=== PATIENT | female | born 1980 | race Caucasian/White ===

== ENCOUNTER 2022-06-21 16:31 | Outpatient (CLI) | payer BC, SELFPAY ==
[2022-06-21 17:43] LABS: Albumin* 4.2 g/dL (3.3-5.0); Chloride* 101 mmol/L (96-114); Sodium* 135 mmol/L (135-149)
[2022-06-21 17:44] LABS: Potassium* 4.3 mmol/L (3.6-5.1)
[2022-06-21 17:45] LABS: Cholesterol* 161 mg/dL (90-199)
[2022-06-21 17:46] LABS: Alanine Aminotransferase* 16 U/L (4-35); Alkaline Phosphatase* 60 U/L (40-150); Aspartate Amino Transferase* 20 U/L (12-35); Bilirubin Total* 0.3 mg/dL (0.1-1.5); Blood Urea Nitrogen* 11 mg/dL (5-24); Calcium* 9.1 mg/dL (8.4-10.6); Carbon Dioxide* 29 mmol/L (20-32); Creatinine* 0.6 mg/dL (0.5-1.5); Estimated Glomerular Filt Rate 116 ml/min; Glucose* 59 mg/dL (60-115); HDL Cholesterol* 70 mg/dL (>=50); LDL Cholesterol Calculated 86 mg/dL (<100); Triglycerides* 27 mg/dL (40-149)
[2022-06-22 12:17] LABS: Iron* 98 ug/dL (37-170)
[2022-06-22 12:26] LABS: Percent Iron Saturation 30 % (20-50); Total Iron Binding Capacity 332 ug/dL (265-497)
[2022-06-22 13:07] LABS: Vitamin B12* 494 pg/mL (243-894)
[2022-06-23 17:19] LABS: Ferritin* 17.2 ng/mL (6.24-137.0)
== END 2022-06-21 16:32 | disposition home or self-care (01) ==
PROVIDERS: PCP Family Medicine; Visit Provider Family Medicine
DX: Z01.419 Encounter for gynecological examination (general) (routine) without abnormal findings (principal); R53.83 Other fatigue; E10.9 Type 1 diabetes mellitus without complications; Z13.6 Encounter for screening for cardiovascular disorders
CPT/HCPCS: 80053; 80061; 82607; 82728; 83516; 83540; 83550

== ENCOUNTER 2022-06-21 17:46 | Outpatient (REF) | payer BC, SELFPAY ==
[2022-06-21 18:51] LABS: Creatinine Urine 23.3 mg/dL
[2022-06-21 18:56] LABS: Microalbumin Creatinine Ratio 40 mg/g (0-30); Microalbumin Urine < 1 mg/dL
== END 2022-06-21 17:47 | disposition home or self-care (01) ==
LOC: NPINS 17:46
PROVIDERS: PCP Family Medicine
DX: Z01.419 Encounter for gynecological examination (general) (routine) without abnormal findings (principal)
CPT/HCPCS: 82043; 82570; 84443

== ENCOUNTER 2022-09-23 07:42 | Outpatient (CLI) | payer BC, SELFPAY ==
--- OUTSIDE RECORDS SUMMARY | 2022-09-23 07:45 | XMS_ITS | Encounter Summary ---
:1980 Author Organization [place] Address [address] [place] [address] Care Team Providers Name Role Phone Mariela Salas LPN Primary Care Provider Unavailable Reason for Referral - Closed Specialty Diagnoses / Procedures Referred By Contact Refer red To Contact Cardiology Diagnoses related condition, antepartum Katy Peres MD [facility] Procedures Echo Complete-[facility] Cardiology [address] [phone] [address] [place] [address] Fax: Referral ID Status Reason Start Date Expiration Date Visits Requ ested Visits Authorized [id number] Closed 06/07/2018 06/07/2019 1 1 Reason for Visit - Closed Specialty Diagnoses / Procedures Referred By Contact Refer red To Contact Cardiology Diagnoses related condition, antepartum Katy Peres MD [facility] Procedures Echo Complete-[address] [id number] [address] [place] [address] Fax: Referral ID Status Reason Start Date Expiration Date Visits Requ ested Visits Authorized [id number] Closed 06/07/2018 06/07/2019 1 1 Encounter Details Date Type Department Care Team Description 07/25/2018 Hospital Encounter [facility] Echo/EKG Katy Peres MD [facility] [address] [place] [address] related [address] [facility] Urmfmusfet condition, [place] [address] antepart um Social History Tobacco Use Types Packs/Day Years Used Date Smoking Tobacco: Never Assessed Sex Assigned at Date Recorded Not on file documented as of this encounter Consult Notes Radha Johnson MD - 07/25/2018 10:43 AM CDT [facility] Consult Note Patient: Karin Montez Date of : 1980 Age: [age] year old Date of Visit: 07/25/2018 PCP: Mariela Salas LPN Dear Dr. Peres: I had the pleasure of seeing Karin Montez at the [facility] on 07/25/2018 in cardiology consultation today. She presented today accompanied by her mother. As you know, she is a38 year old at 20w6d who presented for echocardiogram today because of type 1 diabetes I performed and interpreted the echocardiogram today, which demonstrated normal cardiac anatomy, ventricular size and systolic function as well as normal heart rate and rhythm. I reviewed normal cardiac anatomy and hemodynamics with the family. The normal findings on today's exam were discussed. The routine limitations of echocardiography were also reviewed, namely the inability to rule out small defects of the atrial or ventricular septum, coarctation of the aorta, minor valve abnormalities, or partial anomalous pulmonary venous return. No additional echocardiograms required, unless new concerns arise. I appreciate the opportunity of participating in Karin Montez 's care. This visit was separate from the performance and interpretation of the ultrasound. The majority of the time (>50%) was spent in counseling and coordination of care. I spent approximately 20 minutes in gtqn-or-xnnk time reviewing the above considerations. Radha Sanchez MD [facility] Pediatric Cardiology [facility], 5th floor, [facility] [address] Pager # [phone] documented in this encounter Plan of Treatment Not on filedocumented as of this encounter Procedures Procedure Name Priority Date/Time Associated Diagnosis Comme nts ECHO Routine 07/25/2018 11:20 AM related Res ults for this COMPLETE* CDT condition, procedure are i n antepartum the results section. documented in this encounter Results Echo Complete-Peds Cardiology (07/25/2018 11:20 AM CDT) Anatomical Region Laterality Modality Ultrasound Specimen (Source) Anatomical Collection Method Collection Time Re ceived Time Location / / Volume Laterality 07/25/2018 10:56 AM CDT Narrative 07/25/2018 12:18 PM CDT [id number] ?Study ID: [id number] ?[facility] ?[facility] ?[address] ?[place] [address] ? Echocardiogram __ Name: KARIN MONTEZ Study Date: 07/25/2018 10:56 AM ? Patient Location: [facility] Gender: Female ?Patient Class: Outpatient : 1980 ? Age: 38 yrs Ordering Provider: KATY PERES Referring Provider: KATY PERES Performed By: Genny Ramon RDCS Reading Physician: Bebo Cuello Reason For Study: , related co ndition, antepartum Data: Number of fetuses: This is a iglesias gestation. Due date: 12/06/2018. Gestational age: 20w6d. Deli very at: [place]. Specific Indication: echocar diogram performed for maternal type 1 diabetes. Mother on insulin therapy. __ CONCLUSIONS Normal cardiac anatomy. Normal rig ht and left ventricular size and function. heart rate is regular at 143 bpm. No hydrops. The results of the echocardiogram were explained to the patient. She is aware that the study was within normal l imits with no major cardiac abnormalities. She is aware of the gener al limitations of echocardiography. __ Technical Information: The study quality is good. A complete tw o dimensional, spectral and color Doppler echocardiogram is performe d. position and segmental anatomy: The fetus in vertex position. The heart is in left chest. The cardiac apex points towards the left. There is normal atrial arrangement, with concordant atrioventricular and ventriculoarterial connections. The abdominal aorta is to the left of the spine. There is a left s ided stomach. CT ratio (circumference): 0.52. Cardiac axis: 35 degrees. Systemic and pulmonary veins: The systemic venous return is normal. At least one right and one left pulmonary veins are seen returning to th e left atrium. Atria and atrial septum: Normal right atrial size. The left atriu m is normal in size. The flap of the foramen ovale opens in to the left atriu m. There is laminar xecif-yp-ncdm shunting across the foramen ovale. Atrioventricular valves: The tricuspid valve is normal in appeara nce and motion. There is no tricuspid insufficiency. The mitral valve is danyelle l in appearance and motion. There is no mitral valve insufficiency. Ventricles and ventricular septum: Normal right ventricular size. Normal ri ght ventricular systolic function. Normal left ventricular size. Normal lef t ventricular systolic function. The end-diastolic ventricular septum thickne ss by MMODE is 2 mm. No obvious ventricular level shunting. Outflows tracts: Normal great artery relationship. The ri ght ventricular outflow tract is normal in caliber. The pulmonary valve h as normal appearance and motion. There is normal flow across the pulmonary valv e. There is unobstructed flow through the left ventricular outflow tract. The aortic valve has normal appearance and motion. There is normal flow across the aortic valve. Great arteries: The main pulmonary artery has normal adis earance. There is unobstructed flow in the main pulmonary artery. The pulmonary artery bifurcation is normal. There is unobstructed flow in both branch pulm onary arteries. The ductus arteriosus has normal appearance with normal antegr kavin flow. There is unobstructed antegrade flow in the ascending aorta. T he aortic arch appears normal. There is unobstructed antegrade flow in the ao rtic arch. Effusions and extracardiac findings: No pericardial effusion. No hydrops. cardiac rhythm: heart rate is regular at 143 bpm. Doppler: There is normal flow in the ductus venos us, umbilical artery and umbilical vein. biometry: Biparietal diameter: 4.87 cm. Head circumference: 18.36 cm. Abdominal circumference: 15.11 cm. Femur length: 3.18 cm. Estimated weight: 339 grams. echocardiography cannot rule out s mall atrial or ventricular septal defects, persistent ductus arteriosus, m ild coarctation of the aorta, partial anomalous pulmonary venous return, minor anatomic valve anomalies or coronary artery anomalies. Doppler Measurements & Calculations MV E max jayme: 32.1 cm/sec ? Ao V2 max: 52.9 cm/sec MV A max jayme: 47.9 cm/sec ? Ao max P.1 mmHg MV E/A: 0.67 PDA max sys jayme: 59.1 cm/sec __ Reading Physician: ?Radha Sanchez MD 07/25/2018 12:18 PM Procedure Note Radha Johnson MD - [id number] Study ID: [id number] [facility] [address] [address] Echocardiogram __ Name: KARIN MONTEZ Study Date: 07/25/2018 10:56 AM Patient Location: [facility] Gender: Female Patient Class: Outpatient : 1980 Age: 38 yrs Ordering Provider: KATY PERES Referring Provider: KATY PERES Performed By: Genny Ramon RDCS Reading Physician: Bebo Cuello Reason For Study: , related co ndition, antepartum Data: Number of fetuses: This is a iglesias gestation. Due date: 12/06/2018. Gestational age: 20w6d. Deli very at: [place]. Specific Indication: echocar diogram performed for maternal type 1 diabetes. Mother on insulin therapy. __ CONCLUSIONS Normal cardiac anatomy. Normal rig ht and left ventricular size and function. heart rate is regular at 143 bpm. No hydrops. The results of the echocardiogram were explained to the patient. She is aware that the study was within normal l imits with no major cardiac abnormalities. She is aware of the gener al limitations of echocardiography. __ Technical Information: The study quality is good. A complete tw o dimensional, spectral and color Doppler echocardiogram is performe d. position and segmental anatomy: The fetus in vertex position. The heart is in left chest. The cardiac apex points towards the left. There is normal atrial arrangement, with concordant atrioventricular and ventriculoarterial connections. The abdominal aorta is to the left of the spine. There is a left s ided stomach. CT ratio (circumference): 0.52. Cardiac axis: 35 degrees. Systemic and pulmonary veins: The systemic venous return is normal. At least one right and one left pulmonary veins are seen returning to th e left atrium. Atria and atrial septum: Normal right atrial size. The left atriu m is normal in size. The flap of the foramen ovale opens in to the left atriu m. There is laminar eqgej-ow-mwch shunting across the foramen ovale. Atrioventricular valves: The tricuspid valve is normal in appeara nce and motion. There is no tricuspid insufficiency. The mitral valve is danyelle l in appearance and motion. There is no mitral valve insufficiency. Ventricles and ventricular septum: Normal right ventricular size. Normal ri ght ventricular systolic function. Normal left ventricular size. Normal lef t ventricular systolic function. The end-diastolic ventricular septum thickne ss by MMODE is 2 mm. No obvious ventricular level shunting. Outflows tracts: Normal great artery relationship. The ri ght ventricular outflow tract is normal in caliber. The pulmonary valve h as normal appearance and motion. There is normal flow across the pulmonary valv e. There is unobstructed flow through the left ventricular outflow tract. The aortic valve has normal appearance and motion. There is normal flow across the aortic valve. Great arteries: The main pulmonary artery has normal adis earance. There is unobstructed flow in the main pulmonary artery. The pulmonary artery bifurcation is normal. There is unobstructed flow in both branch pulm onary arteries. The ductus arteriosus has normal appearance with normal antegr kavin flow. There is unobstructed antegrade flow in the ascending aorta. T he aortic arch appears normal. There is unobstructed antegrade flow in the ao rtic arch. Effusions and extracardiac findings: No pericardial effusion. No hydrops. cardiac rhythm: heart rate is regular at 143 bpm. Doppler: There is normal flow in the ductus venos us, umbilical artery and umbilical vein. biometry: Biparietal diameter: 4.87 cm. Head circumference: 18.36 cm. Abdominal circumference: 15.11 cm. Femur length: 3.18 cm. Estimated weight: 339 grams. echocardiography cannot rule out s mall atrial or ventricular septal defects, persistent ductus arteriosus, m ild coarctation of the aorta, partial anomalous pulmonary venous return, minor anatomic valve anomalies or coronary artery anomalies. Doppler Measurements & Calculations MV E max jayme: 32.1 cm/sec Ao V2 max: 52. 9 cm/sec MV A max jayme: 47.9 cm/sec Ao max P.1 mmHg MV E/A: 0.67 PDA max sys jayme: 59.1 cm/sec __ Reading Physician: Radha Cotton MD 07/25/2018 12:18 PM Katy Peres MD [facility] ECHO ORDERABLES documented in this encounter Visit Diagnoses Diagnosis related condition, antepartum documented in this encounter Care Teams Trade Show Coordinator Relationship Specialty Start Date End Date Mariela Salas LPN PCP - General 06/25/18 documented as of this encounter
--- OUTSIDE RECORDS SUMMARY | 2022-09-23 07:45 | XMS_ITS | Encounter Summary ---
:1980 Author Organization [place] Address [address] [facility] [address] Care Team Providers Name Role Phone Mariela Salas LPN Primary Care Provider Unavailable Reason for Visit Reason Comments Consult GC, Radiologic MFM- type 1 D M, positive AFP Ultrasound comp u/s- type 1 DM, positiv e AFP Encounter Details Date Type Department Care Team Description 07/06/2018 PRE VISIT [facility] Kennedi Nino, Cons ult (GC, Radiologic Maternal Medicine RN MFM- type 1 DM, [facility] positive AFP); [address] Ultrasound (comp u/s- [place], [place] [address] type 1 DM, positive [phone] AFP) Social History Tobacco Use Types Packs/Day Years Used Date Smoking Tobacco: Never Assessed Sex Assigned at Date Recorded Not on file documented as of this encounter Plan of Treatment Not on filedocumented as of this encounter Visit Diagnoses Not on filedocumented in this encounter Care Teams Seater Assembler Relationship Specialty Start Date End Date Mariela Salas LPN PCP - General 06/25/18 documented as of this encounter
--- OUTSIDE RECORDS SUMMARY | 2022-09-23 07:45 | XMS_ITS | Encounter Summary ---
:1980 Author Organization [place] Address [facility] [place] [address] Care Team Providers Name Role Phone Mariela Salas LPN Primary Care Provider Unavailable Justino Reilly MD Unavailable [phone] Encounter Details Date Type Department Care Team Description 05/31/2018 Orders Only [facility] Katy Mcqueen MD related Maternal FAMILY HEALTH condition, a epartum Medicine [facility] (Primary Dx) [place] [address] [facility] [address] [place], [place] [phone] Social History Tobacco Use Types Packs/Day Years Used Date Smoking Tobacco: Never Assessed Sex Assigned at Date Recorded Not on file documented as of this encounter Plan of Treatment Not on filedocumented as of this encounter Visit Diagnoses Diagnosis related condition, antepartum - Primary documented in this encounter Care Teams Box Liner Relationship Specialty Start Date End Date Mariela Salas LPN PCP - General 06/25/18 Justino Reilly MD Assigned Surgical Provider 09/11/20 2 [address] [place] [address] documented as of this encounter
--- OUTSIDE RECORDS SUMMARY | 2022-09-23 07:45 | XMS_ITS | Encounter Summary ---
:1980 Author Organization [place] Address [address] [place] [address] Care Team Providers Name Role Phone Mariela Salas LPN Primary Care Provider Unavailable Encounter Details Date Type Department Care Team Description 07/22/2020 Travel Social History Tobacco Use Types Packs/Day Years Used Date Smoking Tobacco: Never Assessed Sex Assigned at Date Recorded Not on file COVID-19 Exposure Response Date Recorded In the last month, have you been in contact with No / Unsure 07/22/2020 4:05 PM CDT someone who was confirmed or suspected to have Coronavirus / COVID-19? documented as of this encounter Plan of Treatment Not on filedocumented as of this encounter Visit Diagnoses Not on filedocumented in this encounter Care Teams Stem Sizer Relationship Specialty Start Date End Date Mariela Salas LPN PCP - General 06/25/18 documented as of this encounter
--- OUTSIDE RECORDS SUMMARY | 2022-09-23 07:45 | XMS_ITS | Encounter Summary ---
:1980 Author Organization [facility] Address [address] [place] [address] Care Team Providers Name Role Phone Mariela Salas LPN Primary Care Provider Unavailable Justino Reilly MD Unavailable [phone] Reason for Referral - Closed Specialty Diagnoses / Procedures Referred By Contact Refer red To Contact Diagnoses related condition, antepartum Katy Peres MD [facility] [address] [place] [address] Fax: Referral ID Status Reason Start Date Expiration Date Visits Requ ested Visits Authorized [id number] Closed 06/22/2018 06/22/2019 1 1 - Closed Specialty Diagnoses / Procedures Referred By Contact Refer red To Contact Cardiology Diagnoses related condition, antepartum Katy Peres MD [facility] Procedures Echo Complete-Peds Cardiology [address] [phone] [address] [place] [address] Fax: Referral ID Status Reason Start Date Expiration Date Visits Requ ested Visits Authorized [id number] Closed 06/07/2018 06/07/2019 1 1 iagnostic Imaging Ultrasound - Closed Specialty Diagnoses / Procedures Referred By Contact Refer red To Contact Diagnoses related condition, antepartum Katy Peres MD Procedures [facility] US [facility] [address] [place] [address] Fax: Referral ID Status Reason Start Date Expiration Date Visits Requ ested Visits Authorized [id number] Closed 05/31/2018 05/31/2019 1 1 - Closed Specialty Diagnoses / Procedures Referred By Contact Refer red To Contact Diagnoses related condition, antepartum Katy Peres MD [address] [address] Fax: Referral ID Status Reason Start Date Expiration Date Visits Requ ested Visits Authorized [id number] Closed 05/31/2018 05/31/2019 1 1 Encounter Details Date Type Department Care Team Description 05/31/2018 Orders Only [facility] Katy Peres MD related Maternal [facility] condition, a epartum Medicine [facility] (Primary Dx) [place] [address] [place], [place] [phone] Social History Tobacco Use Types Packs/Day Years Used Date Smoking Tobacco: Never Assessed Sex Assigned at Date Recorded Not on file documented as of this encounter Plan of Treatment Scheduled Referrals Name Type Priority Associated Diagnoses Order S chedule MFM Office Visit Referral Routine related 1 Occu rrences starting condition, antepartum 2017 until 05/31/2019 MF Genetic Counseling Referral Routine related 1 Occurrences starting condition, antepartum 2017 until 06/22/2019 documented as of this encounter Results Echo Complete-Peds Cardiology (07/25/2018 11:20 AM CDT) Anatomical Region Laterality Modality Ultrasound Specimen (Source) Anatomical Collection Method Collection Time Re ceived Time Location / / Volume Laterality 07/25/2018 10:56 AM CDT Narrative 07/25/2018 12:18 PM CDT [id number]^LARISA^KATY^Werner ?Study ID: [id number] ?[facility] ?[facility] ?[address] ?[place] [address] ? Echocardiogram __ Name: KARIN MONTEZ Study Date: 07/25/2018 10:56 AM ? Patient Location: [facility] Gender: Female ?Patient Class: Outpatient : 1980 ? Age: 38 yrs Ordering Provider: KATY PERES Referring Provider: KATY EPRES Performed By: Genny Ramon RDCS Reading Physician: Bebo Cuello Reason For Study: , related co ndition, antepartum Data: Number of fetuses: This is a iglesias gestation. Due date: 12/06/2018. Gestational age: 20w6d. Deli very at: [facility]. Specific Indication: echocar diogram performed for maternal [...] the left atriu m. There is laminar prwzo-sf-nmeg shunting across the foramen ovale. Atrioventricular valves: [...] Procedure Note Radha Johnson MD - [id number]^LARISA^KATY^T Study ID: [id number] [facility] [place] [address] Echocardiogram __ Name: KARIN MONTEZ Study Date: 07/25/2018 10:56 AM Patient Location: [facility] Gender: Female Patient Class: Outpatient : 1980 Age: 38 yrs Ordering Provider: KATY PERES Referring Provider: KATY PERES Performed By: Genny Ramon RDCS Reading Physician: Bebo Cuello Reason For Study: , related co ndition, antepartum Data: Number of fetuses: This is a iglesias gestation. Due date: 12/06/2018. Gestational age: 20w6d. Deli very at: [facility]. Specific Indication: echocar diogram performed for maternal [...] the left atriu m. There is laminar obxfa-ld-xdzx shunting across the foramen ovale. Atrioventricular valves: [...] Katy Peres MD [facility] PEDS ECHO ORDERABLES [facility] US Comprehensive Single (07/09/2018 9:58 AM CDT) Anatomical Region Laterality Modality Ultrasound Specimen (Source) Anatomical Collection Method Collection Time Re ceived Time Location / / Volume Laterality 07/09/2018 8:54 AM CDT Impressions 07/09/2018 10:11 AM CDT IMPRESSION Sonographic biometry agrees with gestati onal age predicted by LMP. The anatomy was adequately visualized and appeared normal. None of the anomalies commonly detected by ultrasound were evident. No markers for aneuploidy seen. Narrative 07/09/2018 10:11 AM CDT Comprehensive Pat. Name: GIAKARIN CHAN Study Idris e: 07/09/2018 8:54am Pat. NO: [id number] Referring ??: ABRIL PERES Site: [facility] Methods Engineer: Tammy Echavarria RDMS : 1980 Age: 38 INDICATION Pre-gestational Diabetes Type 1-insulin pump, Abnormal multiple marker: elevated MSAFP. METHOD Transabdominal ultrasound examination. Iglesias . Number of fetuses: 1. DATING ? Date ?Details ?Gest. age ?RIGO LMP ?03/01/2018 ?Cycle: regular cycle ?18 w + 4 d ? 12/06/2018 External assessment ?6/20/2 018 ?CRL, GA: 9 w + 2 d ? 18 w + 0 d ? 12/10/2018 U/S ? 07/09/2018 ? based upon AC, BPD, Femur, HC ? 18 w + 2 d ? 12/08/2018 Assigned dating ?Dating performed on 07/09/2018, based on the LMP ?18 w + 4 d ? 12/06/2018 GENERAL EVALUATION Cardiac activity: present. FHR 159 bpm. movements: visualized. Presentation: cephalic. Placenta: Placental site: posterior, no previa. Umbilical cord: 3 vessel cord. Amniotic fluid: Amount of AF: normal wendy unt. MVP 4.3 cm. DANIEL 12.4 cm. Q1 2.0 cm, Q2 4.3 cm, Q3 3.3 cm, Q4 2.8 cm. BIOMETRY Main Biometry: BPD ? 41.1 ?mm ? 18w 3d ? Hadlock OFD ? 53.4 ?mm ? 17w 6d ? Nicolaides HC ?151.7 ?mm ?18w 1d ? Hadlock AC ?131.1 ?mm ?18w 4d ? Hadlock Femur ? 25.6 ?mm ?17w 5d ? Hadlock Cerebellum tr ? 18.2 ?mm ?18w 1d ? Nicolaides CM ? 4.0 ?mm ? Nuchal fold ?3.38 ?mm ? Humerus ? 25.7 ?mm ? 18w 0d ?Lindsay Weight Calculation: EFW ? 230 ? g ? EFW (lb,oz) ? 0 lb 8 ?oz Calculated by ?Hadlock (GHJ-OC-BP-FL) Head / Face / Neck Biometry: Stock Broker ?5.5 ?mm ? Nasal bone ?5.7 ?mm ? Amniotic Fluid / FHR: AF MVP ?4.3 ? cm ? DANIEL ? 12.4 ?cm ? FHR ?159 ? bpm ? ANATOMY The following structures appear normal: Head / Neck ? Cranium. Head size. Head shape. Lateral ventricles. Choroid plexus. Midline falx. Cavum septi pellucidi. Cerebellum. Cisterna magna. ? Thalami. ? Neck. Nuchal fold. Face ? Lips. Profile. Nose. Orbits. Heart / Thorax ?4-chamber view. RVOT. LVOT. Aortic arch. Bicaval view. Ductal arch. 3-vessel view. 9-fuuvvv-qmvzexz view. Cardiac position. Cardiac size. ? Cardiac rhythm. ? Diaphragm. Abdomen ? Abdominal wall. Cord insertion. Stomach. Kidneys. Bladder. Liver. Bowel. Spine / Skelet. ? Cervical spine. Thoracic spine. Lumbar spine. Sacral spine. Extremities ?Arms. Legs. Gender: male. MATERNAL STRUCTURES Uterus ? Fibroid(s): anterior. Size 11.0 mm x 8.7 mm x 10.8 mm. Mean 10.2 mm. Vol 0.541 cm?. Cervix ?Visualized, Appears Closed. ? Approach - Transabdominal: Cervical length 45.0 mm. Right Ovary ?Not visualized. Left Ovary ?Visualized. RECOMMENDATION We discussed the findings on today's ult rasound with the patient. See consultation letter for further coun seling. Return to primary provider for continued care. Thank-you for the opportunity to partici argenis in the care of this patient. If you have questions regarding today's evaluation or if we can be of further service, please contact the [facility] Center. anomalies may be present but not detected. Procedure Note Toby Morgan MD - 09/19/2018Forma tting of this note might be different from the original. Comprehensive Pat. Name:Jo MONTEZ Date: 07/09/2018 8:54am Pat. NO: [id number] :KATY PERES [facility]RITA Del Castillo :1980Age:38 INDICATION Pre-gestational Diabetes Type 1-insulin pump, Abnormal multiple marker: elevated MSAFP. METHOD Transabdominal ultrasound examination. Iglesias . Number of fetuses: 1. DATING Date Details Gest. age RIGO LMP 03/01/2018 Cycle: regular cycle 18 w + 4 d 12/06/2018 External assessment 05/09/2018 CRL, GA: 9 w + 2 d 18 w + 0 d 12/10/2018 U/S 07/09/2018 based upon AC, BPD, Femur, HC 18 w + 2 d 12/08/2018 Assigned dating Dating performed on 06/21, based on the LMP 18 w + 4 d 12/06/2018 GENERAL EVALUATION Cardiac activity: present. FHR 159 bpm. movements: visualized. Presentation: cephalic. Placenta: Placental site: posterior, no previa. Umbilical cord: 3 vessel cord. Amniotic fluid: Amount of AF: normal wendy unt. MVP 4.3 cm. DANIEL 12.4 cm. Q1 2.0 cm, Q2 4.3 cm, Q3 3.3 cm, Q4 2.8 cm. BIOMETRY Main Biometry: BPD 41.1 mm 18w 3d Hadlock OFD 53.4 mm 17w 6d Nicolaides HC 151.7 mm 18w 1d Hadlock AC 131.1 mm 18w 4d Hadlock Femur 25.6 mm 17w 5d Hadlock Cerebellum tr 18.2 mm 18w 1d Nicolaides CM 4.0 mm Nuchal fold 3.38 mm Humerus 25.7 mm 18w 0d Lindsay Weight Calculation: EFW 230 g EFW (lb,oz) 0 lb 8 oz Calculated by Hadlock (SHI-JY-CO-FL) Head / Face / Neck Biometry: Stock Broker 5.5 mm Nasal bone 5.7 mm Amniotic Fluid / FHR: AF MVP 4.3 cm DANIEL 12.4 cm FHR 159 bpm ANATOMY The following structures appear normal: Head / Neck Cranium. Head size. Head sha pe. Lateral ventricles. Choroid plexus. Midline falx. Cavum septi pellucidi. Cerebellum. Cisterna magna. Thalami. Neck. Nuchal fold. Face Lips. Profile. Nose. Orbits. Heart / Thorax 4-chamber view. RVOT. LVO T. Aortic arch. Bicaval view. Ductal arch. 3-vessel view. 2-bsfofz-nnmoror view. Cardiac position. Cardiac size. Cardiac rhythm. Diaphragm. Abdomen Abdominal wall. Cord insertion. Stomach. Kidneys. Bladder. Liver. Bowel. Spine / Skelet. Cervical spine. Thoracic spine. Lumbar spine. Sacral spine. Extremities Arms. Legs. Gender: male. MATERNAL STRUCTURES Uterus Fibroid(s): anterior. Size 11.0 m m x 8.7 mm x 10.8 mm. Mean 10.2 mm. Vol 0.541 cm?. Cervix Visualized, Appears Closed. Approach - Transabdominal: Cervical claudy gth 45.0 mm. Right Ovary Not visualized. Left Ovary Visualized. RECOMMENDATION We discussed the findings on today's ult rasound with the patient. See consultation letter for further coun seling. Return to primary provider for continued care. Thank-you for the opportunity to partici argenis in the care of this patient. If you have questions regarding today's evaluation or if we can be of further service, please contact the [facility] Center. anomalies may be present but not detected. IMPRESSION Sonographic biometry agrees with gestati onal age predicted by LMP. The anatomy was adequately visualized and appeared normal. None of the anomalies commonly detected by ultrasound were evident. No markers for aneuploidy seen. Katy Peres MD [facility] US ORDERABLES documented in this encounter Visit Diagnoses Diagnosis related condition, antepartum - Primary related condition, antepartum related condition, antepartum documented in this encounter Care Teams Orthotic Aide Relationship Specialty Start Date End Date Mariela Salas LPN PCP - General 06/25/18 Justino Reilly MD Assigned Surgical Provider 09/11/20 [address] [place] [address] documented as of this encounter
--- OUTSIDE RECORDS SUMMARY | 2022-09-23 07:45 | XMS_ITS | Encounter Summary ---
:1980 Author Organization [facility] Address [address] [place] [address] Care Team Providers Name Role Phone Mariela Salas LPN Primary Care Provider Unavailable Justino Reilly MD Unavailable Reason for Referral - Closed Specialty Diagnoses / Procedures Referred By Contact Refer red To Contact Diagnoses related condition, antepartum Katy Mcqueen MD [facility] [address] [place] [address] Fax: Referral ID Status Reason Start Date Expiration Date Visits Requ ested Visits Authorized [id number] Closed 05/28/2018 05/28/2019 1 1 Encounter Details Date Type Department Care Team Description 05/28/2018 Orders Only [facility] Katy Mcqueen MD related Maternal [facility] (Primary Dx) [place] [address] [facility] [address] [place], [place] [address] [address] [place], [place] [phone] (Work) [phone] Social History Tobacco Use Types Packs/Day Years Used Date Smoking Tobacco: Never Assessed Sex Assigned at Date Recorded Not on file documented as of this encounter Plan of Treatment Scheduled Referrals Name Type Priority Associated Diagnoses Order S chedule [facility] Referral Routine related 1 Occ urrences starting REFERRAL- condition, antepartum 05/28/2018 until 11/24/2018 documented as of this encounter Visit Diagnoses Diagnosis related condition, antepartum - Primary documented in this encounter Care Teams Licensed Architect Relationship Specialty Start Date End Date Mariela Salas LPN PCP - General 06/25/18 Justino Reilly MD Assigned Surgical Provider 09/11/20 2 [address] [place] [address] documented as of this encounter
--- OUTSIDE RECORDS SUMMARY | 2022-09-23 07:45 | XMS_ITS | Encounter Summary ---
:1980 Author Organization [facility] Address [address] [place] [address] Care Team Providers Name Role Phone Mariela Salas LPN Primary Care Provider Unavailable Reason for Referral Diagnostic Imaging Ultrasound - Closed Specialty Diagnoses / Procedures Referred By Contact Refer red To Contact Diagnoses related condition, antepartum Katy Peres MD Procedures [facility] [address] [place] [address] Fax: Referral ID Status Reason Start Date Expiration Date Visits Requ ested Visits Authorized [id number] Closed 05/31/2018 05/31/2019 1 1 Reason for Visit Diagnostic Imaging Ultrasound - Closed Specialty Diagnoses / Procedures Referred By Contact Refer red To Contact Diagnoses related condition, antepartum Katy Peres MD Procedures [facility] [address] [place] [address] Fax: Referral ID Status Reason Start Date Expiration Date Visits Requ ested Visits Authorized [id number] Closed 05/31/2018 05/31/2019 1 1 Encounter Details Date Type Department Care Team Description 07/09/2018 Hospital Encounter [facility] Kimber Peres MD [facility] [address] [place] [address] related Maternal Toby Morgan MD [address] [id number] condition, Medicine Center antepartum Chloe [address] [place] [address] Social History Tobacco Use Types Packs/Day Years Used Date Smoking Tobacco: Never Assessed Sex Assigned at Date Recorded Not on file documented as of this encounter Plan of Treatment Not on filedocumented as of this encounter Procedures Procedure Name Priority Date/Time Associated Comments Diagnosis [facility] US COMPREHENSIVE Routine 07/09/2018 9:58 AM rela ginna Results for this SINGLE CDT condition, procedure are i n antepartum the results section. documented in this encounter Results [facility] US Comprehensive Single (07/09/2018 9:58 AM [...] 07/09/2018 10:11 AM CDT Comprehensive Pat. Name: KARIN MONTEZ Study Idris e: 07/09/2018 8:54am Pat. NO: [id number] Referring ??: ABRIL PERES Site: [facility] Neck Band Maker: Tammy Echavarria RDMS : 1980 Age: 38 INDICATION Pre-gestational Diabetes Type 1-insulin pump, Abnormal multiple marker: elevated MSAFP. METHOD Transabdominal ultrasound examination. Mayer . Number of fetuses: 1. DATING ? [...] 0 lb 8 ?oz Calculated by ?Hadlock (ITO-YJ-BA-FL) Head / Face / Neck Biometry: Freelance Art Director ?5.5 ?mm ? Nasal bone ?5.7 ?mm [...] arch. Bicaval view. Ductal arch. 3-vessel view. 8-rofbig-daklhnz view. Cardiac position. Cardiac size. ? Cardiac [...] be different from the original. Comprehensive Pat. Name:ISAIAS MONTEZShayy Date: 07/09/2018 8:54am Pat. NO: [id number] :KATY PERES [facility]her:RITA Del Castillo :1980Age:38 INDICATION Pre-gestational Diabetes Type 1-insulin pump, Abnormal multiple marker: elevated MSAFP. METHOD Transabdominal ultrasound examination. Mayer . Number of fetuses: 1. DATING Date [...] (lb,oz) 0 lb 8 oz Calculated by Mercedes (VZO-HH-MY-CT) Head / Face / Neck Biometry: Freelance Art Director 5.5 mm Nasal bone 5.7 mm Amniotic [...] arch. Bicaval view. Ductal arch. 3-vessel view. 5-itwfab-fvekmzl view. Cardiac position. Cardiac size. Cardiac rhythm. [...] care. Thank-you for the opportunity to partici more in the care of this patient. If [...] markers for aneuploidy seen. Katy Peres MD [facility] US ORDERABLES documented in this encounter Visit Diagnoses Diagnosis related condition, antepartum documented in this encounter Care Teams Gauge Maker Relationship Specialty Start Date End Date Mariela Salas LPN PCP - General 06/25/18 documented as of this encounter
--- OUTSIDE RECORDS SUMMARY | 2022-09-23 07:45 | XMS_ITS | Encounter Summary ---
:1980 Author Organization [facility] Address [address] [place] [address] Care Team Providers Name Role Phone Mariela Salas LPN Primary Care Provider Unavailable Encounter Details Date Type Department Care Team Description 07/23/2020 Travel Social History Tobacco Use Types Packs/Day Years Used Date Smoking Tobacco: Never Smokeless Tobacco: Never Sex Assigned at Date Recorded Not on file COVID-19 Exposure Response Date Recorded In the last month, have you been in contact with No / Unsure 07/23/2020 2:10 PM CDT someone who was confirmed or suspected to have Coronavirus / COVID-19? documented as of this encounter Plan of Treatment Not on filedocumented as of this encounter Visit Diagnoses Not on filedocumented in this encounter Care Teams Director Of Epidemiology Relationship Specialty Start Date End Date Mariela Salas LPN PCP - General 06/25/18 documented as of this encounter
--- OUTSIDE RECORDS SUMMARY | 2022-09-23 07:45 | XMS_ITS | Encounter Summary ---
:1980 Author Organization [facility] Address [address] [place] [address] Care Team Providers Name Role Phone Mariela Salas LPN Primary Care Provider Unavailable Reason for Visit Reason Comments Genetic Counseling Abnormal Maternal Serum AFP - Closed Specialty Diagnoses / Procedures Referred By Contact Refer red To Contact Diagnoses related condition, antepartum Katy cMqueen MD [facility] [address] [place] [address] Fax: Referral ID Status Reason Start Date Expiration Date Visits Requ ested Visits Authorized [id number] Closed 06/22/2018 06/22/2019 1 1 Encounter Details Date Type Department Care Team Description 07/09/2018 Office Visit [facility] Katy Mcqueen MD [facility] [address] [place] [address] Abnormal biochemical finding on antenata l screening of mother (Primary Dx); Maternal Toby Morgan MD [address] [id number] related condition, antepartum; Medicine Center Morales Noel [facility] [address] [address] Supervision of elderly multigravida in s econd trimester [place] [address] [place] [address] Social History Tobacco Use Types Packs/Day Years Used Date Smoking Tobacco: Never Assessed Sex Assigned at Date Recorded Not on file documented as of this encounter Progress Notes Morales Noel, GC - 07/09/2018 8:45 AM CDT [facility] [place] Genetic Counseling Consult Patient: Karin Mcmillan Date of : 1980 Date of Service: 07/09/18 Karin Mcmillan was seen at the [facility] [place] for genetic consultation as part of her appointment for comprehensive ultrasound. The indication for genetic counseling is abnormal maternal serum screen, increased risk for open neural tube defect. Impression/Plan: 1. Karin had a maternal serum AFP which was screen positive, increased risk for open neural tubedefects. Post test risk was 1/169. 2. Karin had a cell-free DNA test earlier in , which was normal. 3. Karin had a comprehensive (level II) ultrasound today the results of which were normal. Please see the ultrasound report for further details. 4. The patient declines genetic amniocentesis and additional maternal serum screening today. History: /Parity: Age at Delivery: 38 year old RIGO: 12/06/2018, by Last Menstrual Period Gestational Age: 18w4d ??? No significant complications or exposures were reported in the current . ??? Karin???s history is significant for 2 prior miscarriages with no known cause. Medical History: Karin???s reported medical history is not expected to impact management or risks to development. Discussion: The indication for Karin's appointment today was her positive maternal serum AFP, which increased the risks for her ongoing to be affected with an open neural tube defect to 1/169. Her pre test risk was 1/258. We discussed that the AFP test is designed to identify pregnancies that are athigher risk for being affected with these conditions, and that it not a definitive assessment. We discussed that the test works by assessing blood levels of a specific protein, AFP, which is being produced by the fetus and comparing that level to the expected average for that point during the . We discussed that some pregnancies have higher than average AFP and that may be normal for that spe cific , and not indicative of any specific concerns. Karin's partner had multiple questions regarding the types of open neural tube defects, the severity, and prognosis for these conditions. However, Karin requested that our conversation be kept as brief as possible so that her ultrasound could start as quickly as possible. Our conversation was halted to begin her exam with the plan of continuing our discussion as needed after her ultrasound. Today's ultrasound noted no concerning findings and Karin declined to meet with genetic counseling after her conversation with Dr. Morgan. Risk Assessment for Chromosome Conditions: We explained that the risk for chromosome abnormalities increases with maternal age. We discussed specific features of common chromosome abnormalities, including Down syndrome, trisomy 13, trisomy 18, and sex chromosome trisomies. ??? Karin had maternal serum screening earlier in . Non-invasive Testing (NIPT) ??? Maternal plasma cell-free DNA testing ??? Screens for trisomy 21, trisomy 13, trisomy 18, and sex chromosome aneuploidy ??? First trimester ultrasound with nuchal translucency and nasal bone assessment was not performed in this , to our knowledge. ??? Karin had a CtyeeklC28 test earlier in ; we reviewed the results today, which are normal for chromosome 13, chromosome 18 and chromosome 21 (no aneuploidy detected) ??? Given the accuracy of this test, these results greatly decrease the chance for certain chromosome abnormalities ??? We discussed the limitations of normal NIPT results It was a pleasure to be involved with Karin???s care. Jsrb-ph-efzo time of the meeting was 20 minutes. Morales Noel MS, [facility] Licensed Genetic Counselor Pager: [phone] documented in this encounter Plan of Treatment Not on filedocumented as of this encounter Visit Diagnoses Diagnosis Abnormal biochemical finding on antenata l screening of mother - Primary Abnormal findings on screening related condition, antepartum Supervision of elderly multigravida in s econd trimester Supervision of high-risk of jocelyn cuevaly multigravida documented in this encounter Care Teams Development Director Relationship Specialty Start Date End Date Mariela Salas LPN PCP - General 06/25/18 documented as of this encounter
--- OUTSIDE RECORDS SUMMARY | 2022-09-23 07:45 | XMS_ITS | Clinical Summary ---
:1980 Author Organization [facility] [place] [address] Care Team Providers Name Role Phone Clinic, No Pcp Or Primary Care Provider Unavailable Allergies No known active allergies Medications Medication Sig Dispensed Refills Start Date End Date Status insulin aspart Inject 28-42 Units 0 08/03/2017 Active (NOVOLOG) 100 unit/mL subcutaneous. injection Active Problems Not on file Social History Tobacco Use Types Packs/Day Years Used Date Never Assessed Sex Assigned at Date Recorded Not on file Last Filed Vital Signs Vital Sign Reading Time Taken Comments Blood Pressure 108/72 08/16/2017 3:51 PM CDT Pulse 70 08/16/2017 3:51 PM CDT Temperature - - Respiratory Rate - - Oxygen Saturation 98% 08/16/2017 3:51 PM CDT Inhaled Oxygen Concentration - - Weight - - Height - - Body Mass Index - - Plan of Treatment Health Maintenance Due Date Last Done Comments COVID-19 vaccine series (#1) 1982 Tdap 1993 Depression screening for age 12+ 1994 BMI (ht and wt on same day) for age 0301/27/2000 18+ Hepatitis C screening for age 18-79 01/27/2000 Tetanus booster 2002 Pap test for age 21-65 04/19/2021 04/19/2018, 04/19/2018, 04/25/2014 Influenza for age 9-49 07/21/2022 Results Not on filefrom Last 3 Months Insurance Payer Benefit Plan / Subscriber ID Effective Dates Phone Addre ss Type Group BLUE CROSS BLUE CROSS OF [id number] 2017-Present [address] [place] [address] Care Teams Stave Log Ripsaw Operator Relationship Specialty Start Date End Date Clinic, No Pcp Or PCP - General 08/14/17 .
--- OUTSIDE RECORDS SUMMARY | 2022-09-23 07:45 | XMS_ITS | Encounter Summary ---
:1980 Author Organization [place] Address [address] [place] [address] Care Team Providers Name Role Phone Mariela Salas LPN Primary Care Provider Unavailable Justino Reilly MD Unavailable [phone] Reason for Referral Diagnostic Imaging Ultrasound - Closed Specialty Diagnoses / Procedures Referred By Contact Refer red To Contact Diagnoses related condition, antepartum Luis Alfredo Kim Procedures [facility] F/U [facility] [address] [place] [address] Referral ID Status Reason Start Date Expiration Date Visits Requ ested Visits Authorized [id number] Closed 09/17/2018 09/17/2019 1 1 - Closed Specialty Diagnoses / Procedures Referred By Contact Refer red To Contact Diagnoses related condition, antepartum Luis Alfredo Kim [facility] [address] [place] [address] Referral ID Status Reason Start Date Expiration Date Visits Requ ested Visits Authorized [id number] Closed 09/17/2018 09/17/2019 1 1 Encounter Details Date Type Department Care Team Description 09/17/2018 Orders Only [facility] Lilia Davis, related Maternal Luis Alfredo Webb condition, antepartum Medicine Center [facility] (Primary Dx ) [facility] [address] [facility] [address] [place] [phone] Social History Tobacco Use Types Packs/Day Years Used Date Smoking Tobacco: Never Assessed Sex Assigned at Date Recorded Not on file documented as of this encounter Plan of Treatment Scheduled Referrals Name Type Priority Associated Diagnoses Order S [facility] Referral Routine related Order ed: 09/17/2018 REFERRAL- condition, antepartum documented as of this encounter Results [facility] US Comprehensive Single F/U (09/19/2018 3:45 PM CDT) Anatomical Region Laterality Modality Ultrasound Specimen (Source) Anatomical Collection Method Collection Time Re ceived Time Location / / Volume Laterality 09/19/2018 3:11 PM CDT Impressions 09/19/2018 3:52 PM CDT IMPRESSION 1) Intrauterine at 28+6 weeks gestational age. 2) None of the anomalies commonly detect ed by ultrasound were evident in the detailed anatomic survey described above. 3) Growth parameters and estimated weight were consistent with an appropriate for gestation age pattern of growth. 4) The amniotic fluid volume appeared no rmal. Narrative 09/19/2018 3:52 PM CDT Comp Follow Up Pat. Name: KARIN MCMILLAN Idris e: 09/19/2018 3:11pm Pat. NO: [id number] Referring ??MD: SRINATH VALENTE Site: [facility] Claims Assistant: Ana Paula Conte RD MS : 1980 Age: 38 INDICATION Pre-gestational Diabetes Type 1. SGA on outside US. METHOD Transabdominal ultrasound examination. V iew: Sufficient Mayer . Number of fetuses: 1 DATING ? Date ?Details ?Gest. age ?RIGO LMP ?03/01/2018 ?Cycle: regular cycle ?28 w + 6 d ? 12/06/2018 Prior assessment ? / ? CRL, GA: 9 w + 2 d ?28 w + 2 d ? 12/10/2018 U/S ? 09/19/2018 ? based upon AC, BPD, Femur, HC ?29 w + 1 d ? 12/04/2018 Assigned dating ?Dating performed on 07/09/2018, based on the LMP ?28 w + 6 d ? 12/06/2018 GENERAL EVALUATION Cardiac activity present. FHR 134 bpm. movements visualized, present. Presentation cephalic. Placenta posterior, no previa. Umbilical cord 3 vessel cord3 vessel cord Amniotic fluid Amount of AF: normal. MVP 5.5 cm. DANIEL 18.9 cm. Q1 5.3 cm, Q2 4.5 cm, Q3 3.6 cm, Q4 5.5 cm. BIOMETRY Main Biometry: BPD ?72.7 ?mm ? 29w 1d ?Hadlock OFD ?97.2 ?mm ? 28w 5d ?Nicolaides HC ?275.8 ?mm ?30w 1d ?Hadlock Cerebellum tr ?31.9 ? mm ?27w 6d ?Nicolaides AC ?250.6 ?mm ?29w 2d ?Hadlock Femur ?52.3 ? mm ?27w 6d ?Hadlock Humerus ?48.6 ?mm ? 28w 4d ?[place]say Weight Calculation: EFW ? 1,300 ?g ? 52% ? Ag EFW (lb,oz) ? 2 lb 14 ? oz EFW by ?[facility] ([id number]) Head / Face / Neck Biometry: Envelope Sealing Machine Operator ? 6.5 ? mm CM ?10.9 ? mm ANATOMY The following structures appear normal: Head / Neck ? Cranium. Head size. Head shape. Lateral ventricles. Midline falx. Cavum septi pellucidi. Cisterna magna. Thalami. Face ? Profile. Heart / Thorax ?4-chamber view. RVOT view. LVOT view. Aortic arch view. Ductal arch view. Abdomen ? Abdominal wall. Stomach: Stomach size and situs appear normal. Kidneys. Bladder: Bladder appears normal in size and shape. Genitals. Spine ?Cervical spine. Thoracic spine. Lumbar spine. Sacral spine. Gender: male. MATERNAL STRUCTURES Cervix ?Visualized ? Cervical length 50.9 mm Right Ovary ?Not examined Left Ovary ?Not examined RECOMMENDATION We discussed the findings on today's ult rasound with the patient. A repeat ultrasound has been scheduled i n 4 weeks to reevaluate growth with twice weekly BPPs starting at 32 weeks for Type I DM. We presume this will be done in your office. If you would prefer future ultrasounds be done in the Maternal- Medicine clinic, please let us know., Return to primary provider for continued care., Thank-you for the opportunity to partici argenis in the care of this patient. If you have questions regarding today's evaluation or if we can be of further service, please contact the Maternal- Medicine Center. anomalies may be present but not detected Procedure Note Francesca Atkins DO - 09/19/2018Format ting of this note might be different from the original. Comp Follow Up Pat. Name:AMY MCMILLANAStudluz Date: 09/19/2018 3:11pm Pat. NO: [id number] MD:LUIS ALFREDO MURCIA MONTICELLO [facility]Ana Paula Conte RDMS :1980Age:38 INDICATION Pre-gestational Diabetes Type 1. SGA on outside US. METHOD Transabdominal ultrasound examination. V iew: Sufficient Mayer . Number of fetuses: 1 DATING Date Details Gest. age RIGO LMP 03/01/2018 Cycle: regular cycle 28 w + 6 d 12/06/2018 Prior assessment 05/09/2018 CRL, GA: 9 w + 2 d 28 w + 2 d 12/10/2018 U/S 09/19/2018 based upon AC, BPD, Femur , HC 29 w + 1 d 12/04/2018 Assigned dating Dating performed on 06/21, based on the LMP 28 w + 6 d 12/06/2018 GENERAL EVALUATION Cardiac activity present. FHR 134 bpm. movements visualized, present. Presentation cephalic. Placenta posterior, no previa. Umbilical cord 3 vessel cord3 vessel cord Amniotic fluid Amount of AF: normal. MVP 5.5 cm. DANIEL 18.9 cm. Q1 5.3 cm, Q2 4.5 cm, Q3 3.6 cm, Q4 5.5 cm. BIOMETRY Main Biometry: BPD 72.7 mm 29w 1d Hadlock OFD 97.2 mm 28w 5d Nicolaides HC 275.8 mm 30w 1d Hadlock Cerebellum tr 31.9 mm 27w 6d Nicolaides AC 250.6 mm 29w 2d Hadlock Femur 52.3 mm 27w 6d Hadlock Humerus 48.6 mm 28w 4d Lindsay Weight Calculation: EFW 1,300 g 52% Ag EFW (lb,oz) 2 lb 14 oz EFW by [facility] ([id number]) Head / Face / Neck Biometry: Envelope Sealing Machine Operator 6.5 mm CM 10.9 mm ANATOMY The following structures appear normal: Head / Neck Cranium. Head size. Head sha pe. Lateral ventricles. Midline falx. Cavum septi pellucidi. Cisterna magna. Thalami. Face Profile. Heart / Thorax 4-chamber view. RVOT view . LVOT view. Aortic arch view. Ductal arch view. Abdomen Abdominal wall. Stomach: Stomach size and situs appear normal. Kidneys. Bladder: Bladder appears normal in size and shape. Genitals. Spine Cervical spine. Thoracic spine. Mimi mbar spine. Sacral spine. Gender: male. MATERNAL STRUCTURES Cervix Visualized Cervical length 50.9 mm Right Ovary Not examined Left Ovary Not examined RECOMMENDATION We discussed the findings on today's nelson crow with the patient. A repeat ultrasound has been scheduled i n 4 weeks to reevaluate growth with twice weekly BPPs starting at 32 weeks for Type I DM. We presume this will be done in your office. If you would prefer future ultrasounds be done in the Maternal- Medicine clinic, please let us know., Return to primary provider for continued care., Thank-you for the opportunity to partici more in the care of this patient. If you have questions regarding today's evaluation or if we can be of further service, please contact the Maternal- Medicine Center. anomalies may be present but not detected IMPRESSION 1) Intrauterine at 28+6 weeks gestational age. 2) None of the anomalies commonly detect ed by ultrasound were evident in the detailed anatomic survey described above. 3) Growth parameters and estimated weight were consistent with an appropriate for gestation age pattern of growth. 4) The amniotic fluid volume appeared no rmal. Luis Alfredo Davis [facility] US ORDERABLES documented in this encounter Visit Diagnoses Diagnosis related condition, antepartum - Primary related condition, antepartum documented in this encounter Care Teams Business Banking Sales Assistant Relationship Specialty Start Date End Date Mariela Salas LPN PCP - General 06/25/18 Justino Reilly MD Assigned Surgical Provider 09/11/20 2 [address] [place] [address] documented as of this encounter
--- OUTSIDE RECORDS SUMMARY | 2022-09-23 07:45 | XMS_ITS | Encounter Summary ---
:1980 Author Organization [place] Address [address] [facility] [place] [address] Care Team Providers Name Role Phone Mariela Salas LPN Primary Care Provider Unavailable Reason for Visit Reason Comments Ultrasound Type 1 DM, SGA based on outs dave scan Encounter Details Date Type Department Care Team Description 09/19/2018 Office Visit [facility] Noris Kim [facility] [address] [place] [address] Suspected problem with growth not found (Primary Dx); Maternal Francesca Atkins DO [address] [place], [place] [address] Type 1 diabetes mellitus in , t hird trimester Medicine Center [place] [address] [facility] [address] [place] [address] Social History Tobacco Use Types Packs/Day Years Used Date Smoking Tobacco: Never Assessed Sex Assigned at Date Recorded Not on file documented as of this encounter Progress Notes Francesca Atkins DO - 09/19/2018 3:30 PM CDT Please see Imaging tab under Chart Review for details of today's . Francesca Atkins DO Maternal- Medicine documented in this encounter Plan of Treatment Not on filedocumented as of this encounter Visit Diagnoses Diagnosis Suspected problem with growth not found - Primary Type 1 diabetes mellitus in , t hird trimester documented in this encounter Care Teams Insole Channeler Relationship Specialty Start Date End Date Mariela Salas LPN PCP - General 06/25/18 documented as of this encounter
--- OUTSIDE RECORDS SUMMARY | 2022-09-23 07:45 | XMS_ITS | Encounter Summary ---
:1980 Author Organization [place] Address [address] [place] [address] Care Team Providers Name Role Phone Mariela Salas LPN Primary Care Provider Unavailable Reason for Visit Reason Comments Genetic Counseling GC - screen positive for NTD , elevated AFP, type 1 DM Ultrasound L2- screen positive for NTD, elevated AFP, type 1 DM - Closed Specialty Diagnoses / Procedures Referred By Contact Refer red To Contact Diagnoses related condition, antepartum Katy Mcqueen MD [facility] [address] [place] [address] Fax: Referral ID Status Reason Start Date Expiration Date Visits Requ ested Visits Authorized [id number] Closed 05/31/2018 05/31/2019 1 1 Encounter Details Date Type Department Care Team Description 07/09/2018 Office Visit [facility] Katy Mcqueen MD [facility] [address] [place] [address] Type 1 diabetes Maternal Toby Morgan MD [address] [place] [address] mellitus affecting Medicine Center in second [facility] trimester, antepartum [address] [place], [place] [address] Social History Tobacco Use Types Packs/Day Years Used Date Smoking Tobacco: Never Assessed Sex Assigned at Date Recorded Not on file documented as of this encounter Progress Notes Toby Morgan MD - 07/09/2018 10:15 AM CDT Maternal Medicine Consultation Dear Dr. Mcqueen, Thank you for referring Karin Mcmillan for a consultation for Type 1 DM. Total time spent in counseling was 15 minutes (>50% for medical management discussion and plan of care). A copy of the consult was set to your office. The patient is a 38 yo at 18w4d with type 1 diabetes. She has had excellent control using an insulin pump. Her recent HgbA1c is 5.9. She does have baseline proteinuria of 350 mg. She has a normal creatinine, no hypertension, retinopathy, or neuropathy. She is followed by [facility] and is seen monthly. Her PMHx is otherwise remarkable for a broken arm as a child and a D&C. She has no thyroid dysfunction. She took ASA preconceptionally and is still taking ASA 81 mg daily. We reviewed that she has excellent diabetes control and that this could worsen due increasing insulin resistance. She has good follow-up with her hand ii tube bender to make timely adjustments in her insulin dosing. She is aware of the goals for control of FBS < 95 and 1 hour PP < 140. She does havean increased risk for hypertensive disorders of and we would recommend that she continue her ASA. We also discussed the followin) echo at 20 - 22 weeks. 2) growth assessment every 4 weeks 3) testing 2 x weekly to begin at 32 weeks. 4) Delivery at 39 weeks or earlier if poor control or other co-morbidity. Please see Imaging tab under Chart Review for details of today's US at the [facility]. Toby Morgan MD Maternal- Medicine documented in this encounter Plan of Treatment Not on filedocumented as of this encounter Visit Diagnoses Diagnosis Type 1 diabetes mellitus affecting pregn shashank in second trimester, antepartum documented in this encounter Care Teams Drama Teacher Relationship Specialty Start Date End Date Mariela Salas LPN PCP - General 06/25/18 documented as of this encounter
--- OUTSIDE RECORDS SUMMARY | 2022-09-23 07:45 | XMS_ITS | Encounter Summary ---
:1980 Author Organization [place] Address [address] [place] [address] Care Team Providers Name Role Phone Mariela Salas LPN Primary Care Provider Unavailable Reason for Referral Diagnostic Imaging Ultrasound - Closed Specialty Diagnoses / Procedures Referred By Contact Refer red To Contact Diagnoses related condition, antepartum Luis Alfredo Kim Procedures [facility] [address] [place] [address] Referral ID Status Reason Start Date Expiration Date Visits Requ ested Visits Authorized [id number] Closed 09/17/2018 09/17/2019 1 1 Reason for Visit Diagnostic Imaging Ultrasound - Closed Specialty Diagnoses / Procedures Referred By Contact Refer red To Contact Diagnoses related condition, antepartum Luis Alfredo Kim Procedures [facility] [address] [place] [address] Referral ID Status Reason Start Date Expiration Date Visits Requ ested Visits Authorized [id number] Closed 09/17/2018 09/17/2019 1 1 Encounter Details Date Type Department Care Team Description 09/19/[address] [facility] Luis Alfredo Kim [facility] [address] [place] [address] related Maternal Francesca Atkins DO [address] [place], [place] [address] condition, Medicine Center antepartum [place] [address] [facility] [address] [place] [address] Social History Tobacco Use Types Packs/Day Years Used Date Smoking Tobacco: Never Assessed Sex Assigned at Date Recorded Not on file documented as of this encounter Plan of Treatment Not on filedocumented as of this encounter Procedures Procedure Name Priority Date/Time Associated Comments Diagnosis [facility] US COMPREHENSIVE Routine 09/19/2018 3:45 PM rela ginna Results for this SINGLE F/U CDT condition, procedure are i n antepartum the results section. documented in this encounter Results [facility] US Comprehensive Single F/U (09/19/2018 3:45 [...] PM CDT Comp Follow Up Pat. Name: ANDEREGG, KARIN Study Idris e: 09/19/2018 3:11pm Pat. NO: [id number] Referring ??: SRINATH VALENTE Site: [facility] General Assembler: Ana Paula Conte RD MS : 1980 Age: 38 INDICATION Pre-gestational Diabetes Type 1. SGA on outside US. METHOD Transabdominal ultrasound examination. V iew: Sufficient Mayer . Number of fetuses: 1 DATING ? Date ?Details ?Gest. age ?RIGO LMP ?03/01/2018 ?Cycle: regular cycle ?28 w + 6 d ? 12/06/2018 Prior assessment ? CRL, GA: 9 w + 2 [...] 2 lb 14 ? oz EFW by ?[facility] ([id number]) Head / Face / Neck Biometry: Screen Tacker ? 6.5 ? mm CM ?10.9 ? [...] present but not detected Procedure Note Francesca Atkins, - 09/19/2018Format ting of this note might be different from the original. Comp Follow Up Pat. Name:ISAIAS MCMILLANShayy Date: 09/19/2018 3:11pm Pat. NO: [id number] MD:LUIS ALFREDO Leiva [facility] Site:Linagrapher:Ana Paula Conte RDMS :1980Age:38 INDICATION Pre-gestational Diabetes [...] 2 lb 14 oz EFW by Hadlock ([id number]) Head / Face / Neck Biometry: Screen Tacker 6.5 mm CM 10.9 mm ANATOMY The [...] volume appeared no rmal. Luis Alfredo Davis [facility] US ORDERABLES documented in this encounter Visit Diagnoses Diagnosis related condition, antepartum documented in this encounter Care Teams Landscape Architect And Planner Relationship Specialty Start Date End Date Mariela Salas LPN PCP - General 06/25/18 documented as of this encounter
--- OUTSIDE RECORDS SUMMARY | 2022-09-23 07:45 | XMS_ITS | Encounter Summary ---
:1980 Author Organization [place] Address [address] [place] [address]. [place] [address] Care Team Providers Name Role Phone Mariela Salas LPN Primary Care Provider Unavailable Encounter Details Date Type Department Care Team Description 09/17/2018 [facility] AUTO TRAVEL COUNSELOR SERVICE Health Info Mgmt Non-Provider REQUEST Bebo [facility] [address] [place] [address] Social History Tobacco Use Types Packs/Day Years Used Date Smoking Tobacco: Never Assessed Sex Assigned at Date Recorded Not on file documented as of this encounter Plan of Treatment Not on filedocumented as of this encounter Visit Diagnoses Not on filedocumented in this encounter Care Teams Foamite Mixer Relationship Specialty Start Date End Date Mariela Salas LPN PCP - General 06/25/18 documented as of this encounter
--- OUTSIDE RECORDS SUMMARY | 2022-09-23 07:45 | XMS_ITS | Encounter Summary ---
:1980 Author Organization [place] Address [address] [place] [address] Care Team Providers Name Role Phone Mariela Salas LPN Primary Care Provider Unavailable Reason for Visit Reason Comments Consult GC/ MFM - Type 1 DM, positiv e AFP Ultrasound Comp - Type 1 DM, positive A FP Encounter Details Date Type Department Care Team Description 07/05/2018 PRE VISIT [facility] Genna Callahan, Da t (GC/ MFM - Type Maternal Medicine RN 1 DM , positive AFP); [facility] Ultrasound (Comp - Type [address] 1 DM, positive AFP) [place], [place] [address] Social History Tobacco Use Types Packs/Day Years Used Date Smoking Tobacco: Never Assessed Sex Assigned at Date Recorded Not on file documented as of this encounter Plan of Treatment Not on filedocumented as of this encounter Visit Diagnoses Not on filedocumented in this encounter Care Teams Natural Remedy Consultant Relationship Specialty Start Date End Date Mariela Salas LPN PCP - General 06/25/18 documented as of this encounter
--- OUTSIDE RECORDS SUMMARY | 2022-09-23 07:46 | XMS_ITS | Encounter Summary ---
:1980 Author Organization [facility] Address [address] [place] [address] Care Team Providers Name Role Phone Non Pn, Clinician Primary Care Provider Unavailable Encounter Details Date Type Department Care Team Description 08/23/2022 Orders Only HIM DEPARTMENT Provider, Maribell ev[place] [address] Social History Tobacco Use Types Packs/Day Years Used Date Smoking Tobacco: Never Smokeless Tobacco: Never Alcohol Use Standard Drinks/Week Comments No 0 (1 standard drink = 0.6 oz pure alcoho l) Sex Assigned at Date Recorded Not on file documented as of this encounter Plan of Treatment Upcoming Encounters Date Type Specialty Care Team Description 11/01/2022 Appointment Endocrinology Althea Kelley, SURGICAL SPECIALIST, CONSTRUCTION TRADES CONTRACTOR [address] [facility] N [address] (Wo rk) 12/27/2022 Appointment Endocrinology Ayde Warren MBBS [address] [place] [facility] [address] [address] documented as of this encounter Procedures Procedure Name Priority Date/Time Associated Diagnosis Comme nts LABORATORY REPORT 08/23/2022 Results fo r this procedure are in the resu lts section. documented in this encounter Results LABORATORY REPORT (08/23/2022) Narrative This result has an attachment that is no t available. Interface Provider DUMMY/OTHER/AR documented in this encounter Visit Diagnoses Not on filedocumented in this encounter Care Teams Machine Set Up Technician Relationship Specialty Start Date End Date Non Pn, ClinicianMD PCP - General 06/27/16 [place] [address] documented as of this encounter
--- OUTSIDE RECORDS SUMMARY | 2022-09-23 07:46 | XMS_ITS | Encounter Summary ---
:1980 Author Organization [facility] Address [address] [place] [address] Care Team Providers Name Role Phone Unavailable Primary Care Provider Unavailable Encounter Details Date Type Department Care Team Description 03/08/2018 Abstract DATA ABSTRACTION Provider, Historical Social History Tobacco Use Types Packs/Day Years Used Date Smoking Tobacco: Never Assessed Sex Assigned at Date Recorded Not on file documented as of this encounter Plan of Treatment Not on filedocumented as of this encounter Visit Diagnoses Not on filedocumented in this encounter
--- OUTSIDE RECORDS SUMMARY | 2022-09-23 07:46 | XMS_ITS | Encounter Summary ---
:1980 Author Organization [facility] Address [address] [place] [address] Care Team Providers Name Role Phone Non Pn, Clinician MD Primary Care Provider Unavailable Reason for Visit Reason Comments ERRONEOUS ENTRY Encounter Details Date Type Department Care Team Description 01/21/2020 Telephone [facility] [address] Althea Kelley APRN, ERRONEOUS ENTRY Endocrinology BIOTECHNOLOGIST [address] [place] [address] [id number] [phone] Social History Tobacco Use Types Packs/Day Years Used Date Smoking Tobacco: Never Smokeless Tobacco: Never Alcohol Use Standard Drinks/Week Comments No 0 (1 standard drink = 0.6 oz pure alcoho l) Sex Assigned at Date Recorded Not on file documented as of this encounter Nursing Notes Althea Kelley APRN, CNP - 01/21/2020 4:50 PM CST Error MENTAL STONEMASON documented in this encounter Plan of Treatment Upcoming Encounters Date Type Specialty Care Team Description 11/01/2022 Appointment Endocrinology Althea Kelley APRN, CNP [address] aleja [facility] N [id number] (Wo rk) 12/27/2022 Appointment Endocrinology Ayde Warren MBBS [address] ET [facility] N [id number] documented as of this encounter Visit Diagnoses Not on filedocumented in this encounter Care Teams Flat Screen Worker Relationship Specialty Start Date End Date Non Pn, Clinician, PCP - General 06/27/16 [place] [address] documented as of this encounter
--- OUTSIDE RECORDS SUMMARY | 2022-09-23 07:46 | XMS_ITS | Encounter Summary ---
:1980 Author Organization [employer] Address [address] [place] [address] Care Team Providers Name Role Phone Non Pn, Clinician MD Primary Care Provider Unavailable Reason for Visit Reason Comments Diabetes Encounter Details Date Type Department Care Team Description 04/14/2020 Telemedicine [place] Althea Kelley, Type 1 diabe isaac mellitus without complication (HRC) (Primary Dx); Endocrinology DIVER HELPER, PIERCER OPERATOR Pre-existing diabetes mellitus during pr egnancy, antepartum; [address] [place] [address] [facility] [phone] [place], [place] [address] Social History Tobacco Use Types Packs/Day Years Used Date Smoking Tobacco: Never Smokeless Tobacco: Never Alcohol Use Standard Drinks/Week Comments No 0 (1 standard drink = 0.6 oz pure alcoho l) Sex Assigned at Date Recorded Not on file documented as of this encounter Progress Notes Rodolfo Richards LPN - 04/14/2020 1:00 PM CDT Patient will call back clinic for prep. Emeka Szymanski - 04/14/2020 1:00 PM CDT Images from the original note were not included. Called patient for prep. No answer. Left VM to call back. Pt uploaded pump to Tandem yesterday. Virginia Porras RN - 04/14/2020 1:00 PM CDT Pre-Visit Planning for Phone/Video Visit: Diabetes Pre-visit planning completed. Reviewed the following: - Medications (pended refills)-Done - Pharmacy-Done - Allergies-Done - Last foot & eye exam-Done - Tobacco/alcohol use-Done Current Diabetes Medications Novolog in pump 55-80 units daily Patient Concerns: None Althea Kelley, DIVER HELPER, PIERCER OPERATOR - 04/14/2020 1:00 PM CDT April 14, 2020 Chief Complaint: Karin Mcmillan a 40 y.o. female is contacted for follow up of Type 1 diabetes. Today's office visit has been converted into a video visit due to COVID-19 social isolation precautions. History of Present Illness: Subjective: Type 1 DM dx age 22 now in . 27 w gestation. Follows with OB team at [facility]. Plans to deliver there. Currently placental previa. Will continue to monitor and schedule at 36 weeks if needed. No known chronic microvascular complications of diabetes. Current Diabetes Treatment Regimen: Tandem Tslim with Dexcom. Total daily dose 53.1 units a day. 38% of this is her basal rate. Settings uploaded into the encounter. Full med list reviewed in [facility] [employer] [facility]. Objective: Pleasant woman. Appears very comfortable on her video chat. Smiling. Alert and oriented. Engaged inreviewing the data. Glucose Monitoring: Home glucose monitoring: Using CGMS daily See data. Average blood sugar 117. Range 40-264. 68% of her time is between 80 and 140. 10% of her time is less than 80. Therefore 78% of her time is completely in target. She has had no severe hypoglycemia. Does seem to be trending a bit high after dinner at times and then gives X extra corrections on top of her bolus wizard for dinner and sometimes lunch. Low blood glucose levels occasionally occur between about 1 and 2 am.. The basal shut off leads to a slightly elevated fasting level at times.. . Last A1c: Lab Results Component Value Date EXT RSLT - A1C 8.0 03/24/2012 Hemoglobin A1C, POCT 5.8 (A) 01/21/2020 Last LDL: Lab Results Component Value Date Cholesterol 140 07/02/2013 Cholesterol/HDL Ratio Screen 2.1 07/02/2013 HDL Cholesterol 66 07/02/2013 Triglycerides 48 07/02/2013 LDL, Direct 78 04/16/2019 Microalbumin: Lab Results Component Value Date Microalbumin, Urine, Random 0.8 12/17/2019 Assessment: Karin is a 40 y.o. female who was contacted today for Type 1 diabetes in mellitus withfollowing diagnoses: Diagnoses and Orders Placed: 1. Type 1 diabetes mellitus without complication (HRC) 2. Pre-existing diabetes mellitus during , antepartum 3. Insulin pump status (HRC) Plan: 1. Bolus ratios at dinner and mid afternoon snack will be increased. New bolus ratios: Midnight 1 unit for 15 g. 2:00 a.m. 1 unit for 11 g. 7:00 a.m. 1 unit for 6 g. 11:30 a.m. 1 unit for 5 g. 2:30 p.m. 1 unit for 5 g. 6:30 p.m. 1 unit for 4 g. 10:00 p.m. 1 unit for 5 g 2. Adjust basal rate from 10:00 p.m. to midnight from 1.0 down to 0.8 units an hour 3. Follow-up in 3-4 weeks. Upload data in 1-2 weeks if she would like. 4. Hemoglobin A1c at her OBGYN appointment next week 5. Patient requests letter indicating that she should be allowed to utilize her insulin pump when she is hospitalized for any reason as well as when she is hospitalized for her delivery. 6. Upload data in 2 weeks, follow-up in approximately 4 weeks. documented in this encounter Plan of Treatment Upcoming Encounters Date Type Specialty Care Team Description 11/01/2022 Appointment Endocrinology Althea Kelley APRN, PIERCER OPERATOR [address] [id number] (Wo rk) 12/27/2022 Appointment Endocrinology Ayde Warren MBBS [address] [place] N [address] documented as of this encounter Visit Diagnoses Diagnosis Type 1 diabetes mellitus without complic ation (HRC) - Primary Type I (juvenile type) diabetes mellitus without mention of complication, not stated as uncontrolled Pre-existing diabetes mellitus during pr egnancy, antepartum Insulin pump status (HRC) Insulin pump status documented in this encounter Care Teams Key Account Manager Relationship Specialty Start Date End Date Non Pn, Clinician, PCP - General 06/27/16 [place] [address] documented as of this encounter
--- OUTSIDE RECORDS SUMMARY | 2022-09-23 07:46 | XMS_ITS | Encounter Summary ---
:1980 Author [facility] Address [address] [place] [address] Care Team Providers Name Role Phone Non Pn, Clinician Primary Care Provider Unavailable Encounter Details Date Type Department Care Team Description 03/09/2020 Orders Only Initial Department Provider, Daphne, [address] MD [place], [place] [address] Interface provider [phone] [place] [address] Social History Tobacco Use Types Packs/Day Years Used Date Smoking Tobacco: Never Smokeless Tobacco: Never Alcohol Use Standard Drinks/Week Comments No 0 (1 standard drink = 0.6 oz pure alcoho l) Sex Assigned at Date Recorded Not on file documented as of this encounter Plan of Treatment Upcoming Encounters Date Type Specialty Care Team Description 11/01/2022 Appointment Endocrinology Althea Kelley, SIGN POSTER, SUPERVISOR PIPELINE MAINTENANCE [address] [facility] N [address] (Wo rk) 12/27/2022 Appointment Endocrinology Ayde Warren MBBS [address] [facility] N [address] documented as of this encounter Procedures Procedure Name Priority Date/Time Associated Diagnosis Comme nts GENETIC TESTING 03/09/2020 Results for this (SCANNED) procedure are i n the results section . documented in this encounter Results GENETIC TESTING (SCANNED) (03/09/2020) Narrative This result has an attachment that is no t available. Interface Provider DUMMY/OTHER/AR documented in this encounter Visit Diagnoses Not on filedocumented in this encounter Care Teams Warehouse Material Handler Relationship Specialty Start Date End Date Non Pn, Clinician, PCP - General 06/27/16 [facility] [address] documented as of this encounter
--- OUTSIDE RECORDS SUMMARY | 2022-09-23 07:46 | XMS_ITS | Encounter Summary ---
:1980 Author Organization [facility] Address [address] [place] [address] Care Team Providers Name Role Phone Unavailable Primary Care Provider Unavailable Encounter Details Date Type Department Care Team Description 08/08/2017 Telemedicine Department of Obstetrics and Gynecology Social History Tobacco Use Types Packs/Day Years Used Date Smoking Tobacco: Never Assessed Sex Assigned at Date Recorded Not on file documented as of this encounter Plan of Treatment Not on filedocumented as of this encounter Procedures Procedure Name Priority Date/Time Associated Comments Diagnosis OBSTETRICS AND Routine 08/08/2017 11:25 AM Result s for this GYNECOLOGY IMAGE CDT procedure a re in EXAM the results section. documented in this encounter Results OBSTETRICS AND GYNECOLOGY IMAGE EXAM (08/08/2017 11:25 AM CDT) Specimen (Source) Anatomical Location Collection Method / Collectio n Time Received Time / Laterality Volume Narrative IIMS - 08/09/2017 6:29 AM CDT This order has been created and auto-finalized to support the import of images acquired without order. The clini romulo documentation to support these images can be found on the encounter domi t produced images. Provider Not In System IMG NON RAD IMAGING PROCEDUR ES Performing Organization Address City/State/ZIP Code Phon e Number IIMS IIMS NA documented in this encounter Visit Diagnoses Not on filedocumented in this encounter
--- OUTSIDE RECORDS SUMMARY | 2022-09-23 07:46 | XMS_ITS | Encounter Summary ---
:1980 Author Organization [facility] Address [address] [place] [address] Care Team Providers Name Role Phone Unavailable Primary Care Provider Unavailable Reason for Referral Outpatient (Routine) - Closed Specialty Diagnoses / Procedures Referred By Contact Refer red To Contact Obstetrics and Jono Anderson [facility] Estephanie Mckinney [address] [place] [phone] Referral ID Status Reason Start Date Expiration Date Visits Requ ested Visits Authorized [id number] Closed 03/08/2018 09/04/2018 1 1 Encounter Details Date Type Department Care Team Description 03/08/2018 Orders Only Department of Obstetrics Jono Anderson M.D. and Gynecology in [address] [place] [address] [place] [phone] [place] [address] [phone] Social History Tobacco Use Types Packs/Day Years Used Date Smoking Tobacco: Never Assessed Sex Assigned at Date Recorded Not on file documented as of this encounter Plan of Treatment Scheduled Referrals Name Type Priority Associated Order Schedule Diagnoses Obstetrics and Outpatient Referral Routine Expect ed: Gynecology office 03/30/2018 visit (clinic) (Approximate) , Expires: 03/08/2021 documented as of this encounter Visit Diagnoses Not on filedocumented in this encounter
--- OUTSIDE RECORDS SUMMARY | 2022-09-23 07:46 | XMS_ITS | Encounter Summary ---
:1980 Author Organization [employer] Address [address] [place] [address] Care Team Providers Name Role Phone Non Pn, Clinician MD Primary Care Provider Unavailable Reason for Visit Reason Comments Follow-up Encounter Details Date Type Department Care Team Description 06/09/2020 Telemedicine [place] Ayde Warren, Pre-exis cady type 1 [place] [address] [place] [address] BLVD trimester (Primary [phone] [place], [place] Dx) [address] Social History Tobacco Use Types Packs/Day Years Used Date Smoking Tobacco: Never Smokeless Tobacco: Never Alcohol Use Standard Drinks/Week Comments No 0 (1 standard drink = 0.6 oz pure alcoho l) Sex Assigned at Date Recorded Not on file documented as of this encounter Patient Instructions Patient InstructionsAlAyde ivory MBBS - 06/09/2020 1:00 PM CDT Current rates: Using tandem T slim X2 with control IQ pump with a Dexcom sensor. Current rates are: Basal: midnight 0.8, 2AM 1.7, 7 AM 1.8, 11:30 AM 2.2, 5:30 PM 2.4, 10 PM 1.6. Bolus midnight 1 per 8, 7 AM 1 per 2, 11:30AM 1 per 3, 2:30 PM 1 per 5, 5:30 PM 1 per 1.8 and 10 PM 1 per 5. SF midnight 20, 7 AM 8, 2:30 PM 14, 5 PM 4 and 10 PM 10. Insulin time 5 hrs. documented in this encounter Progress Notes Leonila Romo RN - 06/09/2020 1:00 PM CDT Message left for chart prep. Ayde Warren MBBS - 06/09/2020 1:00 PM CDT Images from the original note were not included. Dear Dr. Landeros and staff, I'm writing to provide information about my weight, bp and medications for my upcoming video visit. My weight is 172.4 pounds, my blood pressure (measured last week) was 110/66. I just uploaded my Tandem pump data, so that should be visible. My medications are: Ferrous Sulfate 325 mg 2x/day, Aspirin 81 mg/day, vitamin, magnesium supplement 250 mg/day, lansoprazole 2x/day. Novolog in pump 70-120 units daily. Ayde Warren MBBS - 06/09/2020 1:00 PM CDT [facility] Department of Endocrinology, Diabetes and Metabolism Clinic Note Name: Karin Mcmillan Cc: Follow up for T1DM in . She was home and I was in my home office. HPI: Karin Mcmillan is a 40 y.o. female #1 T1DM: Diagnosed at age 22, no known microvascular complications. She is , 35 weeks gestation, this is her 4th , she had 2 miscarriages before and 1 child at home who is 1. She is currently using tandem T slim X2 with control IQ pump with a Dexcom sensor. Current rates are: Basal: midnight 0.8, 2AM 1.7, 7 AM 1.8, 11:30 AM 2.2, 5:30 PM 2.4, 10 PM 1.6. Bolus midnight 1 per 8, 7 AM 1 per 2, 11:30AM 1 per 2, 2:30 PM 1 per 5, 5:30 PM 1 per 1.8 and 10 PM 1 per 5. SF midnight 20, 7 AM 8, 2:30 PM 14, 5 PM 4 and 10 PM 10. Insulin time 5 hrs. She is using CGM, tracing showing within target glucose levels, post lunch hypoglycemia. She is running in target range >95% of the time. Eye exam from 2019 was reported with no DM changes. Labs from 11/2019 showed normal TSH, urine microalbumin and creatinine. is progressing well so far. ROS: A 3 point ROS was done, and is negative unless specified otherwise in the HPI. Medications: medication list was reviewed and updated on the EMR. PMHx: Past Medical History: Diagnosis Date ??? Diabetes mellitus (HRC) age 22 DM1 FHx: No family history on file. SHx: Social History Tobacco Use ??? Smoking status: Never Smoker ??? Smokeless tobacco: Never Used Substance Use Topics ??? Alcohol use: No ??? Drug use: Not on file Physical Examination: NA Labs: Reviewed and summarized in the HPI. Assessment and Plan: Karin Mcmillan is a 40 y.o. female: #1 T1DM: Controlled, complicating . Reviewed with her the glycemic targets in . Continue current rates the same. Change bolus for lunch to 1 per3. Bolus 15 min before eating. Continue using CGM. She will let me know if steroids are used to use NPH. Run pre rates when called to the OR for Csection. Run temp basal 80% for the first day post . RTC in 4 weeks post delivery. I have spent 15 minutes with the patient, >50% was spent on counseling. KERWIN Banda Courtesy Van Driver documented in this encounter Plan of Treatment Upcoming Encounters Date Type Specialty Care Team Description 11/01/2022 Appointment Endocrinology Althea Kelley, OPTICS ENGINEER, REACTOR FUELING SUPERVISOR [address] [place] [address] (Wo rk) 12/27/2022 Appointment Endocrinology Ayde Warren MBBS [address] [place] N [address] documented as of this encounter Visit Diagnoses Diagnosis Pre-existing type 1 diabetes mellitus in in third trimester - Primary Diabetes mellitus, antepartum documented in this encounter Care Teams Tank Truck Engine Mechanic Relationship Specialty Start Date End Date Non Pn, Clinician, PCP - General 06/27/16 [place] [address] documented as of this encounter
--- OUTSIDE RECORDS SUMMARY | 2022-09-23 07:46 | XMS_ITS | Clinical Summary ---
:1980 Author Organization [facility] Address [address] [place] [address] Care Team Providers Name Role Phone Unavailable Primary Care Provider Unavailable Source Comments Patient records contain information from all sites at [facility]. For routine questions regarding patient records, call [phone] during business hours, M-F 8:00 AM - 5:00 PM Central Time. Record requests for emergency care only can be directed to [phone] at any time.[facility] Allergies Active Allergy Reactions Severity Noted Date Comments Diazepam Other (see comments) 07/23/2020 Ketorolac Other (see comments) 07/23/2020 Medications Medication Sig Dispensed Refills Start Date End Date Status progesterone (FIRST Insert 1 0 08/08/2017 Active PROGESTERONE) 50 mg suppository into suppository vaginal the vagina 2 (two) suppository times a day. 1 twice daily insulin aspart 1 Device by implant 0 07/21/2017 Active (NovoLOG) 100 UNIT/ML route daily. patient supplied pump progesterone Insert 1 capsule 0 11/03/2017 Active (PROMETRIUM) 100 mg into the vagina as capsule directed. Take 100 mg twice daily as directed by provider clomiPHENE (CLOMID) Take 1 tablet (50 10 tablet 2 03/30/2018 Active 50 mg tablet mg total) by mouth daily. 1 tabs orally days 3-7 of cycle. insulin glargine Inject 20 Units 0 10/15/2019 Active (LANTUS) 100 unit/mL under the skin. injection glucagon 3 3 mg. 0 10/15/2019 Active mg/actuation spray,non-aerosol ferrous gluconate Take 324 mg by 0 Active (FERGON) 324 mg (38 mouth. mg iron) tablet vit Take 1 tablet by 0 Active calc,iron,folic mouth. ( VITAMIN ORAL) Active Problems Problem Noted Date Recurrent Loss Not Currently 2017 Counseling Preconception 07/21/2017 Insulin Pump Status 09/24/2012 Diabetes Mellitus Type 1 Without Complication 09/24/20 12 Overview: Overview: Type I (juvenile type) diabetes mellitus without mention of complication, not stated as uncontrolled (HRC) Social History Tobacco Use Types Packs/Day Years Used Date Smoking Tobacco: Never Assessed Sex Assigned at Date Recorded Not on file Last Filed Vital Signs Vital Sign Reading Time Taken Comments Blood Pressure 116/62 07/21/2017 2:22 PM Vital sign result CDT from [facility] No isaac. Pulse - - Temperature - - Respiratory Rate - - Oxygen Saturation - - Inhaled Oxygen - - Concentration Weight 66.6 kg (146 lb 13.2 07/21/2017 2:22 PM Vital sign result oz) CDT from [facility] No isaac. Height 163.5 cm (5' 4.37) 07/21/2017 2:22 PM Vital sign result CDT from [facility] No isaac. Body Mass Index 24.91 07/21/2017 2:22 PM CDT Plan of Treatment Health Maintenance Due Date Last Done Comments Cervical Cancer Screening 1982 Creatinine Level 1982 Diabetic Office Visit with Foot 1982 Exam Dilated Eye Exam 1982 HIV Screening 1982 Hemoglobin A1C 1982 Hepatitis C Screening 1982 Lipid (Cholesterol) Screening 1982 Mammogram 1982 Office Visit for Blood Pressure 1982 Check / Re-check Urine Albumin 1982 Hepatitis B Vaccines (2 of 3 - 19+ 02/17/2015 01/20/2015 3-dose series) Pneumococcal vaccine (0-64 years) 01/21/2016 01/20/2015 (2 - PCV) Depression Screening (Annual 11/20/2021 PHQ-2) DTaP,Tdap,and Td Vaccines (5 - Td 05/08/2030 05/08/2020, , or Tdap) 09/12/2014, Additional history exists COVID-19 Vaccine Completed 08/30/2022, 10/09/2021, 02/18/2021, Additional history exists Influenza Vaccine Completed 08/30/2022, 09/21/2021, 08/07/2020, Additional history exists Insurance Payer Benefit Plan Subscriber ID Effective Dates Phone Address Type / Group [employer] [facility] [id number]-Rachel [phone] [address] [address] [facility] [address] [place] [address]
--- OUTSIDE RECORDS SUMMARY | 2022-09-23 07:46 | XMS_ITS | Encounter Summary ---
:1982 Author Organization [facility] Address [address] [place] [address] Care Team Providers Name Role Phone Non Pn, Clinician MD Primary Care Provider Unavailable Encounter Details Date Type Department Care Team Description 05/25/2021 Notes/Orders [facility] [address] Azael Case, Type 1 diabetes Endocrinology RN mellitus without [address] W[address] [facility]) [place] [address] Social History Tobacco Use Types Packs/Day Years Used Date Smoking Tobacco: Never Smokeless Tobacco: Never Alcohol Use Standard Drinks/Week Comments No 0 (1 standard drink = 0.6 oz pure alcoho l) Sex Assigned at Date Recorded Not on file documented as of this encounter Progress Notes Azael Case RN - 05/25/2021 3:31 PM CDT Renewed medication per medication refill protocol. Requested Prescriptions Signed Prescriptions Disp Refills ??? insulin aspart (NOVOLOG) 100 UNIT/ML injection (vial) 40 mL 0 Sig: Infuse via insulin pump. Average daily dose rising with . 45 Units/day. documented in this encounter Plan of Treatment Upcoming Encounters Date Type Specialty Care Team Description 11/01/2022 Appointment Endocrinology Althea Kelley, RESEARCH CENTER PARTNER, COIL WINDING MACHINES SET UP MECHANIC [address] [place] N [address] (Wo rk) 12/27/2022 Appointment Endocrinology Ayde Warren MBBS [address] [place] [address] documented as of this encounter Visit Diagnoses Diagnosis Type 1 diabetes mellitus without complic ation (HRC) Type I (juvenile type) diabetes mellitus without mention of complication, not stated as uncontrolled documented in this encounter Care Teams Bobbin Fixer Relationship Specialty Start Date End Date Non Pn, Clinician, PCP - General 06/27/16 [place] [address] documented as of this encounter
--- OUTSIDE RECORDS SUMMARY | 2022-09-23 07:46 | XMS_ITS | Encounter Summary ---
:1980 Author Organization [email or web address] Address [address] [place] [address] Care Team Providers Name Role Phone Non Pn, Clinician MD Primary Care Provider Unavailable Encounter Details Date Type Department Care Team Description 06/08/2021 Lab Visit Sen Laborator y Type 1 diabetes mellitus [id number] [facility] without complication (HRC) [place] [address] Social History Tobacco Use Types Packs/Day Years Used Date Smoking Tobacco: Never Smokeless Tobacco: Never Alcohol Use Standard Drinks/Week Comments No 0 (1 standard drink = 0.6 oz pure alcoho l) Sex Assigned at Date Recorded Not on file documented as of this encounter Plan of Treatment Upcoming Encounters Date Type Specialty Care Team Description 11/01/2022 Appointment Endocrinology Althea Kelley, CREDIT CARD CONTROL CLERK, ENGINEERING INSTRUCTOR [address] [id number] (Wo rk) 12/27/2022 Appointment Endocrinology Ayde Warren MBBS [address] [facility] [address] N [id number] documented as of this encounter Procedures Procedure Name Priority Date/Time Associated Diagnosis Comme nts ALBUMIN/CREAT RATIO Routine 06/08/2021 3:33 PM Type 1 diabetes Results for this CDT mellitus without procedure a re in complication (HRC) the [facility] ts section. LDL CHOLESTEROL, Routine 06/08/2021 3:29 PM Type 1 diabetes Re sults for this DIRECT MEASURED CDT mellitus without procedur e are in complication (HRC) the [facility] ts section. CREATININE / GFR Routine 06/08/2021 3:29 PM Type 1 diabetes Re sults for this CDT mellitus without procedure a re in complication (HRC) the [facility] ts section. TSH, SENSITIVE Routine 06/08/2021 3:29 PM Type 1 diabetes Resu lts for this CDT mellitus without procedure a re in complication (HRC) the [facility] ts section. documented in this encounter Results Microalbumin Urine Random (06/08/2021 3:33 PM CDT) athologist Signature Albumin, 0.4 mg/L 06/08/2021 [facility] Urine, Random 4:35 PM CDT LABORATORY Creatinine, 29 >20 mg/dL 06/08/2021 [facility] Urine, Random 4:35 PM CDT LABORATORY Albumin/Creati 1 <30 mg/g 06/08/2021 [facility] nine Ratio, 4:35 PM CDT LABORATORY Urine, Random Specimen Anatomical Collection Method Collection Time Receive d Time (Source) Location / / Volume Laterality Urine Non-blood 06/08/2021 3:33 PM 3:33 Collection / CDT PM CDT Unknown Althea Kelley APRN, CNP LAB_1 Performing Organization Address City/State/ZIP Code Phon e Number [facility] [address] [place] [address] TSH (06/08/2021 3:29 PM CDT) athologist Signature TSH, Sensitive 1.29 0.30 - 06/08/2021 [facility] 4.50 7:26 PM CDT LABORATORY uIU/mL Specimen Anatomical Collection Method / Collection Time Recei gabi Time (Source) Location / Volume Laterality Blood Venipuncture / 06/08/2021 3:29 06/08/2021 3:29 Unknown PM CDT PM CDT Althea Kelley APRN, CNP LAB_1 Performing Organization Address City/State/ZIP Code Phon e Number [facility] [address] [place] [address] Direct LDL (06/08/2021 3:29 PM CDT) athologist Signature LDL, Direct 105 <=130 mg/dL 06/08/2021 [facility] 4:26 PM CDT LABORATORY Specimen Anatomical Collection Method / Collection Time Recei gabi Time (Source) Location / Volume Laterality Blood Venipuncture / 06/08/2021 3:29 06/08/2021 3:29 Unknown PM CDT PM CDT Althea Kelley APRN, ENGINEERING INSTRUCTOR LAB_1 Performing Organization Address [facility]/ZIP Code Phon e Number [facility] [address] [place] [address] Creatinine (06/08/2021 3:29 PM CDT) P athologist Signature Creatinine 0.60 0.55 - 06/08/2021 [facility] 1.02 mg/dL 4:26 PM CDT LABORATORY GFR, Estimated >60 >60 06/08/2021 [facility] mL/min/1.7 4:26 PM CDT LABORATORY 3m2 Specimen Anatomical Collection Method / Collection Time Recei gabi Time (Source) Location / Volume Laterality Blood Venipuncture / 06/08/2021 3:29 06/08/2021 3:29 Unknown PM CDT PM CDT Althea eKlley APRN, PHANI LAB_1 Performing Organization Address [facility] Phon e Number [facility] [address] [place] [address] documented in this encounter Visit Diagnoses Diagnosis Type 1 diabetes mellitus without complic ation (HRC) Type I (juvenile type) diabetes mellitus without mention of complication, not stated as uncontrolled documented in this encounter Care Teams Liner Machine Operator Relationship Specialty Start Date End Date Non Pn, Clinician, PCP - General 06/27/16 [place] [address] documented as of this encounter
--- OUTSIDE RECORDS SUMMARY | 2022-09-23 07:46 | XMS_ITS | Encounter Summary ---
:1980 Author Organization [facility] Address [address] [place] [address] Care Team Providers Name Role Phone Non Pn, Clinician MD Primary Care Provider Unavailable Reason for Visit Reason Onset Date Comments Refill 11/18/2020 insulin aspart (JAY LOG) 100 UNIT/ML injection (vial) Encounter Details Date Type Department Care Team Description 11/18/2020 Refill [facility] [address] Maxim Kelley APRN, Refill (insulin aspart Endocrinology EAR SPECIALIST (NOVOLOG) 100 UNIT/ML [address] [place] [address] [place] inj [address]ction ([place] [address] [phone] (Wo rk) Social History Tobacco Use Types Packs/Day Years Used Date Smoking Tobacco: Never Smokeless Tobacco: Never Alcohol Use Standard Drinks/Week Comments No 0 (1 standard drink = 0.6 oz pure alcoho l) Sex Assigned at Date Recorded Not on file documented as of this encounter Nursing Notes Hiwot Ontiveros, RN - 11/18/2020 1:29 PM CST Renewed medication per medication refill protocol. Requested Prescriptions Refused Prescriptions Disp Refills ??? insulin aspart (NOVOLOG) 100 UNIT/ML injection (vial) 40 mL Sig: Infuse via insulin pump. Average daily dose rising with . 40 Units/day. Refused By: HIWOT ONTIVEROS Reason for Refusal: Request Already Responded To By Other Means OPERATOR Interface, Out Surescripts Prov Query - 11/18/2020 11:59 AM CST insulin aspart (NOVOLOG) 100 UNIT/ML injection (vial) Endocrinology: Diabetes - Insulins -> The request contains a note from the pharmacy. -> Unable to determine if patient is due for a renewal, please review. -> Rapid A1C is overdue (performed over 10 months ago, required every 6 months) Last qualifying visit: 07/28/2020 (in [facility]) Next scheduled visit: None Last ordered by MAXIM KELLEY: 07/28/2020 (113 days ago) QTY: 40, Refills: 3, Sig: infuse via insulin pump. average daily dose rising with . 40 units/day. (unchanged) Rapid A1C : 5.8 % on 01/21/2020 Powered by [employer], Reference: [id number], 11/18/2020 11:59:29 AM CASE OPERATOR, Pool: ENDO PN NURSING TEAM 3 ([id number]) OPERATOR documented in this encounter Plan of Treatment Upcoming Encounters Date Type Specialty Care Team Description 11/01/2022 Appointment Endocrinology Maxim Kelley, PARTNER MANAGEMENT CONSULTANT, EAR SPECIALIST [address] [facility] B[address] JARA N [phone] (Wo rk) 12/27/2022 Appointment Endocrinology Ayde Warren, MBBS [address] [facility] [address] [address] [id number] documented as of this encounter Visit Diagnoses Diagnosis Type 1 diabetes mellitus without complic ation (HRC) Type I (juvenile type) diabetes mellitus without mention of complication, not stated as uncontrolled documented in this encounter Care Teams Comparator Operator Relationship Specialty Start Date End Date Non Pn, Clinician, PCP - General 06/27/16 [place] [address] documented as of this encounter
--- OUTSIDE RECORDS SUMMARY | 2022-09-23 07:46 | XMS_ITS | Encounter Summary ---
:1980 Author Organization [facility] Address [address] [place] [address] Care Team Providers Name Role Phone Unavailable Primary Care Provider Unavailable Reason for Visit Appointment Request (Routine) - Closed Specialty Diagnoses / Procedures Referred By Contact Refer red To Contact Otorhinolaryngology Diagnoses Loss Hearing Bilateral Referral ID Status Reason Start Date Expiration Date Visits Requ ested Visits Authorized [id number] Closed 11/19/2020 11/19/2021 2 1 Encounter Details Date Type Department Care Team Description 01/19/2021 Diagnostic Department of Ana Paula Boyle Au.D. [address] [place] [phone] Loss Hearing Otorhinolaryngology in Patricia Cordon Au.D., M.A. [address] [place] [phone] Sensorineural High [place], [place] Frequency (Primary [address] [facility] Dx) [place] [address] Social History Tobacco Use Types Packs/Day Years Used Date Smoking Tobacco: Never Assessed Sex Assigned at Date Recorded Not on file documented as of this encounter Procedure Notes Patricia Cordon Au.D., M.A. - 01/19/2021 8:59 AM CST SUBJECTIVE CHIEF COMPLAINT / REASON FOR VISIT Audiological evaluation prior to consultation with ENT HISTORY OF PRESENT COMPLAINT Mrs. Karin Mcmillan is a delightful 40 year old being seen for an audiological evaluation prior to a visit with ENT. 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 Today, she reports increased sound sensitivity for the past 6 years providing examples of c linking of dishes and the baby crying. She notices some hearing difficulties particular in the presence of background noise. Further, she noticed changes in how the note sounds while tuning her violin.Mrs. Mcmillan is a great advocate for hearing protection and puts a great deal of focus on protecting the hearing that she has. She met OS and created a sound level map of her office where she teaches, noting a range of 84-90 dB SPL. She uses an array of different ear plugs that include standard foam insert plugs and high-fidelity non-custom plugs. She also mentions the use of a metal mute that sheprefers to use while she is practicing on her own that attenuates the sound of her violin. She wears ear plugs in her working environment and around loud sounds particularly noting when her baby is crying, but denies constant use of ear plugs in other every day environments. Her goal today is to not only to get a baseline hearing evaluation, but also receive more information regarding all the things she should try to protect her hearing. Familial hearing loss includes her father. She denies tinnitus, otalgia, aural fullness, otorrhea, prior ear surgeries, significant noise exposure, and vertigo. OBJECTIVE See Audiological Evaluation Form ASSESSMENT/PLAN ?? Bilateral: Normal hearing sensitivity 250-8000 Hz. ?? QuickSin score of 0.5 dB SNR loss indicating normal listening in noise. Extended high frequency thresholds: 10 kHz 14 kHz 16 kHz RIGHT EAR (dB HL): 10 0 35 LEFT EAR (dB HL): 10 5 35 CARE PLAN 1. Continue to appointment with ENT. 2. Recheck in 3 years, sooner if concerns arise. 3. Mrs. Mcmillan was counseled regarding the degree and configuration of her hearing. We discussed the use of hearing protection while at work while also providing her ears a 'break' when she is not working/practicing. We discussed how a break would include limited loud noise exposure through other avenues (i.e., personal listening devices, listening to music loudly in the car, power tools, lawn mowers, etc.) 4. We further discussed the use of hearing protection and how she may consider custom musicians ear plugs with different filters. When working with her students throughout the day she could use a filter with more attenuation (25 dB attenuation) and when practicing on her own, she could consider a filter with less attenuation (15 dB). We further discussed proper insertion techniques of foam ear plugs to ensure the best fit and sound quality. Mrs. Mcmillan verbalized understanding and was interested in custom musicians plugs and will schedule an appointment with the [facility] Program topursue musicians plugs. We discussed the importance of wearing the plugs only in the presence of loud environments and to return if sound sensitivity worsens to a point of wanting to wear ear plugs in all environments. 5. We discussed the difference between OSHA and NIOSH criteria and how NIOSH criteria may be a more conservative standard to personally utilize as a goal of hearing protection. NIOSH rule of thumb would be a daily dose of noise at 85 dB SPL for 8 hours and cutting the hours in half for every 3 dB increase. Whereas OSHA recommendations would be 90 dB SPL for 8 hours and cutting the hours in half every5 dB increase. BILITATION LIAISON documented in this encounter Plan of Treatment Not on filedocumented as of this encounter Procedures Procedure Name Priority Date/Time Associated Diagnosis Comme nts AUDIOLOGY EVALUATION 01/19/2021 12:00 AM REHABILITATION LIAISON documented in this encounter Results AUDIOLOGY EVALUATION (01/19/2021 12:00 AM REHABILITATION LIAISON) Specimen (Source) Anatomical Location Collection Method / Collectio n Time Received Time / Laterality Volume 01/19/2021 Narrative This result has an attachment that is no t available. Patricia Chase, M.A. AUDIOLOGY SERVICES ORDERA BLES documented in this encounter Visit Diagnoses Diagnosis Loss Hearing Sensorineural High Frequenc y - Primary documented in this encounter
--- OUTSIDE RECORDS SUMMARY | 2022-09-23 07:46 | XMS_ITS | Encounter Summary ---
:1980 Author Organization [facility] Address [address] [place] [address] Care Team Providers Name Role Phone Non Pn, Clinician MD Primary Care Provider Unavailable Reason for Visit Reason Comments Diabetes Encounter Details Date Type Department Care Team Description 06/08/2021 Office Visit Sen Althea Kelley, Type 1 diabe isaac mellitus without complication (HRC) (Primary Dx); Endocrinology DOWEL STICKER OPERATOR, AQUARIUM SPECIALIST Insulin pump status [id number] [email or web address] [address] [place] [address] [facility] [phone] [place], [place] [address] Social History Tobacco Use Types Packs/Day Years Used Date Smoking Tobacco: Never Smokeless Tobacco: Never Alcohol Use Standard Drinks/Week Comments No 0 (1 standard drink = 0.6 oz pure alcoho l) Sex Assigned at Date Recorded Not on file documented as of this encounter Last Filed Vital Signs Vital Sign Reading Time Taken Comments Blood Pressure 110/87 06/08/2021 2:40 PM CDT Pulse 92 06/08/2021 2:40 PM CDT Temperature - - Respiratory Rate - - Oxygen Saturation - - Inhaled Oxygen Concentration - - Weight 69.4 kg (152 lb 14.4 oz) 06/08/2021 2:40 PM CDT Height - - Body Mass Index 26.25 01/21/2020 9:44 AM IMPROVEMENT LEAD documented in this encounter Progress Notes Annabel Cancino LPN - 06/08/2021 2:30 PM CDT Images from the original note were not included. Althea Kelley, DOWEL STICKER OPERATOR, AQUARIUM SPECIALIST - 06/08/2021 2:30 PM CDT June 08, 2021 Chief Complaint: Karin Mcmillan a 41 y.o. female is seen for follow up of Type 1 diabetes. History of Present Illness: Subjective: Type 1 DM dx age 22 No known chronic microvascular complications of diabetes. Using tandem pump in control IQ mode. Uses sleep mode quite a bit as well. Feels things are going well. 2 young kids healthy and happy. All done breast feeding. Eye exam on . Foot exam today. Current Diabetes Treatment Regimen: Tandem Tslim with Dexcom. Total daily dose 36.2 units. 53% as basal. Basals: Midnight 0.6 6:00 a.m. 0.8 Noon 0.85 5 pm 0.9 Total basal 18.949 Correction factor [place] 55. 230 am 40, 230 pm 50, 5pm 25 Carb ratio midnight 9 g,230 am 14g, noon 13 g, 2:30 p.m. 16 g, 6:00 p.m. 10 g Target 100 Full med list reviewed in [employer]. Objective: Pleasant woman. Alert and oriented. Engaged in reviewing the data. Foot exam reveals normal pedal and post tibial pulses, protective sensation, and vibratory sensationbilaterally. Skin and nails healthy and in good repair. Glucose Monitoring: Home glucose monitoring: Using CGMS daily See data in encounter.. 2 weeks of data reviewed and discussed. Average blood sugar 150. 75% of hertime between 70 and 180. 1% of her timeunder 70. No lows under 54. Occasional spikes after meals. Some higher blood glucose levels in the middle of the night. This may be because of snacks without coverage because of fear of hypoglycemia if she covers bedtime snacks. No severe hypoglycemia. Last A1c: Lab Results Component Value Date EXT RSLT - A1C 8.0 03/24/2012 Hemoglobin A1C 6.6 (A) 06/08/2021 Last LDL: Lab Results Component Value Date Cholesterol 140 07/02/2013 Cholesterol/HDL Ratio Screen 2.1 07/02/2013 HDL Cholesterol 66 07/02/2013 Triglycerides 48 07/02/2013 LDL, Direct 105 06/08/2021 Microalbumin: Lab Results Component Value Date Microalbumin, Urine, Random 0.4 06/08/2021 Assessment: Karin is a 41 y.o. female who was contacted today for Type 1 diabetes , now : Diagnoses and Orders Placed: 1. Type 1 diabetes mellitus without complication (HRC) 2. Insulin pump status (HRC) Plan: 1. Set final time bracket of 9:00 p.m. to midnight with basal rate of 0.9, carb ratio 15 g correction factor of 50 to allow for coverage for bedtime snack without hypo or hyperglycemia as often. 2. Prescriptions updated 3. Update annual labs. 4. Follow up in 6 mo. Sooner PRN. documented in this encounter Plan of Treatment Upcoming Encounters Date Type Specialty Care Team Description 11/01/2022 Appointment Endocrinology Althea Kelley APRN, AQUARIUM SPECIALIST [address] [id number] (Wo rk) 12/27/2022 Appointment Endocrinology Ayde Warren MBBS [address] [place] [address] [id number] documented as of this encounter Procedures Procedure Name Priority Date/Time Associated Diagnosis Comme nts POCT GLYCOSYLATED Routine 06/08/2021 2:39 PM Type 1 diabetes R esults for this HEMOGLOBIN (HGB A1C) CDT mellitus without pro cedure are in complication (HRC) the resul ts section. documented in this encounter Results Microalbumin Urine Random (06/08/2021 3:33 PM CDT) P athologist Signature Albumin, 0.4 mg/L 06/08/2021 [facility] Urine, Random 4:35 PM CDT LABORATORY Creatinine, 29 >20 mg/dL 06/08/2021 [facility] Urine, Random 4:35 PM CDT LABORATORY Albumin/Creati 1 <30 mg/g 06/08/2021 [facility] nine Ratio, 4:35 PM CDT LABORATORY Urine, Random Specimen Anatomical Collection Method Collection Time Receive d Time (Source) Location / / Volume Laterality Urine Non-blood 06/08/2021 3:33 PM 3:33 Collection / CDT PM CDT Unknown Althea Kelley APRN, CNP LAB_1 Performing Organization Address [facility]/ZIP Code [facility] e Number [facility] [address] [place] [address] TSH (06/08/2021 3:29 PM CDT) athologist Signature TSH, Sensitive 1.29 0.30 - 06/08/2021 [facility] 4.50 7:26 PM CDT LABORATORY uIU/mL Specimen Anatomical Collection Method / Collection Time Recei gabi Time (Source) Location / Volume Laterality Blood Venipuncture / 06/08/2021 3:29 06/08/2021 3:29 Unknown PM CDT PM CDT Althea Kelley APRN, CNP LAB_1 Performing Organization Address [facility]/ZIP Code [facility] e Number [facility] [address] [place] [address] Direct LDL (06/08/2021 3:29 PM CDT) athologist Signature LDL, Direct 105 <=130 mg/dL 06/08/2021 [facility] 4:26 PM CDT LABORATORY Specimen Anatomical Collection Method / Collection Time Recei gabi Time (Source) Location / Volume Laterality Blood Venipuncture / 06/08/2021 3:29 06/08/2021 3:29 Unknown PM CDT PM CDT Althea Kelley APRN, CNP LAB_1 Performing Organization Address [facility]/ZIP Code Phon e Number [facility] [address] [place], [place] [phone] Creatinine (06/08/2021 3:29 PM CDT) athologist Signature Creatinine 0.60 0.55 - 06/08/2021 [facility] 1.02 mg/dL 4:26 PM CDT LABORATORY GFR, Estimated >60 >60 06/08/2021 [facility] [place] mL/min/1.7 4:26 PM CDT LABORATORY 3m2 Specimen Anatomical Collection Method / Collection Time Recei gabi Time (Source) Location / Volume Laterality Blood Venipuncture / 06/08/2021 3:29 06/08/2021 3:29 Unknown PM CDT PM CDT Althea Kelley APRN, CNP LAB_1 Performing Organization Address City/State/ZIP Code Phon e Number [facility] [address] [place], [place] [phone] (ABNORMAL) POCT glycosylated hemoglobin (Hb A1C) (06/08/2021 2:39 PM CDT) athologist Signature Hemoglobin A1C 6.6 (A) 5.6 % POCT (Rapid) Cartridge Lot# 800 POCT Specimen (Source) Anatomical Collection Method Collection Time Re ceived Time Location / / Volume Laterality Blood 06/08/2021 2:39 PM CDT Althea Kelley APRN, CNP ET POINT OF CARE TEST ENTER/ EDIT ORDERABLES Performing Organization Address City/State/ZIP Code Phon e Number POCT documented in this encounter Visit Diagnoses Diagnosis Type 1 diabetes mellitus without complic ation (HRC) - Primary Type I (juvenile type) diabetes mellitus without mention of complication, not stated as uncontrolled Insulin pump status (HRC) Insulin pump status documented in this encounter Care Teams Ditch Repairer Relationship Specialty Start Date End Date Non Pn, Clinician, PCP - General 06/27/16 [place] [address] documented as of this encounter
--- OUTSIDE RECORDS SUMMARY | 2022-09-23 07:46 | XMS_ITS | Encounter Summary ---
:1980 Author Organization [facility] Address [address] [place] [address] Care Team Providers Name Role Phone Non Pn, Clinician MD Primary Care Provider Unavailable Reason for Referral Consult/Transfer Care (Routine) - Incomplete Specialty Diagnoses / Procedures Referred By Contact Refer red To Contact Diagnoses Type 1 diabetes mellitus without complication (HRC) Maxim Kelley APRN, CNP [address] [place], [place] [address] Referral ID Status Reason Start Date Expiration Date Visits V isits Requested Authorized [id number] Incomplete 12/21/2021 03/22/2023 1 1 Scheduling Instructions Your provider has recommended an appoint ment with [facility]. You may call [phone] to schedule your appointmen t. This recommended service/s may not be covered by your health plan (health insu rahul). To find out your specific benefit coverage, please call the number on your insurance card.?? Please note that in order to maintain access for all patients, [facility] does have a late cancellation policy. In order to avoid being restrict ed from scheduling future appointments in Behavioral Health you will need to cance l at least 24 hours in advance. We request you that you arrive 30 minutes before yo ur first appointment to complete paperwork. [employer] Reason for Visit Reason Comments Diabetes Encounter Details Date Type Department Care Team Description 12/21/2021 Office Visit Maxim Rosenthal, Type 1 diabe isaac mellitus without complication (HRC) (Primary Dx); Endocrinology PHANI MINOR Insulin pump status [id number] [address] [facility] [phone] [place] [address] Social History Tobacco Use Types Packs/Day Years Used Date Smoking Tobacco: Never Smokeless Tobacco: Never Alcohol Use Standard Drinks/Week Comments No 0 (1 standard drink = 0.6 oz pure alcoho l) Sex Assigned at Date Recorded Not on file documented as of this encounter Last Filed Vital Signs Vital Sign Reading Time Taken Comments Blood Pressure 116/77 12/21/2021 10:06 AM DIRECT[employer]UCATIONAL [employer]IO Pulse 80 12/21/2021 10:06 AM DIRECTOR [employer]UCATIONAL RADIO Temperature - - Respiratory Rate - - Oxygen Saturation - - Inhaled Oxygen Concentration - - Weight 66.2 kg (146 lb) 12/21/2021 10:06 AM DIRECTOR EDUCATIONAL RADIO Height - - Body Mass Index 25.06 01/21/2020 9:44 AM DIRECTOR EDUCATIONAL RADIO documented in this encounter Patient Instructions Patient InstructionsLaMaxim latham APRN, CNP - 12/21/2021 10:00 AM DIRECTOR EDUCATIONAL RADIO Give your PREmeal insulin 10-15 min before eating when you can. This can help your post meal spikes. Reset your targets to 80-180. Be careful to avoid stacking. I will send you a name for specialist with training in DM distress care. If you need to schedule or have questions about your appointment, call [phone]. If you have medical questions or concerns, please contact your doctor's triage nurse at [phone]. [employer] documented in this encounter Progress Notes Maxim Kelley APRN, CNP - 12/21/2021 10:00 AM DIRECTOR EDUCATIONAL RADIO Addended by: MAXIM KELLEY on: 12/21/2021 03:40 PM Modules accepted: Orders [employer] Maxim Kelley APRN, CNP - 12/21/2021 10:00 AM CST December 21, 2021 Chief Complaint: Karin Anderegg a 41 y.o. female is seen for follow up of Type 1 diabetes. History of Present Illness: Subjective: Type 1 DM dx age 22 No known chronic microvascular complications of diabetes. Using tandem pump in control IQ mode 98% of the time. Uses sleep mode 9 hours a day.. Feels things are going well. 2 young kids healthy and happy. Eye exam 05/2021. Foot exam 05/2021 Patient states today she is quite frustrated with the cost of her supplies. She also expresses some frustrations around type 1 diabetes and its management. Costs, the work involved. Dependence on the supplies. She asks about islet cell transplantation. She feels that she is sometimes having too many lows, but then notes that she really struggles with elevated blood glucose levels in increased insulin resistance in the few days prior to her period. . Current Diabetes Treatment Regimen: Tandem Tslim with Dexcom. Total daily dose 36.8 units. 57% as basal. She states she typically gives her insulin as she is starting to eat. Basals: Midnight 0.6 6:00 a.m. 0.9 12:00 p.m. 0.85 2:30 p.m. 0.8 5:00 p.m. 0.9 Total basal 19.9 Correction factors midnight 55 2:30 a.m. 50 6:00 a.m. 60 Noon 50 2:30 p.m. 60 5:00 p.m. 50 Carb ratios Midnight 9 g 2:30 a.m. 13 g 6:00 a.m. 14 g Noon 13 g 5:00 p.m. 11 g 9:00 p.m. 13 g Full med list reviewed in [employer]. Objective: Pleasant woman. Alert and oriented. Become somewhat tearful when talking about her diabetes and some distress related to chronic disease/Management. Glucose Monitoring: Home glucose monitoring: Using CGMS daily See data in encounter.. 2 weeks of data reviewed and discussed. Average blood sugar 158. Range 51-392. 2% of her time is under 80. 43% of her time is between 80 and 140. In looking for any patterns, some of her post meals are excellent, some are bit high and some are a bit low. Sometimes she over corrects/double boluses. Sometimes she forgets to bolus until after she has started eating. No severe hypoglycemia. Last A1c: Lab Results Component Value Date EXT RSLT - A1C 8.0 03/24/2012 Hemoglobin A1C 6.4 (A) 12/21/2021 Last LDL: Lab Results Component Value Date Cholesterol 140 07/02/2013 Cholesterol/HDL Ratio Screen 2.1 07/02/2013 HDL Cholesterol 66 07/02/2013 Triglycerides 48 07/02/2013 LDL, Direct 105 06/08/2021 Microalbumin: Lab Results Component Value Date Albumin, Urine, Random 0.4 06/08/2021 Assessment: Karin is a 41 y.o. female who was contacted today for Type 1 diabetes , now : Diagnoses and Orders Placed: 1. Type 1 diabetes mellitus without complication (HRC) 2. Insulin pump status (HRC) Plan: 1. No change in pump settings other than to reset target range 80-180 rather than 140. 2. Try to give insulin a little more head start for boluses. 3. Avoid stacking insulin 4. Offered Behavioral health consult. Pt is interested if clinician has special interest/training inDM. 5. Follow up in 6 mo. Sooner PRN. [employer] Patricia Hernández RN - 12/21/2021 10:00 AM CST Images from the original note were not included. [employer] documented in this encounter Plan of Treatment Upcoming Encounters Date Type Specialty Care Team Description 11/01/2022 Appointment Endocrinology Maxim Kelley APRN, IMAGER [address] [address] (Wo rk) 12/27/2022 Appointment Endocrinology Ayde [place] MBBS [address] [address] Scheduled Referrals Name Type Priority Associated Diagnoses Order S chedule Behavioral Health Referral Routine Type 1 diabetes mellitu s Ordered: 12/21/2021 Adult/Peds without complication (HRC) documented as of this encounter Procedures Procedure Name Priority Date/Time Associated Diagnosis Comme nts POCT GLYCOSYLATED Routine 12/21/2021 10:15 Type 1 diabetes Res ults for this HEMOGLOBIN (HGB A1C) AM DIRECTOR [employer]UCATIONAL [employer]IO mellitus without pro cedure are in complication (HRC) the resul ts section. documented in this encounter Results (ABNORMAL) POCT glycosylated hemoglobin (Hb A1C) (12/21/2021 10:15 AM DIRECTOR EDUCATIONAL RADIO) P athologist Signature Hemoglobin A1C 6.4 (A) 5.6 % POCT (Rapid) Cartridge Lot# [id number] POCT Specimen (Source) Anatomical Collection Method Collection Time Re ceived Time Location / / Volume Laterality Blood 12/21/2021 10:15 AM DIRECTOR EDUCATIONAL RADIO Maxim Kelley STILL PUMP OPERATOR, IMAGER ET POINT OF CARE TEST ENTER/ EDIT ORDERABLES Performing Organization Address City/State/ZIP Code Phon e Number POCT documented in this encounter Visit Diagnoses Diagnosis Type 1 diabetes mellitus without complic ation (HRC) - Primary Type I (juvenile type) diabetes mellitus without mention of complication, not stated as uncontrolled Insulin pump status (HRC) Insulin pump status documented in this encounter Care Teams Paving Inspector Relationship Specialty Start Date End Date Non Pn, Clinician, PCP - General 06/27/16 [place] [address] documented as of this encounter
--- OUTSIDE RECORDS SUMMARY | 2022-09-23 07:46 | XMS_ITS | Encounter Summary ---
:1980 Author Organization [facility] Address [address] [place] [address] Care Team Providers Name Role Phone Unavailable Primary Care Provider Unavailable Encounter Details Date Type Department Care Team Description 04/02/2018 Orders Only Department of Obstetrics Elly Abreu, and Gynecology in [place], [place] [address] [facility] [place] [address] [place] [id number] [phone] (Wo rk) Social History Tobacco Use Types Packs/Day Years Used Date Smoking Tobacco: Never Assessed Sex Assigned at Date Recorded Not on file documented as of this encounter Plan of Treatment Not on filedocumented as of this encounter Visit Diagnoses Not on filedocumented in this encounter
--- OUTSIDE RECORDS SUMMARY | 2022-09-23 07:46 | XMS_ITS | Encounter Summary ---
:1980 Author Organization [facility] Address [address] [place] [address] Care Team Providers Name Role Phone Unavailable Primary Care Provider Unavailable Reason for Visit Reason Onset Date Comments Communication 04/05/2018 Encounter Details Date Type Department Care Team Description 04/05/2018 Clinical Communication Department of Augustine Kenney Obstetrics and Ubaldo Arguelles III, Gynecology in [place], [place] [address] [facility] [address] [place] [id number] Social History Tobacco Use Types Packs/Day Years Used Date Smoking Tobacco: Never Assessed Sex Assigned at Date Recorded Not on file documented as of this encounter Miscellaneous Notes Telephone Encounter - Trupti Livingston - 04/05/2018 4:[address] Kenney. This patient called to update us and also ask for your advice. 1) Patient did report that she is at this time. 2) Her is scheduled for a sperm collection in April. She is wondering if she would be able tokeep this appointment due to the reoccurring miscarriages. She is wanting this to still be done justincase she does experience another loss. She is asking if you think this is appropriate or not. documented in this encounter Plan of Treatment Not on filedocumented as of this encounter Visit Diagnoses Not on filedocumented in this encounter
--- OUTSIDE RECORDS SUMMARY | 2022-09-23 07:46 | XMS_ITS | Encounter Summary ---
:1980 Author Organization [facility] Address [address] [place] [address] Care Team Providers Name Role Phone Non Pn, Clinician MD Primary Care Provider Unavailable Reason for Visit Reason Comments Diabetes Follow-up Encounter Details Date Type Department Care Team Description 07/28/2020 Telemedicine Althea Rosenthal, Type 1 diabe isaac mellitus without complication (HRC) (Primary Dx); Endocrinology CHIEF CLINICAL DIETITIAN, FNP Insulin pump status [id number] [address] [facility] [phone] [place], [place] [id number] Social History Tobacco Use Types Packs/Day Years Used Date Smoking Tobacco: Never Smokeless Tobacco: Never Alcohol Use Standard Drinks/Week Comments No 0 (1 standard drink = 0.6 oz pure alcoho l) Sex Assigned at Date Recorded Not on file documented as of this encounter Progress Notes Jocelyn Leslie LPN - 07/28/2020 9:00 AM CDT Called [facility] re:chart prep. 07/24 at 9:38am. Azael Case RN - 07/28/2020 9:00 AM CDT Pre-Visit Planning for Phone/Video Visit: Diabetes Pre-visit planning completed. Reviewed the following: - Medications (pended refills) - Pharmacy - Allergies - Last foot & eye exam - Tobacco/alcohol use Current Diabetes Medications Insulin: Aspart (Novolog) 55-80 units via pump Patient Concerns: None Reported Glucose Results: PT WILL UPLOAD TO T:[facility] MORNING OF 07/24, ACCOUNT LINKED. Emeka Szymanski - 07/28/2020 9:00 AM CDT Images from the original note were not included. Althea Kelley APRN, FNP - 07/28/2020 9:00 AM CDT July 28, 2020 Chief Complaint: Karin Mcmillan a 40 y.o. female is contacted for follow up of Type 1 diabetes. Today's office visit has been converted into a video visit. Clinician location: Clinic. Patient location: Home. Total time of visit: 20 minutes.. History of Present Illness: Subjective: Type 1 DM dx age 22 now 6 weeks . Follows with OB team at [facility]. . Pt had placental previa. Patient was diagnosed with a suspected abruption. Was delivered by 35 weeks 4 days gestation on 06/15/2020. Patient states her baby CN devante was in the NICU for about 12 days. Five days of thatshe was on breathing support. Not doing very well.. No betamethazone injection prior to delivery. Baby is currently breast-feeding. No known chronic microvascular complications of diabetes[facility] Current Diabetes Treatment Regimen: Tandem Tslim with Dexcom. Total daily dose 30.74 units. 50% as basal. Basals: Midnight 0.6 6:00 a.m. 0.95 Noon 0.8 Total basal 18.9 Correction factor 40 Carb ratio midnight 9 g, noon 12 g, 2:30 p.m. 15 g, 6:00 p.m. 11 g Target 100 Full med list reviewed in Epic. Objective: Pleasant woman. Appears very comfortable on her video chat. Smiling. Alert and oriented. Engaged inreviewing the data. Feeding her daughter. Her toddler son is in an out of the screen. Glucose Monitoring: Home glucose monitoring: Using CGMS daily See data. Average blood sugar 129. Range 48-337. There do seem to be pattern of low blood glucose levels before lunch and dinner on occasion. No severe hypoglycemia. 64% of her time in her range of 80-140. 4% of her time less than 80. There are some spikes in her blood sugar, but the patient admits this is sometimes when she is for gotten to bolus prior to the meal. . Last A1c: Lab Results Component Value [...] 2. Insulin pump status (HRC) Plan: 1. Adjust basal rates to reduce pre lunch and dinner hypoglycemia. New rates: Midnight 0.6 6:00 a.m. decreased to 0.9 Noon decreased to 0.75 6:00 p.m. 0.8 2. Discussed setting her target in her tandem to 80-180. Patient agrees this might be reasonable. 3. Discussed the importance of pre meal insulin timing. 4. Follow-up in 3-4 months for recheck. Patient will be due for her annual labs in November 2020. documented in this encounter Plan of Treatment Upcoming Encounters Date Type Specialty Care Team Description 11/01/2022 Appointment Endocrinology Althea Kelley APRN, FNP [address] [address] (Wo rk) 12/27/2022 Appointment Endocrinology Ayde [place] MBBS [address] [address] documented as of this encounter Visit Diagnoses Diagnosis Type 1 diabetes mellitus without complic ation (HRC) - Primary Type I (juvenile type) diabetes mellitus without mention of complication, not stated as uncontrolled Insulin pump status (HRC) Insulin pump status documented in this encounter Care Teams Television Engineer Relationship Specialty Start Date End Date Non Pn, Clinician, PCP - General 06/27/16 [place] [address] documented as of this encounter
--- OUTSIDE RECORDS SUMMARY | 2022-09-23 07:46 | XMS_ITS | Encounter Summary ---
:1980 Author Organization [facility] Address [address] [place] [address] Care Team Providers Name Role Phone Non Pn, Clinician MD Primary Care Provider Unavailable Reason for Visit Reason Comments Diabetes Encounter Details Date Type Department Care Team Description 06/21/2022 Office Visit Ayde Brown Type 1 diab etes mellitus without complication (HRC) (Primary Dx); Endocrinology KERWIN Lagunas Insulin pump status [address] [place] [address] [facility] [phone] [place] [address] Social History Tobacco Use Types Packs/Day Years Used Date Smoking Tobacco: Never Smokeless Tobacco: Never Alcohol Use Standard Drinks/Week Comments No 0 (1 standard drink = 0.6 oz pure alcoho l) Sex Assigned at Date Recorded Not on file documented as of this encounter Last Filed Vital Signs Vital Sign Reading Time Taken Comments Blood Pressure 121/74 06/21/2022 9:52 AM CDT Pulse 82 06/21/2022 9:52 AM CDT Temperature - - Respiratory Rate - - Oxygen Saturation - - Inhaled Oxygen Concentration - - Weight 65.3 kg (144 lb) 06/21/2022 9:52 AM CDT Height 162.6 cm (5' 4) 06/21/2022 9:52 AM CDT Body Mass Index 24.72 06/21/2022 9:52 AM CDT documented in this encounter Progress Notes Ayde [place] MBBS - 06/21/2022 9:45 AM CDT [facility] Department of Endocrinology, Diabetes and Metabolism Clinic Note Name: Karin Mcmillan Cc: Follow up for T1DM in . HPI: Karin Mcmillan is a 42 y.o. female #1 T1DM: Diagnosed at age 22, no known microvascular complications. She is currently using tandem T slim X2 with control IQ pump with a Dexcom sensor. Current rates are: Basal: midnight 0.55, 6AM 1, 9 PM 0.85. Bolus midnight 1 per 14, 2:30 AM 1 per 13, 12 PM 1 per 12, 9 PM 1 per 13. SF midnight 60,Target 100. Insulin time 5 hrs. She is using Dexcom, glucose levels shows post meal hyperglycemia due to under bolusing. A1C today was 6.8. Eye exam from 07/2021 was reported with no DM changes. Labs from 05/2021 showed normal TSH, urine microalbumin and creatinine. is progressing well so far. Physical Examination: Blood pressure 121/74, pulse 82, height 5' 4 (1.626 m), weight 144 lb (65.3 kg), unknown if currently . Labs: Reviewed and summarized in the HPI. Assessment and Plan: Karin Mcmillan is a 42 y.o. female: #1 T1DM: Controlled, no triopathy, A1C 6.8%. Continue current rates. Bolus before eating. Update labs. She is scheduled for an eye exam in 07/29/2022. RTC in 3-4 months with Althea. I have spent 30 minutes with the patient, >50% was spent on counseling. KERWIN Banda Industrial Security Analyst Emeka Szymanski - 06/21/2022 9:45 AM CDT Images from the original note were not included. documented in this encounter Plan of Treatment Upcoming Encounters Date Type Specialty Care Team Description 11/01/2022 Appointment Endocrinology Althea Kelley, MOUNTER SOUSAPHONES, SIDE SEAM MACHINE OPERATOR [address] [address] (Wo rk) 12/27/2022 Appointment Endocrinology Ayde [place] MBBS [address] [address] documented as of this encounter Procedures Procedure Name Priority Date/Time Associated Diagnosis Comme nts HGB A1C Routine 06/21/2022 9:45 AM Type 1 diabetes Result s for this CDT mellitus without procedure a re in complication (HRC) the resul ts section. documented in this encounter Results (ABNORMAL) Hgb A1C (06/21/2022 9:45 AM CDT) [facility] gist Method Time Signature Hemoglobin A1C 6.8 (H) <=5.6 % 06/21/2022 [place] (Rapid) 9:56 AM CDT LABORATORY Performing Endo A BU 06/21/2022 [place] Location 9:56 AM CDT LABORATORY Specimen Anatomical Collection Method / Collection Time Recei gabi Time (Source) Location / Volume Laterality Blood Venipuncture / 06/21/2022 9:45 06/21/2022 9:46 Unknown AM CDT AM CDT Narrative [facility] - 06/21/2022 9:56 AM CDT For patients not previously diagnosed with diabetes: 5.7-6.4%: Increased risk for diabetes 6.5% and greater: Diagnostic for diabete s For patients diagnosed with diabetes: <8.0%: Goal of therapy for ages 18-75 Clinicians may recommend a higher or low er goal for specific individuals. Ayde SURESH LAB_1 Performing Organization Address City/State/ZIP Code Phon e Number [facility] [address] [place] [address] documented in this encounter Visit Diagnoses Diagnosis Type 1 diabetes mellitus without complic ation (HRC) - Primary Type I (juvenile type) diabetes mellitus without mention of complication, not stated as uncontrolled Insulin pump status (HRC) Insulin pump status documented in this encounter Care Teams Chefs Relationship Specialty Start Date End Date Non Pn, Clinician, PCP - General 06/27/16 [place] [address] documented as of this encounter
--- OUTSIDE RECORDS SUMMARY | 2022-09-23 07:46 | XMS_ITS | Clinical Summary ---
:1980 Author Organization [facility] Address [address], [place] [address] Care Team Providers Name Role Phone Non Pn, Clinician MD Primary Care Provider Unavailable Source Comments You are receiving this document as you are listed as the primary care provider,follow-up provider, or the patient has been referred to you for consultation.This is in compliance with the Medicare and Medicaid EHR Incentive Program,which states Providers who transition their patient to another setting of careor provider of care or refers their patient to another provider of care shouldprovide summarycare record for each transition of care or referral. [place] Allergies Active Allergy Reactions Severity Noted Date Comments Morphine Itching 06/08/2021 Ketorolac Tromethamine Hives High 06/08/2021 Tramadol Other, see comments 06/08/2021 Vomiting Diazepam Dizziness 06/08/2021 Medications Medication Sig Dispensed Refills Start Date End Date Status Generic [place]ication [place] [facility] [place]; 0 01/05/2015 Active (DIABETIC SUPPLIES) Combo Route) route. Service Route form for pump and testing supplies faxed to [phone] acetone urine Use to test daily. 100 Each 3 10/30/2017 Active (KETOSTIX) test strip lancets (MILTON Use 1 to test 8-10 300 Each 11 10/23/2018 Active MICROLET)Indication times daily. Use as s: Pre-existing directed. Pharmacy type 1 diabetes dispense brand based mellitus in on insurance. in third trimester insulin Inject 1 Each 100 Each 07/16/2019 Activ e syringe-needle subcutaneously as U-100 0.5ml 31g x needed. 15/64 blood glucose Use 8-10 times daily 750 Strip 3 10/15/2019 Active (MILTON CONTOUR NEXT) test stripIndications: Type 1 diabetes mellitus without complication (HRC) insulin glargine Inject 20 Units 10 mL 3 10/15/2019 Active (LANTUS) 100 subcutaneously daily. UNIT/ML injection HOLD FOR PT CALL Blood Glucose Use 1 Device to test 1 Kit 0 07/24/2020 Active Monitoring Suppl as needed. Use as (CONTOUR MONITOR) directed. Pharmacy w/Device dispense brand based KITIndications: on insurance. Type 1 diabetes mellitus without complication (HRC) glucagon (BAQSIMI Place 1 Dose (3 mg) 1 Each 12/21/2021 Active ONE PACK) 3 MG/DOSE into one nostril as nasal powder needed for Hypoglycemia. May repeat in 15 minutes prn. Do not open tube until ready to use. insulin aspart INFUSE 45 UNITS PER 40 mL 1 06/02/2022 Active (NOVOLOG) 100 DAY VIA INSULIN PUMP. UNIT/ML injection AVERAGE DAILY DOSE (vial)Indications: RISING WITH Type 1 diabetes mellitus without complication (HRC) omeprazole Take 20 mg by mouth 0 Active (PRILOSEC) 20 MG daily. Take 1 hour capsule before a meal. Active Problems Problem Noted Date Placenta previa without hemorrhage in second trimester 02/28/2020 Type 1 diabetes mellitus 09/24/2012 Overview: Type I (juvenile type) diabetes mellitus without mention of complication, not stated as uncontrolled (HRC) Insulin pump status 09/24/2012 Encounters Date Type Specialty Care Team Description 08/23/2022 Orders Only Provider, MD Daphne 08/03/2022 Telephone Endocrinology Ayde Warren, Forms ( Chart notes US Med) MBBS from Last 3 Months Immunizations Name Administration Dates Next Due HepA Adult (19+ yrs) 01/20/2015 HepB Adult (Engerix-B, 20+ yrs, 3 dose series) 01/20/2015 Influenza IIV4 (Quadrivalent) 0.5mL (70163) 09/12/2017, 07/2014 PPSV23 (Pneumovax) 01/20/2015 TDAP (ADACEL) 05/01/2014 TDAP (BOOSTRIX) 09/12/2014 YF (Yellow Fever) 01/20/2015 Social History Tobacco Use Types Packs/Day Years [...] Mass Index 24.72 06/21/2022 9:52 AM CDT Plan of Treatment Upcoming Encounters Date Type Specialty Care Team Description 11/01/2022 Appointment Endocrinology Althea Kelley, CLIENT EXECUTIVE, CUSTOMER SALES ADVISOR [address] [phone] (Wo rk) 12/27/2022 Appointment Endocrinology Ayde Warren MBBS [address] [phone] Health Maintenance Due Date Last Done Comments Cervical Cancer Screening 1980 Due Diabetes: Foot Exam 1980 Hep C Screening (Preventive 1980 Services) COVID-19 Vaccine (#1) 1980 HIV Screening (Preventive 1998 Services) Adult Preventive Visit 01/27/2000 Diabetes: Eye Exam 08/06/2014 08/06/2013 HepB (2) 02/17/2015 01/20/2015 HepA (2 of 2 - Risk 2-dose 07/23/2015 01/20/2015 series) Pneumococcal (2 - PCV) 01/21/2016 01/20/2015 Diabetes: Creatinine 06/08/2022 06/08/2021, 12/17/2019, 04/16/2019, Additional history exists Diabetes: Urine 06/08/2022 06/08/2021, 12/17/2019, Microalbumin 04/16/2019, Additional history exists Influenza (#1) 2022 09/21/2021, 08/07/2020, 08/29/2019, Additional history exists Diabetes: HGBA1C 09/21/2022 06/21/2022, 12/21/2021, 06/08/2021, Additional history exists Diabetes: Lipid Panel 06/08/2026 06/08/2021, 04/16/2019, 11/21/2017, Additional history exists DTaP/Tdap/Td (5 - Tdap) 05/08/2030 05/08/2020, 10/01/2018, 09/12/2014, Additional history exists Zoster/Shingles (1 of 2) 01/27/2032 HPV Vaccine Aged Out No longer eligib le based on patient 's age to complete this topic Hib Aged Out No longer eligib le based on patient 's age to complete this topic IPV (Polio) Aged Out No longer eligib le based on patient 's age to complete this topic MCV4 Aged Out No longer eligib le based on patient 's age to complete this topic Procedures Procedure Name Priority Date/Time Associated Diagnosis Comme nts LABORATORY REPORT 08/23/2022 Results fo r this procedure are in the resu lts section. from Last 3 Months Results LABORATORY REPORT (08/23/2022) Narrative This result has an attachment that is no t available. Interface Provider MD DUMMY/OTHER/AR from Last 3 Months Insurance Payer Benefit Plan / Subscriber ID Effective Dates Phone Addre ss Type Group BCBS [place] [id number] 2015-Present [address] [address] [place] [address] Care Teams Pug Mill Operator Helper Relationship Specialty Start Date End Date Non Pn, Clinician, PCP - General 06/27/16 [place] [address]
--- OUTSIDE RECORDS SUMMARY | 2022-09-23 07:46 | XMS_ITS | Encounter Summary ---
:1980 Author Organization [facility] Address [address] [place] [address] Care Team Providers Name Role Phone Non Pn, Clinician MD Primary Care Provider Unavailable Reason for Visit Reason Comments Forms Chart notes Encounter Details Date Type Department Care Team Description 03/14/2022 Telephone [facility] [address] Althea Kelley, Forms (Chart notes/) Endocrinology MILY, HORSE DOCTOR [address] [place] [address] (Wo rk) Social History Tobacco Use Types Packs/Day Years Used Date Smoking Tobacco: Never Smokeless Tobacco: Never Alcohol Use Standard Drinks/Week Comments No 0 (1 standard drink = 0.6 oz pure alcoho l) Sex Assigned at Date Recorded Not on file documented as of this encounter Nursing Notes Ana Kennedy - 03/14/2022 1:49 PM CDT Faxed chart notes to [facility] [phone] documented in this encounter Plan of Treatment Upcoming Encounters Date Type Specialty Care Team Description 11/01/2022 Appointment Endocrinology Althea Kelley, LONGWALL SHEARER OPERATOR, HORSE DOCTOR [address] [facility] N [phone] (Wo rk) 12/27/2022 Appointment Endocrinology Ayde Warren MBBS [address] [phone] documented as of this encounter Visit Diagnoses Not on filedocumented in this encounter Care Teams Size Marker Relationship Specialty Start Date End Date Non Pn, Clinician, PCP - General 06/27/16 [place] [address] documented as of this encounter
--- OUTSIDE RECORDS SUMMARY | 2022-09-23 07:46 | XMS_ITS | Encounter Summary ---
:1980 Author Organization [facility] Address [address] [place] [address] Care Team Providers Name Role Phone Unavailable Primary Care Provider Unavailable Encounter Details Date Type Department Care Team Description 03/13/2018 Ancillary Procedure Department of Obstetrics and Gynecology Social History Tobacco Use Types Packs/Day Years Used Date Smoking Tobacco: Never Assessed Sex Assigned at Date Recorded Not on file documented as of this encounter Plan of Treatment Not on filedocumented as of this encounter Procedures Procedure Name Priority Date/Time Associated Comments Diagnosis OBSTETRICS AND Routine 03/13/2018 2:38 PM Results for this GYNECOLOGY IMAGE CDT procedure a re in EXAM the results section. documented in this encounter Results OBSTETRICS AND GYNECOLOGY IMAGE EXAM (03/13/2018 2:38 PM CDT) Specimen (Source) Anatomical Collection Method Collection Time Re ceived Time Location / / Volume Laterality 03/13/2018 3:17 PM CDT Narrative [facility] - 03/13/2018 2:38 PM CDT This order has been created and [...]
--- OUTSIDE RECORDS SUMMARY | 2022-09-23 07:46 | XMS_ITS | Encounter Summary ---
:1980 Author Organization [employer] Address [address] [place] [address] Care Team Providers Name Role Phone Non Pn, Clinician MD Primary Care Provider Unavailable Reason for Visit Reason Comments Type 1 Diabetes Controlled Encounter Details Date Type Department Care Team Description 02/26/2020 Phone Visit Althea Rosenthal, Type 1 diabe isaac mellitus without complication (HRC) (Primary Dx); Endocrinology PHANI MINOR Insulin pump status; [id number] [address] Pre-existing diabetes [facility] during , [place] [address] [address] [phone] [place] [address] (Wo rk) Social History Tobacco Use Types Packs/Day Years Used Date Smoking Tobacco: Never Smokeless Tobacco: Never Alcohol Use Standard Drinks/Week Comments No 0 (1 standard drink = 0.6 oz pure alcoho l) Sex Assigned at Date Recorded Not on file documented as of this encounter Progress Notes Althea Kelley, MILY, PHANI - 02/26/2020 3:00 PM CDT February 26, 2020 Chief Complaint: Karin Mcmillan a 40 y.o. female is contacted for follow up of Type 1 diabetes. Missed appt by accident yesterday, so talked today to review email that was sent in [email or web address]. Today's office visit has been converted into a phone visit due to COVID-19 social isolation precautions. History of Present Illness: Subjective: Type 1 DM dx age 22 now in . 20.5 weeks gestation. No known chronic microvascular complications of diabetes. Sees Dr. Katy Mcqueen and her partners in [place] for OB. Dr. Warern suggested meeting with perinatologist. She is scheduled to meet with Them 02/27/2020. She is anxious to ask them about Csectionnecessity/risk etc. Current Diabetes Treatment Regimen: Tandem Tslim with Dexcom. Full med list reviewed in Epic. Objective: Pleasant woman. Sounds comfortable on phone call. Glucose Monitoring: Home glucose monitoring: Using CGMS daily See data from [employer] yesterday. . Last A1c: Lab Results Component Value [...] complication (HRC) 2. Insulin pump status (HRC) 3. Pre-existing diabetes mellitus during , antepartum Plan: 1. Pt increased bolus ratio for dinner to 1/6grams 2. Continues track blood glucose levels carefully with the Dexcom and adjust insulins accordingly. We discussed this at length. Emotional support provided. 3. Follow-up in 3-4 weeks. Upload data in 1-2 weeks if she would like. Total time of call: 15 min documented in this encounter Plan of Treatment Upcoming Encounters Date Type Specialty Care Team Description 11/01/2022 Appointment Endocrinology Althea Kelley APRN, DEAF INTERPRETER [address] [phone] (Wo rk) 12/27/2022 Appointment Endocrinology Ayde Warren MBBS [address] [phone] documented as of this encounter Visit Diagnoses Diagnosis Type 1 diabetes mellitus without complic ation (HRC) - Primary Type I (juvenile type) diabetes mellitus without mention of complication, not stated as uncontrolled Insulin pump status (HRC) Insulin pump status Pre-existing diabetes mellitus during pr egnancy, antepartum documented in this encounter Care Teams Building Manager Relationship Specialty Start Date End Date Non Pn, Clinician, PCP - General 06/27/16 [place] [address] documented as of this encounter
--- OUTSIDE RECORDS SUMMARY | 2022-09-23 07:46 | XMS_ITS | Encounter Summary ---
:1980 Author Organization [facility] Address [address] [place] [address] Care Team Providers Name Role Phone Unavailable Primary Care Provider Unavailable Reason for Visit Outpatient (Routine) - Closed Specialty Diagnoses / Procedures Referred By Contact Refer red To Contact Obstetrics and Jono Anderson [facility] Gynecology Hank [address] [place] [address] Referral ID Status Reason Start Date Expiration Date Visits Requ ested Visits Authorized [id number] Closed 03/08/2018 09/04/2018 1 1 Encounter Details Date Type Department Care Team Description 03/30/2018 Comprehensive Visit Department of Rosa Kenney Obstetrics and Ubaldo Arguelles III, Loss Not Cu rrently Gynecology in M.D. ([place], [place] Dx) [place] [address] [address] [place] [address] Social History Tobacco Use Types Packs/Day Years Used Date Smoking Tobacco: Never Assessed Sex Assigned at Date Recorded Not on file documented as of this encounter Progress Notes Ubaldo Kenney III, M.D. - 03/30/2018 10:30 AM CDT The patient is a 38-year-old 2 para 0020 who is seen today for recurrent loss and loss counseling. The patient continues to be under excellent control with her diabetes and her insulin pump and appears to be doing well. We discussed the aspects of the patient sonohysterogram with Dr. Alston in which the lining was noted to be thin. I explained to her that the end of being 03/02/2018 with a beta HCG was negative and the sonohysterogram was done on and was not long enough to allow the ovarian response to get a thickened lining. It is my impression that once she start cycling again she will have a thicker lining. We also reviewed laboratories and the laboratories that were done in regards to recurrent loss shows that there is no lupus anticoagulant the coagulation workup was negative and her antiphospholipid IgG was 12.5 which is very minimally elevated. The TSH was 1.5 with negative TPO antibodies the karyotype was normal for herself and her . The antral follicle count in the past has been 19 and thus is felt she is a good prognosis patient we also talked about her starting on a baby aspirin orally daily for her recurrent loss. She also noted that with her last by she utilized Clomid 50 mg daily days 3 through 7 to stimulate ovulation and progesterone suppositories to support the after ovulation. By ultrasound the made it to 6 weeks and 3 days gestational age per the crown-rump length. We then talked about counseling in regards to the proceeding with ovulation induction versus proceeding with IVF. The process of IVF was exposed was explained in detail to them and their questions wereanswered. We also talked about doing preimplantation genetic screening. It was decided that since they would be going to [facility] for a week of teaching that we would have her provide a semenanalysis and cryopreserved at. He will also get Infectious diseases as well. Thus, if they decided to proceed with IVF after that visit [facility], they could then utilize frozen sperm and they would not be obligated to wait for 6 months because of the cecum virus exposure. The orders were placed for that today. After these discussions, they decided they would like to try clomiphene for a month or so and the Clomid prescription was renewed. They will proceed with attempting with ovulation induction and progesterone support through their visit [facility]. During the 2 months they will need to wait because of the patient's exposure potentially disease, they will then proceed with the the IVF workup. Impression and diagnosis: 1. Recurrent loss 2. Pre conceptual counseling Plan: 1. Start baby aspirin orally daily 2. Clomiphene 50 mg days 3 through 7 of the cycle and progesterone 3 times daily after ovulation. 3. Semen analysis with strict morphology and cryo preservation today infectious disease on partner today. 4. Return to clinic in approximately 2 months after return from trip to [facility]. Counseling on 0 5 hr exposure both in and with fertility therapy. documented in this encounter Plan of Treatment Not on filedocumented as of this encounter Visit Diagnoses Diagnosis Recurrent Loss Not Currently P regnant - Primary documented in this encounter
--- OUTSIDE RECORDS SUMMARY | 2022-09-23 07:46 | XMS_ITS | Encounter Summary ---
:1980 Author Organization [facility] Address [address] [place] [address] Care Team Providers Name Role Phone Unavailable Primary Care Provider Unavailable Encounter Details Date Type Department Care Team Description 11/24/2017 Telemedicine Department of Obstetrics and Gynecology Social History Tobacco Use Types Packs/Day Years Used Date Smoking Tobacco: Never Assessed Sex Assigned at Date Recorded Not on file documented as of this encounter Plan of Treatment Not on filedocumented as of this encounter Procedures Procedure Name Priority Date/Time Associated Comments Diagnosis OBSTETRICS AND Routine 11/24/2017 12:55 PM Result s for this GYNECOLOGY IMAGE THUMB SEWER procedure a re in EXAM the results section. documented in this encounter Results OBSTETRICS AND GYNECOLOGY IMAGE EXAM (11/24/2017 12:55 PM THUMB SEWER) Specimen (Source) Anatomical Location Collection Method / Collectio n Time Received Time / Laterality Volume Narrative [facility] - 11/24/2017 7:17 PM THUMB SEWER This order has been created and auto-finalized [...]
--- OUTSIDE RECORDS SUMMARY | 2022-09-23 07:46 | XMS_ITS | Encounter Summary ---
:1980 Author Organization [employer] Address [address] [place] [address] Care Team Providers Name Role Phone Non Pn, Clinician MD Primary Care Provider Unavailable Reason for Visit Reason Comments CONSULT Encounter Details Date Type Department Care Team Description 02/27/2020 Phone Visit Specialty Center [facility] Venkatesh Camarena, Type 1 diabetes mellitus without complication (HRC) (Primary Dx); Maternal MD Placenta previa without hemorrhage in se cond trimester Medicine [address] [facility] [address] [address] [place] [address] [id number] [phone] Social History Tobacco Use Types Packs/Day Years Used Date Smoking Tobacco: Never Smokeless Tobacco: Never Alcohol Use Standard Drinks/Week Comments No 0 (1 standard drink = 0.6 oz pure alcoho l) Sex Assigned at Date Recorded Not on file documented as of this encounter Last Filed Vital Signs Vital Sign Reading Time Taken Comments Blood Pressure 120/69 02/27/2020 11:59 AM CDT Pulse 79 02/27/2020 11:59 AM CDT Temperature - - Respiratory Rate - - Oxygen Saturation - - Inhaled Oxygen Concentration - - Weight - - Height - - Body Mass Index - - documented in this encounter Progress Notes Venkatesh Camarena MD - 02/27/2020 11:15 AM CDT MATERNAL MEDICINE () CONSULTATION HPI Karin Mcmillan is a 40 y.o. year old at 20 weeks seen for consultation at the request ofDr. Rose Marie Crocker in [place], [place] because of her medical history and potential implications in . In review, Karin was diagnosed with Type 1 DM at the age of 22. She does follow with our Endocrinology team. She uses a tandem T slim X2 with basal IQ pump with a Dexcom sensor. She is well versed on diabetic care and insulin use. She has well controlled values, and no evidence of end organ disease. Her last eye exam was in June 2019. She has no exercise intolerance, no chest pain, and no shortness pf breath. This is her 4th , with 2 early loses, and a term delivery. With that , she was induced at 39 weeks because of the diabetes. Induction was stopped after oxytocin and AROM did not lead to cervical change. Her son Ten is doing well. Today, she has no complaints. OB HISTORY: OB History Para Term AB Living 4 1 1 0 2 1 SAB TAB Ectopic Multiple Live Births 2 0 0 0 1 # Outcome Date GA Lbr Abdoul/2nd Weight Sex Delivery Anes PTL Lv 4 Current 3 Term 11/30/18 39w0d 6 lb 14 oz (3.118 kg) M CS-LTranv N GINA Name: Ten 2 SAB 11/2017 1 2016 PAST MEDICAL HISTORY: Past Medical History: Diagnosis Date ??? Diabetes mellitus (HRC) age 22 DM1 Medications: Outpatient Medications Prior to Visit Medication Sig Note Dispense Refill ??? acetone urine (KETOSTIX) test strip Use to test daily. 100 Each 3 ??? aspirin 81 MG tablet Take 81 mg by mouth daily. 02/27/2020: On since being ??? blood glucose (MILTON CONTOUR NEXT) test strip Use 8-10 times daily 750 Strip 3 ??? CONTOUR NEXT EZ MONITOR Use as directed. Pharmacy dispense brand based on insurance. 1 Each 0 ??? ferrous gluconate (FERGON) 324 (38 Fe) MG tablet Take 324 mg by mouth daily with breakfast. ??? Generic Medication (DIABETIC SUPPLIES) by [facility].(Non-Drug; Combo Route) route. PacerPro form forpump and testing supplies faxed to [phone] ??? glucagon (BAQSIMI ONE PACK) 3 MG/DOSE nasal powder Place 1 Dose into one nostril as needed for Hypoglycemia. May repeat in 15 minutes prn. Do not open tube until ready to use. 1 Each PRN ??? insulin aspart (NOVOLOG) 100 UNIT/ML injection (vial) Infuse via insulin pump. Average daily dose rising with . 55-80 Units/day. 60 mL 3 ??? insulin glargine (LANTUS) 100 UNIT/ML injection Inject 20 Units subcutaneously daily. HOLD FOR PT CALL 10 mL 3 ??? insulin syringe-needle U-100 0.5ml 31g x 15/64 Inject 1 Each subcutaneously as needed. 100 Eachprn ??? lancets (Kalyan JewellersET) Use 1 to test 8-10 times daily. Use as directed. Pharmacy dispense brand based on insurance. 300 Each 11 ??? Magnesium Hydroxide (MAGNESIA OR) Pt takes 350 mg daily ??? vitamin-ferrous fumarate-folic acid (PRENATALPLUS) 27-1 MG tablet Take 1 Tablet by mouth daily. ??? raNITIdine (ZANTAC) 75 MG tablet Take 75 mg by mouth two times a day. No facility-administered medications prior to visit. Adverse Drug Reactions: No Known Allergies Surgeries: Past Surgical History: Procedure Laterality Date ??? SECTION 11/30/2018 REVIEW OF SYSTEMS: Negative FAMILY HISTORY: family history is not on file. OBJECTIVE: BP 120/69 (BP Location: Left Arm, BP Cuff Size: Regular) Pulse 79 LMP 10/10/2019 (Exact Date) GEN: NAD CV Regular pulse Lungs Regular respirations Limited exam per RN, as most of time spent in face to face consultation Visit was performed through telemedicine. Patient was informed and consented to the process. ULTRASOUND: Report sent under separate cover. No anatomic defects detected Normal echocardiogram Posterior placenta previa ASSESSMENT: 20 weeks Type 1 Diabetes: We discussed management of diabetes in and potential risks from preconception to the period. Good glycemic control before conception and continuing this throughout has been shown to reduce the risk of miscarriage, congenital malformation, stillbirth and . Diabetes is more than abnormal glucose levels, and even with optimal control, risks can be reduced but not eliminated. Blood sugar is influenced by diet, body weight and exercise, and a multipronged approach is best. Periconception blood sugar has the greatest impact on the risk of anomalies. Since open neuraltube defects are one of the more common problems, women with diabetes may benefit from taking higherlevels of folic acid during the preconception period (5 mg/day). The HgA1C at the time of conception, or the earliest in , is the best predictor of anomaly risk. Based on the HgA1C of 5.7, she is at minimal increase risk. The detailed anatomic scan and echocardiogram are reassuring today. After the 1st trimester, the fasting and postprandials are the best predictors of outcome. Fasting naturally decrease in and postprandials increase, so the target ranges are 60 to 95 mg/dl fasting, and below 130 mg/dl 1 hour postprandial blood glucose . Even with optimal glucose control, there is an increase risk for placental dysfunction, distress, and stillbirth. Most adverse outcomes occur in the setting of IUGR, which usually occurs in the setting of underlying vascular disease or pre eclampsia. In the setting of normal growth, surveillance has poor sensitivity. Large for gestational age occurs more often with suboptimal glucose control. The later is associatedwith an increase risk of trauma (including shoulder dystocia and erbs palsy), induction of labor and section. Later in life, macrosomia has been associated with increased risk of obesity and Type 2 diabetes. Based on these factors, we recommend ultrasound monitoring of growth and amniotic fluid volumeevery 4 weeks from 28 to 36 weeks. testing can be individualized, but typically occurs by 36 weeks in the normally grown fetus. Maternal Risks: The risk of hypoglycemia is higher in the 1st trimester. About a 1/3 of women have decreasing insulin requirements in the 3rd trimester. Likewise, DKA can occur, and at anytime she feels ill, this is aconsideration. Blood glucose levels are a poor predictor for DKA, as the fetus and placenta can normalize this. Serum ketones or pH are the best test if this is a concern. There is an increase risk of retinopathy in , especially when there is initially poor control. Assessment of diabetic retinopathy is recommended in each trimester. Timing and mode of There is no consensus for the optimal timing of delivery. Factors in the decision include estimated size, glucose control, and risks of prematurity versus risk of demise. Most fetuses benefit from delivery after 39 weeks, even in the setting of macrosomia. women with diabetes who have an ultrasound-diagnosed macrosomic fetus should be informed ofthe risks and benefits of vaginal , induction of labor and caesarean section. During labor and , capillary blood glucose should be monitored closely and blood sugar maintained between 70 and 110 mg/dl. Newborns are at risk for polycythemia, hyperbilirubinanemia, hypocalcaemia and hypomagnesaemia. Previa: The placenta is posterior with the inferior margin over the cervix (complete previa). This does not extend onto the anterior surface. Resolution usually occurs with advancing gestational age. This is asmall possibility that as this resolves, vessels are still present over the cervix (vasa previa). So at the time of the growth US, the placenta and possible vasa previa should be reassessed. Placental migration is also associated with episodes of vaginal bleeding. These are unpredictable, and not amenable to risk reduction. Bleeding is usually minimal, and can be assessed per OB teams guidelines. PLAN: Continue low dose ASA Appointment Care for women with diabetes during 28 weeks Ultrasound for growth and amniotic fluid volume. Placenta location and evaluate for vasa previa Retinal assessment if not already done 32 weeks Ultrasound for growth and amniotic fluid volume. 36 weeks Ultrasound for growth and amniotic fluid volume. surveillance if not already started. Above can be done at the location of the primary OB's preference. Feel free to call with any questions or concerns The total time of the visit was 40 minutes, with more than half spent in face to face counseling about the above topics. Visit was performed through telemedicine. Patient was informed and consented to the process. Venkatesh Camarena MD 3:24 PM documented in this encounter Plan of Treatment Upcoming Encounters Date Type Specialty Care Team Description 11/01/2022 Appointment Endocrinology Althea Kelley, BEAN SNIPPER, DIRECTOR OF STRATEGIC INITIATIVES [address] [phone] (Wo rk) 12/27/2022 Appointment Endocrinology Ayde Warren MBBS [address] [phone] documented as of this encounter Visit Diagnoses Diagnosis Type 1 diabetes mellitus without complic ation (HRC) - Primary Type I (juvenile type) diabetes mellitus without mention of complication, not stated as uncontrolled Placenta previa without hemorrhage in se cond trimester documented in this encounter Care Teams Steam Pipe Fitter Relationship Specialty Start Date End Date Non Pn, Clinician, MD PCP - General 06/27/16 [place] [address] documented as of this encounter
--- OUTSIDE RECORDS SUMMARY | 2022-09-23 07:46 | XMS_ITS | Encounter Summary ---
:1980 Author Organization [facility] Address [address] [place] [address] Care Team Providers Name Role Phone Non Pn, Clinician MD Primary Care Provider Unavailable Reason for Visit Reason Comments Appt. Needed Chg to VV Encounter Details Date Type Department Care Team Description 02/17/2020 Telephone [facility] [address] Althea Kelley, Appt. Needed (Chg to Endocrinology MEDICAL UNDERWRITER, PHANI VV) [address] [facility] [place] [address] [phone] (Wo rk) Social History Tobacco Use Types Packs/Day Years Used Date Smoking Tobacco: Never Smokeless Tobacco: Never Alcohol Use Standard Drinks/Week Comments No 0 (1 standard drink = 0.6 oz pure alcoho l) Sex Assigned at Date Recorded Not on file documented as of this encounter Nursing Notes Erika Haque - 02/17/2020 11:03 AM CDT Chg to VV documented in this encounter Plan of Treatment Upcoming Encounters Date Type Specialty Care Team Description 11/01/2022 Appointment Endocrinology Althea Kelley, MEDICAL UNDERWRITER, DRAIN CLEANER PLUMBER [address] [facility] N [phone] (Wo rk) 12/27/2022 Appointment Endocrinology Ayde Warren MBBS [address] [id number] documented as of this encounter Visit Diagnoses Not on filedocumented in this encounter Care Teams Job Printer Apprentice Relationship Specialty Start Date End Date Non Pn, Clinician, PCP - General 06/27/16 [place] [address] documented as of this encounter
--- OUTSIDE RECORDS SUMMARY | 2022-09-23 07:46 | XMS_ITS | Encounter Summary ---
:1980 Author Organization [facility] Address [address] [place] [address] Care Team Providers Name Role Phone Non Pn, Clinician MD Primary Care Provider Unavailable Reason for Visit Reason Comments Forms Chart notes US Med Encounter Details Date Type Department Care Team Description 08/03/2022 Telephone [facility] [address] Ayde Warren Fo rms (Chart notes Endocrinology [facility] Med) [address] [facility] [place] [address] [phone] Social History Tobacco Use Types Packs/Day Years Used Date Smoking Tobacco: Never Smokeless Tobacco: Never Alcohol Use Standard Drinks/Week Comments No 0 (1 standard drink = 0.6 oz pure alcoho l) Sex Assigned at Date Recorded Not on file documented as of this encounter Nursing Notes Ana Kennedy - 08/03/2022 11:57 AM CDT Faxed chart notes to [facility] [phone] documented in this encounter Plan of Treatment Upcoming Encounters Date Type Specialty Care Team Description 11/01/2022 Appointment Endocrinology Althea Kelley, COOK HOUSE SUPERVISOR, BOARDER HAND [address] [facility] N [phone] (Wo rk) 12/27/2022 Appointment Endocrinology Ayde Warren, MBBS [address] [place] N [id number] documented as of this encounter Visit Diagnoses Not on filedocumented in this encounter Care Teams Blind Hanger Relationship Specialty Start Date End Date Non Pn, Clinician, PCP - General 06/27/16 [place] [address] documented as of this encounter
--- OUTSIDE RECORDS SUMMARY | 2022-09-23 07:47 | XMS_ITS | Encounter Summary ---
:1980 Author Organization [facility] Address [address] [place] [address] Care Team Providers Name Role Phone Non Pn, Clinician MD Primary Care Provider Unavailable Reason for Visit Reason Comments Diabetes Encounter Details Date Type Department Care Team Description 12/17/2019 Office Visit [place] Althea Kelley, TUBE MILL OPERATOR, PROCESS CONTROL OPERATOR 38[address] [place] [address] Pre-existing type 1 Endocrinology Ayde Warren, MBBS [address] [place], [place] [phone] [place] [address] [facility] [place] [address] trimester (Primary [phone] Dx) Social History Tobacco Use Types Packs/Day Years Used Date Smoking Tobacco: Never Smokeless Tobacco: Never Alcohol Use Standard Drinks/Week Comments No 0 (1 standard drink = 0.6 oz pure alcoho l) Sex Assigned at Date Recorded Not on file documented as of this encounter Last Filed Vital Signs Vital Sign Reading Time Taken Comments Blood Pressure 100/66 12/17/2019 2:35 PM TARP REPAIRER Pulse 68 12/17/2019 2:35 PM TARP REPAIRER Temperature - - Respiratory Rate - - Oxygen Saturation - - Inhaled Oxygen Concentration - - Weight 67.7 kg (149 lb 3.2 oz) 12/17/2019 2:35 PM TARP REPAIRER Height 157.5 cm (5' 2) 12/17/2019 2:35 PM TARP REPAIRER Body Mass Index 27.29 12/17/2019 2:35 PM TARP REPAIRER documented in this encounter Progress Notes Annabel Cancino LPN - 12/17/2019 2:30 PM CST Images from the original note were not included. REPAIRER Ayde Warren MBBS - 12/17/2019 2:30 PM CST [facility] Department of Endocrinology, Diabetes and Metabolism Clinic Note Name: Karin Mcmillan Cc: Follow up for T1DM in . She used to see Dr Palmer and Dr Carter before. HPI: Karni Mcmillan is a 39 y.o. female #1 T1DM: Diagnosed at age 22, no known microvascular complications. She is , 10 weeks gestation, this is her 4th , she had 2 miscarriages before and 1 child at home who is 1. She is currently using tandem T slim X2 with basal IQ pump with a Dexcom sensor. Current rates are: Basal: midnight 0.85, 7 AM 0.95, 11:30 AM 0.9. Bolus midnight 1 per 15, 7 AM 1 per 9, 11:30AM 1 per 11, 2:30 PM 1 per 14, 6:30 PM 1per 15. SF midnight 1 per 50, 7 AM 1 per 40, 2:30 1 per 50. Insulin time 2 hrs. She is using 32units daily, 50% basal. She is using CGM, average glucose 125, SD 43, A1C today was 5.9%. Time in range 54%, hypoglycemic 14%, most of that overnight. Eye exam from 2019 was reported with no DM changes. Labs from 11/2017 showed normal TSH, urine microalbumin and creatinine, BP today was 100/66. is progressing well so far. ROS: A [...] Drug use: Not on file Physical Examination: Vitals: BP 100/66 (BP Location: Left Arm, BP Cuff Size: Regular) Pulse 68 Ht 5' 2 (1.575 m) Wt 149 lb 3.2 oz (67.7 kg) BMI 27.29 kg/m?? General: The patient is alert and oriented, no acute distress. Labs: Reviewed and summarized in the HPI. Assessment and Plan: Karin Mcmillan is a 39 y.o. female: #1 T1DM: Controlled, complicating , A1C 5.9%. Reviewed with her the glycemic targets in . Change basal overnight to 0.75 because of the frequent hypoglycemia. Change bolus for dinner to 1 per 12. Continue other rates the same. Continue using CGM. RTC in 3 weeks with Althea. Start ASA 81 mg daily at week 14. Update labs today. She will establish with Maternal medicine. I have spent 25 minutes with the patient, >50% was spent on counseling. KERWIN Banda Chief Controller Station REPAIRER documented in this encounter Plan of Treatment Upcoming Encounters Date Type Specialty Care Team Description 11/01/2022 Appointment Endocrinology Althea Kelley, TUBE MILL OPERATOR, PROCESS CONTROL OPERATOR [address] [id number] (Wo rk) 12/27/2022 Appointment Endocrinology Ayde Warren MBBS [address] N [phone] documented as of this encounter Procedures Procedure Name Priority Date/Time Associated Comments Diagnosis POCT GLYCOSYLATED Routine 12/17/2019 3:12 PM Pre-existing type 1 Results for this HEMOGLOBIN (HGB A1C) TARP REPAIRER diabetes mellitus pr ocedure are in in in the results third trimester section. documented in this encounter Results Microalbumin Urine Random (12/17/2019 3:26 PM TARP REPAIRER) P athologist Signature Albumin, 0.8 mg/L 12/17/2019 [facility] Urine, Random 5:44 PM [facility] Creatinine, 29 >20 mg/dL 12/17/2019 [facility] Urine, Random 5:44 PM [facility] Albumin/Creati 3 <30 mg/g 12/17/2019 [facility] nine Ratio, 5:44 PM [facility] REPA[facility] Urine, Random Specimen Anatomical Collection Method Collection Time Receive d Time (Source) Location / / Volume Laterality Urine,random 12/17/2019 3:26 PM 0 3:26 TARP REPAIRER PM TARP REPAIRER Ayde Warren [facility] Performing Organization Address [facility]/ZIP [facility] Phon e Number [facility] [address] [place] [address] Creatinine (12/17/2019 3:12 PM TARP REPAIRER) athologist Signature Creatinine 0.60 0.55 - 12/17/2019 [facility] 1.02 mg/dL 5:20 PM [facility] GFR, Estimated >60 >60 12/17/2019 [facility] mL/min/1.7 5:20 PM [facility] 3m2 GFR, Est If >60 >60 12/17/2019 [facility] mL/min/1.7 5:20 PM [facility] RE[facility] [place] 3m2 Specimen Anatomical Collection Method / Collection Time Recei gabi Time (Source) Location / Volume Laterality Blood Venipuncture / 12/17/2019 3:12 12/17/2019 3:12 Unknown PM TARP REPAIRER PM TARP REPAIRER Ayde Warren [facility] Performing Organization Address City/[facility]/ZIP Code Phon e Number [facility] [address] [place] [phone] TSH (12/17/2019 3:12 PM TARP REPAIRER) athologist Signature TSH, Sensitive 1.19 0.30 - 12/17/2019 [facility] 4.50 6:56 PM [facility] uIU/mL Specimen Anatomical Collection Method / Collection Time Recei gabi Time (Source) Location / Volume Laterality Blood Venipuncture / 12/17/2019 3:12 12/17/2019 3:12 Unknown PM TARP REPAIRER PM TARP REPAIRER Ayde [facility]_1 Performing Organization Address City/State/ZIP Code Phon e Number [facility] [address] [place] [address] (ABNORMAL) POCT glycosylated hemoglobin (Hb A1C) (12/17/2019 3:12 PM TARP REPAIRER) P athologist Signature Hemoglobin A1C 5.9 (A) 5.6 % POCT (Rapid) Cartridge Lot# [id number] POCT Specimen (Source) Anatomical Collection Method Collection Time Re ceived Time Location / / Volume Laterality Blood 12/17/2019 3:12 PM TARP REPAIRER Ayde [facility] ET POINT OF CARE TEST ENTER/ EDIT ORDERABLES Performing Organization Address City/State/ZIP Code Phon e Number POCT documented in this encounter Visit Diagnoses Diagnosis Pre-existing type 1 diabetes mellitus in in third trimester - Primary Diabetes mellitus, antepartum documented in this encounter Care Teams Environmental Economist Relationship Specialty Start Date End Date Non Pn, Clinician, PCP - General 06/27/16 [place] [address] documented as of this encounter
--- OUTSIDE RECORDS SUMMARY | 2022-09-23 07:47 | XMS_ITS | Encounter Summary ---
:1980 Author Organization [employer] Address [address] [place] [address] Care Team Providers Name Role Phone Non Pn, Clinician MD Primary Care Provider Unavailable Reason for Visit Reason Comments Forms Encounter Details Date Type Department Care Team Description 05/29/2019 Telephone [facility] [address] Althea Kelley APRN, INSTRUMENT REPAIRER Forms Endocrinology [address] [place] [address] [place], [place] [id number] [phone] Social History Tobacco Use Types Packs/Day Years Used Date Smoking Tobacco: Never Smokeless Tobacco: Never Alcohol Use Standard Drinks/Week Comments No 0 (1 standard drink = 0.6 oz pure alcoho l) Sex Assigned at Date Recorded Not on file documented as of this encounter Nursing Notes Chayo Rae - 05/30/2019 8:35 AM CDT [employer] CMN completed and faxed to [phone]. Chayo Rae - 05/29/2019 11:52 AM CDT Received [employer] CMN for pump supplies. Placed in Althea Kelley's mailbox for completion. documented in this encounter Plan of Treatment Upcoming Encounters Date Type Specialty Care Team Description 11/01/2022 Appointment Endocrinology Althea Kelley APRN, INSTRUMENT REPAIRER [address] [phone] (Wo rk) 12/27/2022 Appointment Endocrinology Ayde Warren MBBS [address] [phone] documented as of this encounter Visit Diagnoses Not on filedocumented in this encounter Care Teams Inhalation Therapist Relationship Specialty Start Date End Date Non Pn, Clinician, PCP - General 06/27/16 [place] [address] documented as of this encounter
--- OUTSIDE RECORDS SUMMARY | 2022-09-23 07:47 | XMS_ITS | Encounter Summary ---
:1980 Author Organization [facility] Address [address] [place] [address] Care Team Providers Name Role Phone Non Pn, Clinician MD Primary Care Provider Unavailable Encounter Details Date Type Department Care Team Description 12/17/2019 Lab Visit [facility] Pre-existing type 1 [address] [facility] [place] [address] in third [phone] trimester Social History Tobacco Use Types Packs/Day Years Used Date Smoking Tobacco: Never Smokeless Tobacco: Never Alcohol Use Standard Drinks/Week Comments No 0 (1 standard drink = 0.6 oz pure alcoho l) Sex Assigned at Date Recorded Not on file documented as of this encounter Plan of Treatment Upcoming Encounters Date Type Specialty Care Team Description 11/01/2022 Appointment Endocrinology Althea Kelley, TECHNICAL DOCUMENTATION SPECIALIST, TOBACCO PACKER [address] [id number] (Wo rk) 12/27/2022 Appointment Endocrinology Ayde [place] MBBS [address] [facility] MAREK N [id number] documented as of this encounter Procedures Procedure Name Priority Date/Time Associated Comments Diagnosis ALBUMIN/CREAT RATIO Routine 12/17/2019 3:26 PM Pre-existing ty pe 1 Results for this MANAGER BALANCE diabetes mellitus procedure are in in in the results third trimester section. CREATININE / GFR Routine 12/17/2019 3:12 PM Pre-existing type 1 Results for this MANAGER BALANCE diabetes mellitus procedure are in in in the results third trimester section. TSH, SENSITIVE Routine 12/17/2019 3:12 PM Pre-existing type 1 Results for this MANAGER BALANCE diabetes mellitus procedure are in in in the results third trimester section. documented in this encounter Results Microalbumin Urine Random (12/17/2019 3:26 PM MANAGER BALANCE) athologist Signature Albumin, 0.8 mg/L 12/17/2019 [place] Urine, Random 5:44 PM [facility] Creatinine, 29 >20 mg/dL 12/17/2019 [place] Urine, Random 5:44 PM [facility] Albumin/Creati 3 <30 mg/g 12/17/2019 [place] nine Ratio, 5:44 PM [facility] Urine, Random Specimen Anatomical Collection Method Collection Time Receive d Time (Source) Location / / Volume Laterality Urine,random 12/17/2019 3:26 PM 0 3:26 MANAGER BALANCE PM MANAGER BALANCE Tomernate Bebo Kelvin [facility] LAB_1 Performing Organization Address [facility]/ZIP Code Phon e Number [facility] [address] [place], [place] [phone] Creatinine (12/17/2019 3:12 PM MANAGER BALANCE) athologist Signature Creatinine 0.60 0.55 - 12/17/2019 [place] 1.02 mg/dL 5:20 PM [facility] GFR, Estimated >60 >60 12/17/2019 [place] mL/min/1.7 5:20 PM [facility] 3m2 GFR, Est If >60 >60 12/17/2019 [place] mL/min/1.7 5:20 PM [facility] Tajik 3m2 Specimen Anatomical Collection Method / Collection Time Recei gabi Time (Source) Location / Volume Laterality Blood Venipuncture / 12/17/2019 3:12 12/17/2019 3:12 Unknown PM MANAGER BALANCE PM MANAGER BALANCE Tomernate Bebo Kelvin MBBS LAB_1 Performing Organization Address City/[facility]/ZIP [facility] Phon e Number [facility] [address] [place] [address] TSH (12/17/2019 3:12 PM MANAGER BALANCE) athologist Signature TSH, Sensitive 1.19 0.30 - 12/17/2019 [place] 4.50 6:56 PM [facility] uIU/mL Specimen Anatomical Collection Method / Collection Time Recei gabi Time (Source) Location / Volume Laterality Blood Venipuncture / 12/17/2019 3:12 12/17/2019 3:12 Unknown PM MANAGER BALANCE PM MANAGER BALANCE Ayde SURESH LAB_1 Performing Organization Address City/State/ZIP Code Phon e Number [facility] [address] [place] [address] documented in this encounter Visit Diagnoses Diagnosis Pre-existing type 1 diabetes mellitus in in third trimester Diabetes mellitus, antepartum documented in this encounter Care Teams Paper Carrier Relationship Specialty Start Date End Date Non Pn, Clinician, PCP - General 06/27/16 [place] [address] documented as of this encounter
--- OUTSIDE RECORDS SUMMARY | 2022-09-23 07:47 | XMS_ITS | Encounter Summary ---
:1980 Author Organization [employer] Address [address] [place] [address] Care Team Providers Name Role Phone Non Pn, Clinician MD Primary Care Provider Unavailable Reason for Visit Reason Comments Forms Encounter Details Date Type Department Care Team Description 11/01/2019 Telephone [facility] [address] Althea Kelley, MILY, RESIDENT PROGRAMS ASSISTANT Forms Endocrinology [address] [place] [address] [place], [place] [id number] [phone] Social History Tobacco Use Types Packs/Day Years Used Date Smoking Tobacco: Never Smokeless Tobacco: Never Alcohol Use Standard Drinks/Week Comments No 0 (1 standard drink = 0.6 oz pure alcoho l) Sex Assigned at Date Recorded Not on file documented as of this encounter Nursing Notes Emeka Szymanski - 11/05/2019 10:23 AM CST Faxed form, chart notes, and a1c result to [employer] @ [phone]. THCARE CONSULTANT Emeka Szymanski - 11/05/2019 9:03 AM CST Previous forms have been for [employer]. Will have DA fax [employer] forms to the [place] location today. LeftVM for patient informing her that the [employer] forms are still pending. THCARE CONSULTANT Althea Kelley APRN, RESIDENT PROGRAMS ASSISTANT - 11/05/2019 7:56 AM CST I know I signed forms and returned to nursing staff, can we verify that the forms plus notes were indeed faxed? Thanks. THCARE CONSULTANT Jocelyn Leslie LPN - 11/01/2019 2:38 PM CST Pt calling check on forms status says we need to send back forms plus 2-3 chart notes to [facility]. To fax [phone] THCARE CONSULTANT Chayo Rae - 11/01/2019 12:12 PM CST Received Statement of Medical Necessity and Prescription Order from [facility] Diabetes [facility]. Placed in Althea Kelley's mailbox for review/completion. THCARE CONSULTANT documented in this encounter Plan of Treatment Upcoming Encounters Date Type Specialty Care Team Description 11/01/2022 Appointment Endocrinology Althea [place], MILY, RESIDENT PROGRAMS ASSISTANT [address] [facility], [place] [address] (Wo rk) 12/27/2022 Appointment Endocrinology Ayde [place] MBBS [address] [facility], N [address] documented as of this encounter Visit Diagnoses Not on filedocumented in this encounter Care Teams Domestic Violence Counselor Relationship Specialty Start Date End Date Non Pn, Clinician, MD PCP - General 06/27/16 [place] [address] documented as of this encounter
--- OUTSIDE RECORDS SUMMARY | 2022-09-23 07:47 | XMS_ITS | Encounter Summary ---
:1980 Author Organization [employer] Address [address] [place] [address] Care Team Providers Name Role Phone Non Pn, Clinician MD Primary Care Provider Unavailable Reason for Visit Reason Comments Diabetes Encounter Details Date Type Department Care Team Description 01/21/2020 Office Visit Althea Rosenthal, Type 1 diabe isaac mellitus without complication (HRC) (Primary Dx); Endocrinology PHANI MINOR Insulin pump status; [address] [employer] [address] [place] [address] Pre-existing type 1 diabetes mellitus during [place] [address] [facility] [phone] [place], [place] [address] Social History Tobacco Use Types Packs/Day Years Used Date Smoking Tobacco: Never Smokeless Tobacco: Never Alcohol Use Standard Drinks/Week Comments No 0 (1 standard drink = 0.6 oz pure alcoho l) Sex Assigned at Date Recorded Not on file documented as of this encounter Last Filed Vital Signs Vital Sign Reading Time Taken Comments Blood Pressure 100/60 01/21/2020 9:44 AM GENETICS PHYSICIAN Pulse 80 01/21/2020 9:44 AM GENETICS PHYSICIAN Temperature - - Respiratory Rate - - Oxygen Saturation - - Inhaled Oxygen Concentration - - Weight 68.1 kg (150 lb 1.6 oz) 01/21/2020 9:44 AM GENETICS PHYSICIAN Height 162.6 cm (5' 4) 01/21/2020 9:44 AM GENETICS PHYSICIAN Body Mass Index 25.76 01/21/2020 9:44 AM GENETICS PHYSICIAN documented in this encounter Progress Notes Althea Kelley, PHANI MINOR - 01/21/2020 9:30 AM CST January 21, 2020 Chief Complaint: Karin Mcmillan a 39 y.o. female is here for follow up of Type 1 diabetes in . Last saw Dr. Webb 12/17/2019 History of Present Illness: Subjective: Diagnosed with diabetes: age 22 15 weeks gestation. G4. 2 miscarriages. One young son at home. Complications:No known chronic microvascular complications of diabetes. Using [employer] Tslim with Dexcom. Sees Dr. Katy Mcqueen and her partners in [place] for OB. Dr. [place] suggested meeting with perinatologist. She is scheduled to meet with Them 02/27/2020. She is anxious to ask them about Csectionnecessity/risk etc. Having a lot of leg cramps lately. Trying magnesium. Very tired. Otherwise ok. Last eye exam: Fall 2018 Foot exam: 07/16/2019 Social history: Tobacco: reports that she has never smoked. She has never used smokeless tobacco. 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 . Busy schedule. Current Diabetes Treatment Regimen: NL in [employer] pump. Settings uploaded into encounter. Other medications of note: PNV. Lantus in case of pump fail.Zantac, ASA 81 mg, magnesium 350 mg daily for leg cramps. Full med list reviewed in Epic. Objective: Very pleasant woman, no apparent distress. Glucose Monitoring: Home glucose monitoring: Using CGMS daily BG data uploaded into encounter. Average BG 120 +_42. Sometimes corrections at bedtime do not work well. Over night sometimes her basal stops at times- other nights it does not, so I do not see enough of a pattern to adjust basal right now. 86% of her TIR. 5% low. 1 % very low. No severe lows. Vitals: There were no vitals taken for this visit. Estimated body mass index is 27.29 kg/m?? as calculated from the following: Height as of 12/17/19: 5' 2 (1.575 m). Weight as of 12/17/19: 149 lb 3.2 oz (67.7 kg). . Last A1c: Lab Results Component Value Date EXT RSLT - A1C 8.0 03/24/2012 Hemoglobin A1C, POCT 5.9 (A) 12/17/2019 Last LDL: Lab Results Component Value Date Cholesterol 140 07/02/2013 Cholesterol/HDL Ratio Screen 2.1 07/02/2013 HDL Cholesterol 66 07/02/2013 Triglycerides 48 07/02/2013 LDL, Direct 78 04/16/2019 Microalbumin: Lab Results Component Value Date Microalbumin, Urine, Random 0.8 12/17/2019 Assessment: Karin is a 39 y.o. female who was seen today for Type 1 diabetes mellitus in with following diagnoses: Diagnoses and Orders Placed: 1. Type 1 diabetes mellitus without complication (HRC) 2. Insulin pump status (HRC) 3. Pre-existing type 1 diabetes mellitus during in first trimester Plan: 1. Adjust target from 10:00 p.m. to midnight to 90 rather than 120 2. Continue with other settings as is as her blood glucose levels have stabilized a bit. She continues to struggle with occasionally not counting carbs accurately before a meal or snack having an elevation. She is encouraged to be very diligent in covering food very carefully. 3. Continue careful treatment for hypoglycemia as well. Maximum 15 g of possible. 4. Return to clinic monthly for next 3-4 mo. Call as needed in between. Other Previous Labs: Lab Results Component Value Date Alanine Aminotransferase 16 10/13/2015 No results found for: AST Lab Results Component Value Date Creatinine 0.60 12/17/2019 Lab Results Component Value Date TSH, Sensitive 1.19 12/17/2019 TICS PHYSICIAN Annabel Cancino LPN - 01/21/2020 9:30 AM CST Images from the original note were not included. TICS PHYSICIAN documented in this encounter Plan of Treatment Upcoming Encounters Date Type Specialty Care Team Description 11/01/2022 Appointment Endocrinology Althea [place], MILY, CARE PARTNER [address] N [id number] (Wo rk) 12/27/2022 Appointment Endocrinology Ayde [place] MBBS [address] [place] [address] [id number] documented as of this encounter Procedures Procedure Name Priority Date/Time Associated Diagnosis Comme nts POCT GLYCOSYLATED Routine 01/21/2020 9:49 AM Type 1 diabetes R esults for this HEMOGLOBIN (HGB A1C) GENETICS PHYSICIAN mellitus without pro cedure are in complication (HRC) the resul ts section. documented in this encounter Results (ABNORMAL) POCT glycosylated hemoglobin (Hb A1C) (01/21/2020 9:49 AM GENETICS PHYSICIAN) P athologist Signature Hemoglobin A1C 5.8 (A) 5.6 % POCT (Rapid) Cartridge Lot# 625 POCT Specimen (Source) Anatomical Collection Method Collection Time Re ceived Time Location / / Volume Laterality Blood 01/21/2020 9:49 AM GENETICS PHYSICIAN Althea Kelley SCRAP HOIST OPERATOR, CARE PARTNER ET POINT OF CARE TEST ENTER/ EDIT ORDERABLES Performing Organization Address City/State/ZIP Code Phon e Number POCT documented in this encounter Visit Diagnoses Diagnosis Type 1 diabetes mellitus without complic ation (HRC) - Primary Type I (juvenile type) diabetes mellitus without mention of complication, not stated as uncontrolled Insulin pump status (HRC) Insulin pump status Pre-existing type 1 diabetes mellitus du ring in first trimester documented in this encounter Care Teams Ict Sales Representative Relationship Specialty Start Date End Date Non Pn, Clinician, PCP - General 06/27/16 [place] [address] documented as of this encounter
--- OUTSIDE RECORDS SUMMARY | 2022-09-23 07:47 | XMS_ITS | Encounter Summary ---
:1980 Author Organization [employer] Address [address] [place] [address] Care Team Providers Name Role Phone Non Pn, Clinician MD Primary Care Provider Unavailable Reason for Visit Reason Onset Date Comments Refill 11/08/2019 insulin aspart (JAY LOG) 100 UNIT/ML injection (vial) Encounter Details Date Type Department Care Team Description 11/08/2019 Refill [facility] 3800 Ayde [place], Re fill (insulin aspart Endocrinology MBBS (NOVOLOG) 100 UNIT/ML [address] [place] [address] [facility] inj ection (vial[place] [address] [phone] Social History Tobacco Use Types Packs/Day Years Used Date Smoking Tobacco: Never Smokeless Tobacco: Never Alcohol Use Standard Drinks/Week Comments No 0 (1 standard drink = 0.6 oz pure alcoho l) Sex Assigned at Date Recorded Not on file documented as of this encounter Nursing Notes Interface, Out Surescripts Prov Query - 11/08/2019 10:21 AM CST insulin aspart (NOVOLOG) 100 UNIT/ML injection (vial) Endocrinology: Diabetes - Insulins -> The request contains a note from the pharmacy. -> Due to an unreadable sig, manually ensure the patient is due for a renewal. -> Refill x 6 months (until due for a(n) Rapid A1C check) -> Calculate quantity and refills manually. They could not be estimated due to missing or unreadable information. Last qualifying visit: 10/15/2019 (in [facility]) Next scheduled visit: 01/21/2020 (in [facility]) Last ordered by MAXIM KELLEY: 10/15/2019 (24 days ago) QTY: 60, Refills: 3, Sig: infuse via insulin pump. average daily dose rising with . 55-80 units/day. (unchanged) Rapid A1C : 6.5 % on 10/15/[address] [employer], Reference: [id number], 11/08/2019 10:21:23 AM WING MAILER MACHINE OPERATOR, Pool: ENDO PN NURSING TEAM 1 ([id number]) MAILER MACHINE OPERATOR documented in this encounter Plan of Treatment Upcoming Encounters Date Type Specialty Care Team Description 11/01/2022 Appointment Endocrinology Maxim [place], PROCESS IMPROVEMENT ENGINEER, NUT FORMER [address] [facility] N [id number] (Wo rk) 12/27/2022 Appointment Endocrinology Ayde [place] MBBS [address] [facility] N [phone] documented as of this encounter Visit Diagnoses Not on filedocumented in this encounter Care Teams Boston Cutter Relationship Specialty Start Date End Date Non Pn, Clinician, MD PCP - General 06/27/16 [place] [address] documented as of this encounter
--- OUTSIDE RECORDS SUMMARY | 2022-09-23 07:47 | XMS_ITS | Encounter Summary ---
:1980 Author Organization [facility] Address [address] [place] [address] Care Team Providers Name Role Phone Non Pn, Clinician MD Primary Care Provider Unavailable Reason for Visit Reason Comments Forms DMV Encounter Details Date Type Department Care Team Description 09/10/2019 Telephone [facility] Althea [place], HEAD MECHANIC, IMAGING TECH Forms (DMV) [address] [place] [address] [place] [address] [phone] (Wo rk) Social History Tobacco Use Types Packs/Day Years Used Date Smoking Tobacco: Never Smokeless Tobacco: Never Alcohol Use Standard Drinks/Week Comments No 0 (1 standard drink = 0.6 oz pure alcoho l) Sex Assigned at Date Recorded Not on file documented as of this encounter Nursing Notes Annabel Cancino LPN - 09/10/2019 8:28 AM CDT DMV form fax[facility] to [facility] [phone]. Copy sent to patient chart, and mailed to home address. documented in this encounter Plan of Treatment Upcoming Encounters Date Type Specialty Care Team Description 11/01/2022 Appointment Endocrinology Althea [place], HEAD MECHANIC, IMAGING TECH [address] [facility] [phone] (Wo rk) 12/27/2022 Appointment Endocrinology Ayde [place], KERWIN [address] [place] [address] [address] documented as of this encounter Visit Diagnoses Not on filedocumented in this encounter Care Teams Manager Java Relationship Specialty Start Date End Date Non Pn, Clinician, PCP - General 06/27/16 [place] [address] documented as of this encounter
--- OUTSIDE RECORDS SUMMARY | 2022-09-23 07:47 | XMS_ITS | Encounter Summary ---
:1980 Author Organization [employer] Address [address] [place] [address] Care Team Providers Name Role Phone Non Pn, Clinician MD Primary Care Provider Unavailable Reason for Visit Reason Comments Forms Encounter Details Date Type Department Care Team Description 10/23/2019 Telephone [facility] 38[address] Althea Kelley APRN, INGOT CAR OPERATOR Forms Endocrinology [address] [place] [address] [place], [place] [id number] [phone] Social History Tobacco Use Types Packs/Day Years Used Date Smoking Tobacco: Never Smokeless Tobacco: Never Alcohol Use Standard Drinks/Week Comments No 0 (1 standard drink = 0.6 oz pure alcoho l) Sex Assigned at Date Recorded Not on file documented as of this encounter Nursing Notes Leonila Romo RN - 10/23/2019 12:59 PM CST Faxed chart notes to Med: [phone] P TECHNICIAN Althea [place] APRN, INGOT CAR OPERATOR - 10/23/2019 12:39 PM CST Done. Thanks. P TECHNICIAN Leonila Romo RN - 10/23/2019 8:56 AM CST Pt calling to request chart notes need to be faxed to med. [phone] Can you adjust the 10/15 chart notes to include the following: pt is doing at least 3 injections daily, testing her blood sugar 4 times per day, and making frequent insulin adjustments. Once chart notes are updated, they can be faxed to med. P TECHNICIAN documented in this encounter Plan of Treatment Upcoming Encounters Date Type Specialty Care Team Description 11/01/2022 Appointment Endocrinology Althea [place], FURNACE CHARGING MACHINE OPERATOR, INGOT CAR OPERATOR [address] [id number] (Wo rk) 12/27/2022 Appointment Endocrinology Ayde [place], MBBS [address] [phone] documented as of this encounter Visit Diagnoses Not on filedocumented in this encounter Care Teams Print Color Matcher Relationship Specialty Start Date End Date Non Pn, Clinician, PCP - General 06/27/16 [place] [address] documented as of this encounter
--- OUTSIDE RECORDS SUMMARY | 2022-09-23 07:47 | XMS_ITS | Encounter Summary ---
:1982 Author Organization [facility] [facility] Address [address] [place] [address] Care Team Providers Name Role Phone Non Pn, Clinician MD Primary Care Provider Unavailable Reason for Visit Reason Comments Forms Encounter Details Date Type Department Care Team Description 10/24/2019 Telephone [facility] [address] Althea Kelley, BARISTA, LUMBER CUTTER Forms Endocrinology [address] [place] [address] [place], [place] [id number] [phone] Social History Tobacco Use Types Packs/Day Years Used Date Smoking Tobacco: Never Smokeless Tobacco: Never Alcohol Use Standard Drinks/Week Comments No 0 (1 standard drink = 0.6 oz pure alcoho l) Sex Assigned at Date Recorded Not on file documented as of this encounter Nursing Notes Emeka Szymanski - 10/25/2019 3:26 PM CST Faxed form to [employer]. Sent to scan doc. ET RESEARCH ANALYST Chayo Rae - 10/24/2019 10:11 AM CST [facility]. Placed in Althea Kelley's mailbox for completion. ET RESEARCH ANALYST documented in this encounter Plan of Treatment Upcoming Encounters Date Type Specialty Care Team Description 11/01/2022 Appointment Endocrinology Althea [place], BARISTA, LUMBER CUTTER [address] [facility] N [phone] (Wo rk) 12/27/2022 Appointment Endocrinology Ayde [place], KERWIN [address] [place] [address] [phone] documented as of this encounter Visit Diagnoses Not on filedocumented in this encounter Care Teams Manager Surgical Relationship Specialty Start Date End Date Non Pn, Clinician, PCP - General 06/27/16 [place] [address] documented as of this encounter
--- OUTSIDE RECORDS SUMMARY | 2022-09-23 07:47 | XMS_ITS | Encounter Summary ---
:1980 Author Organization [employer] Address [address] [place] [address] Care Team Providers Name Role Phone Non Pn, Clinician MD Primary Care Provider Unavailable Reason for Visit Reason Comments DIABETES, MELLITUS Encounter Details Date Type Department Care Team Description 11/27/[address] [facility] [address] Althea Kelley APRN, DIABETES, MELLITUS Endocrinology CRISIS CLINICIAN [address] [place] [place] [address] [address] [place], [place] [phone] (Wo rk) Social History Tobacco Use Types Packs/Day Years Used Date Smoking Tobacco: Never Smokeless Tobacco: Never Alcohol Use Standard Drinks/Week Comments No 0 (1 standard drink = 0.6 oz pure alcoho l) Sex Assigned at Date Recorded Not on file documented as of this encounter Nursing Notes Prashanth Neil RN - 11/28/2019 1:38 PM CST Pt calling back gave part of message below, then she had to hang up and she will callback FARM HELPER Althea Kelley APRN, CRISIS CLINICIAN - 11/28/2019 7:08 AM CST Please give her my congratulations and thank her for uploading and calling. It looks as if she is a little too low overnight and into morning hours as well as the lows after meals that she mentioned. I would recommend that she decrease her basal a little bit. Please have her decrease the midnight to7am basal rate from 0.825 to 0.775. In terms of the meal time doses. I would recommend decreasing bkfst ratio from 1/14 to 1/12 grams. I did not see as many lows after lunch and dinner, but if she is having them there as well, I would recommend 1130 am from 1/11 g to 1/10 g. 6pm from 1/10 g to 1/9 grams. I see a possible tendency toward the correction dropping the blood sugar a bit too far. Not a strongpattern, but not a lot of data. If she feels that the correction is dropping her too far, I would also recommend changing the sensitivity to 40 for now. Being that she is in the early time where the insulin needs may be a bit lower, she should be sure that she has a glucagon or Baqsimi kit at her home and that her partner knows how to use it. Could you help her make an appt soon in [place] as well--or transfer her to tax investigator. I have appts as soon as next Monday.. FARM HELPER Reante Goldsmith RN - 11/27/2019 3:55 PM CST Images from the original note were not included. Per [employer] message: Gigi Oh, I am writing to get help with blood sugars. You can view them via the [employer]arity adis (Icalled and shared the code). My pump settings are : Midnight, 0.825, 7 AM, 1.0, 12 noon, 1.0, 2:30 ??PM, 0.975, 9:30 PM, 0.95. I am and I am doing a good job of keeping my sugars very low, butI'm having a low after almost every meal. I just had an episode where, after having a low, I didn't really bounce back, and had a scary cognitive episode. Question: If your doctor would like to prescribe a medication for you, please provide the name and the location or address of the pharmacy where you would like to sweet pickle maker your medication. Answer: ?? My bolus wizard settings; Carb ratios: midnight- 14 g, 11:30 AM - 11 g, 6 PM - 10 g. Sensitivity 35 points = 1 unit (all the time). ? Thanks, ? Karin FARM HELPER Virginia Porras, RN - 11/27/2019 3:50 PM CST Pt called worried about low blood sugars. She will be sending a [employer] Chart message regarding her insulin pump settings dues to low BGs. FARM HELPER documented in this encounter Plan of Treatment Upcoming Encounters Date Type Specialty Care Team Description 11/01/2022 Appointment Endocrinology Althea Kelley, TINSMITH HELPER, CRISIS CLINICIAN [address] [address] (Wo rk) 12/27/2022 Appointment Endocrinology Ayde Warren MBBS [address] [address] documented as of this encounter Visit Diagnoses Not on filedocumented in this encounter Care Teams Materials And Processes Manager Relationship Specialty Start Date End Date Non Pn, Clinician, PCP - General 06/27/16 [place] [address] documented as of this encounter
--- OUTSIDE RECORDS SUMMARY | 2022-09-23 07:47 | XMS_ITS | Encounter Summary ---
:1980 Author Organization [facility] Address [address] [place] [address] Care Team Providers Name Role Phone Non Pn, Clinician MD Primary Care Provider Unavailable Reason for Visit Reason Comments Forms Encounter Details Date Type Department Care Team Description 09/16/2019 Telephone [facility] [address] Althea Kelley STRAIGHTENING MACHINE OPERATOR, DIGITAL CIRCUIT DESIGNER Forms Endocrinology [address] [place] [address] [place], [place] [id number] [phone] Social History Tobacco Use Types Packs/Day Years Used Date Smoking Tobacco: Never Smokeless Tobacco: Never Alcohol Use Standard Drinks/Week Comments No 0 (1 standard drink = 0.6 oz pure alcoho l) Sex Assigned at Date Recorded Not on file documented as of this encounter Nursing Notes Annabel Cancino LPN - 09/17/2019 4:33 PM CDT Form signed and faxed to [employer] [facility] [phone]. Copy sent to chart. Chayo Rae - 09/16/2019 11:36 AM CDT Received [employer] Physician Written Order- Medicare Pump Supplies. Placed in Althea Kelley's mailbox for completion. documented in this encounter Plan of Treatment Upcoming Encounters Date Type Specialty Care Team Description 11/01/2022 Appointment Endocrinology Althea Kelley, STRAIGHTENING MACHINE OPERATOR, DIGITAL CIRCUIT DESIGNER [address] [address] (Wo rk) 12/27/2022 Appointment Endocrinology Ayde Warren MBBS [address] [address] documented as of this encounter Visit Diagnoses Not on filedocumented in this encounter Care Teams Practice Clinician Relationship Specialty Start Date End Date Non Pn, Clinician, PCP - General 06/27/16 [place] [address] documented as of this encounter
--- OUTSIDE RECORDS SUMMARY | 2022-09-23 07:47 | XMS_ITS | Encounter Summary ---
:1980 Author Organization [employer] Address [address] [place] [address] Care Team Providers Name Role Phone Non Pn, Clinician MD Primary Care Provider Unavailable Reason for Referral Procedure/Equipment (Routine) - Incomplete Specialty Diagnoses / Procedures Referred By Contact Refer red To Contact Diagnoses Type 1 diabetes mellitus without complication (HRC) Venkatesh Camarena MD Procedures MFM US Level 2, Echo [address] [place], [place] [address] Referral ID Status Reason Start Date Expiration Date Visits V isits Requested Authorized [id number] Incomplete 01/07/2020 04/07/2021 10 10 THCARE MANAGER Encounter Details Date Type Department Care Team Description 01/07/2020 Notes/Orders [facility] [address] Venkatesh Camarena Ty pe 1 diabetes Maternal MD Rony mellitus without Medicine [address] complication (HRC) [address] [address] (Primary Dx) [place] [address] [phone] Social History Tobacco Use Types Packs/Day Years Used Date Smoking Tobacco: Never Smokeless Tobacco: Never Alcohol Use Standard Drinks/Week Comments No 0 (1 standard drink = 0.6 oz pure alcoho l) Sex Assigned at Date Recorded Not on file documented as of this encounter Plan of Treatment Upcoming Encounters Date Type Specialty Care Team Description 11/01/2022 Appointment Endocrinology Althea Kelley, HYDRATE THICKENER OPERATOR, LEVEL VIAL INSPECTOR [address] [address] (Wo rk) 12/27/2022 Appointment Endocrinology Ayde Warren MBBS [address] [address] documented as of this encounter Results MFM US Level 2, Echo (02/27/2020 11:35 AM CDT) athologist Signature Cervical Length 3.98 cm EXTERNAL RESULTS Anatomical Region Laterality Modality Pelvis Ultrasound Study GA Study Date Study RIGO Working RIGO (Source) W eight (Method) 20w0d 02/27/2020 07/16/2020 07/16/2020 (Last Menstrual 3 54 g (Hadlock 1984 (BPD, Period) HC, AC, FL) )36 1 g (Hadlock 1984 ( AC, FL) )356 g (Hadlock 1984 (BPD, AC, FL) )353 g (Hadlock 1984 (HC, AC, F L) )414 g (Hadlock 1983 ( AC) )367 g (Hadlock 1983 ( HC, AC) )359 g (Francisco 1981 (BPD, AC) ) Result Name Value Comments GA by US Calc 140 days 140 BPD 4.62 cm 140 HC 17.56 cm 141 AC 15.92 cm 147 FL 3.17 cm 139 HL 3.09 cm FL/BPD 68.61 % FL/AC 19.91 % HC/AC 1.1 CI 72.3 % DANIEL Q1 DANIEL Q2 DANIEL Q3 DANIEL Q4 DANIEL Lateral Ventricle CER 2.01 cm Foot 3.11 cm 136 Max Vertical Pocket FHR 158 bpm UAR - PSV UAR - S/D Ratio UAR - RI UAR - PI MCA - PSV MCA - S/D Ratio MCA - PI Cisterna Magna 0.75 cm NF 0.44 cm Specimen (Source) Anatomical Location Collection Method / Collectio n Time Received Time / Laterality Volume Narrative 02/27/2020 2:02 PM CDT Patient Name: Karin Mcmillan ??Direct Selling Counselor: Bev Devi MS Patient ??GA Prior to Exam : 20w0d , Age: 3 1980, 40 y.o. ??GA by Kris escboar's US: 20w0d LMP: No LMP recorded. Patient is pregnan t. ??GA RIGO: 20w0d by LMP Pregnancies: ??RIGO: 07/16/2020 Hx/Indications: AMA Negative NIPT Type 1 IDDM- well controlled on pump Hgb A1C 5.6 (12/05/19) Hx of C/S Hx of lymphedema in ? Evaluation Gestation Type Mayer Cardiac Activity Present Motion Normal Presentation Breech Amniotic Fluid Normal Placenta Location Posterior, Complete Pl acenta Previa Placenta Appearance Normal Placenta Cord Insertion Normal ? Measurement Value Rank GA BPD 4.62 cm 48% 20w0d HC 17.56 cm 45% 20w1d AC 15.92 cm 77% 21w0d FL 3.17 cm 37% 19w6d HL 3.09 cm 50 - 95% ?? FL/BPD 68.61 % ?? FL/AC 19.91 % < 20% ?? HC/AC 1.1 5 - 50% ?? CI 72.3 % 70 - 86% ?? CER 2.01 cm 50 - 90% ?? Foot 3.11 cm ??19w3d FHR 158 bpm ?? Cisterna Magna 0.75 cm ?? NF 0.44 cm ?? Weight: 354 g (12.5 oz), 70% Measurements (Mother) ?? Name Value Comments ? Cervical Length 3.98 cm ? Head ??Abdomen Cranium Normal ??Diaphragm Normal Midline Falx Normal ??Stomach Normal Cerebellum Normal ??Liver Normal Vermis Normal ??Bowel Normal Cisterna Magna Normal ??Ascites Absent Lateral Ventricle Normal ??Umbilical Cor d Insertion Normal Choroid Plexus Normal ??Cord Vessels Thr ee Cavum Septi Pellucidi Normal ??Heart Corpus Callosum Normal ??Heart Rhythm R egular Nuchal Fold Normal ?? Situs Normal Face ??4 Chamber View Normal Orbits Normal ??Cardiac Ortley Normal Lenses Normal ??Cardiac Position Normal Lips/Nose Normal ??Visceral/Abdominal Si tus Normal Profile Normal ??AV Valves Normal Nasal Bone Normal ??Valve Motion Normal Maxilla Normal ??LVOT/AO Normal Mandible Normal ??RVOT/PA Normal Neck Normal ??Aortic Arch Normal Spine ?? Ductal Arch Normal Spine Normal ??IVC/SVC Normal Chest ??3 Vessel View Normal Thorax Normal ?? 3 Vessel Trachea View N ormal Lungs Normal ??Foramen Ovale Normal Pleural Effusion Absent ??Pulmonary Vein s Normal Extremities ??Short Ortley of Ventricles N ormal Right Upper Extremity Normal ??Short Ax is of Great Vessels Normal Right Hand Normal ??Pericardial Effusion Absent Left Upper Extremity Normal ??Interventr icular Septum Normal Left Hand Normal ??Atrial Septum Normal Right Lower Extremity Normal ??Ductus Ve nosus Normal Right Foot Normal ??Urinary Tract Left Lower Extremity Normal ??Right Kidn ey Normal Left Foot Normal ??Left Kidney Normal ?? Bladder Normal ?? Genitalia ?? Genitalia Normal ?? Sex Female ?? Skin ?Edema Absent ? Maternal Evaluation Cervix Normal Uterus Normal Cervical Length 3.98 cm ?? Approach Transabdominal Right Ovary Norm al With Fundal Pressure (cm) N/A ?? Left Ov sera Inadequately Visualized Funneling Absent Right Adnexa Normal Cul-de-sac No fluid seen Left Adnexa Nor mal Impression 1) Intrauterine at 20 ??weeks gestational age 2) None of the anomalies commonly detect ed by ultrasound were evident in the detailed anatomic survey descr ibed above. 3) biometry is consistent with ges tation age. ?? 4) The amniotic fluid volume appeared no rmal. 5) Normal echocardiogram 6) Normal cervical length 7) No markers for aneuploidy seen The placenta is posterior, with the infe rior portion over the cervical os (complete previa). ??This does not exten d onto the anterior wall, and there is no sonogrpahic evidece of accreta Patient also seen in consultation, note in Epic. ??Follow-up at 28 to 30 weeks, with site based on primary OB. ?? Venkatesh OLIVER US documented in this encounter Visit Diagnoses Diagnosis Type 1 diabetes mellitus without complic ation (HRC) - Primary Type I (juvenile type) diabetes mellitus without mention of complication, not stated as uncontrolled Type 1 diabetes mellitus without complic ation (HRC) Type I (juvenile type) diabetes mellitus without mention of complication, not stated as uncontrolled documented in this encounter Care Teams Health Record Technician Relationship Specialty Start Date End Date Non Pn, Clinician, PCP - General 06/27/16 [place] [address] documented as of this encounter
--- OUTSIDE RECORDS SUMMARY | 2022-09-23 07:47 | XMS_ITS | Encounter Summary ---
:1980 Author Organization [facility] Address [address] [place] [address] Care Team Providers Name Role Phone Non Pn, Clinician MD Primary Care Provider Unavailable Reason for Visit Reason Comments Diabetes Encounter Details Date Type Department Care Team Description 07/16/2019 Office Visit Althea Rosenthal, Type 1 diabe isaac mellitus without complication (HRC) (Primary Dx); Endocrinology PHANI MINOR Insulin pump status [id number] [employer] [address] [place] [address] [facility] [phone] [place], [place] [id number] Social History Tobacco Use Types Packs/Day Years Used Date Smoking Tobacco: Never Smokeless Tobacco: Never Alcohol Use Standard Drinks/Week Comments No 0 (1 standard drink = 0.6 oz pure alcoho l) Sex Assigned at Date Recorded Not on file documented as of this encounter Last Filed Vital Signs Vital Sign Reading Time Taken Comments Blood Pressure 100/60 07/16/2019 8:20 AM CDT Pulse 76 07/16/2019 8:20 AM CDT Temperature - - Respiratory Rate - - Oxygen Saturation - - Inhaled Oxygen Concentration - - Weight 65.1 kg (143 lb 9.6 oz) 07/16/2019 8:20 AM CDT Height 162.6 cm (5' 4) 07/16/2019 8:20 AM CDT Body Mass Index 24.65 07/16/2019 8:20 AM CDT documented in this encounter Patient Instructions Patient InstructionsAlthea Kelley, PHANI MINOR - 07/16/2019 8:00 AM CDT Please update your eye exam. You can call [phone] to schedule. We adjusted bolus at bkt and we increased basal just a bit to help fasting levels. If you need to schedule or have questions about your appointment, call [phone]. If you have medical questions or concerns, please contact your doctor's triage nurse at [phone]. documented in this encounter Progress Notes Althea Kelley APRN, CNP - 07/16/2019 8:00 AM CDT [facility] Adult Endocrinology [facility], [address] [address], Ph.[phone] July 16, 2019 Chief Complaint: Karin Mcmillan a 39 y.o. female is here for:follow up evaluation and management of Type 1 diabetes mellitus History of Present Illness: Subjective: Diagnosed with diabetes: age 22 No known chronic microvascular complications of diabetes. Using a 530 G pump with sensor at this time, has started utilizing the guardian, so unfortunately it does not connect her pump. Overall feels things are going pretty well. Would like to switch to the Dexcom sensor when her current system is out of warranty. Notes that she is having fewer hypoglycemic episodes lately, no severe hypoglycemia, but does have a more dramatic low about once a month. Shestates this is when the blood glucose level drops without a logical reason or drops a little more quickly. Most of the time her blood glucose levels are under good control. She is a little frustrated with her fasting levels lately. Less nursing during the night lately. HPI and ROS: At her last visit, she had been feeling very overwhelmed. She is now back at work and enjoying her life very much. Excited to show me pictures of Ten. Had a great summer P Other health issues: anxiety Last eye exam: 06-22-18 Foot exam: Today Social history: Tobacco: reports that she has never smoked. She has never used smokeless tobacco. . 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 Very unusual schedule. Ten is her son. Nurse's a little bit at this time. Current Diabetes Treatment Regimen: Insulin in her pump with settings as follows: Midnight 0.7 2:30 a.m. 0.6 7:00 a.m. 0.825 11:30 a.m. 0.85 2:00 p.m. 0.825 6:30 p.m. 0.775 9:30 p.m. 0.8 Total basal 18.35 Bolus settings: Midnight 10 g 6:00 p.m. 9 g Sensitivity Midnight 50 6:00 p.m. 40 Targets Midnight 70-100 6:00 a.m. 75-100 9:00 p.m. 100-120 2 hour insulin action time Average daily insulin 31.775 units 56% as basal Other medications of note: vitamin. Iron. Full med list reviewed in Epic. Objective: Female pt. Appears very relaxed and happy today. Laughing, smiling to the visit. Showing the pictures of Ten. Glucose Monitoring: Home glucose monitoring: Using CGMS daily, Testing BG 4 times daily and using the guardian sensor. Range BG: Were we were unable to upload data from her system today. We reviewed the last 24 hours off her guardian. Reports having low blood glucose levels about once a week. No severe hypoglycemia. Fasting levels slightly elevated in the 140 range. Post breakfast seems to spike a bit. Not as dramatic if she pre boluses 15-20 minutes prior to eating. Vitals: BP 100/60 (BP Location: Right Arm, BP Cuff Size: Regular) Pulse 76 Ht 5' 4 (1.626 m) Wt 143 lb 9.6 oz (65.1 kg) BMI 24.65 kg/m?? Estimated body mass index is 24.65 kg/m?? as calculated from the following: Height as of this encounter: 5' 4 (1.626 m). Weight as of this encounter: 143 lb 9.6 oz (65.1 kg). Foot exam reveals normal pedal and post tibial pulses, protective sensation, and vibratory sensationbilaterally. Skin and nails healthy and in good repair. Assessment: Karin is a 39 y.o. female who was seen today for Type 1 diabetes mellitus with Good control Last A1c: Lab Results Component Value Date EXT RSLT - A1C 8.0 03/24/2012 Hemoglobin A1C, POC 6.2 (A) 04/16/2019 Last LDL: Lab Results Component Value Date Cholesterol 140 07/02/2013 Cholesterol/HDL Ratio Screen 2.1 07/02/2013 HDL Cholesterol 66 07/02/2013 Triglycerides 48 07/02/2013 LDL, Direct 78 04/16/2019 Microalbumin: Lab Results Component Value Date Microalbumin, Urine, Random 2.9 04/16/2019 Diagnoses and Orders Placed: 1. Type 1 diabetes mellitus without complication (HRC) 2. Insulin pump status (HRC) Plan: 1. Adjust basal rate from 2:30 a.m.-7:00 a.m. from 0.6 to 0.65. Goal fasting levels 70-130 most often. 2. Adjust insulin to carb ratio at breakfast from 1 unit for every 10 g of carb to 1 unit for every 9 g of carb. 3. Adjust dinner time frame from 5:30 p.m. to midnight rather than 6:00 p.m. to midnight. 4. Return to the clinic in 3-4 months for follow-up. We did review plans for future in thenext 1-2 years. Patient will contact us when she is thinking about trying to conceive. She understands blood glucose and A1c goals and need for regular follow-up. Spent 30 min with the patient in review of the treatment plan, DDX, potential outcomes and side effects of medications indicated. Answered questions in detail. Greater than 50% of time was spent counseling the patient. Other Previous Labs: Lab Results Component Value Date Alanine Aminotransferase 16 10/13/2015 No results found for: AST Lab Results Component Value Date Creatinine 0.70 04/16/2019 Lab Results Component Value Date TSH, Reflex 0.85 04/16/2019 Medical History: No Known Allergies Past Medical History: Diagnosis Date ??? Diabetes mellitus (HRC) age 22 DM1 Social History Tobacco Use ??? Smoking status: Never Smoker ??? Smokeless tobacco: Never Used Substance Use Topics ??? Alcohol use: No Past Surgical History: Procedure Laterality Date ??? SECTION 11/30/2018 No family history on file. Current Outpatient Medications Medication Sig Dispense Refill ??? acetone urine (KETOSTIX) test strip Use to test daily. 100 Each 3 ??? blood glucose (MILTON CONTOUR NEXT) test strip Use 8-10 times daily 750 Strip 3 ??? clomiPRAMINE (ANAFRANIL) 50 MG capsule Take 50 mg by mouth every evening. ??? CONTOUR NEXT EZ MONITOR Use as directed. Pharmacy dispense brand based on insurance. 1 Each 0 ??? ferrous gluconate (FERGON) 324 (38 Fe) MG tablet Take 324 mg by mouth daily with breakfast. ??? Generic Medication (DIABETIC SUPPLIES) by [facility].(Non-Drug; Combo Route) route. Class[employer] form forpump and testing supplies faxed to [phone] ??? glucagon, human recombinant, (GLUCAGON,HUMAN RECOMBINANT) 1 MG injection Inject 1 mg subcutaneously as needed for Hypoglycemia. 1 Kit 0 ??? insulin aspart (NOVOLOG) 100 UNIT/ML injection (vial) Infuse via insulin pump. Average daily dose rising with . 55-80 Units/day. 60 mL 3 ??? insulin glargine (LANTUS) 100 UNIT/ML injection Inject 20 Units subcutaneously daily. HOLD FOR PT CALL 10 mL 3 ??? insulin syringe-needle U-100 0.5ml 31g x 15/64 Inject 1 Each subcutaneously as needed. 100 Eachprn ??? lancets (MILTON MICROLET) Use 1 to test 8-10 times daily. Use as directed. Pharmacy dispense brand based on insurance. 300 Each 11 ??? vitamin-ferrous fumarate-folic acid (PRENATALPLUS) 27-1 MG tablet Take 1 Tablet by mouth daily. No current facility-administered medications for this visit. documented in this encounter Plan of Treatment Upcoming Encounters Date Type Specialty Care Team Description 11/01/2022 Appointment Endocrinology Althea Kellye, MILY, PRESSING DEPARTMENT SUPERVISOR [address] [address] (Wo rk) 12/27/2022 Appointment Endocrinology Ayde Warren, KERWIN [address] [facility] [address] [address] documented as of this encounter Procedures Procedure Name Priority Date/Time Associated Diagnosis Comme nts POCT GLYCOSYLATED Routine 07/16/2019 8:42 AM Type 1 diabetes R esults for this HEMOGLOBIN (HGB A1C) CDT mellitus without pro cedure are in complication (HRC) the resul ts section. documented in this encounter Results (ABNORMAL) POCT glycosylated hemoglobin (Hb A1C) (07/16/2019 8:42 AM CDT) P athologist Signature Hemoglobin A1C, 6.4 (A) 4 - 5.6 % POCT POC Cartridge Lot# [id number] POCT Specimen (Source) Anatomical Collection Method Collection Time Re ceived Time Location / / Volume Laterality Blood 07/16/2019 8:42 AM CDT Althea Kelley UPHOLSTERY PARTS SORTER, PRESSING DEPARTMENT SUPERVISOR PN POINT OF CARE TESTS Performing Organization Address City/State/ZIP Code Phon e Number POCT documented in this encounter Visit Diagnoses Diagnosis Type 1 diabetes mellitus without complic ation (HRC) - Primary Type I (juvenile type) diabetes mellitus without mention of complication, not stated as uncontrolled Insulin pump status (HRC) Insulin pump status documented in this encounter Care Teams Ceiling Cleaner Relationship Specialty Start Date End Date Non Pn, Clinician, PCP - General 06/27/16 [place] [address] documented as of this encounter
--- OUTSIDE RECORDS SUMMARY | 2022-09-23 07:47 | XMS_ITS | Encounter Summary ---
:1980 Author Organization [employer] Address [address] [place] [address] Care Team Providers Name Role Phone Non Pn, Clinician MD Primary Care Provider Unavailable Reason for Visit Reason Comments Forms Encounter Details Date Type Department Care Team Description 10/11/2019 Telephone [facility] [address] Althea Kelley, RUNSTITCHING MACHINE OPERATOR, HAND LACER Forms Endocrinology [address] [place] [address] [place], [place] [id number] [phone] Social History Tobacco Use Types Packs/Day Years Used Date Smoking Tobacco: Never Smokeless Tobacco: Never Alcohol Use Standard Drinks/Week Comments No 0 (1 standard drink = 0.6 oz pure alcoho l) Sex Assigned at Date Recorded Not on file documented as of this encounter Nursing Notes Jocelyn Leslie LPN - 10/23/2019 8:44 AM CST Pt calling to check on status of forms, informed her forms were fax back on 10/16/2019. Y EQUIPMENT SALES MANAGER Emeka Szymanski - 10/16/2019 10:54 AM CST Faxed form to Med. Sent to [employer]. Chayo Vazquez - 10/11/2019 1:54 PM CST Received CGM & Supplies Order Form. Placed in Althea Kelley's mailbox for completion. Y EQUIPMENT SALES MANAGER documented in this encounter Plan of Treatment Upcoming Encounters Date Type Specialty Care Team Description 11/01/2022 Appointment Endocrinology Althea Kelley, RUNSTITCHING MACHINE OPERATOR, HAND LACER [address] [facility] [place] [id number] (Wo rk) 12/27/2022 Appointment Endocrinology Ayde Warren, MBBS [address] [facility] [place] N [id number] documented as of this encounter Visit Diagnoses Not on filedocumented in this encounter Care Teams Corrections Nurse Relationship Specialty Start Date End Date Non Pn, Clinician, PCP - General 06/27/16 [place] [address] documented as of this encounter
--- OUTSIDE RECORDS SUMMARY | 2022-09-23 07:47 | XMS_ITS | Encounter Summary ---
:1980 Author Organization [employer] Address [address] [place] [address] Care Team Providers Name Role Phone Non Pn, Clinician MD Primary Care Provider Unavailable Reason for Visit Reason Comments Diabetes Encounter Details Date Type Department Care Team Description 10/15/2019 Office Visit Althea Rosenthal, Type 1 diabe isaac mellitus without complication (HRC) (Primary Dx); Endocrinology LEATHER SPRAYER, SENIOR HR BUSINESS PARTNER Insulin pump status; [address] [employer] [address] [place] [address] Desire for ; [place] [address] Blvd Pre-conception counseling [phone] [place] [address] Social History Tobacco Use Types Packs/Day Years Used Date Smoking Tobacco: Never Smokeless Tobacco: Never Alcohol Use Standard Drinks/Week Comments No 0 (1 standard drink = 0.6 oz pure alcoho l) Sex Assigned at Date Recorded Not on file documented as of this encounter Last Filed Vital Signs Vital Sign Reading Time Taken Comments Blood Pressure 114/69 10/15/2019 8:41 AM TANKER TRUCK DRIVER Pulse 92 10/15/2019 8:41 AM TANKER TRUCK DRIVER Temperature - - Respiratory Rate - - Oxygen Saturation - - Inhaled Oxygen Concentration - - Weight 66.8 kg (147 lb 3.2 oz) 10/15/2019 8:41 AM TANKER TRUCK DRIVER Height 162.6 cm (5' 4) 10/15/2019 8:41 AM TANKER TRUCK DRIVER Body Mass Index 25.27 10/15/2019 8:41 AM TANKER TRUCK DRIVER documented in this encounter Progress Notes Emeka Szymanski - 10/15/2019 8:30 AM CST Images from the original note were not included. ER TRUCK DRIVER Althea Kelley, LEATHER SPRAYER, SENIOR HR BUSINESS PARTNER - 10/15/2019 8:30 AM CST October 15, 2019 Chief Complaint: Karin Mcmillan a 39 y.o. female is here for follow up of Type 1 diabetes. Last saw me in 06/2019. History of Present Illness: Subjective: Diagnosed with diabetes: age 22 Complications:No known chronic microvascular complications of diabetes. Using 530 G that will soon be OOW. Has Guardian sensor, but unable to upload it to [employer], so unable to see more than 24 h data at once. Calibrates her sensor twice daily at minimum. Enters blood glucose levels and or pump if she needs a correction. Because of this, the blood glucose levels in her pump data are often elevated. Awaiting a Dexcom G6 sensor. His thinking about switching to the tandem products after she gets the Dexcom. Very bad flu a week ago. Blood glucose levels were extremely high. She increased her basals and bolus settings a bit during that time. Has not yet reduced them back to baseline. Starting to feel betternow. Other health issues: History of infertility. Planning for another as soon as possible. Last eye exam: Fall 2018. Outside [facility]. No retinopathy or macular edema. Foot exam: 07/16/2019 Social history: Tobacco: reports that she has never smoked. She has never used smokeless tobacco. . Will be on sabbatical for the next year. Planning quite a bit of travel. 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 Current Diabetes Treatment Regimen: Insulin in her 530 G pump with settings as uploaded into the encounter. Average daily insulin 36.5+/-6 units a day. 56% of this is basal. She is bolusing for food and correction at least 4 times/day. She is adjusting her insulin based on her BGs and her food. Full med list reviewed in [employer]. Objective: Very pleasant female. Relaxed today. No apparent distress. Glucose Monitoring: Home glucose monitoring: Using CGMS daily, Testing BG 4 times daily. Making frequent adjustments based on BGs. BG data uploaded into encounter. Unable to upload her sensor data. Blood glucose levels entered into the pump are uploaded with an average of 219+/-47. 78% of her time above range, again this is not including most of her normal bloodglucose level times. No severe hypoglycemia whatsoever. Patient states she has not had any recent nocturnal hypoglycemia. Occasional readings during the daytime get slightly low, sensor has been very helpful. Vitals: BP 114/69 (BP Location: Left Arm, BP Cuff Size: Regular) Pulse 92 Ht 5' 4 (1.626 m) Wt 147 lb 3.2 oz (66.8 kg) BMI 25.27 kg/m?? Estimated body mass index is 25.27 kg/m?? as calculated from the following: Height as of this encounter: 5' 4 (1.626 m). Weight as of this encounter: 147 lb 3.2 oz (66.8 kg). . Last A1c: Lab Results Component Value Date EXT RSLT - A1C 8.0 03/24/2012 Hemoglobin A1C, POC 6.5 (A) 10/15/2019 Last LDL: Lab Results Component Value Date Cholesterol 140 07/02/2013 Cholesterol/HDL Ratio Screen 2.1 07/02/2013 HDL Cholesterol 66 07/02/2013 Triglycerides 48 07/02/2013 LDL, Direct 78 04/16/2019 Microalbumin: Lab Results Component Value Date Microalbumin, Urine, Random 2.9 04/16/2019 Assessment: Karin is a 39 y.o. female who was seen today for Type 1 diabetes mellitus with following diagnoses: Diagnoses and Orders Placed: 1. Type 1 diabetes mellitus without complication (HRC) 2. Insulin pump status (HRC) 3. Desire for 4. Pre-conception counseling Plan: 1. Adjust bolus at 5:30 p.m. to 1 unit for 8 g rather than 8.5 g. 2. Adjust sensitivity to be 40 at night, 35 during the day. This will be midnight 40, 6:00 a.m. 34, 9:00 p.m. 40 3. Adjust target from midnight to 6:00 a.m. to 70-120 rather than 70-100 4. Prescriptions updated. Did discuss the use of baqsimi verses glucagon injectable kit. Patient advised to carry the baqsimi with her on her travels. 5. Reviewed protocol for pump failure. Patient has long-acting insulin prescription. 6. Reviewed pre blood glucose and it is an A1c targets. Patient is to call if she becomes before her next appointment in 3 months. Other Previous Labs: Lab Results Component Value Date Alanine Aminotransferase 16 10/13/2015 No results found for: AST Lab Results Component Value Date Creatinine 0.70 04/16/2019 Lab Results Component Value Date TSH, Reflex 0.85 04/16/2019 ER TRUCK DRIVER documented in this encounter Plan of Treatment Upcoming Encounters Date Type Specialty Care Team Description 11/01/2022 Appointment Endocrinology Althea Kelley APRN, SENIOR HR BUSINESS PARTNER [address] [place] [address] [id number] (Wo rk) 12/27/2022 Appointment Endocrinology Ayde Warren MBBS [address] [place] [id number] documented as of this encounter Procedures Procedure Name Priority Date/Time Associated Diagnosis Comme nts POCT GLYCOSYLATED Routine 10/15/2019 9:20 AM Type 1 diabetes R esults for this HEMOGLOBIN (HGB A1C) TANKER TRUCK DRIVER mellitus without pro cedure are in complication (HRC) the resul ts section. documented in this encounter Results (ABNORMAL) POCT glycosylated hemoglobin (Hb A1C) (10/15/2019 9:20 AM TANKER TRUCK DRIVER) P athologist Signature Hemoglobin A1C, 6.5 (A) 4 - 5.6 % POCT POC Cartridge Lot# [id number] POCT Specimen (Source) Anatomical Collection Method Collection Time Re ceived Time Location / / Volume Laterality Blood 10/15/2019 9:20 AM TANKER TRUCK DRIVER Althea Kelley APRN, SENIOR HR BUSINESS PARTNER PN POINT OF CARE TESTS Performing Organization Address City/State/ZIP Code Phon e Number POCT documented in this encounter Visit Diagnoses Diagnosis Type 1 diabetes mellitus without complic ation (HRC) - Primary Type I (juvenile type) diabetes mellitus without mention of complication, not stated as uncontrolled Insulin pump status (HRC) Insulin pump status Desire for Unspecified procreative management Pre-conception counseling Other procreative management counseling and advice documented in this encounter Care Teams Legal Advisor Relationship Specialty Start Date End Date Non Pn, Clinician, PCP - General 06/27/16 [place] [address] documented as of this encounter
--- OUTSIDE RECORDS SUMMARY | 2022-09-23 07:47 | XMS_ITS | Encounter Summary ---
:1980 Author Organization [facility] Address [address] [place] [address] Care Team Providers Name Role Phone Non Pn, Clinician MD Primary Care Provider Unavailable Encounter Details Date Type Department Care Team Description 04/16/2019 Lab Visit Sen escobar Type 1 diabetes mellitus [address] [facility] without complication (HRC) [place] [address] Social History Tobacco Use Types Packs/Day Years Used Date Smoking Tobacco: Never Smokeless Tobacco: Never Alcohol Use Standard Drinks/Week Comments No 0 (1 standard drink = 0.6 oz pure alcoho l) Sex Assigned at Date Recorded Not on file documented as of this encounter Plan of Treatment Upcoming Encounters Date Type Specialty Care Team Description 11/01/2022 Appointment Endocrinology Althea Kelley, DIGITAL MARKETING ASSISTANT, YARN SKEINS EXAMINER [address] [place] [address] [id number] (Wo rk) 12/27/2022 Appointment Endocrinology Ayde Warren, MBBS [address] [facility] [place] N [id number] documented as of this encounter Procedures Procedure Name Priority Date/Time Associated Diagnosis Comme nts ALBUMIN/CREAT RATIO Routine 04/16/2019 10:45 Type 1 diabetes R esults for this AM CDT mellitus without procedure a re in complication (HRC) the resul ts section. LDL CHOLESTEROL, Routine 04/16/2019 10:35 Type 1 diabetes Resu lts for this DIRECT MEASURED AM CDT mellitus without procedur e are in complication (HRC) the resul ts section. CREATININE / GFR Routine 04/16/2019 10:35 Type 1 diabetes Resu lts for this AM CDT mellitus without procedure a re in complication (HRC) the [facility] ts section. TSH, SENSITIVE Routine 04/16/2019 10:35 Type 1 diabetes Result s for this (WITH REFLEX) AM CDT mellitus without procedure are in complication (HRC) the [facility] ts section. documented in this encounter Results Microalbumin Urine Random (04/16/2019 10:45 AM CDT) athologist Signature Albumin, 2.9 mg/L 04/16/2019 [facility] Urine, Random 1:12 PM CDT LABORATORY Creatinine, 42 >20 mg/dL 04/16/2019 [facility] Urine, Random 1:12 PM CDT LABORATORY Albumin/Creati 7 <30 mg/g 04/16/2019 [facility] nine Ratio, 1:12 PM CDT LABORATORY Urine, Random Specimen Anatomical Collection Method Collection Time Receive d Time (Source) Location / / Volume Laterality Urine,random 04/16/2019 10:45 04/16/2019 AM CDT 10:45 AM CDT Althea Kelley APRN, CNP LAB_1 Performing Organization Address City/State/ZIP Code Phon e Number [facility] [address] [place] [address] TSH with Free T4 (if TSH Abnormal) (04/16/2019 10:35 AM CDT) athologist Signature TSH, Reflex 0.85 0.30 - 4.50 04/16/2019 SCIENTOLOGIST uIU/mL 2:34 PM CDT LABORATORY Specimen Anatomical Collection Method / Collection Time Recei gabi Time (Source) Location / Volume Laterality Blood Venipuncture / 04/16/2019 10:35 9 Unknown AM CDT 10:39 AM CDT Narrative [facility] - 04/16/2019 2:34 P M CDT Lab will automatically reflex to Free T4 when TSH results are <0.30 uIU/mL or >4.50 mIU/mL. Althea Kelley APRN, PHANI LAB_1 Performing Organization Address City/[facility]/ZIP Code Phon e Number [facility] [address] [place] [address] Direct LDL (04/16/2019 10:35 AM CDT) athologist Signature LDL, Direct 78 <=130 mg/dL 04/16/2019 [facility] 11:18 AM CDT LABORATORY Specimen Anatomical Collection Method / Collection Time Recei gabi Time (Source) Location / Volume Laterality Blood Venipuncture / 04/16/2019 10:35 9 Unknown AM CDT 10:39 AM CDT Althea Kelley APRN, PHANI LAB_1 Performing Organization Address [facility] e Number [facility] [address] [place], [place] [phone] Creatinine (04/16/2019 10:35 AM CDT) athologist Signature Creatinine 0.70 0.55 - 04/16/2019 [facility] 1.02 mg/dL 11:18 AM CDT LABORATORY GFR, Estimated >60 >60 04/16/2019 [facility] mL/min/1.7 11:18 AM CDT LABORATORY 3m2 GFR, Est If >60 >60 04/16/2019 [facility] mL/min/1.7 11:18 AM CDT LABORATORY Monegasque 3m2 Specimen Anatomical Collection Method / Collection Time Recei gabi Time (Source) Location / Volume Laterality Blood Venipuncture / 04/16/2019 10:35 9 Unknown AM CDT 10:39 AM CDT Althea Kelley APRN, PHANI LAB_1 Performing Organization Address [facility] e Number [facility] [address] [place], [place] [phone] documented in this encounter Visit Diagnoses Diagnosis Type 1 diabetes mellitus without complic ation (HRC) Type I (juvenile type) diabetes mellitus without mention of complication, not stated as uncontrolled documented in this encounter Care Teams Trimmer And Reinforcer Relationship Specialty Start Date End Date Non Pn, Clinician, PCP - General 06/27/16 [place] [address] documented as of this encounter
--- OUTSIDE RECORDS SUMMARY | 2022-09-23 07:47 | XMS_ITS | Encounter Summary ---
:1980 Author Organization [email or web address] Address [address] [place] [address] Care Team Providers Name Role Phone Non Pn, Clinician MD Primary Care Provider Unavailable Reason for Visit Reason Comments Forms Encounter Details Date Type Department Care Team Description 12/17/2019 Telephone [facility] [address] Althea Kelley, MILY, PROFESSOR OF ECONOMICS Forms Endocrinology [address] [place] [address] [place], [place] [id number] [phone] Social History Tobacco Use Types Packs/Day Years Used Date Smoking Tobacco: Never Smokeless Tobacco: Never Alcohol Use Standard Drinks/Week Comments No 0 (1 standard drink = 0.6 oz pure alcoho l) Sex Assigned at Date Recorded Not on file documented as of this encounter Nursing Notes Chayo Rae - 12/20/2019 1:11 PM CST Form from [facility] completed. Faxed to [phone]. ING WHEEL OPERATOR Chayo Rae - 12/17/2019 10:33 AM CST Received Pump Software Update Prescription Orders from [facility]. Placed in Althea Kelley'smailbox for review/completion. ING WHEEL OPERATOR documented in this encounter Plan of Treatment Upcoming Encounters Date Type Specialty Care Team Description 11/01/2022 Appointment Endocrinology Althea Kelley, COAL MINER, PROFESSOR OF ECONOMICS [address] [place] [address] [address] (Wo rk) 12/27/2022 Appointment Endocrinology Ayde Warren MBBS [address] [phone] documented as of this encounter Visit Diagnoses Not on filedocumented in this encounter Care Teams Finisher Screwdown Relationship Specialty Start Date End Date Non Pn, Clinician, PCP - General 06/27/16 [place] [address] documented as of this encounter
--- OUTSIDE RECORDS SUMMARY | 2022-09-23 07:48 | XMS_ITS | Encounter Summary ---
:1982 Author Organization [facility] Address [address] [place] [address] Care Team Providers Name Role Phone Non Pn, Clinician MD Primary Care Provider Unavailable Reason for Visit Reason Comments Forms Encounter Details Date Type Department Care Team Description 03/13/2018 Telephone [facility] [address] Coleen Carter MD Forms Endocrinology [address] [place] [address] [place], [place] [id number] [phone] Social History Tobacco Use Types Packs/Day Years Used Date Smoking Tobacco: Never Smokeless Tobacco: Never Alcohol Use Standard Drinks/Week Comments No 0 (1 standard drink = 0.6 oz pure alcoho l) Sex Assigned at Date Recorded Not on file documented as of this encounter Nursing Notes Chayo Rae - 03/14/2018 8:19 AM CDT [employer] Prescription form for Pump Supplies, Diabetic Supplies, and CGM faxed to [phone]. Chayo Rae - 03/13/2018 1:36 PM CDT [employer] Prescription form for Pump Supplies, Diabetic Supplies, and CGM received. Placed in Dr. Carter's mailbox for completion. documented in this encounter Plan of Treatment Upcoming Encounters Date Type Specialty Care Team Description 11/01/2022 Appointment Endocrinology Althea Kelley, SHEARING MACHINE TENDER, SOCIAL SERVICE DIRECTOR [address] [place] [address] [address] (Wo rk) 12/27/2022 Appointment Endocrinology Ayde Warren, MBBS [address] [place] [address] [address] documented as of this encounter Visit Diagnoses Not on filedocumented in this encounter Care Teams Occupational Health And Safety Adviser Relationship Specialty Start Date End Date Non Pn, Clinician, MD PCP - General 06/27/16 [place] [address] documented as of this encounter
--- OUTSIDE RECORDS SUMMARY | 2022-09-23 07:48 | XMS_ITS | Encounter Summary ---
:1980 Author Organization [facility] Address [address] [place] [address] Care Team Providers Name Role Phone Non Pn, Clinician MD Primary Care Provider Unavailable Reason for Visit Reason Comments Diabetes Encounter Details Date Type Department Care Team Description 05/08/2018 Office Visit Althea Rosenthal, Type 1 diabe isaac mellitus without complication (HRC) (Primary Dx); Endocrinology PHANI MINOR Pre-existing type 1 diabetes mellitus du ring in first trimester; [address] [place] [address] [facility] [phone] [place], [place] [id number] Social History Tobacco Use Types Packs/Day Years Used Date Smoking Tobacco: Never Smokeless Tobacco: Never Alcohol Use Standard Drinks/Week Comments No 0 (1 standard drink = 0.6 oz pure alcoho l) Sex Assigned at Date Recorded Not on file documented as of this encounter Last Filed Vital Signs Vital Sign Reading Time Taken Comments Blood Pressure 122/84 05/08/2018 11:03 AM CDT Pulse 92 05/08/2018 11:03 AM CDT Temperature - - Respiratory Rate - - Oxygen Saturation - - Inhaled Oxygen Concentration - - Weight 67.6 kg (149 lb) 05/08/2018 11:03 AM CDT Height 162.6 cm (5' 4) 05/08/2018 11:03 AM CDT Body Mass Index 25.58 05/08/2018 11:03 AM CDT documented in this encounter Progress Notes Althea Kelley, PHANI MINOR - 05/08/2018 12:00 PM CDT NAME: KARIN MCMILLAN MR#: [id number] CSN: [id number] AUTHENTICATING CLINICIAN: Althea Kelley APRN, VETERINARY RADIOLOGIST CONFIRM #: [id number] LOC: 532 CLINIC PROGRESS NOTE DATE OF VISIT: 05/08/2018 : 1980 SUBJECTIVE: Karin Mcmillan is a 38-year-old woman with type 1 diabetes diagnosed at age 22. She has no knownmicrovascular complications and utilizes a 530 G pump. She is newly . LMP 03/02/2018. Date by ultrasound 9 weeks 2 days gestation with an EDC of approximately 12/06/2018. She has experienced miscarriage so she admits that she is trying to prevent getting her hopes up andis quite anxious about the viability of this . She has another ultrasound tomorrow which she admits is making her extremely anxious. REVIEW OF SYSTEMS: Occasional nausea, especially in the last week. About every 2 hours or so she gets nauseous. No emesis. She is quite anxious as noted above. SOCIAL HISTORY: She is . 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 Ash no children yet. No tobacco. No alcohol. Eye exam 06/2017. Foot exam about a year ago. MEDICATIONS: NovoLog in her pump with the settings uploaded into the Epic encounter. She also has Lantus for backup in case of pump failure. She is taking a vitamin and a baby aspirin a day. OBJECTIVE: GENERAL: Very pleasant female in no apparent distress. VITAL SIGNS: Weight 149, blood pressure 122/84 left arm standard cuff, pulse 92 and regular. LABS: A1c today 5.9%, which is stable. 11/2017: Creatinine 0.5, albumin/creatinine ratio less than 10, TSH 0.6, direct LDL 71. Blood glucose data is reviewed carefully. Her sensor is tending to read low, especially at night, sothe appearance of dramatic hypoglycemia nocturnally is somewhat false. She is very pleased with her control overall. Not using her bolus wizard very consistently. She seems to give her insulin more expe rientially. No severe hypoglycemia. ASSESSMENT: 1.Type 1 diabetes. 2.Intrauterine 9 weeks 2 days gestation. Last menstrual period 03/02/2018. 3.History of obsessive-compulsive disorder. PLAN: 1.I encouraged the patient to utilize the bolus wizard as much as possible so that as the progresses, she will be able to adjust things appropriately. 2.I did explain to the patient that Dr. Carter will be leaving our clinic at the end of July. I explained the other physicians that are available here in [place] and answered her questions about that. 3.I have encouraged her to update her eye exam. 4.We did do a brief foot exam which revealed positive pedal pulses, protective and vibratory sensation bilaterally. 5.At her next appointment, we can also recheck TSH. 6.We reviewed pattern-based insulin adjustment information and appropriate blood glucose targets preand post meals for . Patient states understanding. SJL:MEDQ C: CONFIRM #: [id number] Leonila Romo RN - 05/08/2018 11:00 AM CDT Images from the original note were not included. documented in this encounter Plan of Treatment Upcoming Encounters Date Type Specialty Care Team Description 11/01/2022 Appointment Endocrinology Althea Kelley APRN, VETERINARY RADIOLOGIST [address] [facility] N [id number] (Wo rk) 12/27/2022 Appointment Endocrinology Ayde Warren MBBS [address] [facility] N [id number] documented as of this encounter Procedures Procedure Name Priority Date/Time Associated Diagnosis Comme nts POCT GLYCOSYLATED Routine 05/08/2018 11:18 Type 1 diabetes Res ults for this HEMOGLOBIN (HGB A1C) AM CDT mellitus without pro cedure are in complication (HR C) the results Pre-existing type 1 section. diabetes mellitus during in first trimester Insulin pump status documented in this encounter Results (ABNORMAL) POCT glycosylated hemoglobin (Hb A1C) (05/08/2018 11:18 AM CDT) P athologist Signature Hemoglobin A1C, 5.9 (A) 4 - 5.6 % PN POCT POC Cartridge Lot# [id number] PN POCT Specimen (Source) Anatomical Collection Method Collection Time Re ceived Time Location / / Volume Laterality Blood specimen 05/08/2018 11:18 (specimen) AM CDT Althea Kelley FIELD TECH, VETERINARY RADIOLOGIST PN POINT OF CARE TESTS Performing Organization Address City/State/ZIP Code Phon e Number POCT PN POCT documented in this encounter Visit Diagnoses Diagnosis Type 1 diabetes mellitus without complic ation (HRC) - Primary Type I (juvenile type) diabetes mellitus without mention of complication, not stated as uncontrolled Pre-existing type 1 diabetes mellitus du ring in first trimester Insulin pump status (HRC) Insulin pump status documented in this encounter Care Teams Traffic Sign Erection Supervisor Relationship Specialty Start Date End Date Non Pn, Clinician, PCP - General 06/27/16 [place] [address] documented as of this encounter
--- OUTSIDE RECORDS SUMMARY | 2022-09-23 07:48 | XMS_ITS | Encounter Summary ---
:1980 Author Organization [employer] Address [address] [place] [address] Care Team Providers Name Role Phone Non Pn, Clinician MD Primary Care Provider Unavailable Reason for Visit Reason Comments Follow-up Diabetes Encounter Details Date Type Department Care Team Description 04/16/2019 Office Visit Althea Rosenthal, Type 1 diabe isaac mellitus without complication (HRC) (Primary Dx); Endocrinology PHANI MINOR Insulin pump status [address] [place] [address] [address] [facility] [phone] [place], [place] [id number] Social History Tobacco Use Types Packs/Day Years Used Date Smoking Tobacco: Never Smokeless Tobacco: Never Alcohol Use Standard Drinks/Week Comments No 0 (1 standard drink = 0.6 oz pure alcoho l) Sex Assigned at Date Recorded Not on file documented as of this encounter Last Filed Vital Signs Vital Sign Reading Time Taken Comments Blood Pressure 119/80 04/16/2019 9:44 AM CDT Pulse 107 04/16/2019 9:44 AM CDT Temperature - - Respiratory Rate - - Oxygen Saturation - - Inhaled Oxygen Concentration - - Weight 65.5 kg (144 lb 6.4 oz) 04/16/2019 9:44 AM CDT Height 162.6 cm (5' 4) 04/16/2019 9:44 AM CDT Body Mass Index 24.79 04/16/2019 9:44 AM CDT documented in this encounter Patient Instructions Patient InstructionsAlthea Kelley, MILY, PHANI - 04/16/2019 9:30 AM CDT Labs today. Medtronic 670G---Manual mode. TSLIM pump with Dexcom Sensor G6. If you need to schedule or have questions about your appointment, call [phone]. If you have medical questions or concerns, please contact your doctor's triage nurse at [phone]. documented in this encounter Progress Notes Magdalena Tafoya LPN - 04/16/2019 9:30 AM CDT Images from the original note were not included. Althea Kelley APRN, PHANI - 04/16/2019 9:30 AM CDT [facility] Adult Endocrinology [facility], [facility] [address] [address], Ph.[phone] April 16, 2019 Chief Complaint: Karin Mcmillan a 39 y.o. female is here for:follow up evaluation and management of Type 1 diabetes mellitus History of Present Illness: Subjective: Diagnosed with diabetes: age 22 No known chronic microvascular complications of diabetes. Using a 530 G pump with sensor at this time. Gave to Ten last year. HPI and ROS: States she is very overwhelmed. Trying to figure out how to work and be a mom with hervery complicated schedule with her career. States she loves her son very much but does not find caring for him very fulfilling. Other health issues: anxiety Last eye exam: 06-22-18 Foot exam: 04/2018 Social history: Tobacco: reports that she has never smoked. She has never used smokeless tobacco. . 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 Very unusual schedule. Trying to figure out how to balance home/work etc. Current Diabetes Treatment Regimen: insulin in pump. Settings as uploaded into encounter. Novolog Other medications of note: None Full med list reviewed in Epic. Objective: Female pt. Here with son Ten. She is tearful, expressing herself clearly. Expresses feelings of being overwhelmed and trying to figure out what to do. Denies thoughts of self harm or thoughts of harm to her son. Glucose Monitoring: Home glucose monitoring: Using CGMS daily, Testing BG 4 times daily Range BG: Bgs data uploaded into encounter. Pt has had no severe lows. Some tendency to over correct for highs. Some elevations after lunch. Reviewed 2 weeks of data and discussed. Vitals: BP 119/80 (BP Location: Left Arm, BP Cuff Size: Adult Regular) Pulse (!) 107 Ht 5' 4 (1.626 m) Wt 144 lb 6.4 oz (65.5 kg) BMI 24.79 kg/m?? Estimated body mass index is 24.79 kg/m?? as calculated from the following: Height as of this encounter: 5' 4 (1.626 m). Weight as of this encounter: 144 lb 6.4 oz (65.5 kg). Assessment: Karin is a 39 y.o. female who was seen today for Type 1 diabetes mellitus with Good control and feelings of being overwhelmed by changes since of son. Last A1c: Lab Results Component Value Date EXT RSLT - A1C 8.0 03/24/2012 Hemoglobin A1C, POC 6.2 (A) 04/16/2019 Last LDL: Lab Results Component Value Date Cholesterol 140 07/02/2013 Cholesterol/HDL Ratio Screen 2.1 07/02/2013 HDL Cholesterol 66 07/02/2013 Triglycerides 48 07/02/2013 LDL, Direct 78 04/16/2019 Microalbumin: Lab Results Component Value Date Microalbumin Urine <10.0 11/21/2017 Diagnoses and Orders Placed: 1. Type 1 diabetes mellitus without complication (HRC) 2. Insulin pump status (HRC) Plan: 1. Advised pt to talk with OB team about post depression/baby blues. 2. Advised pt to consider counseling to discuss career /home life balance. Assured pt that it is difficult bret for such an accomplished woman. 3. Follow up in 3 months. 4. Adjust correction factor to 50 from 36-45 thru the day 5. Adjust lunch bolus from noon to 6pm to 10 rather than 12 6. Emotional support provided today 7. Update annual diabetes labs today Spent 30 min with the patient in [...] 0.70 04/16/2019 Lab Results Component Value Date Thyroid Stimulating Hormone 0.60 11/21/2017 Medical History: No Known Allergies Past Medical [...] breakfast. ??? Generic Medication (DIABETIC SUPPLIES) by Misc.(Non-Drug; Combo Route) route. 9DIAMOND form forpump and testing supplies faxed to [phone] ??? glucagon, human recombinant, (GLUCAGON,HUMAN RECOMBINANT) [...] Description 11/01/2022 Appointment Endocrinology Althea Kelley APRN, EXPERIMENTAL WELDER [address] [place] [address] [address] (Wo rk) 12/27/2022 Appointment Endocrinology Ayde Warren, KERWIN [address] [address] [address] documented as of this encounter Procedures Procedure Name Priority Date/Time Associated Diagnosis Comme nts POCT GLYCOSYLATED Routine 04/16/2019 9:39 AM Type 1 diabetes R esults for this HEMOGLOBIN (HGB A1C) CDT mellitus without pro cedure are in complication (HRC) the resul ts section. documented in this encounter Results Microalbumin Urine Random (04/16/2019 10:45 AM CDT) P athologist Signature Albumin, 2.9 mg/L 04/16/2019 [facility] Urine, Random 1:12 PM CDT LABORATORY Creatinine, 42 >20 mg/dL 04/16/2019 [facility] Urine, Random 1:12 PM CDT LABORATORY Albumin/Creati 7 <30 mg/g 04/16/2019 [facility] nine Ratio, 1:12 PM CDT LABORATORY Urine, Random Specimen Anatomical Collection Method Collection Time Receive d Time (Source) Location / / Volume Laterality Urine,random 04/16/2019 10:45 04/16/2019 AM CDT 10:45 AM CDT Althea Kelley APRN, CNP LAB_1 Performing Organization Address City/State/ZIP Code Phon e Number [facility] [address] [place] [address] TSH with Free T4 (if TSH Abnormal) (04/16/2019 10:35 AM CDT) athologist Signature TSH, Reflex 0.85 0.30 - 4.50 04/16/2019 [facility] uIU/mL 2:34 PM CDT LABORATORY Specimen Anatomical Collection Method / Collection Time Recei gabi Time (Source) Location / Volume Laterality Blood Venipuncture / 04/16/2019 10:35 9 Unknown AM CDT 10:39 AM CDT Narrative [facility] - 04/16/2019 2:34 P M CDT Lab will automatically reflex to Free T4 when TSH results are <0.30 uIU/mL or >4.50 mIU/mL. Althea Kelley APRN, CNP LAB_1 Performing Organization Address City/State/ZIP Code Phon e Number [facility] [address] [place] [address] Direct LDL (04/16/2019 10:35 AM CDT) athologist Signature LDL, Direct 78 <=130 mg/dL 04/16/2019 [facility] 11:18 AM CDT LABORATORY Specimen Anatomical Collection Method / Collection Time Recei gabi Time (Source) Location / Volume Laterality Blood Venipuncture / 04/16/2019 10:35 9 Unknown AM CDT 10:39 AM CDT Althea Kelley APRN, CNP LAB_1 Performing Organization Address City/State/ZIP Code Phon e Number [facility] [address] [place] [address] Creatinine (04/16/2019 10:35 AM CDT) athologist Signature Creatinine 0.70 0.55 - 04/16/2019 [facility] 1.02 mg/dL 11:18 AM CDT LABORATORY GFR, Estimated >60 >60 04/16/2019 [facility] mL/min/1.7 11:18 AM CDT LABORATORY 3m2 GFR, Est If >60 >60 04/16/2019 [facility] mL/min/1.7 11:18 AM CDT LABORATORY [place] 3m2 Specimen Anatomical Collection Method / Collection Time Recei gabi Time (Source) Location / Volume Laterality Blood Venipuncture / 04/16/2019 10:35 9 Unknown AM CDT 10:39 AM CDT Althea Kelley APRN, CNP LAB_1 Performing Organization Address City/State/ZIP Code Phon e Number [facility] [address] [place], [place] [phone] (ABNORMAL) POCT glycosylated hemoglobin (Hb A1C) (04/16/2019 9:39 AM CDT) athologist Signature Hemoglobin A1C, 6.2 (A) 4 - 5.6 % POCT POC Cartridge Lot# [id number] POCT Specimen (Source) Anatomical Collection Method Collection Time Re ceived Time Location / / Volume Laterality Blood 04/16/2019 9:39 AM CDT Althea Kelley APRN, CNP PN POINT OF CARE TESTS Performing Organization Address City/[facility]/ZIP Code Phon e Number POCT documented in this encounter Visit Diagnoses Diagnosis Type 1 diabetes mellitus without complic ation (HRC) - Primary Type I (juvenile type) diabetes mellitus without mention of complication, not stated as uncontrolled Insulin pump status (HRC) Insulin pump status documented in this encounter Care Teams Campaign Director Relationship Specialty Start Date End Date Non Pn, Clinician, PCP - General 06/27/16 [place] [address] documented as of this encounter
--- OUTSIDE RECORDS SUMMARY | 2022-09-23 07:48 | XMS_ITS | Encounter Summary ---
:1980 Author Organization [employer] Address [address], [place] [address] Care Team Providers Name Role Phone Pcp, Pt Declines Primary Care Provider Reason for Visit Reason Comments Forms Encounter Details Date Type Department Care Team Description 01/27/2016 Notes/Orders [facility] 3800 Radha Jarrell MD Endocrinology [address] [facility] [address] [place], [place] [address] [place] [address] [phone] Social History Tobacco Use Types Packs/Day Years Used Date Smoking Tobacco: Never Assessed Sex Assigned at Date Recorded Not on file documented as of this encounter Progress Notes Meagan Field RN - 01/27/2016 11:19 AM CST RX for pump and testing supplies faxed to [employer]. ACE ROASTER documented in this encounter Plan of Treatment Upcoming Encounters Date Type Specialty Care Team Description 11/01/2022 Appointment Endocrinology Althea Kelley, BRASS BOBBIN WINDER, YARD GOODS SALESPERSON [address] [facility] N [address] (Wo rk) 12/27/2022 Appointment Endocrinology Ayde Warren, MBBS [address] [facility] N [address] documented as of this encounter Visit Diagnoses Not on filedocumented in this encounter Care Teams Photo Tech Relationship Specialty Start Date End Date PcpMiguel MD PCP - General 11/06/13 06/26/16 [place] [address] documented as of this encounter
--- OUTSIDE RECORDS SUMMARY | 2022-09-23 07:48 | XMS_ITS | Encounter Summary ---
:1980 Author Organization [employer] Address [address] [place] [address] Care Team Providers Name Role Phone Non Pn, Clinician MD Primary Care Provider Unavailable Reason for Visit Reason Comments FOLLOW-UP,DIABETES Encounter Details Date Type Department Care Team Description 08/21/2018 Office Visit Althea Rosenthal, Type 1 diabe isaac Endocrinology EMERGENCY DEPARTMENT DIRECTOR, PHANI mellitus without [id number] [employer] [address] [facility] complication (HRC) [place] [address] Blvd (Primary Dx) [phone] [place], [place] [address] Social History Tobacco Use Types Packs/Day Years Used Date Smoking Tobacco: Never Smokeless Tobacco: Never Alcohol Use Standard Drinks/Week Comments No 0 (1 standard drink = 0.6 oz pure alcoho l) Sex Assigned at Date Recorded Not on file documented as of this encounter Last Filed Vital Signs Vital Sign Reading Time Taken Comments Blood Pressure 100/64 08/21/2018 9:12 AM CDT Pulse 64 08/21/2018 9:12 AM CDT Temperature - - Respiratory Rate - - Oxygen Saturation - - Inhaled Oxygen Concentration - - Weight - - Height - - Body Mass Index - - documented in this encounter Progress Notes Althea Kelley, MILY, PHANI - 08/21/2018 12:00 PM CDT NAME: KARIN MCMILLAN MR#: [id number] CSN: [id number] AUTHENTICATING CLINICIAN: Althea Kelley APRN, CNP CONFIRM #: [id number] LOC: 532 CLINIC PROGRESS NOTE DATE OF VISIT: 08/21/2018 : 1980 SUBJECTIVE: Karin, a 38-year-old woman, type 1 diabetes diagnosed at age 22, currently . LMP 03/02/2018. EDC 12/06/2018. She utilizes a 530G Medtronic pump and a sensor and comes for regular followup, having last seen me in late June 2018. Since her visit, she did have an eye exam with Dr. Fernandez at [facility]. She was foundto have no retinopathy per the provider's report. REVIEW OF SYSTEMS: The patient expresses great frustration with the . She indicates that I have no normal life. She feels as if I am being punished for having diabetes. She is frustrated with significant edema in her lower extremities. She has been meeting with Occupational Therapy and has those wrapped with compression stockings, which is helpful but she is quite afraid that she might have long-lasting edema. She also notes that everybody seems to think that I am going to have complications. CURRENT MEDICATIONS: Insulin settings as noted in the uploaded encounter. Her total daily insulin currently is 49.1 +/- 9units a day, 50% basal, 50% bolus. She has noticed a significant increase in her insulin resistance and this has been quite emotional and frustrating for her. She feels I can't eat anything. List of medications was reviewed in Epic. OBJECTIVE: GENERAL: Female patient, quite tearful throughout our visit, but expressing herself appropriately and by the end of our visit, she seemed to be calm and appreciative of the information provided. [id number] which is up 6 pounds since late June. LABS: Hemoglobin A1c today 5.8% which is similar at 5.7%. She had her TSH drawn by her provider per her report. November 2017, had albumin to creatinine ratio less than 10, creatinine 0.5. TSH 0.6. Blood glucose data is reviewed very carefully. She just adjusted her basal rates especially in the player piano technician and mid-morning hours in the last 2 days. She is trying to entering in all her grams of carbohydrates carefully, but is quite frustrated and discouraged about the insulin ratios that seem to be required. Her blood glucoses, however, have been beautifully stable. Her sensor read is a bit low during the night. Fingersticks reveal occasional fastings last week in the 60s to 70s, but now in the last 3-4 days, her fastings have been in the 130 range rising a bit, which we would expect. Average blood sugar by sensor 119 +/- 45. By her fingersticks 153 +/- 59, but she tends to do the fingersticks when she needs to give corrections. No severe hypoglycemia. ASSESSMENT: 1.Type 1 diabetes. 2.Insulin pump and sensor use. 3.Intrauterine , EDC 12/06/2018. 4.The patient is quite emotional and frustrated with dealing with diabetes in . PLAN: 1.Emotional support is provided. We discussed the fact that she is giving herself the insulin that is required and that her own pancreas would give if it could. I encouraged the patient to continue to be cautious about her intake, but not to feel guilty about the amount of insulin that it takes to keep her blood glucose levels in target. 2.She is commended on keeping her blood glucose levels in a beautiful range. 3.She is to return to the clinic in 2-3 weeks as planned. She also has an appointment scheduled withDr. Warren in early October. CC: ADÁN PERES MD [address] [place] [address] CHIRAGL:LICHA C: CONFIRM #: [id number] documented in this encounter Plan of Treatment Upcoming Encounters Date Type Specialty Care Team Description 11/01/2022 Appointment Endocrinology Althea Kelley APRN, MAJOR LEAGUE BASEBALL PLAYER [address] [address] (Wo rk) 12/27/2022 Appointment Endocrinology Ayde Warren MBBS [address] [address] documented as of this encounter Procedures Procedure Name Priority Date/Time Associated Diagnosis Comme nts POCT GLYCOSYLATED Routine 08/21/2018 9:21 AM Type 1 diabetes R esults for this HEMOGLOBIN (HGB A1C) CDT mellitus without pro cedure are in complication (HRC) the resul ts section. documented in this encounter Results (ABNORMAL) POCT glycosylated hemoglobin (Hb A1C) (08/21/2018 9:21 AM CDT) P athologist Signature Hemoglobin A1C, 5.8 (A) 4 - 5.6 % PN POCT POC Cartridge Lot# [id number] PN POCT Specimen (Source) Anatomical Collection Method Collection Time Re ceived Time Location / / Volume Laterality Blood specimen 08/21/2018 9:21 AM (specimen) CDT Althea Kelley EMERGENCY DEPARTMENT DIRECTOR, MAJOR LEAGUE BASEBALL PLAYER PN POINT OF CARE TESTS Performing Organization Address City/State/ZIP Code Phon e Number POCT PN POCT documented in this encounter Visit Diagnoses Diagnosis Type 1 diabetes mellitus without complic ation (HRC) - Primary Type I (juvenile type) diabetes mellitus without mention of complication, not stated as uncontrolled documented in this encounter Care Teams Golf Caddy Relationship Specialty Start Date End Date Non Pn, Clinician, PCP - General 06/27/16 [place] [address] documented as of this encounter
--- OUTSIDE RECORDS SUMMARY | 2022-09-23 07:48 | XMS_ITS | Encounter Summary ---
:1980 Author Organization [employer] [facility] Address [address] [place] [address] Care Team Providers Name Role Phone Non Pn, Clinician MD Primary Care Provider Unavailable Reason for Visit Reason Comments Diabetes Encounter Details Date Type Department Care Team Description 09/12/2017 Office Visit [place] Radha Jarrell, Type 1 diab etes mellitus without complication (HRC) (Primary Dx); Endocrinology MD Need for prophylactic vaccination and in oculation against influenza; [address] Insulin pump [place], [place] [address] [place] [address] [address] [place] [address] Social History Tobacco Use Types Packs/Day Years Used Date Smoking Tobacco: Never Smokeless Tobacco: Never Alcohol Use Standard Drinks/Week Comments Yes 0 (1 standard drink = 0.6 oz pure alcoho l) Sex Assigned at Date Recorded Not on file documented as of this encounter Last Filed Vital Signs Vital Sign Reading Time Taken Comments Blood Pressure 104/70 09/12/2017 11:11 AM CDT Pulse 80 09/12/2017 11:11 AM CDT Temperature - - Respiratory Rate - - Oxygen Saturation - - Inhaled Oxygen Concentration - - Weight 68.4 kg (150 lb 12.8 oz) 09/12/2017 11:11 AM CDT Height 162.6 cm (5' 4) 09/12/2017 11:11 AM CDT Body Mass Index 25.88 09/12/2017 11:11 AM CDT documented in this encounter Progress Notes Radha Jarrell - 09/12/2017 12:00 PM CDT NAME: KARIN MCMILLAN MR#: [id number] CSN: [id number] AUTHENTICATING CLINICIAN: Radha Jarrell MD CONFIRM #: [id number] LOC: 306 CLINIC PROGRESS NOTE DATE OF VISIT: 09/12/2017 : 1980 SUBJECTIVE: Karin is a 37-year-old woman here for followup of type 1 diabetes diagnosed at age 22. No chronic complications. She has infertility and is working with data management. She is now taking Clomid and progesterone, has not yet become . She is going to be adjusting her progesterone and taking it earlier close to ovulation. She is on a 530G insulin pump using NovoLog, has an Enlite Continuous Glucose Sensor, which she uses at all times. Her A1c is excellent at 5.9%. She has noticed the Clomid and progesterone both seem to raise and lower her blood sugar. She had many questions and thoughts about the effects of different hormones on her blood sugars. Her current insulin use is 2 9.8 units daily, 61% basal, 39% bolus. Her sensor average is 134. Her average daily carbs are 48 g. She tests 4.5 times per day in addition to wearing her sensor. Her basal rate total daily is 18.188, midnight 0.775, 2:30 0.5, 7 a.m. 0.875, 11:30 0.825, 2:30 0.775 and 9 p.m. 0.85. Carb ratio is midnight 1/9, 12 p.m. 1/10. Sensitivity 1/40. Target 6 a.m. 80-100, 9 p.m. 100-120. Active insulin time is 3 hours. Karin had a lot of questions about hormone effects on fertility and says it has been frustratingto not feel like her infertility care has been particularly individualized. She has not had an HSG. She does have a history of miscarriage requiring a D and C, so probably an HSG should also be done torule out Asherman's syndrome. PAST MEDICAL HISTORY: Type 1 diabetes, history of miscarriage, infertility. CURRENT MEDICATIONS: NovoLog in her pump, vitamin. ALLERGIES: None known. 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 She is a nonsmoker. . PHYSICAL EXAM: VITAL SIGNS: Blood pressure is 104/70. Pulse is 80. Weight is 150 pounds. Height was 5 feet 4 inches. BMI 25.88 kg/m2. GENERAL: A very pleasant woman, tearful. LABS: A1c is 5.9%. ASSESSMENT: 1. Type 1 diabetes, controlled. No chronic complications. 2. Insulin pump with continuous glucose sensor. 3. Infertility. Now on Clomid and progesterone. PLAN: 1. Did not change anything in her pump settings today. A long discussion about effects of hormones on fertility in . She is going to check with her fertility data management to see if she needs an HSG. 2. Encouraged her not to focus so strongly on the effects or possible effects of , hormonesand blood sugars and just treat them as they are and she agrees to that and she understands that rationale as well. We will follow up in 3-4 months with the nurse practitioner in [place]. Sixty minutes with the patient, more than half in counseling. LTL:MEDQ C: CONFIRM #: [id number] documented in this encounter Plan of Treatment Upcoming Encounters Date Type Specialty Care Team Description 11/01/2022 Appointment Endocrinology Althea Kelley, FISHING GEAR MECHANIC, APPLICATION DEVELOPMENT CONSULTANT [address] [id number] (Wo rk) 12/27/2022 Appointment Endocrinology Ayde Warren MBBS [address] [id number] documented as of this encounter Procedures Procedure Name Priority Date/Time Associated Diagnosis Comme nts POCT GLYCOSYLATED Routine 09/12/2017 11:25 Type 1 diabetes Res ults for this HEMOGLOBIN (HGB A1C) AM CDT mellitus without pro cedure are in complication (HRC) the resul ts section. documented in this encounter Results (ABNORMAL) POCT glycosylated hemoglobin (Hb A1C) (09/12/2017 11:25 AM CDT) P athologist Signature Hemoglobin A1C, 5.9 (A) 4 - 5.6 % PN POCT POC Cartridge Lot# [id number] PN POCT Specimen (Source) Anatomical Collection Method Collection Time Re ceived Time Location / / Volume Laterality Blood specimen 09/12/2017 11:25 (specimen) AM CDT Radha Jarrell MD PN POINT OF CARE TESTS Performing Organization Address City/State/ZIP Code Phon e Number POCT PN POCT documented in this encounter Visit Diagnoses Diagnosis Type 1 diabetes mellitus without complic ation (HRC) - Primary Type I (juvenile type) diabetes mellitus without mention of complication, not stated as uncontrolled Need for prophylactic vaccination and in oculation against influenza Insulin pump status (HRC) Insulin pump status documented in this encounter Care Teams Inpatient Coder Relationship Specialty Start Date End Date Non Pn, Clinician, PCP - General 06/27/16 [place] [address] documented as of this encounter
--- OUTSIDE RECORDS SUMMARY | 2022-09-23 07:48 | XMS_ITS | Encounter Summary ---
:1980 Author Organization [employer] Address [address] [place] [address] Care Team Providers Name Role Phone Non Pn, Clinician MD Primary Care Provider Unavailable Reason for Visit Reason Comments Diabetes dm 1 Follow-up Encounter Details Date Type Department Care Team Description 06/13/2017 Office Visit Althea Rosenthal, Type 1 diabe isaac mellitus without complication (HRC) (Primary Dx); Endocrinology PHANI MINOR Insulin pump status; [address] [place] [facility] Pre-[place] [address] [facility] [phone] [place], [place] [id number] Social History Tobacco Use Types Packs/Day Years Used Date Smoking Tobacco: Never Alcohol Use Standard Drinks/Week Comments Yes 0 (1 standard drink = 0.6 oz pure alcoho l) Sex Assigned at Date Recorded Not on file documented as of this encounter Last Filed Vital Signs Vital Sign Reading Time Taken Comments Blood Pressure 116/70 06/13/2017 8:19 AM CDT Pulse 78 06/13/2017 8:19 AM CDT Temperature - - Respiratory Rate - - Oxygen Saturation - - Inhaled Oxygen Concentration - - Weight 68.4 kg (150 lb 12.8 oz) 06/13/2017 8:19 AM CDT Height 165.1 cm (5' 5) 06/13/2017 8:19 AM CDT Body Mass Index 25.09 06/13/2017 8:19 AM CDT documented in this encounter Patient Instructions Patient InstructionsAlthea Kelley, MILY, PHANI - 06/13/2017 8:00 AM CDT Call OB for plan Use 1/12 grams --- 10-15 min before eating if possible. Viv breakfast. Return in 3 mo Radha Palmer. --- Call if/when you are . If you need to schedule or have questions about your appointment, call [phone]. If you have medical questions or concerns, please contact your doctor's triage nurse at [phone]. documented in this encounter Progress Notes Althea Kelley APRN, CNP - 06/13/2017 12:00 PM CDT NAME: KARIN MCMILLAN MR#: [id number] CSN: [id number] AUTHENTICATING CLINICIAN: HILLARY Hughes CONFIRM #: [id number] LOC: 532 CLINIC PROGRESS NOTE DATE OF VISIT: 06/13/2017 : 1980 SUBJECTIVE: Karin is a 37-year-old woman with type 1 diabetes, diagnosed at age 22. No known microvascular complications of diabetes, working toward a . She utilizes a 530 G insulin pump with sensor and comes for followup, having last seen Dr. Palmer 02/2017. The patient had a miscarriage in September 2016, and notes that she and her have been trying to get since January. She is very sad and discouraged that they had not yet conceived, and sheis wondering about infertility treatments. She does have a very regular period, and had no trouble getting the first time, but she is quite anxious in particular in light of her age. 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 She is with no children. Nonsmoker. Eye exam every June. She is scheduled again for this coming June. Foot exam: 05/2016. Not done today in lieu of counseling time. MEDICATIONS: NovoLog in her 530 G pump as follows: Basal rates: Midnight 0.675, 2:30 a.m. 0.575, 7 a.m. 0.85, 2:30 p.m. 0.875, 6:30 p.m. 0.85, 9 p.m. 0.925. This is 19.05 basal. Bolus is 1 unit for every 10 g of carb. Sensitivity is 40. Target is 80-100 during the day and 100-120 from 9 p.m. to 6 a.m., with a 4-hour insulin action time. Average daily insulin is 30.6 +/- 2 units a day, 60% is basal, 40% is bolus. It is noted that she very rarely takesa full 1 unit for every 10 g. She sometimes enters less carbs than she is actually eating or will correct with a bolus to be a little bit less than what the wizard suggests. It is noted that the patient states she is also utilizing some Premarin cream [id number] that she is hopeful will help her with her fertility. OBJECTIVE: GENERAL: Female patient, becomes quite tearful when talking about the potential and her desire to become quickly. VITAL SIGNS: Weight 150.8, which is up 2.5 pounds since February. Blood pressure 116/70, right arm, standard cuff. Pulse 78 and regular. LABS: A1c today 6.2%, compared to 5.9% in November. November 2016, albumin creatinine ratio less than 10, creatinine 0.6. In May 2016, TSH was 1.76. Blood glucose values are reviewed carefully off [employer]. She wore the sensor for the entire 2 weeks of data that we reviewed, and tested her blood glucose levels 4.3 times a day. Her average bloodsugar by fingerstick is 192+/- 86. Her average blood sugar by sensor is 146 +/- 55. She generally tests when she is on the high side to utilize the bolus wizard. I do see a bit of a spike after breakfast and she states that she generally takes her mealtime boluswith breakfast rather than prior to. There is a dip down in the blood sugar average is pre-lunch time, and then a rise from 1 p.m. to 2 p.m. More variable blood sugars and an average of about 150 between 2 p.m. and midnight. Quite stable during the night most of the time. ASSESSMENT: 1.Type 1 diabetes. 2.Patient is planning for a as soon as possible. 3.Insulin pump therapy. 4.Patient has a lot of questions about TB vaccination. Treatment as a cure for type 1 diabetes. PLAN: 1.Will adjust the bolus ratio to 1 unit per 12 g on her pump so that she can use the bolus wizard more consistently. She is urged to do so. 2.I have encouraged her to take her bolus prior to breakfast, at least 10-15 minutes before eating, in order to prevent the jump immediately after eating and the drop before lunch a bit. 3.Long discussion about the research that she has read about TB vaccination. She would like to go ahead and have TB vaccination, and I explained to her that would certainly not be advisable as she is working for stable control prior and during early part of . 4.I have also encouraged her to talk with her FITTER HELPER about her concerns about infertility as she is only been attempting to conceive for 3 months since her miscarriage. She does have ovulation kits andis planning to use those, which I believe is a good idea. 5.Emotional support is provided. 6.She will return to see Dr. Palmer or myself in approximately 3 months. She will call sooner if sheconceives for an appointment right away. Patient agrees with this plan. 7. Total time: 35 minutes. Time in counseling 25 minutes. YEN:LICHA C: CONFIRM #: [id number] documented in this encounter Plan of Treatment Upcoming Encounters Date Type Specialty Care Team Description 11/01/2022 Appointment Endocrinology Althea Kelley APRN, EMERGENCY MANAGEMENT CONSULTANT [address] [id number] (Wo rk) 12/27/2022 Appointment Endocrinology Ayde Warren MBBS [address] [address] documented as of this encounter Procedures Procedure Name Priority Date/Time Associated Diagnosis Comme nts POCT GLYCOSYLATED Routine 06/13/2017 8:34 AM Type 1 diabetes R esults for this HEMOGLOBIN (HGB A1C) CDT mellitus without pro cedure are in complication (HRC) the resul ts section. documented in this encounter Results (ABNORMAL) POCT glycosylated hemoglobin (Hb A1C) (06/13/2017 8:34 AM CDT) P athologist Signature Hemoglobin A1C, 6.2 (A) 4 - 5.6 % PN POCT POC Cartridge Lot# [id number] PN POCT Specimen (Source) Anatomical Collection Method Collection Time Re ceived Time Location / / Volume Laterality Blood specimen 06/13/2017 8:34 AM (specimen) CDT Althea Kelley PARENT AIDE, EMERGENCY MANAGEMENT CONSULTANT PN POINT OF CARE TESTS Performing Organization Address City/State/ZIP Code Phon e Number POCT PN POCT documented in this encounter Visit Diagnoses Diagnosis Type 1 diabetes mellitus without complic ation (HRC) - Primary Type I (juvenile type) diabetes mellitus without mention of complication, not stated as uncontrolled Insulin pump status (HRC) Insulin pump status Pre-conception counseling Other procreative management counseling and advice documented in this encounter Care Teams Chair Post Machine Operator Relationship Specialty Start Date End Date Non Pn, Clinician, PCP - General 06/27/16 [place] [address] documented as of this encounter
--- OUTSIDE RECORDS SUMMARY | 2022-09-23 07:48 | XMS_ITS | Encounter Summary ---
:1980 Author Organization [employer] Address [address], [place] [address] Care Team Providers Name Role Phone Non Pn, Clinician MD Primary Care Provider Unavailable Encounter Details Date Type Department Care Team Description 10/30/2017 Notes/Orders [facility] [address] Radha Jarrell MD Endocrinology [address] [place] [address] [place] [address] [phone] Social History Tobacco Use Types Packs/Day Years Used Date Smoking Tobacco: Never Smokeless Tobacco: Never Alcohol Use Standard Drinks/Week Comments Yes 0 (1 standard drink = 0.6 oz pure alcoho l) Sex Assigned at Date Recorded Not on file documented as of this encounter Plan of Treatment Upcoming Encounters Date Type Specialty Care Team Description 11/01/2022 Appointment Endocrinology Althea Kelley, JUNIOR NET DEVELOPER, ALUMINUM HYDROXIDE PROCESS OPERATOR [address] [facility] N [address] (Wo rk) 12/27/2022 Appointment Endocrinology Ayde Warren, MBBS [address] [facility] [address] [address] documented as of this encounter Visit Diagnoses Not on filedocumented in this encounter Care Teams Tier In Relationship Specialty Start Date End Date Non Pn, Clinician, PCP - General 06/27/16 [place] [address] documented as of this encounter
--- OUTSIDE RECORDS SUMMARY | 2022-09-23 07:48 | XMS_ITS | Encounter Summary ---
:1980 Author Organization [employer] Address [address] [place] [address] Care Team Providers Name Role Phone Non Pn, Clinician MD Primary Care Provider Unavailable Reason for Visit Reason Comments Diabetes Encounter Details Date Type Department Care Team Description 10/23/2018 Office Visit Ayde Brown, Pre-exis cady type 1 Endocrinology [facility] [place] [address] [facility] [address] [facility] [place] [address] [address] trimester (Primary [phone] [place], [place] Dx) [address] Social History Tobacco Use Types Packs/Day Years Used Date Smoking Tobacco: Never Smokeless Tobacco: Never Alcohol Use Standard Drinks/Week Comments No 0 (1 standard drink = 0.6 oz pure alcoho l) Sex Assigned at Date Recorded Not on file documented as of this encounter Last Filed Vital Signs Vital Sign Reading Time Taken Comments Blood Pressure 110/66 10/23/2018 1:08 PM ELECTRICIAN MAINTENANCE Pulse 104 10/23/2018 1:08 PM ELECTRICIAN MAINTENANCE Temperature - - Respiratory Rate - - Oxygen Saturation - - Inhaled Oxygen Concentration - - Weight 78.7 kg (173 lb 8 oz) 10/23/2018 1:08 PM ELECTRICIAN MAINTENANCE Height 162.6 cm (5' 4) 10/23/2018 1:08 PM ELECTRICIAN MAINTENANCE Body Mass Index 29.78 10/23/2018 1:08 PM ELECTRICIAN MAINTENANCE documented in this encounter Progress Notes Ayde Warren MBBS - 10/23/2018 1:00 PM CST [facility] Department of Endocrinology, Diabetes and Metabolism Clinic Note Name: Karin Mcmillan Cc: Follow up for T1DM in . She used to see Dr Palmer and Dr Carter before. HPI: Karin Mcmillan is a 38 y.o. female #1 T1DM: Diagnosed at age 22, no known microvascular complications. She is , 34 weeks gestation, this is her 3rd , she had 2 miscarriages before that. She is currently using Medtronic G530 pump with a sensor. Current rates are: Basal: midnight 1.15, 3:30 AM 1.4, 5:30 AM 1.35, 11:30 AM 1.1, 2:30 P 1.2, 6:30 PM 1.35 and 9 PM 1.35. Bolus midnight 1 per 3.8, noon one per 5.3 and 6 PM 1 per 2.6. SF midnight 1 per 20, 6 AM 1 per 6, 11:30 PM 1 per 17 and 7 pm 1 per 10. Insulin time 2 hrs. She is using 65 units daily, 46% basal. She is using CGM, average glucose 129, SD 37, A1C today was 5.5%. Her fasting and post meals are within target except for dinner, she states that she is under estimating the carbs for dinner time. Eye exam from 07/2018 was reported with no DM changes. She is having carpal tunnel syndrome symptoms on both hands. Labs from 11/2017 showed normal TSH, urine microalbumin and creatinine, BP today was 110/66. is progressing well, the baby is measuring at 50% for weight, she is taking ASA. ROS: A 3 point ROS was done, and is negative unless specified otherwise in the HPI. Medications: medication list was reviewed and updated on the EMR. PMHx: Past Medical History: Diagnosis Date ??? Diabetes mellitus (HRC) DM1 FHx: No family history on file. SHx: Social History Tobacco Use ??? Smoking status: Never Smoker ??? Smokeless tobacco: Never Used Substance Use Topics ??? Alcohol use: No ??? Drug use: Not on file Physical Examination: Vitals: BP 110/66 (BP Location: Left Arm, BP Cuff Size: Adult Large) Pulse (!) 104 Ht 5' 4 (1.626 m) Wt 173 lb 8 oz (78.7 kg) BMI 29.78 kg/m?? General: The patient is alert and oriented, no acute distress. Labs: Reviewed and summarized in the HPI. Assessment and Plan: Karin Mcmillan is a 38 y.o. female: #1 T1DM: Controlled, complicating , A1C 5.5%. Reviewed with her the glycemic targets in . Continue current rates. Continue using CGM. She will focus on carb counting correctly. RTC in 3 weeks with Althea. During labor she can use her pump and sensor, prepregnancy rates were placed as pattern A. She will use 80% temp basal during active labor, using correction every 2 hrs with the pump to keep her BG close to 100, and to change the basal rates to prepregnancy rates post delivery, using 80% temp basal for 1-2 days post delivery. I have spent 25 minutes with the patient, >50% was spent on counseling. KERWIN Banda Washhouse Worker TRICIAN MAINTENANCE Annabel Cancino LPN - 10/23/2018 1:00 PM CST Images from the original note were not included. TRICIAN MAINTENANCE documented in this encounter Plan of Treatment Upcoming Encounters Date Type Specialty Care Team Description 11/01/2022 Appointment Endocrinology Althea Kelley, SCOURING TRAIN OPERATOR CHIEF, HR REPRESENTATIVE [address] [phone] (Wo rk) 12/27/2022 Appointment Endocrinology Ayde Warren MBBS [address] [phone] documented as of this encounter Procedures Procedure Name Priority Date/Time Associated Comments Diagnosis POCT GLYCOSYLATED Routine 10/23/2018 4:08 PM Pre-existing type 1 Results for this HEMOGLOBIN (HGB A1C) ELECTRICIAN MAINTENANCE diabetes mellitus pr ocedure are in in in the results third trimester section. documented in this encounter Results POCT glycosylated hemoglobin (Hb A1C) (10/23/2018 4:08 PM ELECTRICIAN MAINTENANCE) P athologist Signature Hemoglobin A1C, 5.5 4 - 5.6 % EXTERNAL POC RESULTS Cartridge Lot# [id number] EXTERNAL RESULTS Specimen (Source) Anatomical Collection Method Collection Time Re ceived Time Location / / Volume Laterality Blood specimen 10/23/2018 4:08 PM (specimen) ELECTRICIAN MAINTENANCE Ayde SURESH PN POINT OF CARE TESTS Performing Organization Address City/State/ZIP Code Phon e Number EXTERNAL RESULTS documented in this encounter Visit Diagnoses Diagnosis Pre-existing type 1 diabetes mellitus in in third trimester - Primary Diabetes mellitus, antepartum documented in this encounter Care Teams Greenhouse Transplanter Relationship Specialty Start Date End Date Non Pn, Clinician, PCP - General 06/27/16 [place] [address] documented as of this encounter
--- OUTSIDE RECORDS SUMMARY | 2022-09-23 07:48 | XMS_ITS | Encounter Summary ---
:1980 Author Organization [facility] Address [address] [place] [address] Care Team Providers Name Role Phone Non Pn, Clinician MD Primary Care Provider Unavailable Reason for Visit Reason Comments Forms Encounter Details Date Type Department Care Team Description 08/28/2018 Telephone [facility] [address] Althea Kelley APRN, EXHAUST TENDER Forms Endocrinology [address] [place] [address] [place], [place] [id number] [phone] Social History Tobacco Use Types Packs/Day Years Used Date Smoking Tobacco: Never Smokeless Tobacco: Never Alcohol Use Standard Drinks/Week Comments No 0 (1 standard drink = 0.6 oz pure alcoho l) Sex Assigned at Date Recorded Not on file documented as of this encounter Nursing Notes Tessa Gtz - 08/28/2018 10:04 AM CDT Eye exam completed on 07/20/2018 at [facility]. No diabetic retinopathy. Resultssent to scan doc. documented in this encounter Plan of Treatment Upcoming Encounters Date Type Specialty Care Team Description 11/01/2022 Appointment Endocrinology Althea Kelley APRN, EXHAUST TENDER [address] [facility] N [phone] (Wo rk) 12/27/2022 Appointment Endocrinology Ayde Warren MBBS [address] [id number] documented as of this encounter Visit Diagnoses Not on filedocumented in this encounter Care Teams Inspector Sheet Metal Parts Relationship Specialty Start Date End Date Non Pn, Clinician, PCP - General 06/27/16 [place] [address] documented as of this encounter
--- OUTSIDE RECORDS SUMMARY | 2022-09-23 07:48 | XMS_ITS | Encounter Summary ---
:1980 Author Organization [facility] Address [address] [place] [address] Care Team Providers Name Role Phone Pcp, Pt Declines MD Primary Care Provider Encounter Details Date Type Department Care Team Description 06/07/2016 Lab Visit [facility] Type 1 diabetes mellitus [address] without complication (HRC) [place], [place] [address] Social History Tobacco Use Types Packs/Day Years Used Date Smoking Tobacco: Never Assessed Sex Assigned at Date Recorded Not on file documented as of this encounter Plan of Treatment Upcoming Encounters Date Type Specialty Care Team Description 11/01/2022 Appointment Endocrinology Althea Kelley, BUSINESS OFFICE COORDINATOR, CLUB ATTENDANT [address] [id number] (Wo rk) 12/27/2022 Appointment Endocrinology Ayde Warren MBBS [address] [facility] [address] [phone] documented as of this encounter Procedures Procedure Name Priority Date/Time Associated Diagnosis Comme nts TSH AND FREE T4 Routine 06/07/2016 3:57 PM Type 1 diabetes Res ults for this (FRT4 IF TSH ABNORM) CDT mellitus without pro cedure are in complication (HRC) the resul ts section. CELIAC DUAL ANTIGEN Routine 06/07/2016 3:57 PM Re sults for this SCREEN WITH REFLEX CDT procedure are in the results section. CELIAC DISEASE Routine 06/07/2016 3:57 PM Type 1 diabetes Resu lts for this REFLEX WITH IGA CDT mellitus without procedur e are in complication (HRC) the resul ts section. ANTITHYROID Routine 06/07/2016 3:57 PM Type 1 diabetes Result s for this PEROXIDASE CDT mellitus without procedure a re in complication (HRC) the resul ts section. documented in this encounter Results CELIAC DUAL ANTIGEN SCREEN WITH REFLEX (06/07/2016 3:57 PM CDT) athologist Signature Celiac Dual 12 0 - 19 HP CONVERSION Antigen Screen Units Comment: No further celiac testing to be performe d. INTERPRETIVE INFORMATION: Celiac Disease Dual Antigen Screen 19 Units or less......Negative - No sign ificant level of ?detecta ble IgA or IgG antibodies ?against human tissue transglutaminase ?or glia din peptide. 20 Units or greater...Positive - Presenc e of IgA and/or ?IgG ant ibodies against human tissue ?transgl utaminase and/or gliadin ?peptide ; suggests possibility of ?certain gluten sensitive enteropathies ?such as celiac disease and dermatitis ?hertreti formis. Specimen Anatomical Collection Method Collection Time Receive d Time (Source) Location / / Volume Laterality 06/07/2016 3:57 PM 6 6:41 CDT PM CDT Narrative HP CONVERSION - 06/10/2016 9:39 PM CDT Performed at [facility] [address] [place] [address] [facility] [id number] Radha Jarrell MD LAB_1 Performing Organization Address City/[facility]/ZIP Code Phon e Number HP CONVERSION (ABNORMAL) Celiac Disease Panel and IgA (if needed) (06/07/2016 3:57 PM CDT) athologist Signature IGA <5 (L) 70 - 400 HP CONVERSION mg/dL Specimen Anatomical Collection Method Collection Time Receive d Time (Source) Location / / Volume Laterality 06/07/2016 3:57 PM 6 6:44 CDT PM CDT Narrative HP CONVERSION - 06/07/2016 7:43 PM CDT Performed at [address] [address] CLIA number [id number] Radha Jarrell MD LAB_1 Performing Organization Address [facility] Phon e Number HP CONVERSION Antithyroid Peroxidase (06/07/2016 3:57 PM CDT) athologist Signature Thyroid 0.9 0.0 - 9.0 HP CONVERSION Peroxidase IU/mL (TPO) Antibodies Specimen Anatomical Collection Method Collection Time Receive d Time (Source) Location / / Volume Laterality 06/07/2016 3:57 PM 6 6:41 CDT PM CDT Narrative HP CONVERSION - 06/09/2016 12:26 PM CDT Performed at [facility] [address] [place] [address] CLIA nuer [id number] Radha Jarrell MD LAB_1 Performing Organization Address City/[facility] Phon e Number HP CONVERSION TSH AND FREE T4 (FRT4 IF TSH ABNORM) (06/07/2016 3:57 PM CDT) athologist Signature Thyroid 1.76 0.20 - HP CONVERSION Stimulating 4.50 Hormone uIU/mL Specimen Anatomical Collection Method Collection Time Receive d Time (Source) Location / / Volume Laterality 06/07/2016 3:57 PM 6 6:44 CDT PM CDT Narrative HP CONVERSION - 06/07/2016 7:33 PM CDT Performed at [address] [address] CLIA number [id number] Radha Jarrell MD LAB_1 Performing Organization Address City/State/ZIP Code Phon e Number HP CONVERSION documented in this encounter Visit Diagnoses Diagnosis Type 1 diabetes mellitus without complic ation (HRC) Type I (juvenile type) diabetes mellitus without mention of complication, not stated as uncontrolled documented in this encounter Care Teams Certified Medicine Aide Relationship Specialty Start Date End Date PcpMiguel MD PCP - General 11/06/13 06/26/16 [place] [address] documented as of this encounter
--- OUTSIDE RECORDS SUMMARY | 2022-09-23 07:48 | XMS_ITS | Encounter Summary ---
:1980 Author Organization [employer] Address [address] [place] [address] Care Team Providers Name Role Phone Non Pn, Clinician MD Primary Care Provider Unavailable Reason for Visit Reason Comments Diabetes Follow-up Encounter Details Date Type Department Care Team Description 11/09/2018 Office Visit Althea Rosenthal, Type 1 diabe isaac mellitus without complication (HRC) (Primary Dx); Endocrinology PHANI MINOR Pre-existing type 1 diabetes mellitus in in third trimester; [address] Ins[place] [address] [facility] [phone] [place], [place] [address] Social History Tobacco Use Types Packs/Day Years Used Date Smoking Tobacco: Never Smokeless Tobacco: Never Alcohol Use Standard Drinks/Week Comments No 0 (1 standard drink = 0.6 oz pure alcoho l) Sex Assigned at Date Recorded Not on file documented as of this encounter Last Filed Vital Signs Vital Sign Reading Time Taken Comments Blood Pressure 112/68 11/09/2018 9:05 AM BRUSHER AND SHEARER Pulse 86 11/09/2018 9:05 AM BRUSHER AND SHEARER Temperature - - Respiratory Rate - - Oxygen Saturation - - Inhaled Oxygen Concentration - - Weight 77.1 kg (169 lb 14.4 oz) 11/09/2018 9:05 AM BRUSHER AND SHEARER Height 162.6 cm (5' 4) 11/09/2018 9:05 AM BRUSHER AND SHEARER Body Mass Index 29.16 11/09/2018 9:05 AM BRUSHER AND SHEARER documented in this encounter Progress Notes Althea Kelley, PHANI MINOR - 11/09/2018 12:00 PM CST NAME: KARIN MCMILLAN MR#: [id number] CSN: [id number] AUTHENTICATING CLINICIAN: Althea Kelley APRN, TRAVEL CONSULTANT CONFIRM #: [id number] LOC: 532 CLINIC PROGRESS NOTE DATE OF VISIT: 11/09/2018 : 1980 SUBJECTIVE: Karin, 38-year-old woman, type 1 diabetes, currently 38 weeks gestation. They are planning induction between 39 and 40 weeks' gestation. She utilizes a 530G pump with a sensor and comes today for followup having last seen Dr. Warren on October 23. Other health issues include carpal tunnel syndrome and some anxiety. She states in general things are going well. Her insulin requirements have dropped, but she continues with twice weekly biophysical profiles and nonstress tests, and they have all been normal. Good kick counts. Good movement. Eye exam 06/2018. Foot exam 04/2018. MEDICATIONS: vitamin, baby aspirin, and insulin in her pump with settings currently as indicated in the uploaded data to the encounter. Her total basal currently is 27.425, and her bolus ratio is 1 unit for 4.6 g at breakfast, 1 unit for 5.3 g at lunch and 1 unit for 3.6 g at dinner. Sensitivity is between 10 and 20 throughout the day, and target is 75 to 100 during the day, 100 to 120 at night. OBJECTIVE: GENERAL: Very pleasant female here today with her , Wei, who I am meeting for the first time. VITAL SIGNS: Weight 169.9, which is down 3 pounds since October 23. Blood pressure 112/68, right arm, standard cuff. Pulse 86 and regular. LABS: A1c today on October 21 was 5.5%. Blood glucose data is reviewed very carefully off her sensor. She is doing fingersticks about 6 times a day and wearing the sensor almost 100% of the time. Average blood sugar on the sensor is 103 +/- 28, by fingerstick 118 +/- 34, very nice control. She is a bit concerned that she adjusted her bolus ratios a bit too much and some of her post meals are running in the 140s and 150s at 1 hour. Thankfully, no severe hypoglycemia. ASSESSMENT: 1.Type 1 diabetes. 2.Insulin pump therapy. 3.Intrauterine , nearing completion. PLAN: 1.Adjust bolus ratios at lunch and dinner just slightly. Lunch 1 unit for 5.2 g, dinner 1 unit for 3.5 g. 2.Discussed labor and delivery instructions very carefully. A letter has been dictated and is given to the patient. I addended and added a bit more information at the bottom of the letter after the typing to indicate that the patient is going to get 1 unit for every 10 to 15 points over target throughout labor and delivery and that if her blood glucose level is low she will consume 5 to 15 g of carbohydrate and adjust her temp basal rate. Otherwise, instructions are as indicated in the letter in themedia tab. The patient and her state understanding. Her is aware of how to program temp basal rates in the pump and how to program bolus corrections in the pump in case the patient would like his assistance. 3.Her prepregnancy basal rates have been programmed in as profile A and she is given instructions asto how to adjust her bolus ratios to 1 unit for 10 g plus a sensitivity of 40 and a target of 90 to 120 . 4.Return to the clinic 6 weeks and call with any questions or concerns. CC: TRINITY G[facility]ONS [address] [place] [address] [address]. ADÁN PERES [address] [place], [place] SJL:LICHA C: CONFIRM #: [id number] HER AND SHEARER Leonila Romo RN - 11/09/2018 9:00 AM CST Images from the original note were not included. HER AND SHEARER documented in this encounter Plan of Treatment Upcoming Encounters Date Type Specialty Care Team Description 11/01/2022 Appointment Endocrinology Althea Kelley APRN, PHANI [address] [facility] [place] [id number] (Wo rk) 12/27/2022 Appointment Endocrinology Ayde Warren MBBS [address] [address] documented as of this encounter Visit Diagnoses Diagnosis Type 1 diabetes mellitus without complic ation (HRC) - Primary Type I (juvenile type) diabetes mellitus without mention of complication, not stated as uncontrolled Pre-existing type 1 diabetes mellitus in in third trimester Diabetes mellitus, antepartum Insulin pump status (HRC) Insulin pump status documented in this encounter Care Teams Set Making Machine Operator Relationship Specialty Start Date End Date Non Pn, Clinician, PCP - General 06/27/16 [place] [address] documented as of this encounter
--- OUTSIDE RECORDS SUMMARY | 2022-09-23 07:48 | XMS_ITS | Encounter Summary ---
:1980 Author [facility] Address [address] [place] [address] Care Team Providers Name Role Phone Non Pn, Clinician MD Primary Care Provider Unavailable Reason for Visit Reason Comments Forms [employer] Diabetes Encounter Details Date Type Department Care Team Description 12/05/2016 Notes/Orders [place] [address] Radha Jarrell MD Endocrinology [address] [facility] [address] [place] [address] [place] [address] [phone] Social History Tobacco Use Types Packs/Day Years Used Date Smoking Tobacco: Never Alcohol Use Standard Drinks/Week Comments Yes 0 (1 standard drink = 0.6 oz pure alcoho l) Sex Assigned at Date Recorded Not on file documented as of this encounter Progress Notes Chayo Rae - 12/07/2016 11:41 AM CST [employer] Prescription form for Pump Supplies, Diabetic Supplies, and CGM faxed to [phone]. ARC WELDER Chayo Rae - 12/05/2016 12:07 PM CST [employer] Prescription form for Pump Supplies, Diabetic Supplies, and CGM received. Placed in Dr. Jarrell's mailbox for completion. ARC WELDER documented in this encounter Plan of Treatment Upcoming Encounters Date Type Specialty Care Team Description 11/01/2022 Appointment Endocrinology Althea Kelley, DIRECTOR OF TEENAGE ACTIVITIES, BOX TOE STITCHER [address] [phone] (Wo rk) 12/27/2022 Appointment Endocrinology Ayde Warren, KERWIN [address] [phone] documented as of this encounter Visit Diagnoses Not on filedocumented in this encounter Care Teams Nutrition Internship Relationship Specialty Start Date End Date Non Pn, Clinician, PCP - General 06/27/16 [place] [address] documented as of this encounter
--- OUTSIDE RECORDS SUMMARY | 2022-09-23 07:48 | XMS_ITS | Encounter Summary ---
:1980 Author Organization [employer] Address [address] [place] [address] Care Team Providers Name Role Phone Non Pn, Clinician MD Primary Care Provider Unavailable Encounter Details Date Type Department Care Team Description 11/21/2017 Lab Visit Sen Laborator luz Type 1 diabetes mellitus [address] [facility] without complication (HRC) [place] [address] Social History Tobacco Use Types Packs/Day Years Used Date Smoking Tobacco: Never Smokeless Tobacco: Never Alcohol Use Standard Drinks/Week Comments No 0 (1 standard drink = 0.6 oz pure alcoho l) Sex Assigned at Date Recorded Not on file documented as of this encounter Plan of Treatment Upcoming Encounters Date Type Specialty Care Team Description 11/01/2022 Appointment Endocrinology Althea Kelley, PATIENT SAFETY ATTENDANT, SPORTS ANNOUNCER [address] [phone] (Wo rk) 12/27/2022 Appointment Endocrinology Ayde Warren, MBBS [address] [facility] [address] [phone] documented as of this encounter Procedures Procedure Name Priority Date/Time Associated Diagnosis Comme nts LDL CHOLESTEROL, Routine 11/21/2017 10:04 Type 1 diabetes Resu lts for this DIRECT MEASURED AM TRAILER TANK TRUCK DRIVER mellitus without procedur e are in complication (HRC) the resul ts section. CREATININE / GFR Routine 11/21/2017 10:04 Type 1 diabetes Resu lts for this AM TRAILER TANK TRUCK DRIVER mellitus without procedure a re in complication (HRC) the resul ts section. TSH, SENSITIVE Routine 11/21/2017 10:04 Type 1 diabetes Result s for this AM TRAILER TANK TRUCK DRIVER mellitus without procedure a re in complication (HRC) the [facility] ts section. ALBUMIN/CREAT RATIO Routine 11/21/2017 10:04 Type 1 diabetes R esults for this AM TRAILER TANK TRUCK DRIVER mellitus without procedure a re in complication (HRC) the [facility] ts section. documented in this encounter Results Direct LDL (11/21/2017 10:04 AM TRAILER TANK TRUCK DRIVER) athologist Signature LDL Direct 71 0 - 130 PN SOFT mg/dL Specimen Anatomical Collection Method Collection Time Receive d Time (Source) Location / / Volume Laterality 11/21/2017 10:04 11/21/2017 AM TRAILER TANK TRUCK DRIVER 10:04 AM TRAILER TANK TRUCK DRIVER Narrative PN SOFT - 11/21/2017 10:40 AM TRAILER TANK TRUCK DRIVER Performed at [facility] [address] [place] [address] CLIA number [id number] Althea Kelley APRN, SPORTS ANNOUNCER LAB_1 Performing Organization Address [facility] Phon e Number PN SOFT [address] [place] [address] TSH (11/21/2017 10:04 AM TRAILER TANK TRUCK DRIVER) athologist Signature Thyroid 0.60 0.30 - PN SOFT Stimulating 4.50 Hormone uIU/mL Specimen Anatomical Collection Method Collection Time Receive d Time (Source) Location / / Volume Laterality 11/21/2017 10:04 11/21/2017 3:53 AM TRAILER TANK TRUCK DRIVER PM TRAILER TANK TRUCK DRIVER Narrative PN SOFT - 11/21/2017 5:21 PM TRAILER TANK TRUCK DRIVER Performed at [facility], [address] [place] [address] CLIA number [id number] Althea Kelley APRN, SPORTS ANNOUNCER LAB_1 Performing Organization Address [facility] Phon e Number PN SOFT [address] [place] [address] Microalbumin Urine Random (11/21/2017 10:04 AM TRAILER TANK TRUCK DRIVER) athologist Signature Microalbumin <10.0 mg/L PN SOFT Urine U Creat Random 54 mg/dL PN SOFT Microalbumin/Crea <10.0 0.0 - 30.0 PN SOFT tinine Ratio Specimen Anatomical Collection Method Collection Time Receive d Time (Source) Location / / Volume Laterality Urine specimen 11/21/2017 10:04 8 4:15 (specimen) AM TRAILER TANK TRUCK DRIVER PM TRAILER TANK TRUCK DRIVER Narrative PN SOFT - 11/21/2017 4:16 PM TRAILER TANK TRUCK DRIVER Performed at [facility] [address] [place] [address] CLIA number [id number] Althea Kelley APRN, CNP LAB_1 Performing Organization Address [facility] Phon e Number PN SOFT [address] [place] [address] (ABNORMAL) Creatinine (11/21/2017 10:04 AM TRAILER TANK TRUCK DRIVER) Analysis Performed At Patho logist Time Signature Creatinine 0.50 (L) 0.55 - PN SOFT Serum 1.02 mg/dL Est GFR >60 >60 PN SOFT Am mL/min/1.7 3m2 Est GFR Non-Afr >60 >60 PN SOFT Am mL/min/1.7 3m2 Comment: Normal>60, moderate decrease 30 - 59, se ángela decrease 15 - 29, renal failure <15 mL/min/1.73 m2 NOTE: ??Choose the eGFR result above adis ropriate for the race of the patient. Specimen Anatomical Collection Method Collection Time Receive d Time (Source) Location / / Volume Laterality 11/21/2017 10:04 11/21/2017 AM TRAILER TANK TRUCK DRIVER 10:04 AM TRAILER TANK TRUCK DRIVER Narrative PN SOFT - 11/21/2017 10:40 AM TRAILER TANK TRUCK DRIVER Performed at [facility] [address] [place] [address] CLIA number [id number] Althea Kelley APRN, PHANI LAB_1 Performing Organization Address [facility] Phon e Number PN SOFT [address] [place] [address] documented in this encounter Visit Diagnoses Diagnosis Type 1 diabetes mellitus without complic ation (HRC) Type I (juvenile type) diabetes mellitus without mention of complication, not stated as uncontrolled documented in this encounter Care Teams Laundry Presser Relationship Specialty Start Date End Date Non Pn, Clinician, MD PCP - General 06/27/16 [place] [address] documented as of this encounter
--- OUTSIDE RECORDS SUMMARY | 2022-09-23 07:48 | XMS_ITS | Encounter Summary ---
:1980 Author Organization [employer] Address [address] [place] [address] Care Team Providers Name Role Phone Non Pn, Clinician MD Primary Care Provider Unavailable Reason for Visit Reason Comments Diabetes Follow-up Encounter Details Date Type Department Care Team Description 01/11/2019 Office Visit Althea Rosenthal, Type 1 diabe isaac mellitus without complication (HRC) (Primary Dx); Endocrinology CHILDREN'S PROGRAM COORDINATOR, BROADBAND ENGINEER Insulin pump status [address] [employer] [place] [id number] [place] [address] [facility] [phone] [place], [place] [address] Social History Tobacco Use Types Packs/Day Years Used Date Smoking Tobacco: Never Smokeless Tobacco: Never Alcohol Use Standard Drinks/Week Comments No 0 (1 standard drink = 0.6 oz pure alcoho l) Sex Assigned at Date Recorded Not on file documented as of this encounter Last Filed Vital Signs Vital Sign Reading Time Taken Comments Blood Pressure - - Pulse - - Temperature - - Respiratory Rate - - Oxygen Saturation - - Inhaled Oxygen Concentration - - Weight 67.3 kg (148 lb 4.8 oz) 01/11/2019 9:40 AM SENIOR TRAINING SPECIALIST Height 162.6 cm (5' 4) 01/11/2019 9:40 AM SENIOR TRAINING SPECIALIST Body Mass Index 25.46 01/11/2019 9:40 AM SENIOR TRAINING SPECIALIST documented in this encounter Progress Notes Leonila Romo RN - 01/11/2019 9:30 AM CST Images from the original note were not included. OR TRAINING SPECIALIST Althea Kelley, CHILDREN'S PROGRAM COORDINATOR, BROADBAND ENGINEER - 01/11/2019 9:30 AM CST [facility] Adult Endocrinology [facility], [address] [facility], [address] [place] [address], [place] [address], Ph.[phone] January 11, 2019 Chief Complaint: Karin Mcmillan a 38 y.o. female is here for:follow up evaluation and management of Type 1 diabetes mellitus 6 weeks post . History of Present Illness: Subjective: Diagnosed with diabetes: age 22 No known microvascular complications. Gave to Ten in [place] on 11/30/18. He as 6lb 14oz. Failed induction at 39w. Had Csection. Ten had no hypoglycemia or complications. Doing well . Pt had some low reading for firstfew weeks, now stabilizing. No severe lows. Pt had fever for about a month post . OB checked all kinds of labs. C reactive protein was elevated. Pt wonders about this with DM1. Pt has hx of miscarriages. Last Ophthalmology Visit: 07/20/18. Foot exam 04/2018 Social history: Tobacco: reports that she has never smoked. She has never used smokeless tobacco. . 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 Busy summer, then FT in Jul. Plans another in next 1-2 years if possible. Current Diabetes Treatment Regimen: Insulin in her 530 G pump. Using Medtronic sensor as well Other medications: PNV ASA use: No Objective: Very pleasant young woman. Vital deferred as pt was . NAD. Glucose Monitoring: Home glucose monitoring: Using CGMS daily Hypoglycemia: Some lows in the night and when her activity is increased beyond normal. Some lows after bkfst. Vitals: Ht 5' 4 (1.626 m) Wt 148 lb 4.8 oz (67.3 kg) BMI 25.46 kg/m?? Estimated body mass index is 25.46 kg/m?? as calculated from the following: Height as of this encounter: 5' 4 (1.626 m). Weight as of this encounter: 148 lb 4.8 oz (67.3 kg). Assessment: Karin is a 38 y.o. female who was seen today for Type 1 diabetes mellitus with Good control and 6 weeks post . Last A1c: Lab Results Component Value Date/Time EXT RSLT - A1C 8.0 03/24/2012 Hemoglobin A1C Rapid 6.8 (H) 10/13/2015 1422 Hemoglobin A1C, POC 5.6 01/11/2019 0944 Last LDL: Lab Results Component Value Date/Time Cholesterol 140 07/02/2013 1451 Cholesterol/HDL Ratio Screen 2.1 07/02/2013 1451 HDL Cholesterol 66 07/02/2013 1451 EXT RSLT - HDL 73 12/02/2011 EXT RSLT - HDL 73 12/02/2011 Triglycerides 48 07/02/2013 1451 EXT RSLT - TRIGLYCERIDES 24 12/02/2011 EXT RSLT - TRIGLYCERIDES 24 12/02/2011 EXT RSLT - LDL CALCULATED 72 12/02/2011 EXT RSLT - LDL CALCULATED 72 12/02/2011 LDL Direct 71 11/21/2017 1004 Microalbumin: Lab Results Component Value Date/Time EXT RSLT - UMAR 5 12/02/2011 Microalbumin Urine <10.0 11/21/2017 1004 Diagnoses and Orders Placed: 1. Type 1 diabetes mellitus without complication (HRC) 2. Insulin pump status (HRC) Plan: 1. Decrease pre bkfst dose--to 1/16 grams 2. Decrease basal rates from 930 pm to midnight from 0.9 to 0.775 and from 7am to 11am from 0.8 to 0.75. 3. Follow up in [address] Ash Will do annual diabetes labs at that time is she is just recently today. 4. Discussed post BG goals/A1c goal etc. Pt planning another if possible in next 1-2 years, will try to keep A1c around 6.5% in prep for that. 5. Briefly discussed C reactive protein--as possibly elevated after C section//fevers etc. May recheck with future labs. Spent 20 min with the patient in review of the treatment plan, DDX, potential outcomes and side effects of medications indicated. Answered questions in detail. Greater than 50% of time was spent counseling the patient. Other Previous Labs: Lab Results Component Value Date/Time Alanine Aminotransferase 16 10/13/2015 1422 No results found for: AST Lab Results Component Value Date/Time Creatinine Serum 0.50 (L) 11/21/2017 1004 Lab Results Component Value Date/Time EXT RSLT - TSH 2.49 12/02/2011 Thyroid Stimulating Hormone 0.60 11/21/2017 1004 Thyroid Stimulating Hormone 1.76 06/07/2016 1557 Medical History: No Known Allergies Past Medical History: Diagnosis Date ??? Diabetes mellitus (HRC) DM1 Social History Tobacco Use ??? Smoking status: Never Smoker ??? Smokeless tobacco: Never Used Substance Use Topics ??? Alcohol use: No No past surgical history on file. No family history on file. Current Outpatient Medications Medication Sig Dispense Refill ??? acetone urine (KETOSTIX) test strip Use to test daily. 100 Each 3 ??? blood glucose ([employer] CONTOUR NEXT) test strip Use 8-10 times [...] breakfast. ??? Generic Medication (DIABETIC SUPPLIES) by [facility].(Non-Drug; Combo Route) route. [employer] form forpump and testing supplies faxed to [phone] ??? glucagon, human recombinant, (GLUCAGON,HUMAN RECOMBINANT) [...] subcutaneously as needed. 100 Eachprn ??? lancets ([employer] MICROLET) Use 1 to test 8-10 times daily. Use as directed. Pharmacy dispense brand based on insurance. 300 Each 11 ??? vitamin-ferrous fumarate-folic acid (PRENATALPLUS) 27-1 MG tablet Take 1 Tablet by mouth daily. No current facility-administered medications for this visit. OR TRAINING SPECIALIST documented in this encounter Plan of Treatment Upcoming Encounters Date Type Specialty Care Team Description 11/01/2022 Appointment Endocrinology Althea Kelley APRN, BROADBAND ENGINEER [address] [facility] N [address] (Wo rk) 12/27/2022 Appointment Endocrinology Ayde [place] MBBS [address] [facility] N [address] documented as of this encounter Procedures Procedure Name Priority Date/Time Associated Diagnosis Comme nts POCT GLYCOSYLATED Routine 01/11/2019 9:44 AM Type 1 diabetes R esults for this HEMOGLOBIN (HGB A1C) SENIOR TRAINING SPECIALIST mellitus without pro cedure are in complication (HRC) the resul ts section. documented in this encounter Results POCT glycosylated hemoglobin (Hb A1C) (01/11/2019 9:44 AM SENIOR TRAINING SPECIALIST) P athologist Signature Hemoglobin A1C, 5.6 4 - 5.6 % PN POCT POC Cartridge Lot# [id number] PN POCT Specimen (Source) Anatomical Collection Method Collection Time Re ceived Time Location / / Volume Laterality Blood specimen 01/11/2019 9:44 AM (specimen) SENIOR TRAINING SPECIALIST Althea Kelley APRN, CNP PN POINT OF [...] status documented in this encounter Care Teams Casting And Pasting Supervisor Relationship Specialty Start Date End Date Non Pn, Clinician, PCP - General 06/27/16 [place] [address] documented as of this encounter
--- OUTSIDE RECORDS SUMMARY | 2022-09-23 07:48 | XMS_ITS | Encounter Summary ---
:1980 Author Organization [facility] Address [address] [place] [address] Care Team Providers Name Role Phone Non Pn, Clinician MD Primary Care Provider Unavailable Reason for Visit Reason Comments Diabetes Encounter Details Date Type Department Care Team Description 09/20/2016 Office Visit Althea Rosenthal, Type 1 diabe isaac mellitus without complication (HRC) (Primary Dx); Endocrinology PHANI MINOR Insulin pump status; [address] [employer] [address] [place] [address] Pre-existing type 1 diabetes mellitus during in [place] [address] [facility] [phone] [place], [place] [id number] Social History Tobacco Use Types Packs/Day Years Used Date Smoking Tobacco: Never Alcohol Use Standard Drinks/Week Comments No 0 (1 standard drink = 0.6 oz pure alcoho l) Sex Assigned at Date Recorded Not on file documented as of this encounter Last Filed Vital Signs Vital Sign Reading Time Taken Comments Blood Pressure 102/76 09/20/2016 1:26 PM CDT Pulse 72 09/20/2016 1:26 PM CDT Temperature - - Respiratory Rate - - Oxygen Saturation - - Inhaled Oxygen Concentration - - Weight 63.8 kg (140 lb 11.2 oz) 09/20/2016 1:26 PM CDT Height 160 cm (5' 3) 09/20/2016 1:26 PM CDT Body Mass Index 24.92 09/20/2016 1:26 PM CDT documented in this encounter Patient Instructions Patient InstructionsAlthea Kelley, PHANI MINOR - 09/20/2016 2:20 PM CDT Wizard use will help us help you. We intensified your corrections. Remember if the pump does not give you what you think you need, we can change your settings. Return in 2-3 weeks. And in 4-5 weeks. If you need to schedule or have questions about your appointment, call [phone]. If you have medical questions or concerns, please contact your doctor's triage nurse at [phone]. vague documented in this encounter Progress Notes Rodolfo Richards LPN - 11/09/2016 2:18 PM CST Lab reminder letter sent. LICENSE OFFICER SUPERVISOR Althea Kelley APRN, PHANI - 09/21/2016 3:31 PM CDT [facility] Adult Endocrinology [facility], [facility] [address] [address], Ph.[phone] September 21, 2016 Karin Mcmillan a 36 y.o. female is here for Type 1 Diabetes in . No obstetric history on file, has not yet had her NOB visit.. Her last office visit was 06/07/[address] Radha Palmer. She has been in close contact with Dr. Radha Palmer by email since then, working hard to prepare for thispregnancy. Chief Complaint: and type I diabetes now 8 weeks gestation by LMP History of Present Illness: Type I diabetes was diagnosed at age 22. She has no known microvascular complications or any other comorbidity conditions. She prepared carefully for this , had a hemoglobin A1c of 6.7% in May. Today her A1c was 5.8%. She notes today that she has been quite worried and stressed. He becomes tearful and talks about allof the different feeling she has with this . Eye exam May 2016, foot exam May 2016. TSH in May was 1.76 with negative TPO antibodies. Current Diabetes Treatment Regimen: NovoLog in her 5:30 G insulin pump as follows Basals: Midnight 0.85 1:30 AM 0.575 7 AM 1.05 11 AM 0.925 2:30 PM 0.95 6:30 PM 1.0 9:30 PM 0.95 Total basal 21.050 Bolus settings: Midnight 1 unit for 12 g Sensitivity 70 Target 100-120 daytime, 120-150 nighttime. 4 hour insulin action. Total insulin dose 29.3+ or -3 units a day area 59% as basal, 41% as bolus. Patient states right away that she is the temporary basal rate trent she uses temporary basals often and although she uses the bolus wizard for corrections, gives her mealtime boluses manually. 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 Average blood sugar by sensor is 118+ or -36. It does seem that her correction is not intense enough, as she will give correction and need to repeat it multiple times. Overall, the pattern is very good there may be fasting levels slightlyabove target and a bit of a tendency toward higher blood glucose levels after dinner. No severe hypoglycemia Vitals: BP 102/76 mmHg Pulse 72 Ht 5' 3 (1.6 m) Wt 140 lb 11.2 oz (63.821 kg) BMI 24.93 kg/m2 Estimated body mass index is 24.93 kg/(m^2) as calculated from the following: Height as of this encounter: 5' 3 (1.6 m). Weight as of this encounter: 140 lb 11.2 oz (63.821 kg). Assessment: Karin is a 36 y.o. female who was seen today for Type 1 Diabetes with Great control and in . Utilizing a pump and sensor. A lot of emotion around the Last A1c: Lab Results Component Value Date/Time EXT RSLT - A1C 8.0 03/24/2012 HEMOGLOBIN A1C RAPID 6.8* 10/13/2015 1422 HEMOGLOBIN A1C, POC 5.8* 09/20/2016 1340 Blood pressure: 102/76 Diagnoses and Orders Placed: 1. Type 1 diabetes mellitus without complication (HRC) 2. Insulin pump status (HRC) 3. Pre-existing type 1 diabetes mellitus during in first trimester Plan: 1. Emotional support is provided. 2. Encourage the patient to use the bolus wizard more consistently so that we can help her see patterns when she comes for follow-up. 3. Adjusted correction settings: Sensitivity 60, daytime target 80-110, nighttime target 100-140 4. Explained to the patient that we generally see women every 2-4 weeks throughout the she is encouraged to make appointments every 2-3 weeks if possible. Spent 35 min with the patient in review of the treatment plan, DDX, potential outcomes and side effects of medications indicated. Answered questions in detail. Greater than 50% of time was spent counseling the patient. Medical History: Allergies Allergen Reactions ??? Other Rash [place] tape. Past Medical History Diagnosis Date ??? Diabetes mellitus (HRC) DM1 Social History Substance Use Topics ??? Smoking status: Never Smoker ??? Smokeless tobacco: Not on file ??? Alcohol Use: No No past surgical history on file. No family history on file. Current Outpatient Prescriptions Medication Sig Dispense Refill ??? Blood Glucose Monitoring Suppl (ONE TOUCH ULTRA 2) W/DEVICE Use as instructed as needed for HighBlood Sugar. 1 kit 0 ??? blood glucose test strip Use 8-10 strips to test daily (every 24 hours). 750 strip 3 ??? Generic Medication (DIABETIC SUPPLIES) by [facility].(Non-Drug; Combo Route) route. [employer] form forpump and testing supplies faxed to [phone] ??? Marion Root ??? insulin aspart (NOVOLOG) 100 UNIT/ML injection Inject 28-42 Units subcutaneously daily (every 24hours). via insulin pump, max daily dose 42 40 mL 3 ??? insulin glargine (LANTUS) 100 UNIT/ML injection Inject 20 Units subcutaneously daily (every 24 hours). Back up for pump failure. please hold until patient calls 10 mL 3 ??? insulin syringe-needle 28G X 1/2 inch 0.3 mL 28G X 1/2 0.3 ML use with pump failure 50 each 3 ??? Lactobacillus (ACIDOPHILUS/PECTIN OR) ??? ONETOUCH DELICA lancets Use 1 each to test 4 times daily. 200 each 11 ??? Vit-Fe Fumarate-FA ( COMPLETE OR) ??? pyridoxine (VITAMIN B-6) 100 MG tablet Take 50 mg by mouth daily. No current facility-administered medications for this visit. documented in this encounter Plan of Treatment Upcoming Encounters Date Type Specialty Care Team Description 11/01/2022 Appointment Endocrinology Althea Kelley APRN, TASTE TESTER [address] [address] (Wo rk) 12/27/2022 Appointment Endocrinology Ayde [place] MBBS [address] [address] documented as of this encounter Procedures Procedure Name Priority Date/Time Associated Diagnosis Comme nts POCT GLYCOSYLATED Routine 09/20/2016 1:40 PM Type 1 diabetes R esults for this HEMOGLOBIN (HGB A1C) CDT mellitus without pro cedure are in complication (HRC) the resul ts section. documented in this encounter Results Microalbumin Urine Random (11/25/2016 9:58 AM DOG LICENSE OFFICER SUPERVISOR) P athologist Signature Microalbumin <10.0 mg/L PN SOFT Urine U Creat Random 56 mg/dL PN SOFT Microalbumin/Crea <10.0 0.0 - 30.0 PN SOFT tinine Ratio Specimen Anatomical Collection Method Collection Time Receive d Time (Source) Location / / Volume Laterality Urine specimen 11/25/2016 9:58 AM 017 9:58 (specimen) DOG LICENSE OFFICER SUPERVISOR AM DOG LICENSE OFFICER SUPERVISOR Narrative PN SOFT - 11/25/2016 10:46 AM DOG LICENSE OFFICER SUPERVISOR Performed at [facility], [address] [place] [address] CLIA number [id number] Althea Kelley APRN, CNP LAB_1 Performing Organization Address City/State/ZIP Code Phon e Number PN SOFT [address] [place] [address] Direct LDL (11/25/2016 9:48 AM DOG LICENSE OFFICER SUPERVISOR) athologist Signature LDL Direct 93 0 - 130 PN SOFT mg/dL Specimen Anatomical Collection Method Collection Time Receive d Time (Source) Location / / Volume Laterality 11/25/2016 9:48 AM 7 9:48 DOG LICENSE OFFICER SUPERVISOR AM DOG LICENSE OFFICER SUPERVISOR Narrative PN SOFT - 11/25/2016 10:14 AM DOG LICENSE OFFICER SUPERVISOR Performed at [facility], [facility] [address] [id number] CLIA number [id number] Althea Kelley APRN, CNP LAB_1 Performing Organization Address [facility] Phon e Number PN SOFT [address] [place] [address] Creatinine (11/25/2016 9:48 AM DOG LICENSE OFFICER SUPERVISOR) athologist Signature Creatinine Serum 0.60 0.55 - PN SOFT 1.02 mg/dL Est GFR >60 >60 PN [...] Time (Source) Location / / Volume Laterality 11/25/2016 9:48 AM 7 9:48 DOG LICENSE OFFICER SUPERVISOR AM DOG LICENSE OFFICER SUPERVISOR Narrative PN SOFT - 11/25/2016 10:14 AM DOG LICENSE OFFICER SUPERVISOR Performed at [facility], [address] [place] [address] CLIA number [id number] Althea Kelley APRN, CNP LAB_1 Performing Organization Address [facility] Phon e Number PN SOFT [address] [place] [address] (ABNORMAL) POCT glycosylated hemoglobin (Hb A1C) (09/20/2016 1:40 PM CDT) P athologist Signature Hemoglobin A1C, 5.8 (A) 4 - 5.6 % PN POCT POC Cartridge Lot# [id number] PN POCT Specimen (Source) Anatomical Collection Method Collection Time Re ceived Time Location / / Volume Laterality Blood specimen 09/20/2016 1:40 PM (specimen) CDT Althea Kelley PHARMACEUTICAL WORKER, TASTE TESTER PN POINT OF CARE TESTS Performing Organization [...] diabetes mellitus du ring in first trimester Type 1 diabetes mellitus without complic ation (HRC) Type I (juvenile type) diabetes mellitus without mention of complication, not stated as uncontrolled documented in this encounter Care Teams Zipper Machine Operator Relationship Specialty Start Date End Date Non Pn, Clinician, PCP - General 06/27/16 [place] [address] documented as of this encounter
--- OUTSIDE RECORDS SUMMARY | 2022-09-23 07:48 | XMS_ITS | Encounter Summary ---
:1980 Author Organization [employer] Address [address] [address] Care Team Providers Name Role Phone Non Pn, Clinician MD Primary Care Provider Unavailable Reason for Visit Reason Onset Date Comments Forms 11/01/2016 Prior Authorization Approval Encounter Details Date Type Department Care Team Description 11/01/2016 Telephone [facility] [address], Forms (Prior Endocrinology MD Authorization Approval) [address] [facility] [address] [facility] [place] [address] [phone] Social History Tobacco Use Types Packs/Day Years Used Date Smoking Tobacco: Never Alcohol Use Standard Drinks/Week Comments No 0 (1 standard drink = 0.6 oz pure alcoho l) Sex Assigned at Date Recorded Not on file documented as of this encounter Nursing Notes Chayo Rae - 11/01/2016 3:48 PM CST Received approval letter from [facility] for PA on ONETOUCH ULTRA BLUE test strips. Coverage begins 11/01/2016 through 11/01/2017. Sent [employer] message to patient advising of approval. Sent letter to [employer]. AGE BATTERY TESTER documented in this encounter Plan of Treatment Upcoming Encounters Date Type Specialty Care Team Description 11/01/2022 Appointment Endocrinology Althea Kelley, INCLUSION SPECIAL EDUCATOR, COMPUTER ENGINEERING TECHNOLOGIST [address] [facility] N [id number] (Wo rk) 12/27/2022 Appointment Endocrinology Ayde [place], MBBS [address] [facility] [address] [address] documented as of this encounter Visit Diagnoses Not on filedocumented in this encounter Care Teams Civil Cad Designer Relationship Specialty Start Date End Date Non Pn, Clinician, PCP - General 06/27/16 [place] [address] documented as of this encounter
--- OUTSIDE RECORDS SUMMARY | 2022-09-23 07:48 | XMS_ITS | Encounter Summary ---
:1980 Author Organization [employer] Address [address] [place] [address] Care Team Providers Name Role Phone Non Pn, Clinician MD Primary Care Provider Unavailable Reason for Visit Reason Comments QUESTIONS, GENERAL Encounter Details Date Type Department Care Team Description 08/23/2018 Telephone [facility] [address] Althea Kelley, MILY, QUESTIONS, GENERAL Endocrinology COTTON CANDY MAKER [address] [place], [place] [address] [address] [place], [place] [phone] (Wo rk) Social History Tobacco Use Types Packs/Day Years Used Date Smoking Tobacco: Never Smokeless Tobacco: Never Alcohol Use Standard Drinks/Week Comments No 0 (1 standard drink = 0.6 oz pure alcoho l) Sex Assigned at Date Recorded Not on file documented as of this encounter Nursing Notes Prashanth Neil RN - 08/23/2018 10:[address] Isaak Fernandez called back in regards to Karin Mcmillan 84 MR [id number]. He does not feel she needs additional eye exam in her 3rd trimester, as long as her bg remain in range. He states she had unremarkable exam on 07/20/18. Dr Isaak Fernandez called back in regards to Karin Mcmillan 84 MR [id number]. He does not feel she needs additional eye exam in her 3rd trimester, as long as her bg remain in range. He states she had unremarkable exam on 07/20/18. This call back was in response to call from Althea Kelley LABEL STAMPER who left message asking if exam was needed per ADA recommendation. documented in this encounter Plan of Treatment Upcoming Encounters Date Type Specialty Care Team Description 11/01/2022 Appointment Endocrinology Althea Kelley, MID TEACHER, COTTON CANDY MAKER [address] [address] (Wo rk) 12/27/2022 Appointment Endocrinology Ayde [place], MBBS [address] [address] documented as of this encounter Visit Diagnoses Not on filedocumented in this encounter Care Teams Assistant Family Teacher Relationship Specialty Start Date End Date Non Pn, Clinician, PCP - General 06/27/16 [place] [address] documented as of this encounter
--- OUTSIDE RECORDS SUMMARY | 2022-09-23 07:48 | XMS_ITS | Encounter Summary ---
:1980 Author Organization [facility] Address [address] [place] [address] Care Team Providers Name Role Phone Non Pn, Clinician MD Primary Care Provider Unavailable Reason for Visit Reason Comments Follow-up Encounter Details Date Type Department Care Team Description 06/07/2016 Office Visit Rahda Kearns, Type 1 diab etes mellitus without complication (HRC) (Primary Dx); Endocrinology Insulin pump status 2000 [facility] [address] [place], [place] [address] [place] [address] [place] [address] Social History Tobacco Use Types Packs/Day Years Used Date Smoking Tobacco: Never Assessed Sex Assigned at Date Recorded Not on file documented as of this encounter Last Filed Vital Signs Vital Sign Reading Time Taken Comments Blood Pressure 104/60 06/07/2016 2:30 PM CDT Pulse 70 06/07/2016 2:30 PM CDT Temperature - - Respiratory Rate - - Oxygen Saturation - - Inhaled Oxygen Concentration - - Weight 63.5 kg (139 lb 14.4 oz) 06/07/2016 2:30 PM CDT Height 164.5 cm (5' 4.75) 06/07/2016 2:30 PM CDT Body Mass Index 23.46 06/07/2016 2:30 PM CDT documented in this encounter Progress Notes Radha Jarrell - 06/07/2016 5:07 PM CDT Progress Notes signed by Radha Jarrell MD at 06/08/16 4074 Author: Radha Jarrell MD Service: (none) Author Type: Physician Filed: 06/08/16 9968 Note Time: 06/07/161926 Status: Signed Supervisor [place] Department: Radha Jarrell MD (Physician) NAME: KARIN MCMILLAN MR#: [id number] CSN: [id number] AUTHENTICATING CLINICIAN: Radha Jarrell MD CONFIRM #: [id number] LOC: 306 CLINIC PROGRESS NOTE DATE OF VISIT: 06/07/2016 : 1980 SUBJECTIVE: The patient is a 36-year-old woman here for followup of type 1 diabetes, diagnosis age 22. She has no chronic complications. I last saw her in September 2015. Since that time, she has gone on a continuous glucose sensor and has felt like it has helped immensely with her diabetes. Her A1c is 6.7%, previously 6.8, but she is having way fewer lows. She said she feels more comfortable having the sensor onand is able to manage her blood sugars better. She had one bad sensor that read a calibration error,she said instead of changing it, she just reset it, and later had a bad low blood sugar of 28. But she said she should have changed the sensor instead of resetting it. She eats later in the summer, fewer carbohydrates. She wonders about getting . She is on a MiniMed 530G insulin pump with NovoLog. Her standard basal is 17.625: Midnight 0.6, 9 a.m. 0.8, 1:30 p.m. 0.75, and 7 p.m. 0.9. She is using a pattern D for when her blood sugars are higher at 25.2 units: Midnight 0.7, 8 a.m. 1.2, and then she has a pattern A that she sets that is lower 16 units: Midnight 0.55, 9 a.m. 0.8, and 2:30 p.m. 0.7, which she will use if her blood sugar is trending down and she is going in to a meeting, for example. Her bolus is midnight 1/15, 12 p.m. 12. Sensitivity . Target: 6 a.m. 100-120, then in p.m. 120-150. Active insulin time is 4 hours. She is doing often manual boluses though. Average insulin use is 27 units, 64% basal, 36% bolus. Average on the sensor is 158. Blood sugars look quite stable overnight, but she is spiking up after breakfast fairly consistently. She notes that she is doing a manual bolus there and she would go from 12/04 to 12/01 and try to usethe wizard. PAST MEDICAL HISTORY: Type 1 diabetes. CURRENT MEDICATIONS: NovoLog in her pump. She has backup Lantus. ALLERGIES: None known. SOCIAL HISTORY: She is . 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 Just returned from [employer]. PHYSICAL EXAM: Blood pressure is 104/60. Pulse is 70. Weight was 139 pounds. Height is 5 feet 4-3/4 inches. BMI 23.51 kg/sq. m. GENERAL: A very pleasant woman here in no distress. She also seemed to be much less anxious than in the past visit. Foot exam done today. Ankle reflexes are normal. Sensation was normal to monofilament testing and proprioception. Her toenails are in good repair. There were no ulcers or lesions. LABS: A1c is 6.7% today. Labs otherwise pending. ASSESSMENT: 1. Type 1 diabetes, improved control since starting on the continuous glucose sensor. 2. planning. PLAN: I recommended increasing her bolus at 1 unit per 12 g in the morning. We discussed goal blood sugarsfor . Her A1c was under 7% for the past 6 months. We discussed that she may just need to make a decision about getting and move forward in it, and she understands the risks, benefits.She will follow up with me in 4 months, but sooner if she does become . 40 minutes with the patient, more than half in counseling. CC: JOSE HUNTLEY MD [facility] [address] [place] [address] LTL:MEDQ C: CONFIRM #: [id number] documented in this encounter Plan of Treatment Upcoming Encounters Date Type Specialty Care Team Description 11/01/2022 Appointment Endocrinology Althea Kelley, AUTOMATIC SPINNING LATHE OPERATOR, RIVET TAPPING MACHINE OPERATOR [address] [facility] [place] [address] (Wo rk) 12/27/2022 Appointment Endocrinology Ayde Warren, KERWIN [address] [place] [address] [address] documented as of this encounter Procedures Procedure Name Priority Date/Time Associated Diagnosis Comme nts POCT GLYCOSYLATED Routine 06/07/2016 1:58 PM Type 1 diabetes R esults for this HEMOGLOBIN (HGB A1C) CDT mellitus without pro cedure are in complication (HRC) the resul ts section. documented in this encounter Results (ABNORMAL) POCT GLYCOSYLATED HEMOGLOBIN (HGB A1C) (06/07/2016 1:58 PM CDT) Analysis Performed At Patho logist Time Signature Hemoglobin A1C, 6.7 (A) 4 - 5.6 % HP CONVERSION POC Cartridge Lot# [id number] HP CONVERSION Specimen (Source) Anatomical Collection Method Collection Time Re ceived Time Location / / Volume Laterality 06/07/2016 1:58 PM CDT Radha Jarrell MD PN POINT OF CARE TESTS Performing Organization Address City/State/ZIP Code Phon e Number HP CONVERSION documented in this encounter Visit Diagnoses Diagnosis Type 1 diabetes mellitus without complic ation (HRC) - Primary Type I (juvenile type) diabetes mellitus without mention of complication, not stated as uncontrolled Insulin pump status (HRC) Insulin pump status documented in this encounter Care Teams Marine Fisheries Technician Relationship Specialty Start Date End Date Non Pn, Clinician, PCP - General 06/27/16 [place] [address] documented as of this encounter
--- OUTSIDE RECORDS SUMMARY | 2022-09-23 07:48 | XMS_ITS | Encounter Summary ---
:1980 Author Organization [facility] Address [address], [place] [address] Care Team Providers Name Role Phone Non Pn, Clinician Primary Care Provider Unavailable Reason for Visit Reason Comments Refill Encounter Details Date Type Department Care Team Description 11/23/2017 Refill [facility] [address] Radha Jarrell MD Refill Endocrinology [address] [facility] [address] [place] [address] [place] [address] [phone] Social History Tobacco Use Types Packs/Day Years Used Date Smoking Tobacco: Never Smokeless Tobacco: Never Alcohol Use Standard Drinks/Week Comments No 0 (1 standard drink = 0.6 oz pure alcoho l) Sex Assigned at Date Recorded Not on file documented as of this encounter Nursing Notes Aliza Pizano, RN - 11/23/2017 3:02 PM CST Rx sent 06/18/17, good for a year. Requested Prescriptions Refused Prescriptions Disp Refills ??? ONE TOUCH ULTRA BLUE test strips [Pharmacy Med Name: ONE TOUCH ULTRA BLUE TESTST(NEW)100] 700 Strip 0 Sig: TEST 8 TO 10 TIMES DAILY DIRECTED Refused By: ALIZA PIZANO Reason for Refusal: Request Already Responded To By Other Means MACHINE OPERATOR PRODUCTION documented in this encounter Plan of Treatment Upcoming Encounters Date Type Specialty Care Team Description 11/01/2022 Appointment Endocrinology Althea Kelley, MANAGER MARKET, AUTOMOBILE APPRAISER [address] [place] [address] (Wo rk) 12/27/2022 Appointment Endocrinology Ayde Warern MBBS [address] [place] [address] [address] documented as of this encounter Visit Diagnoses Not on filedocumented in this encounter Care Teams Centrifugal Chiller Technician Relationship Specialty Start Date End Date Non Pn, Clinician, PCP - General 06/27/16 [place] [address] documented as of this encounter
--- OUTSIDE RECORDS SUMMARY | 2022-09-23 07:48 | XMS_ITS | Encounter Summary ---
:1980 Author Organization [facility] Address [address], [place] [address] Care Team Providers Name Role Phone Non Pn, Clinician MD Primary Care Provider Unavailable Reason for Visit Reason Comments Refill Encounter Details Date Type Department Care Team Description 08/01/2017 Refill [place] [facility] Collette Case MD [facility] [address] [facility] [address] [place], [place] [address] [place] [address] [phone] (Wo rk) Social History Tobacco Use Types Packs/Day Years Used Date Smoking Tobacco: Never Alcohol Use Standard Drinks/Week Comments Yes 0 (1 standard drink = 0.6 oz pure alcoho l) Sex Assigned at Date Recorded Not on file documented as of this encounter Nursing Notes Hiwot Ontiveros, BRENDA - 08/03/2017 3:13 PM CDT Renewed medication per medication refill protocol. Requested Prescriptions Signed Prescriptions Disp Refills ??? insulin aspart (NOVOLOG) 100 UNIT/ML injection (vial) 40 mL 1 Sig: Inject 28-42 Units subcutaneously daily. Authorizing Provider: COLLETTE PANTOJA Ordering User: HIWOT ONTIVEROS documented in this encounter Plan of Treatment Upcoming Encounters Date Type Specialty Care Team Description 11/01/2022 Appointment Endocrinology Althea Kelley, RENAL MEDICINE PHYSICIAN, SPORT SHOE SPIKE ASSEMBLER [address] [place] [facility] [id number] (Wo rk) 12/27/2022 Appointment Endocrinology Ayde Warren, KERWIN [address] [place] [address] [address] documented as of this encounter Visit Diagnoses Not on filedocumented in this encounter Care Teams Filenet Admin Relationship Specialty Start Date End Date Non Pn, Clinician, PCP - General 06/27/16 [place] [address] documented as of this encounter
--- OUTSIDE RECORDS SUMMARY | 2022-09-23 07:48 | XMS_ITS | Encounter Summary ---
:1980 Author Organization [employer] Address [address] [place] [address] Care Team Providers Name Role Phone Non Pn, Clinician MD Primary Care Provider Unavailable Reason for Visit Reason Comments Diabetes Follow-up Encounter Details Date Type Department Care Team Description 11/21/2017 Office Visit Althea Rosenthal, Type 1 diabe isaac mellitus without complication (HRC) (Primary Dx); Endocrinology PHANI MINOR Insulin pump status; [address] Pre-existing type 1 diabetes mellitus during in first [place] [address] [facility] [phone] [place], [place] [id number] Social History Tobacco Use Types Packs/Day Years Used Date Smoking Tobacco: Never Smokeless Tobacco: Never Alcohol Use Standard Drinks/Week Comments No 0 (1 standard drink = 0.6 oz pure alcoho l) Sex Assigned at Date Recorded Not on file documented as of this encounter Last Filed Vital Signs Vital Sign Reading Time Taken Comments Blood Pressure 120/76 11/21/2017 9:12 AM DAIRY CHEMIST Pulse 88 11/21/2017 9:12 AM DAIRY CHEMIST Temperature - - Respiratory Rate - - Oxygen Saturation - - Inhaled Oxygen Concentration - - Weight 70.4 kg (155 lb 4.8 oz) 11/21/2017 9:12 AM DAIRY CHEMIST Height 162.6 cm (5' 4) 11/21/2017 9:12 AM DAIRY CHEMIST Body Mass Index 26.66 11/21/2017 9:12 AM DAIRY CHEMIST documented in this encounter Progress Notes Althea Kelley, PHANI MINOR - 11/21/2017 12:00 PM CST NAME: KARIN MCMILLAN MR#: [id number] CSN: [id number] AUTHENTICATING CLINICIAN: Althea Kelley APRN, SAFETY SCIENTIST CONFIRM #: [id number] LOC: 532 CLINIC PROGRESS NOTE DATE OF VISIT: 11/21/2017 : 1980 SUBJECTIVE: Karin is a 37-year-old woman with type 1 diabetes diagnosed at age 22 with no known microvascular complications of diabetes. She utilizes a 530G pump with sensor and is newly , LMP 09/29/2017. She struggled with infertility and does have a history of miscarriage last year. She comes today, indicating that she has influenza. She is on Tamiflu. She is feeling very poorly and has no voice today. She also indicates that she has been extremely stressed and anxious about the , wondering if she is truly and quite tearful. So far, the looks viable, but she is reluctant to be excited. Eye exam, June 2017. Foot exam, May 2016, was not done today in lieu of counseling time. Last visit here in the clinic was with Dr. Jarrell in August. She would like to continue to follow in [place] and wants advice about followup with our physicians. MEDICATIONS: NovoLog in her 530G pump as follows: 1. Basal rates: Midnight 0.8, 2 a.m. 0.675, 7 a.m. 0.95, 11:30 a.m. 0.85, 6:30 p.m. 0.95. This is 20.488 basal. 2. Bolus settings: Midnight 7.5 g, noon 10 g, 6 p.m. 8 g with a sensitivity of 28 and a target of 75-100 during the day, 100-120 from 9 p.m. to midnight and 70-100 from midnight to 6 a.m. 3. Three-hour insulin action time: Average daily insulin 37.5 +/- 9 units a day; 53% is basal, 47% is bolus. It is noted that she decreases her bolus very frequently, anywhere from 0.5 unit to a unit less thanwhat the Bolus Wizard suggests most of the time. Once in a while, in particular later in the day, she will take what the Bolus Wizard suggests or 0.10 to 0.20 of a unit more. She also utilizes temporary basal rates at times. OBJECTIVE: Tearful patient. She has severe laryngitis and appears fatigued. Weight 155.3; this is up 5 pounds since August. Blood pressure 120/76, pulse 88 and regular. LABORATORY DATA: A1c today is 6%. In 05/2016, TSH 1.761. In 11/2016, albumin creatinine ratio less than 10. Blood glucose data is reviewed as carefully as possible with her download. She is utilizing the sensor a lot of the time, but the sensor average reads 119 +/- 41, and the fingerstick average with 8.5 fingersticks a day is 174 +/- 47. It is a good bit higher than the sensor most of the time. When I am looking for a pattern, it is difficult as she has been sick for the last week, and it has been and , but it does appear that her fasting levels are generally above target by fingerstick ranging in the 80-160 range most of the time with 1 reading down around 70 when she had corrected for a very high blood sugar at 1 o'clock in the morning. Pre-lunch is a consistently elevated time with an average about 180. Her pre-dinner comes down a bit, and her post-dinner is extremely variable, again and . No severe hypoglycemia. ASSESSMENT: 1. Type 1 diabetes. 2. Insulin pump and sensor use with sensor seeming to be quite inaccurate lately. 3. Intrauterine . 4. History of miscarriage and infertility. Patient is quite emotional. PLAN: 1. I did advise the patient to increase her basal rate between 2 a.m. and 7 a.m. and 7 a.m. to 11:30a.m. to improve her fasting and pre-lunch readings slightly. She is willing to make this change. Newbasals: Midnight 0.8, 2 a.m. increase to 0.725, 7 a.m. increase to 1.0, 11:30 a.m. continue 0.85, 6:30 p.m. continue 0.95. 2. The patient understands that with her adjusting her bolus amounts so frequently, it is difficult for us to help her make adjustments in her settings. She apologizes for this today, but admits that she has a difficult time not making these adjustments based on the fact that her sensitivity seems to change a lot secondary to activity or hormonal changes. 3. I did provide her with a booklet, and we did review appropriate blood glucose targets, which she is well aware of. 4. We did discuss typical insulin requirements in . 5. We will update a TSH being that she is newly as well as albumin/creatinine ratio, creatinine and direct LDL as they are due. 6. She will establish care with one of our physicians here in [place] and will make appointments at least every 3-4 weeks for the coming weeks. She is urged to call sooner with any problems or concerns. Total time 30 minutes, time in counseling 25 minutes. CHIRAGL:LICHA C: CONFIRM #: [id number] Y CHEMIST Leonila Romo RN - 11/21/2017 9:00 AM CST Images from the original note were not included. Y CHEMIST documented in this encounter Plan of Treatment Upcoming Encounters Date Type Specialty Care Team Description 11/01/2022 Appointment Endocrinology Althea Kelley APRN, SAFETY SCIENTIST [address] [facility] N [address] (Wo rk) 12/27/2022 Appointment Endocrinology Ayde Warren MBBS [address] [facility] N [address] documented as of this encounter Procedures Procedure Name Priority Date/Time Associated Diagnosis Comme nts POCT GLYCOSYLATED Routine 11/21/2017 9:06 AM Type 1 diabetes R esults for this HEMOGLOBIN (HGB A1C) DAIRY CHEMIST mellitus without pro cedure are in complication (HRC) the resul ts section. documented in this encounter Results Direct LDL (11/21/2017 10:04 AM DAIRY CHEMIST) P athologist Signature LDL Direct 71 0 - 130 PN SOFT mg/dL Specimen Anatomical Collection Method Collection Time Receive d Time (Source) Location / / Volume Laterality 11/21/2017 10:04 11/21/2017 AM DAIRY CHEMIST 10:04 AM DAIRY CHEMIST Narrative PN SOFT - 11/21/2017 10:40 AM DAIRY CHEMIST Performed at [facility] [place] [address] [place] [address] CLIA number [id number] Althea Kellye APRN, PHANI LAB_1 Performing Organization Address [facility] Phon e Number PN SOFT [address] [place] [address] TSH (11/21/2017 10:04 AM DAIRY CHEMIST) athologist Signature Thyroid 0.60 0.30 - PN SOFT Stimulating 4.50 Hormone uIU/mL Specimen Anatomical Collection Method Collection Time Receive d Time (Source) Location / / Volume Laterality 11/21/2017 10:04 11/21/2017 3:53 AM DAIRY CHEMIST PM DAIRY CHEMIST Narrative PN SOFT - 11/21/2017 5:21 PM DAIRY CHEMIST Performed at [address] [address] CLIA number [id number] Althea Kelley APRN, PHANI LAB_1 Performing Organization Address [facility] Phon e Number PN SOFT [address] [place] [address] Microalbumin Urine Random (11/21/2017 10:04 AM DAIRY CHEMIST) athologist Signature Microalbumin <10.0 mg/L PN SOFT Urine U Creat Random 54 mg/dL PN SOFT Microalbumin/Crea <10.0 0.0 - 30.0 PN SOFT tinine Ratio Specimen Anatomical Collection Method Collection Time Receive d Time (Source) Location / / Volume Laterality Urine specimen 11/21/2017 10: 8 4:15 (specimen) AM DAIRY CHEMIST PM DAIRY CHEMIST Narrative PN SOFT - 11/21/2017 4:16 PM DAIRY CHEMIST Performed at [facility] [place] [address] [place] [address] CLIA number [id number] Althea Kelley APRN, PHANI LAB_1 Performing Organization Address [facility]/State/ZIP Code Phon e Number PN SOFT [address] [place] [address] (ABNORMAL) Creatinine (11/21/2017 10:04 AM DAIRY CHEMIST) Analysis Performed At Patho logist Time Signature [...] / Volume Laterality 11/21/2017 10:04 11/21/2017 AM DAIRY CHEMIST 10:04 AM DAIRY CHEMIST Narrative PN SOFT - 11/21/2017 10:40 AM DAIRY CHEMIST Performed at [facility], [address] [place] [address] CLIA number [id number] Althea Kelley APRN, CNP LAB_1 Performing Organization Address [facility]/ZIP [facility] Phon e Number PN SOFT [address] [place] [address] (ABNORMAL) POCT glycosylated hemoglobin (Hb A1C) (11/21/2017 9:06 AM DAIRY CHEMIST) athologist Signature Hemoglobin A1C, 6.0 (A) 4 - 5.6 % PN POCT POC Cartridge Lot# [id number] PN POCT Specimen (Source) Anatomical Collection Method Collection Time Re ceived Time Location / / Volume Laterality Blood specimen 11/21/2017 9:06 AM (specimen) DAIRY CHEMIST Althea Kelley APRN, CNP PN POINT OF CARE TESTS Performing Organization Address City/[facility]/ZIP [facility] Phon e Number POCT PN POCT documented [...] uncontrolled documented in this encounter Care Teams Bessemer Converter Operator Relationship Specialty Start Date End Date Non Pn, Clinician, PCP - General 06/27/16 [place] [address] documented as of this encounter
--- OUTSIDE RECORDS SUMMARY | 2022-09-23 07:48 | XMS_ITS | Encounter Summary ---
:1980 Author Organization [employer] Address [address] [place] [address] Care Team Providers Name Role Phone Non Pn, Clinician MD Primary Care Provider Unavailable Reason for Visit Reason Comments Diabetes Follow-up Encounter Details Date Type Department Care Team Description 07/13/2018 Office Visit Althea Rosenthal, Type 1 diabe isaac mellitus without complication (HRC) (Primary Dx); Endocrinology PHANI MINOR Insulin pump status [address] [employer] [address] [address] [facility] [phone] [place], [place] [id number] Social History Tobacco Use Types Packs/Day Years Used Date Smoking Tobacco: Never Smokeless Tobacco: Never Alcohol Use Standard Drinks/Week Comments No 0 (1 standard drink = 0.6 oz pure alcoho l) Sex Assigned at Date Recorded Not on file documented as of this encounter Last Filed Vital Signs Vital Sign Reading Time Taken Comments Blood Pressure 110/64 07/13/2018 8:16 AM CDT Pulse 84 07/13/2018 8:16 AM CDT Temperature - - Respiratory Rate - - Oxygen Saturation - - Inhaled Oxygen Concentration - - Weight 71.3 kg (157 lb 1.6 oz) 07/13/2018 8:16 AM CDT Height 162.6 cm (5' 4) 07/13/2018 8:16 AM CDT Body Mass Index 26.97 07/13/2018 8:16 AM CDT documented in this encounter Progress Notes Althea Kelley, PHANI MINOR - 07/13/2018 12:00 PM CDT NAME: KARIN MCMILLAN MR#: [id number] CSN: [id number] AUTHENTICATING CLINICIAN: Althea Kelley APRN, MANUFACTURING TECHNOLOGY PROFESSOR CONFIRM #: [id number] LOC: 532 CLINIC PROGRESS NOTE DATE OF VISIT: 07/13/2018 : 1980 ENCOUNTER: [id number]. SUBJECTIVE: Karin, 38-year-old woman, type 1 diabetes diagnosed at age 22, utilizing a 530-G pump with a sensor, now 18 weeks 5 days gestation with her first child. EDC 12/06/2018. LMP 03/02/2018. The patient has elevated protein in her 24-hour urine protein, per her REPORTING ANALYST, Dr. Katy Peres. The patient states she had a normal structural ultrasound recently, which gave her great relief. REVIEW OF SYSTEMS: She states she just returned home from a trip to [place]. Her muscles are tight. She has had some swelling in her feet. She also notes that she continues to be exhausted, as her schedule has been very busy. She indicates that she has been emotional, as she is just tired of thinking about diabetes and . Remainder of complete review of systems is negative. SOCIAL HISTORY: She is . No children yet. 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 No tobacco. No alcohol. EYE EXAM: Out of date, June of 2016. FOOT EXAM: 04/2018. MEDICATIONS: Insulin in her 530-G pump as noted in the encounter upload. Other Medications: vitamin, Prometrium 100 mg daily, vitamin B6 50 mg daily, and Anafranil 50 mg daily. OBJECTIVE: GENERAL: Female patient, becomes somewhat tearful during our visit indicating that she is just very tired from her schedule of travel and performance. She appears slightly less anxious than she has at previous visits. VITAL SIGNS: Weight 157.1, which is up 5 pounds since last month. Blood pressure 110/64, pulse 84 and regular. LABS: A1c today is 5.7%, similar to 5.6% on June 15. She has had labs at her REPORTING ANALYST provider. Her TSH prior to was 0.6, with no TPO antibodies. She is having kidney function tests with Dr. Peres in regard to potential preeclampsia on a regular basis, per patient report. Blood glucose data is reviewed very carefully. Average blood sugar by sensor is 121 plus or minus 48. Wearing the sensor almost 100% of the time. No severe hypoglycemia. There is a tendency toward lowsaround midnight, and again before dinner. There is a bit of a tendency toward an elevation after breakfast, with some of the blood glucose levels running up into the 160 or 170 range at peak. Excellentcontrol overall and very careful monitoring. ASSESSMENT: 1.Type 1 diabetes. 2.Intrauterine , now 18 weeks 5 days gestation. 3.Insulin pump and sensor use. 4.Patient reports 24-hour protein elevated per REPORTING ANALYST team, followed by OB. PLAN: 1.Adjust basal rates to reduce the incidence of the low blood glucose levels in the afternoons and at midnight. New basal rates: Midnight 0.55; 3:30 a.m. increase to 0.7; 7 a.m. continue 1.0; 11:30 a.m. continue 0.95; 2:30 p.m. decrease to 0.975; 9 p.m. decrease slightly to 0.9. This is a new basal of20.75. 2.Increase ratio at breakfast to 1 unit for 6.5 grams. 3.Patient is commended for her hard work, continued diligence in watching her blood glucose levels. We talked about typical insulin requirements in , and the typical management of diabetes in throughout. Emotional support is provided. 4.I will send a copy of this note to her REPORTING ANALYST team. 5.Return to the clinic in 1 month for followup. She also has an appointment scheduled with Dr. Ayde Warren on October 23, upcoming. She will be needing to update her eye exam in this , and we will discuss this at our next visit. CC: DR. KATY PERES [address] [place] [address] CHIRAGL:LICHA C: CONFIRM #: [id number] Leonila Romo RN - 07/13/2018 8:00 AM CDT Images from the original note were not included. documented in this encounter Plan of Treatment Upcoming Encounters Date Type Specialty Care Team Description 11/01/2022 Appointment Endocrinology Althea Kelley, JAVA ENGINEER, MANUFACTURING TECHNOLOGY PROFESSOR [address] [place] [address] [address] (Wo rk) 12/27/2022 Appointment Endocrinology Ayde Warren MBBS [address] [address] documented as of this encounter Procedures Procedure Name Priority Date/Time Associated Diagnosis Comme nts POCT GLYCOSYLATED Routine 07/13/2018 8:37 AM Type 1 diabetes R esults for this HEMOGLOBIN (HGB A1C) CDT mellitus without pro cedure are in complication (HR C) the results Insulin pump status section. documented in this encounter Results (ABNORMAL) POCT glycosylated hemoglobin (Hb A1C) (07/13/2018 8:37 AM CDT) P athologist Signature Hemoglobin A1C, 5.7 (A) 4 - 5.6 % PN POCT POC Cartridge Lot# [id number] PN POCT Specimen (Source) Anatomical Collection Method Collection Time Re ceived Time Location / / Volume Laterality Blood specimen 07/13/2018 8:37 AM (specimen) CDT Althea Kelley APRN, MANUFACTURING TECHNOLOGY PROFESSOR PN POINT OF CARE TESTS Performing Organization Address City/State/ZIP Code Phon e Number POCT PN POCT documented in this encounter Visit Diagnoses Diagnosis Type 1 diabetes mellitus without complic ation (HRC) - Primary Type I (juvenile type) diabetes mellitus without mention of complication, not stated as uncontrolled Insulin pump status (HRC) Insulin pump status documented in this encounter Care Teams Matzo Forming Machine Operator Relationship Specialty Start Date End Date Non Pn, Clinician, PCP - General 06/27/16 [place] [address] documented as of this encounter
--- OUTSIDE RECORDS SUMMARY | 2022-09-23 07:48 | XMS_ITS | Encounter Summary ---
:1980 Author Organization [facility] Address [address], [place] [address] Care Team Providers Name Role Phone Pcp, Pt Declines Primary Care Provider Reason for Visit Reason Comments Refill Encounter Details Date Type Department Care Team Description 03/17/2016 Refill [facility] [address] Collette Pantoja MD Refill Endocrinology [address] [facility] [address] [facility] [place], [place] [address] [place] [address] [phone] Social History Tobacco Use Types Packs/Day Years Used Date Smoking Tobacco: Never Assessed Sex Assigned at Date Recorded Not on file documented as of this encounter Nursing Notes Hwiot Ontiveros, RN - 03/17/2016 11:11 AM CDT Renewed medication per medication refill protocol. Requested Prescriptions Signed Prescriptions Disp Refills ??? insulin aspart (NOVOLOG) 100 unit/mL injection 30 mL 0 Sig: Inject 28-40 Units subcutaneously 2 times daily (before meals). via insulin pump Authorizing Provider: COLLETTE PANTOJA Ordering User: HIWOT ONTIVEROS Sabrina Velasquez - 03/17/2016 9:32 AM CDT Last visit: 10/13/15 Future visit: 06/07/16 Last fill: 01/12/16 CHIEF EXPLORATION OFFICER documented in this encounter Plan of Treatment Upcoming Encounters Date Type Specialty Care Team Description 11/01/2022 Appointment Endocrinology Althea Kelley, DIAL MOUNTER, SDET [address] [facility] [address] [address] (Wo rk) 12/27/2022 Appointment Endocrinology Ayde Warren MBBS [address] [facility] [address] [address] documented as of this encounter Visit Diagnoses Not on filedocumented in this encounter Care Teams Paint Grinder Stone [employer] Relationship Specialty Start Date End Date Pcp, Miguel Sutherland MD PCP - General 11/06/13 06/26/16 [place], [place] [phone] documented as of this encounter
--- OUTSIDE RECORDS SUMMARY | 2022-09-23 07:48 | XMS_ITS | Encounter Summary ---
:1980 Author Organization [facility] Address [address] [place] [address] Care Team Providers Name Role Phone Non Pn, Clinician MD Primary Care Provider Unavailable Encounter Details Date Type Department Care Team Description 11/25/2016 Lab Visit Sen Laborator luz Type 1 diabetes mellitus [address] [facility] without complication (HRC) [place] [address] Social History Tobacco Use Types Packs/Day Years Used Date Smoking Tobacco: Never Alcohol Use Standard Drinks/Week Comments Yes 0 (1 standard drink = 0.6 oz pure alcoho l) Sex Assigned at Date Recorded Not on file documented as of this encounter Plan of Treatment Upcoming Encounters Date Type Specialty Care Team Description 11/01/2022 Appointment Endocrinology Althea Kelley, DRONE OPERATOR, DIGESTION OPERATOR [address] [address] (Wo rk) 12/27/2022 Appointment Endocrinology Ayde Warren, MBBS [address] [phone] documented as of this encounter Procedures Procedure Name Priority Date/Time Associated Diagnosis Comme nts ALBUMIN/CREAT RATIO Routine 11/25/2016 9:58 AM Type 1 diabetes Results for this PUBLISHING MANAGER mellitus without procedure a re in complication (HRC) the resul ts section. LDL CHOLESTEROL, Routine 11/25/2016 9:48 AM Type 1 diabetes Re sults for this DIRECT MEASURED PUBLISHING MANAGER mellitus without procedur e are in complication (HRC) the [facility] ts section. CREATININE / GFR Routine 11/25/2016 9:48 AM Type 1 diabetes Re sults for this PUBLISHING MANAGER mellitus without procedure a re in complication (HRC) the resul ts section. documented in this encounter Results Microalbumin Urine Random (11/25/2016 9:58 AM PUBLISHING MANAGER) athologist Signature Microalbumin <10.0 mg/L PN SOFT Urine U Creat Random 56 mg/dL PN SOFT Microalbumin/Crea <10.0 0.0 - 30.0 PN SOFT tinine Ratio Specimen Anatomical Collection Method Collection Time Receive d Time (Source) Location / / Volume Laterality Urine specimen 11/25/2016 9:58 AM 017 9:58 (specimen) PUBLISHING MANAGER AM PUBLISHING MANAGER Narrative PN SOFT - 11/25/2016 10:46 AM PUBLISHING MANAGER Performed at [facility], [address] [place] [address] CLIA number [id number] Althea Kelley APRN, CNP LAB_1 Performing Organization Address [facility] Phon e Number PN SOFT [address] [place] [address] Direct LDL (11/25/2016 9:48 AM PUBLISHING MANAGER) athologist Signature LDL Direct 93 0 - 130 PN SOFT mg/dL Specimen Anatomical Collection Method Collection Time Receive d Time (Source) Location / / Volume Laterality 11/25/2016 9:48 AM 7 9:48 PUBLISHING MANAGER AM PUBLISHING MANAGER Narrative PN SOFT - 11/25/2016 10:14 AM PUBLISHING MANAGER Performed at [facility], [facility] [address] [place] [address] CLIA number [id number] Althea Kelley APRN, CNP LAB_1 Performing Organization Address [facility] Phon e Number PN SOFT [address] [place] [address] Creatinine (11/25/2016 9:48 AM PUBLISHING MANAGER) athologist Signature Creatinine Serum 0.60 0.55 - [...] Volume Laterality 11/25/2016 9:48 AM 7 9:48 PUBLISHING MANAGER AM PUBLISHING MANAGER Narrative PN SOFT - 11/25/2016 10:14 AM PUBLISHING MANAGER Performed at [facility], [address] [place] [address] CLIA number [id number] Althea Kelley APRN, DIGESTION OPERATOR LAB_1 Performing Organization Address City/State/ZIP Code Phon e Number PN SOFT [address] [place] [address] documented in this encounter Visit Diagnoses Diagnosis Type 1 diabetes mellitus without complic ation (HRC) Type I (juvenile type) diabetes mellitus without mention of complication, not stated as uncontrolled documented in this encounter Care Teams Water Valve Repairer Relationship Specialty Start Date End Date Non Pn, Clinician, PCP - General 06/27/16 [place] [address] documented as of this encounter
--- OUTSIDE RECORDS SUMMARY | 2022-09-23 07:48 | XMS_ITS | Encounter Summary ---
:1980 Author Organization [employer] Address [address] [place] [address] Care Team Providers Name Role Phone Non Pn, Clinician MD Primary Care Provider Unavailable Reason for Visit Reason Comments Diabetes Follow-up Encounter Details Date Type Department Care Team Description 06/15/2018 Office Visit Althea Rosenthal, Type 1 diabe isaac mellitus without complication (HRC) (Primary Dx); Endocrinology PHANI MINOR Insulin pump status; [address] Pre-existing type 1 diabetes mellitus during in first [place] [address] [facility] [phone] [place], [place] [id number] Social History Tobacco Use Types Packs/Day Years Used Date Smoking Tobacco: Never Smokeless Tobacco: Never Alcohol Use Standard Drinks/Week Comments No 0 (1 standard drink = 0.6 oz pure alcoho l) Sex Assigned at Date Recorded Not on file documented as of this encounter Last Filed Vital Signs Vital Sign Reading Time Taken Comments Blood Pressure 112/60 06/15/2018 8:04 AM CDT Pulse 84 06/15/2018 8:04 AM CDT Temperature - - Respiratory Rate - - Oxygen Saturation - - Inhaled Oxygen Concentration - - Weight 69.4 kg (152 lb 14.4 oz) 06/15/2018 8:04 AM CDT Height 162.6 cm (5' 4) 06/15/2018 8:04 AM CDT Body Mass Index 26.25 06/15/2018 8:04 AM CDT documented in this encounter Patient Instructions Patient InstructionsAlthea Kelley, MILY, PHANI - 06/15/2018 8:00 AM CDT We increased the correction after 7pm so that it will be more aggressive. Please try really hard to give bolus 10-15 min before you eat. Look at patterns after 1-2 days. Ask OB about pump in labor. I 'll will send my note to Dr. Mcqueen. If you need to schedule or have questions about your appointment, call [phone]. If you have medical questions or concerns, please contact your doctor's triage nurse at [phone]. documented in this encounter Progress Notes Althea Kelley APRN, CNP - 06/15/2018 8:00 AM CDT Images from the original note were not included. [facility] Adult Endocrinology [facility], [facility] [address] [address], [phone] June 15, 2018 Karin Mcmillan a 38 y.o. female is here for Type 1 Diabetes in pregancy. Hx of miscarriages. Herlast office visit was 05/07/18 with me Chief Complaint: Type 1 diabetes dx at age 22 . Now . History of Present Illness: Gestational Age: 14w5d Estimated Date of Delivery: 12/06/18 LMP 03/02/18 Pt is a 530 G [employer] pump. Also utilizes a sensor continuously. She is understandably quite anxious during this , was told by her ObGyn Dr. Katy Mcqueen this last week that she did have elevated protein in her 24-hour urine sample. She is quite anxious now about possible preeclampsia in thefuture. She watches her blood glucose levels extremely closely. She tries to cover her food carefully, but admits to sometimes entering in different carbohydrate amounts in order to have the pump give her a bit more less insulin. She tends to make adjustments in her settings daily, which can make it difficultto see patterns. Current Diabetes Treatment Regimen: See pump settings in the uploaded data of encounter. 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 See blood glucose levels entered into encounter. Average blood sugar by sensor: 117+ or -41. Average blood sugar by finger sticks when she tests, to give corrections: 155+ or -40. Overall, excellent control without severe hypoglycemia. She sometimes has a difficult peak after meals, then drops a bit b efore the next meal. Vitals: BP 112/60 (BP Location: Left Arm, BP Cuff Size: Adult Regular) Pulse 84 Ht 5' 4 (1.626 m) Wt 152 lb 14.4 oz (69.4 kg) BMI 26.25 kg/m2 Estimated body mass index is 26.25 kg/(m^2) as calculated from the following: Height as of this encounter: 5' 4 (1.626 m). Weight as of this encounter: 152 lb 14.4 oz (69.4 kg). Indicates she had her TSH level drawn yesterday by her ObGyn. She is never had any history of abnormal thyroid function tests. Assessment: Karin is a 38 y.o. female who was seen today for Type 1 Diabetes, In with Great control and some anxiety Last A1c: Lab Results Component Value Date/Time EXT RSLT - A1C 8.0 03/24/2012 Hemoglobin A1C Rapid 6.8 (H) 10/13/2015 1422 Hemoglobin A1C, POC 5.6 06/15/2018 0824 Today's BP: 112/60 Diagnoses and Orders Placed: 1. Type 1 diabetes mellitus without complication (HRC) 2. Insulin pump status (HRC) 3. Pre-existing type 1 diabetes mellitus during in first trimester Plan: 1. Adjust sensitivity of 7 PM to 50, this should increase her corrections in the evening hours to bemore aggressive. 2. Time pre-meal boluses 10-15 minutes before eating to allow for better postmeal coverage without later dropping blood glucose level 3. Long discussion about type I diabetes in ,: Normal it is to have levels of anxiety. Typical extra testing required in for women with diabetes. Emotional support provided. 4. Patient will make an appointment with me in 3 weeks, will call sooner or upload daily in the interim. Appointment with Dr. Warren in a few months as well. Spent 30 min with the patient in review of the treatment plan, DDX, potential outcomes and side effects of medications indicated. Answered questions in detail. Greater than 50% of time was spent counseling the patient. Medical History: No Known Allergies Past Medical History: Diagnosis Date ??? Diabetes mellitus (HRC) DM1 Social History Substance Use Topics ??? Smoking status: Never Smoker ??? Smokeless tobacco: Never Used ??? Alcohol use No No past surgical history on file. No family history on file. Current Outpatient Prescriptions Medication Sig Dispense Refill ??? acetaminophen (TYLENOL) 325 MG tablet Take 325-650 mg by mouth every 4 hours as needed for Pain. ??? acetone urine (KETOSTIX) test strip Use to test daily. 100 Each 3 ??? aspirin 81 MG tablet Take 81 mg by mouth daily. ??? blood glucose (Trampoline CONTOUR NEXT) test strip Use 8-10 times daily 750 Strip 3 ??? clomiPRAMINE (ANAFRANIL) 50 MG capsule Take 50 mg by mouth every evening. ??? CONTOUR NEXT EZ MONITOR Use as directed. Pharmacy dispense brand based on insurance. 1 Each 0 ??? Generic Medication (DIABETIC SUPPLIES) by [facility].(Non-Drug; Combo Route) route. [employer] form forpump and testing supplies faxed to [phone] ??? glucagon, human recombinant, (GLUCAGON,HUMAN RECOMBINANT) 1 MG injection Inject 1 mg subcutaneously as needed for Hypoglycemia. 1 Kit 0 ??? insulin aspart (NOVOLOG) 100 UNIT/ML injection (vial) Infuse via insulin pump. Maximum daily dose 50 units. 40 mL 3 ??? insulin glargine (LANTUS) 100 UNIT/ML injection Inject 20 Units subcutaneously daily. HOLD FOR PT CALL 10 mL 3 ??? insulin syringe-needle 28G X 1/2 inch 0.3 mL 28G X 1/2 0.3 ML use with pump failure 50 Each 3 ??? lancets (MILTON MICROLET) Use 1 to test 8-10 times daily. Use as directed. Pharmacy dispense brand based on insurance. 300 Each 11 ??? magnesium oxide (AKA MAG-OX 400) 250 MG tablet daily with breakfast. ??? ONE TOUCH ULTRA 2 meter Use to test as needed (Use to test as needed for High Blood Sugar.). 1 Each 1 ??? ONETOUCH DELICA lancets Use 1 each to test 4 times daily. 200 each 11 ??? MV-Min-Fe Fum-FA-DHA ( 1 OR) ??? progesterone micronized (PROMETRIUM) 100 MG capsule Take 100 mg by mouth two times a day. ??? pyridoxine (VITAMIN B-6) 50 MG tablet Take 50 mg by mouth daily. No current facility-administered medications for this visit. documented in this encounter Plan of Treatment Upcoming Encounters Date Type Specialty Care Team Description 11/01/2022 Appointment Endocrinology Althea Kelley APRN, RESUME SPECIALIST [address] [address] (Wo rk) 12/27/2022 Appointment Endocrinology Ayde Warren MBBS [address] [facility] [address] N [phone] documented as of this encounter Procedures Procedure Name Priority Date/Time Associated Diagnosis Comme nts POCT GLYCOSYLATED Routine 06/15/2018 8:24 AM Type 1 diabetes R esults for this HEMOGLOBIN (HGB A1C) CDT mellitus without pro cedure are in complication (HR C) the results Insulin pump status section. documented in this encounter Results POCT glycosylated hemoglobin (Hb A1C) (06/15/2018 8:24 AM CDT) P athologist Signature Hemoglobin A1C, 5.6 4 - 5.6 % PN POCT POC Cartridge Lot# [id number] PN POCT Specimen (Source) Anatomical Collection Method Collection Time Re ceived Time Location / / Volume Laterality Blood specimen 06/15/2018 8:24 AM (specimen) CDT Althea Kelley APRN, RESUME SPECIALIST PN POINT OF CARE TESTS Performing Organization [...] trimester documented in this encounter Care Teams Digital Advertising Analyst Relationship Specialty Start Date End Date Non Pn, Clinician, PCP - General 06/27/16 [place] [address] documented as of this encounter
--- OUTSIDE RECORDS SUMMARY | 2022-09-23 07:48 | XMS_ITS | Encounter Summary ---
:1980 Author Organization [employer] Address [address] [place] [address] Care Team Providers Name Role Phone Non Pn, Clinician MD Primary Care Provider Unavailable Reason for Visit Reason Comments Diabetes Encounter Details Date Type Department Care Team Description 11/25/2016 Office Visit Althea Rosenthal, Type 1 diabe isaac mellitus without complication (HRC) (Primary Dx); Endocrinology PHANI MINOR Insulin pump status; [address] [employer] [facility] [place] [address] [facility] [phone] [place], [place] [id number] Social History Tobacco Use Types Packs/Day Years Used Date Smoking Tobacco: Never Alcohol Use Standard Drinks/Week Comments Yes 0 (1 standard drink = 0.6 oz pure alcoho l) Sex Assigned at Date Recorded Not on file documented as of this encounter Last Filed Vital Signs Vital Sign Reading Time Taken Comments Blood Pressure 100/62 11/25/2016 10:17 AM PODIATRIC FOOT AND ANKLE SPECIALIST Pulse 74 11/25/2016 10:17 AM PODIATRIC FOOT AND ANKLE SPECIALIST Temperature - - Respiratory Rate - - Oxygen Saturation - - Inhaled Oxygen Concentration - - Weight 66.7 kg (147 lb 1.6 oz) 11/25/2016 10:14 AM PODIATRIC FOOT AND ANKLE SPECIALIST Height 161.3 cm (5' 3.5) 11/25/2016 10:14 AM PODIATRIC FOOT AND ANKLE SPECIALIST Body Mass Index 25.65 11/25/2016 10:14 AM PODIATRIC FOOT AND ANKLE SPECIALIST documented in this encounter Patient Instructions Patient InstructionsAlthea Kelley, PHANI MINOR - 11/25/2016 10:45 AM PODIATRIC FOOT AND ANKLE SPECIALIST Use the wizard as much as you can--for correction and meals. Do NOT set temp basals at all. EXPECT your corrections to take at least 2 hours to work. We increased your bolus from noon to midnight to 1/10 grams. If you want to try a dual wave bolus--you can try for the larger meals Goal is more stability--less variability. More confidence/assurance in dosing. If you need to schedule or have questions about your appointment, call [phone]. If you have medical questions or concerns, please contact your doctor's triage nurse at [phone]. ATRIC FOOT AND ANKLE SPECIALIST documented in this encounter Progress Notes Althea Kelley APRN, CNP - 11/25/2016 2:19 PM CST [facility]: [address] [place] [address] Clinic: [address] [place] [address] [phone], Nurse Line: [phone] Diabetes Progress Note 11/25/16 Subjective: Karin Mcmillan is a 36 y.o. female who is here for Type 1 Diabetes diagnosed at age 22 with no known microvascular complications. She did miscarry her earlier this year. She continues to use a MiniMed 530 G-551 pump with sensor, plans to work toward another soon. Last office visit was 10/12/16 with me. HPI: Patient comes stating that she and her are continuing to grieve over there loss. She states her blood glucose levels have been extremely variable lately. Reports that she feels is almost impossible to have very good blood sugars with type I diabetes, but is willing to put in theeffort to improve her levels overall. She does note that she feels the large amounts of carbohydrateare more difficult to manage them smaller amounts, so when she was , she ate only very limited amounts of carb at any one time. This seemed to work pretty well for her. She does bring up a lot of concerns about what the average daily dose is, what a typical ratio should be, etc. She is very concerned about taking the right amount. She denies any problems or concerns on complete review of systems at this time Current Diabetes Treatment Regimen: NovoLog in her pump as follows: Basal rates: Midnight 0.775 2 AM 0.575 7 AM 0.9 11 AM 0.95 2:30 PM 0.9 9 PM 0.95 Total basal: 20.05 Bolus settings: Ratios: Midnight 10 g, noon 12 g. Sensitivity: Midnight 40, 11:30 AM 60. Targets: 60-90 during the day, 90-120 from 9 PM to midnight. Target from midnight to 6 AM is 94-130. Total daily dose: 35.5+ or -5 units a day. 45% as basal, 55% as bolus. Other medications: vitamin every day. Lantus p.r.n with pump failure.. All medications reviewed and updated in [employer] today. Glucose Monitoring: Home glucose monitoring: Testing BG 2.2 times daily, Wears the sensor almost all the time BG Range: Average blood sugar by fingerstick is 161+ or -68. 61% are above 140, 11% are below 70. By sensor, average 137+ or -46. As I look at her individual days, it becomes very apparent that she is frequently using temporary basal rates or suspending her pump nasal rate. She then gives frequent boluses without using the wizardoften between 0.5 and 1.5 units at a time multiple times. She admits that she does not see enough ofan effect from her 1st bolus, so she will continue to bolus. She then gets worried that her blood sugars dropping and suspends basal rate. Last eye exam: June 2016. Objective: Today's A1c: 5.9%, up slightly from 5.8% in September Physical Exam: BP 100/62 mmHg Pulse 74 Ht 5' 3.5 (1.613 m) Wt 147 lb 1.6 oz (66.724 kg) BMI 25.65 kg/m2, Estimated body mass index is 25.65 kg/(m^2) as calculated from the following: Height as of this encounter: 5' 3.5 (1.613 m). Weight as of this encounter: 147 lb 1.6 oz (66.724 kg). General: Pleasant Female in NAD. Very talkitive, somewhat difficult to stay on one issue/concern. Assessment: 1. Type 1 Diabetes with Good control. Utilizing an insulin pump and sensor, but not utilizing the bolus wizard set up, seems to be micromanaging her numbers by the sensor data day by day. 2. Blood pressure: In target 3. planning for another Plan: 1. Encouraged the patient to use the bolus wizard as much as she can for meals and corrections. She is advised to not use temporary basal rates at all for now until we can figure out what her basal rates need to be. 2. She is advised to expect for corrections to take at least 2 hours to work. I have discouraged herfrom taking multiple small boluses trying to get her blood glucose levels down, as then she often feels that she gets too low. 3. Discussed the goal of more stability and less variability. Discussed more confident/assurance in dosing 4. Increased bolus from noon to midnight to 1 unit for 10 g. Did discuss the possible use of the dual wave bolus if she feels her blood glucose levels are running too high for too long. 5. Follow up in 3 months sooner if she conceives. Asked patient to call with any questions or concerns. 6. Patient is advised that she can download her data and email us to let us know that it has been downloaded. Spent 35 min with the patient in review of the diagnoses, treatment plan, potential outcomes and side effects of medications indicated. Answered questions in detail. Greater than 50% of time was spent counseling the patient. Althea Kelley APRN, CNP Adult Endocrinology PMHx: Past Medical History Diagnosis Date ??? Diabetes mellitus (HRC) DM1 FHx: No family history on file. SHx: Social History Substance Use Topics ??? Smoking status: Never Smoker ??? Smokeless tobacco: None ??? Alcohol Use: Yes ATRIC FOOT AND ANKLE SPECIALIST documented in this encounter Plan of Treatment Upcoming Encounters Date Type Specialty Care Team Description 11/01/2022 Appointment Endocrinology Althea Kelley APRN, CNP [address] [place] [id number] (Wo rk) 12/27/2022 Appointment Endocrinology Ayde Warren, KERWIN [address] [place] [address] [id number] documented as of this encounter Procedures Procedure Name Priority Date/Time Associated Diagnosis Comme nts POCT GLYCOSYLATED Routine 11/25/2016 10:22 Type 1 diabetes Res ults for this HEMOGLOBIN (HGB A1C) AM PODIATRIC FOOT AND ANKLE SPECIALIST mellitus without pro cedure are in complication (HRC) the resul ts section. documented in this encounter Results (ABNORMAL) POCT glycosylated hemoglobin (Hb A1C) (11/25/2016 10:22 AM PODIATRIC FOOT AND ANKLE SPECIALIST) P athologist Signature Hemoglobin A1C, 5.9 (A) 4 - 5.6 % PN POCT POC Cartridge Lot# [id number] PN POCT Specimen (Source) Anatomical Collection Method Collection Time Re ceived Time Location / / Volume Laterality Blood specimen 11/25/2016 10:22 (specimen) AM PODIATRIC FOOT AND ANKLE SPECIALIST Althea Kelley DRONE PILOT, PERFORMANCE IMPROVEMENT ANALYST PN POINT OF CARE TESTS Performing Organization [...] advice documented in this encounter Care Teams Environmental Programs Manager Relationship Specialty Start Date End Date Non Pn, Clinician, MD PCP - General 06/27/16 [place] [address] documented as of this encounter
--- OUTSIDE RECORDS SUMMARY | 2022-09-23 07:48 | XMS_ITS | Encounter Summary ---
:1980 Author Organization [employer] Address [address] [place] [address] Care Team Providers Name Role Phone Non Pn, Clinician MD Primary Care Provider Unavailable Reason for Visit Reason Comments Skin Check Encounter Details Date Type Department Care Team Description 07/18/2016 Initial Consult [facility] [address] Magdalena Najera MD, Benign nevus of skin (Primary Dx); Dermatology PhD Cantu angioma; [address] [facility] [address] matofibroma; [address] Seborrheic keratosis; [place], [place] n-damaged skin; [phone] Encounter for screening for malignant ne oplasm of skin; [phone] Edema extremiti es (Work) Social History Tobacco Use Types Packs/Day Years Used Date Smoking Tobacco: Never Sex Assigned at Date Recorded Not on file documented as of this encounter Patient Instructions Patient InstructionsMagdalena Najera MD, PhD - 07/18/2016 9:33 AM CDT In General: 1. Thicker is better!!! Use CREAM not LOTION (it be written right on the lable) 2. Apply at least twice a day, more frequently is better if you can manage it. Hands should be moisturized after EVERY wash 3. Look for the following ingredients for more power in certain situations: Ceramides: for all skin types or locations. Like adding more glue between the bricks that make up your skin wall.' Examples: CeraVe, Cetaphil Restoraderm, Eucerin Eczema Relief, Aveeno Eczema Care and Curel Bleaching creams Apply twice daily to dark areas. Wear sunscreen SPF 30 or greater to prevent areas from darkening. Over the counter (2% hydroquinone) Try Ambi Fade Cream, Dr. Canelo Davis's Fade Cream, [place]. Call [phone] if you would like usto send in the 4% hydroquinone cream. This will not be covered by insurance as it is a cosmetic use.Tube maybe $50 or more Over the counter (without hydroquinone) Clinique Even Better Prescription (4% hydroquinone or Tri-Christa) Apply twice a day to focal areas of brown spots. May stop in areas when clear. Usually takes at least 8 weeks to see results. Use 10-12 weeks then discontinue. May do 2 courses per year (spring and fall). documented in this encounter Progress Notes Magdalena Najera MD, PhD - 07/19/2016 11:00 PM CDT Chief Complaint Patient presents with ??? Skin Check History of Present Illness: Karin Mcmillan is a 36 y.o. female who presents to clinic today for a full body skin examination. Patient is new to [facility]. Today, she is concerned about raised spots on her legsthat are new. She denies any itching, bleeding, or discomfort. The patient also mentions a raised brown spot on her posterior right shoulder that she thinks is quite new. She mentions slight discomfortbut not flaking or bleeding. In addition, the patient would also like a few brown spots on her back checked though asymptomatic. She mentions similar brown spots on her neck as well. Lastly, she statesthat she has a dark spot on her right cheek that she believes is a age spot. The patient would like to know if there are treatments available. She is otherwise well and does not have any other skin concerns. Of note, the patient mentions her history of diabetes and having to use a insulin pump. She states that she has skin irritation and redness under her insulin pump and adhesive sites which tend to pop up after removal of the pump or adhesives. The patient mentions slight itching. The patient also mentions a history of cellulitis. She mentions recent swelling in her feet. She has tried compression stockings and is considering lymphatic massage. Past Medical History: No history of skin cancer. Diabetes. History of cellulitis. Family History: No family history of skin cancer. 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 Patient is trying to get . Medications: The patient has a current medication list which includes the following prescription(s): blood glucose, blood-glucose meter, diabetic supplies, miscellan., insulin aspart, insulin glargine, insulin syringe-needle u-100, one touch delica, and onetouch ultra2. Allergies: The patient has No Known Allergies. Review of Systems: General/Constitutional: No fever, chills, unexplained weight loss. Skin: See HPI for pertinent positives. No other bleeding, itching, peeling, changing skin lesions other than reported in HPI. Physical Examination: General: Well-appearing female, in no distress, alert and oriented, ambulates without difficulty. Skin: Full body skin exam performed including the head, neck, chest, back, abdomen, arms, and legs. Did not examine genitals. Pertinent findings: - 1 cm compound congenital nevus, medium brown on the right posterior shoulder with normal pattern under dermoscopy. - Firm brown/pink papule with positive dimple sign, central stellate white area on dermoscopy on theleft lower leg x2. No friability or other worrisome features. - Brown, woody stuck-on appearing papules are visualized on the neck, trunk, and extremities classicfor seborrheic keratoses. In the lesions examined with dermoscopy, milia-like cysts and comedo-like openings are visualized. - Bright red 1-3 mm papules classic for cantu angiomas present. - Scattered compound congenital nevi and junctional nevi are noted in examined areas. They are well-demarcated and symmetrical in pigmentation. Dermoscopic features are regular without atypia. No clinical outliers. - 1 cm solar lentigo on the right zygomatic cheek and right jew. - Mild photodamage. Exam otherwise was normal. Assessment and Plan: 1. Congenital nevus, right posterior shoulder. Clinically benign; reassurance given. 2. Dermatofibroma. Patient is reassured regarding the benign nature of this finding. Return for evaluation if any growth or change occurs. 3. Seborrheic keratoses. Reassured patient regarding the benign nature of this finding. Dicussed etiology and expectations for gradual accumulation of these over their lifetime. 4. Cantu angiomas. Reassured patient regarding the benign nature of this finding. 5. Benign-appearing nevi. No lesions worrisome for melanoma observed on exam today. Reviewed following nevi at home, and returning to clinic if any changes or concerns. 6. Solar lentigo, right zygomatic cheek and jew. Recommended OTC Hydroquinone 2 % bleaching topical or Clinique even better serum. Instructed her to spot treat only with whichever product she chooses. 7. Skin irritation, insulin pump site and due to adhesive. Recommended daily moisturization with ceramides such as CeraVe, Cetaphil, Vanicream, etc. Discussed techniques such as paper tape if water proof adhesive is not needed. Goal is to manage irritation to minimize risk of evolution to true allergy. 8. Edema, lower extremities. Reiterated that compression stockings are great for this especially with her travelling. Recommendedcutting down sodium in her daily diet. 9. Mild diffuse photo damage and skin cancer screening. Reviewed importance of daily sunscreen, warning signs of skin cancer, need for regular self skin exams, and return to clinic if any new or worrisome spots arise. No lesions worrisome for melanoma or non-melanoma skin cancer on exam today. Follow up: Return to clinic PRN, sooner for new concerns. Scribe Disclosure: Cony Mercado, am serving as a scribe to document services personally performed by Magdalena Najera MD at this visit, based upon the providers statements to me. All documentation has been reviewedby the aforementioned doctor prior to being entered into the official medical record. Entered on 07/18/2016. Magdalena Mercado MD, attest that the above named individual is acting in scribe capacity, has observed my performance of the services performed at this visit and has documented them in accordance with my direction. Entered on 07/18/2016 at 9:03 AM. BARIATRIC documented in this encounter Plan of Treatment Upcoming Encounters Date Type Specialty Care Team Description 11/01/2022 Appointment Endocrinology Althea Kelley, RESEARCH PHLEBOTOMIST, EDITORIAL INTERN [address] [place] [id number] (Wo rk) 12/27/2022 Appointment Endocrinology Ayde Warren, MBBS [address] [place] [address] [id number] documented as of this encounter Visit Diagnoses Diagnosis Benign nevus of skin - Primary Benign neoplasm of skin, site unspecifie d Cantu angioma Nevus, non-neoplastic Dermatofibroma Benign neoplasm of skin, site unspecifie d Seborrheic keratosis Other seborrheic keratosis Sun-damaged skin Other chronic dermatitis due to solar ra diation Encounter for screening for malignant ne oplasm of skin Screening for malignant neoplasm of the skin Edema extremities Edema documented in this encounter Care Teams Lathe Machinist Relationship Specialty Start Date End Date Non Pn, Clinician, MD PCP - General 06/27/16 [place] [address] documented as of this encounter
--- OUTSIDE RECORDS SUMMARY | 2022-09-23 07:48 | XMS_ITS | Encounter Summary ---
:1980 Author Organization [facility] Address [address], [place] [address] Care Team Providers Name Role Phone Non Pn, Clinician MD Primary Care Provider Unavailable Reason for Visit Reason Comments Forms Encounter Details Date Type Department Care Team Description 03/29/2019 Telephone [facility] [address] Warren MBBS Forms Endocrinology [address] [place] [address] [place] [address] [phone] Social History Tobacco Use Types Packs/Day Years Used Date Smoking Tobacco: Never Smokeless Tobacco: Never Alcohol Use Standard Drinks/Week Comments No 0 (1 standard drink = 0.6 oz pure alcoho l) Sex Assigned at Date Recorded Not on file documented as of this encounter Nursing Notes Prashanth Neil, RN - 03/29/2019 2:43 PM CDT Pt calling to see if [employer] form has arrived for sensors, she will call them and ask them to re fax documented in this encounter Plan of Treatment Upcoming Encounters Date Type Specialty Care Team Description 11/01/2022 Appointment Endocrinology Althea Kelley, RESIDENTIAL SALES MANAGER, BEHAVIORAL SCIENTIST [address] [facility] [address] [address] (Wo rk) 12/27/2022 Appointment Endocrinology Ayde Warren MBBS [address] [facility] [address] [address] documented as of this encounter Visit Diagnoses Not on filedocumented in this encounter Care Teams Briquette Machine Operator Relationship Specialty Start Date End Date Non Pn, Clinician, PCP - General 06/27/16 [place] [address] documented as of this encounter
--- OUTSIDE RECORDS SUMMARY | 2022-09-23 07:48 | XMS_ITS | Encounter Summary ---
:1980 Author Organization [facility] Address [address] [place] [address] Care Team Providers Name Role Phone Non Pn, Clinician MD Primary Care Provider Unavailable Reason for Visit Reason Comments Diabetes Encounter Details Date Type Department Care Team Description 03/13/2018 Office Visit Marley Haley Type 1 darien betes mellitus without complication (HRC) (Primary Dx); Endocrinology MD Dominic Insulin pump status; [address] [place] [address] Hypoglycemia unawareness in type 1 diabetes mellitus (HRC); [place] [address] [address] Desire for ; [phone] [place], [place] Female inf ertility, unexplained [address] Social History Tobacco Use Types Packs/Day Years Used Date Smoking Tobacco: Never Smokeless Tobacco: Never Alcohol Use Standard Drinks/Week Comments No 0 (1 standard drink = 0.6 oz pure alcoho l) Sex Assigned at Date Recorded Not on file documented as of this encounter Last Filed Vital Signs Vital Sign Reading Time Taken Comments Blood Pressure 130/86 03/13/2018 10:31 AM CDT Pulse 96 03/13/2018 10:31 AM CDT Temperature - - Respiratory Rate - - Oxygen Saturation - - Inhaled Oxygen Concentration - - Weight 67.8 kg (149 lb 6.4 oz) 03/13/2018 10:31 AM CDT Height 162.6 cm (5' 4) 03/13/2018 10:31 AM CDT Body Mass Index 25.64 03/13/2018 10:31 AM CDT documented in this encounter Patient Instructions Patient InstructionsMarley Carter MD - 03/13/2018 10:25 AM CDT A1c 5.9% - still excellent! We made some minor changes to your pump settings (overnight basal rates,insulin to carb ratios) but then please do your best to be as accurate as possible with the carb counting and avoid manual boluses and overriding to help us know if the current settings are good for you. Try to bolus 5-10 min before your home meals as much as possible. Please contact [employer] to see if you can upgrade to thr 670G system now. This can be used in manual mode before and during and the sensor is much better than the Enlite sensor you currentlyhave. documented in this encounter Progress Notes Marley Carter MD - 03/13/2018 7:47 PM CDT NAME: KARIN MCMILLAN MR#: [id number] CSN: [id number] AUTHENTICATING CLINICIAN: Marley Carter MD CONFIRM #: [id number] LOC: 532 CLINIC PROGRESS NOTE DATE OF VISIT: 03/13/2018 : 1980 CHIEF COMPLAINT: Followup of type 1 diabetes. HISTORY OF PRESENT ILLNESS: Mrs. Mcmillan is a 38-year-old woman, whom I am meeting for the first time today to followup on type1 diabetes diagnosed at age 22. No known complications. She was previously a patient of Dr. Jarrell; last visit in November 2017. Karin has been trying for for 1-1/2 years and has had 2 miscarriages during that time. Since her last miscarriage in November, she has seen a casting machine set up operator at [place] and is undergoing further evaluation, but to date there has been no cause found forher difficulty maintaining a . They may proceed with IVF in the near future. Karin is understandably emotional and frustrated about this as well as frustrated by the impact of pregnancies and fertility treatments on her blood sugars. Karin uses a Med[employer]ure Fortress 530G insulin pump, which we downloaded today. Current pump settings are: Basal rates midnight 0.725, 2:30 a.m. 0.55, 7 a.m. 0.925, 11:30 a.m. 0.85, 9 p.m. 0.9, for a total basal dose of 19.225 units per day. Bolus is midnight 13, 6 p.m. 15, with a sensitivity of 65 all day. Target range 75-100 mg/dL during the day (6 a.m. to 9 p.m.) and 100-120 mg/dL in the evening (9 p.m. to midnight). Active insulin time 3 hours. Maximum bolus 10 units. Average total daily insulin dose is 36 units with 53% basal and 47% bolus. Karin prefers to intentionally run her basals slightly high, while also slightly under bolusing for carbohydrates intake. She finds this keeps her blood sugars more stable with less risk of lows after meals. She generally boluses right before she eats but for practical reasons she finds it very hard to bolus any earlier than that. In addition, doing that would also make her nervous. However, she also notes frustration with post meal highs and admits to being impatient with the corrections (oftengiving multiple manual corrections in quick succession after meals, then getting low). She feels that during or other times of stress it seems to take the insulin a long time to work, and in t hose cases she is at greater risk for stacking doses and subsequent lows. She uses manual boluses quite frequently in addition to the bolus wizard, but she overrides the bolus wizard frequently as well. The unpredictability with her blood sugars is quite frustrating to her. Karin checks her blood sugar an average of 5 times per day in addition to using her sensor almost continuously, and we downloaded both devices today. Over the past 2 weeks, average glucose by meteris 189 +/- 85 with 56% of readings above target and 3% below target. By sensor over the same time period, average is 143 +/- 57. Her blood sugar has been trending up most nights recently, often despitehaving a good blood sugar in the evening. Given how many extra corrections she gives manually throughout the day, it is hard to determine patterns for her, but my sense is that her current bolus dosingis inadequate. She has a hard time quantifying how often lows happen. On her download there were 2 less than 70 in the past 2 weeks, one in the early afternoon, one in the late evening. She generally gets cognitive symptoms less than 50-55 mg/dL but does not get any adrenergic symptoms. She had 1 severe low in November 2017 where her found her out of it but not completely unconscious, and hewas able to get her some juice and wake her up. She is good about always carrying juice or other carbohydrate with her. Of note, Karin has heard about the Medtronic 670G hybrid closed-loop system but is aware that this system should not be used in . However, she is very excited about it and wonders if she might still be a candidate for it. She has frustrations with her current Enlite sensor. SOCIAL HISTORY: Patient is with no children yet. 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 She has a lot of upcoming travel for work planned over the summer. REVIEW OF SYSTEMS: GI: Negative for abdominal pain or diarrhea. She wonders if she should be tested for celiac disease as part of her infertility workup, though she is clear that she does not have any symptoms to suggestthat. PHYSICAL EXAM: VITAL SIGNS: Blood pressure 130/86, pulse 96, weight 149.4 pounds, height 5 feet 4 inches, BMI 25.6. CONSTITUTIONAL: Healthy-appearing young woman, awake and alert, very pleasant. PSYCHIATRIC: Tearful at times during the visit when discussing her recent infertility. Appropriate affect. LABS: Point of care hemoglobin A1c today 5.9%. From 11/21/2017: Creatinine 0.50, estimated GFR > 60, urine tbrcpdh-xa-wkkzppfhrz ratio < 10, TSH 0.60, LDL 71. ASSESSMENT: 1. Type 1 diabetes without complication. 2. Insulin pump status, Medtronic 530G. 3. Idiopathic infertility with strong desire for . 4. Hypoglycemia unawareness. PLAN: I congratulated Karin on maintaining an excellent A1c, and empathized with her frustration aboutthe variability of her blood sugars. We agreed to increase her overnight basal rates (midnight 0.825, 9 p.m. 0.8), and we increased her psssdqu-ks-jsgq ratios all day (midnight 12, 6 p.m. 13). I strongly encouraged her to use the bolus wizard consistently and not override this both for her safety (to decrease risk of stacking doses), and to help us see patterns in her data more easily. I also strongly encouraged her to be as accurate as possible with her carb counting and to input the actual amount of carb she will be eating into the pump. I explained why it would be ideal to bolus 5-10 minutes before her home meals as much as possible, though I agreed that for safety it is best to wait until her food is in front of her before bolusing at restaurants. We discussed the dangers of stacking insulin doses when she gives multiple manual corrections in short succession and how this can contribute to hypoglycemia unawareness. Finally, we discussed the features of the 670G system, and explained why it is not FDA approved to be used in . However, I think she would still be a great candidate to upgrade to the 670G system now and simply use it in manual mode leading up to and during her so she can use the improved sensor, and she is very interested in that. In addition, that would allow her to switch into auto mode shortly after if she would like to do that. I sent a refill for her NovoLog, and Bella sent a prescription for glucagon and strongly encouraged her to learn how to use this in case of severe lows. She will return in 3 months to see me or Althea. I emphasized that she should call us right away when she is so she can be seen every 2-3 weeks, and we briefly discussed how insulin needs typically change during . All of her questions were answered. Total time of visit: 40 minutes, with 25 minutes spent counseling. JFI:MEDQ C: CONFIRM #: [id number] documented in this encounter Plan of Treatment Upcoming Encounters Date Type Specialty Care Team Description 11/01/2022 Appointment Endocrinology Althea Kelley, ENVIRONMENTAL HEALTH SANITARIAN, HOTEL RESERVATIONIST [address] [id number] (Wo rk) 12/27/2022 Appointment Endocrinology Ayde Warren MBBS [address] [id number] documented as of this encounter Procedures Procedure Name Priority Date/Time Associated Diagnosis Comme nts POCT GLYCOSYLATED Routine 03/13/2018 10:45 Type 1 diabetes Res ults for this HEMOGLOBIN (HGB A1C) AM CDT mellitus without pro cedure are in complication (HRC) the resul ts section. documented in this encounter Results (ABNORMAL) POCT glycosylated hemoglobin (Hb A1C) (03/13/2018 10:45 AM CDT) P athologist Signature Hemoglobin A1C, 5.9 (A) 4 - 5.6 % PN POCT POC Cartridge Lot# [id number] PN POCT Specimen (Source) Anatomical Collection Method Collection Time Re ceived Time Location / / Volume Laterality Blood specimen 03/13/2018 10:45 (specimen) AM CDT Marley Carter MD PN POINT OF CARE TESTS Performing Organization Address City/State/ZIP Code Phon e Number POCT PN POCT documented in this encounter Visit Diagnoses Diagnosis Type 1 diabetes mellitus without complic ation ([facility]) - Primary Type I (juvenile type) diabetes mellitus without mention of complication, not stated as uncontrolled Insulin pump status (HRC) Insulin pump status Hypoglycemia unawareness in type 1 diabe isaac mellitus (HRC) Type I (juvenile type) diabetes mellitus with other specified manifestations, not stated as uncontrolled Desire for Unspecified procreative management Female infertility, unexplained documented in this encounter Care Teams Entry Level Project Engineer Relationship Specialty Start Date End Date Non Pn, Clinician, PCP - General 06/27/16 [place] [address] documented as of this encounter
--- OUTSIDE RECORDS SUMMARY | 2022-09-23 07:48 | XMS_ITS | Encounter Summary ---
:1980 Author Organization [email or web address] Address [address] [place] [address] Care Team Providers Name Role Phone Non Pn, Clinician MD Primary Care Provider Unavailable Reason for Visit Reason Comments Follow-up Encounter Details Date Type Department Care Team Description 09/27/2016 Office Visit Radha Kearns, Pre-yuliana spangler type 1 diabetes mellitus during in first trimester (Primary Dx); Endocrinology [facility] [address] [place], [place] [address] [place] [address] [place] [address] Social History Tobacco Use Types Packs/Day Years Used Date Smoking Tobacco: Never Alcohol Use Standard Drinks/Week Comments No 0 (1 standard drink = 0.6 oz pure alcoho l) Sex Assigned at Date Recorded Not on file documented as of this encounter Last Filed Vital Signs Vital Sign Reading Time Taken Comments Blood Pressure 104/62 09/27/2016 4:20 PM SOCK MENDER Pulse 88 09/27/2016 4:20 PM SOCK MENDER Temperature - - Respiratory Rate - - Oxygen Saturation - - Inhaled Oxygen Concentration - - Weight 64.9 kg (143 lb) 09/27/2016 4:20 PM SOCK MENDER Height 161.3 cm (5' 3.5) 09/27/2016 4:20 PM SOCK MENDER Body Mass Index 24.93 09/27/2016 4:20 PM SOCK MENDER documented in this encounter Progress Notes Radha Jarrell - 09/30/2016 10:56 AM CST NAME: KARIN MCMILLAN MR#: [id number] CSN: [id number] AUTHENTICATING CLINICIAN: Radha Jarrell MD CONFIRM #: [id number] LOC: 306 CLINIC PROGRESS NOTE DATE OF VISIT: 09/27/2016 : 1980 SUBJECTIVE: Karin is a 36-year-old woman here for followup. She has type 1 diabetes and had her first . However, just had her first OB visit today and unfortunately, the ultrasound showed no heartbeat. She is having a D and C tomorrow. She is here with her . She said she is sad, but doing okay. Her last A1c was 5.8%. She said it has been very difficult to keep the control that she has had. She does feel nervous about another . She is wondering about the new 630G insulin pump that iscoming out in the spring. She may be interested in trying it. We did talk about that I would not likely want to check pump type during , but if she does not have another before the new pump is available, then that would be definitely reasonable to try. Her current settings on a MiniMed 530G insulin pump with NovoLog are basal 23.413 units, midnight 1.0, 2:30 a.m. 0.75, 7 a.m. 1.1, 11 a.m. 0.925, 2:30 p.m. 1.0, 6:30 p.m. 1.0, and 10 p.m. 1.2. Bolus is midnight 1/8, 12 p.m. 1/12. Sensitivity 12/14. Target 6 a.m. 80-110, 9 p.m. 100-140. Active insulin time is 4 hours. She said over the last weekend, she felt like she had increased insulin resistance. She wonders if that is when she was actually miscarrying. Her average blood sugar is 117 on her glucose sensor, which she wears continuously. She is also testing 4-5 times per day. Karin said she is struggling with some of the aspects of her diabetes in that she is worried about the effect of her overall control on her , which is of course very appropriate, but she does also tend to keep in close contact with me and our nurse practitioner by e-mail since her started. PAST MEDICAL HISTORY: Type 1 diabetes. Miscarriage, current. CURRENT MEDICATIONS: NovoLog in her pump, vitamin, B6 50 mg daily. ALLERGIES: Holton tape. SOCIAL HISTORY: She is to Fermin, who is here with her. 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 PHYSICAL EXAM: Blood pressure is 104/62. Pulse is 88. Weight is 143 pounds. GENERAL: A very pleasant woman here, appropriately distressed. LABS: Her A1c is 5.8%. ASSESSMENT: Type 1 diabetes., now miscarrying her first at 8 weeks. PLAN: Long discussion with Karin about her diabetes control. She has done an excellent job, and I reassured her that there was nothing different that she could have done to prevent this outcome. She understands that, had questions about what her future will be. We also discussed whether she could switch to the new Medtronic 530G insulin pump in the future, and I think that would depend on when her next ensues, as I would be unlikely to want her to switch pumps during . Fornow, will keep followup appointments she has in November and February and if she is sooner, juliana call for a sooner appointment. Forty-five minutes with the patient, more than half in counseling. CC: MAXIM KELLEY, HILLARY [address] [place] [address] [place] [address] LTL:MEDQ C: CONFIRM #: [id number] MENDER documented in this encounter Plan of Treatment Upcoming Encounters Date Type Specialty Care Team Description 11/01/2022 Appointment Endocrinology Maxim Kelley, INFORMATION AND REFERRAL DIRECTOR, TALENT ACQUISITION PROJECT MANAGER [address] [id number] (Wo rk) 12/27/2022 Appointment Endocrinology Ayde Warren, KERWIN [address] [id number] documented as of this encounter Visit Diagnoses Diagnosis Pre-existing type 1 diabetes mellitus du ring in first trimester - Primary Insulin pump status (HRC) Insulin pump status Miscarriage Unspecified spontaneous without mention of complication documented in this encounter Care Teams Complaint Clerk Relationship Specialty Start Date End Date Non Pn, Clinician, PCP - General 06/27/16 [place] [address] documented as of this encounter
--- OUTSIDE RECORDS SUMMARY | 2022-09-23 07:48 | XMS_ITS | Encounter Summary ---
:1980 Author [address] [facility] Address [address] [place] [address] Care Team Providers Name Role Phone Non Pn, Clinician MD Primary Care Provider Unavailable Reason for Visit Reason Comments Follow-up Encounter Details Date Type Department Care Team Description 03/14/2017 Office Visit Radha Kearns, Type 1 diab etes mellitus without complication (HRC) (Primary Dx); Endocrinology MD Insulin pump status [address] [facility] [address] [place], [place] [address] [place] [address] [place] [address] Social History Tobacco Use Types Packs/Day Years Used Date Smoking Tobacco: Never Alcohol Use Standard Drinks/Week Comments Yes 0 (1 standard drink = 0.6 oz pure alcoho l) Sex Assigned at Date Recorded Not on file documented as of this encounter Last Filed Vital Signs Vital Sign Reading Time Taken Comments Blood Pressure 116/62 03/14/2017 10:06 AM CDT Pulse 82 03/14/2017 10:06 AM CDT Temperature - - Respiratory Rate - - Oxygen Saturation - - Inhaled Oxygen Concentration - - Weight 67.3 kg (148 lb 4.8 oz) 03/14/2017 10:06 AM CDT Height 165.1 cm (5' 5) 03/14/2017 10:06 AM CDT Body Mass Index 24.68 03/14/2017 10:06 AM CDT documented in this encounter Progress Notes Radha Jarrell - 03/22/2017 2:51 PM CDT NAME: KARIN MCMILLAN MR#: [id number] CSN: [id number] AUTHENTICATING CLINICIAN: Radha Jarrell MD CONFIRM #: [id number] LOC: 306 CLINIC PROGRESS NOTE DATE OF VISIT: 03/14/2017 : 1980 SUBJECTIVE: Karin is a 37-year-old woman here for followup of type 1 diabetes, diagnosis age 22. No chronic complications. She had a miscarriage last September. She is trying to pursue a second . She met with our nurse practitioner in November of this year and felt like it was very helpful. She said she has stopped using the temporary basal so often, and when she pays attention and also trying not to over manage/micro manage her continuous glucose sensor, and she feels like that has helped. Her A1c is excellent at 5.9%. She is on a MiniMed 530G insulin pump using NovoLog. Her current settings are basal 18.588 units, midnight 0.65, 2:30 0.55, 7 a.m. 0.9, 11:00 0.85, 2:30 p.m. 0.825, 6:30 p.m. 0.825 and 9 p.m. 0.85. Carb ratio is midnight 1/10, 12 p.m. 1/9, 6 p.m. 1/10. Sensitivity midnight 1/50, 6 a.m. 1/40 and 11:30 a.m. /40. She is lowering her reported carbohydrates to prevent over bolusing. Her sensor average is 122. Her average on the glucose meter is 168. Total daily insulin 29.4, basal 63%, bolus 37%. Reviewed her sensor data. She has also noticed a trend that week 3 of hercycle menstrual cycle she tends to have higher blood sugars. She is trying to lose weight and feels like the amount she eats really affects the amount her basal needs. She felt like she knew exactly what her basal rates needed to be, but then has noticed this trend with her menstrual cycle. PAST MEDICAL HISTORY: Type 1 diabetes. CURRENT MEDICATIONS: NovoLog in her pump. ALLERGIES: None known. 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 PHYSICAL EXAM: Blood pressure 116/62. Pulse is 82. Weight is 148 pounds. GENERAL: A very pleasant woman here, in no distress. I did not an exam for time in counseling today. LABS: A1c is 5.9% today. ASSESSMENT: Type 1 diabetes, controlled on an insulin pump and continuous glucose sensor. Preparing for . PLAN: 1. She is using wizard, but overriding it almost 100% of the time, so we are going to change her boluses to 1/13 across the board and change the correction to 1/60 across the board and asked her to usethe wizard consistently and not override it. 2. For week 3 of her cycle, she could try using a temporary basal or upping her basal rates during that time by 0.05 units/hour. She is quite insulin sensitive. 3. Discussed ongoing goal of good stability of blood sugar and have a close followup visit in 3 months with the nurse practitioner in [place] and 6 months with me. If she is sooner, should be seen sooner. Forty-five minutes with the patient, more than half in counseling. CC: JOSE HUNTLEY MD [address] [address] LTL:LICHA C: CONFIRM #: [id number] documented in this encounter Plan of Treatment Upcoming Encounters Date Type Specialty Care Team Description 11/01/2022 Appointment Endocrinology Althea Kelley, LEGAL TRANSCRIBER, EQUIPMENT SALES SPECIALIST [address] [facility] N [phone] (Wo rk) 12/27/2022 Appointment Endocrinology Ayde Warren MBBS [address] [facility] N [phone] documented as of this encounter Visit Diagnoses Diagnosis Type 1 diabetes mellitus without complic ation (HRC) - Primary Type I (juvenile type) diabetes mellitus without mention of complication, not stated as uncontrolled Insulin pump status (HRC) Insulin pump status documented in this encounter Care Teams Instant Powder Supervisor Relationship Specialty Start Date End Date Non Pn, Clinician, PCP - General 06/27/16 [place] [address] documented as of this encounter
--- OUTSIDE RECORDS SUMMARY | 2022-09-23 07:49 | XMS_ITS | Encounter Summary ---
:[address] Address [address] [place] [address] Care Team Providers Name Role Phone Pcp, Pt Declines Primary Care Provider Reason for Visit Reason Comments Refill Encounter Details Date Type Department Care Team Description 01/10/[address] [facility] [address] Tyron Acosta MD Refill Endocrinology [address] [place] [address] [place] [address] [phone] Social History Tobacco Use Types Packs/Day Years Used Date Smoking Tobacco: Never Assessed Sex Assigned at Date Recorded Not on file documented as of this encounter Nursing Notes Prashanth Neil, RN - 01/12/2016 7:57 AM CST rx faxed, needs appt K BAR ATTENDANT documented in this encounter Plan of Treatment Upcoming Encounters Date Type Specialty Care Team Description 11/01/2022 Appointment Endocrinology Althea Kelley, PRODUCTION BOW MAKER, VOTING MACHINE MECHANIC [address] [facility] N [phone] (Wo rk) 12/27/2022 Appointment Endocrinology Ayde Warren, MBBS [address] [facility] N [id number] documented as of this encounter Visit Diagnoses Not on filedocumented in this encounter Care Teams Programs Assistant Relationship Specialty Start Date End Date Pcp, Miguel Sutherland MD PCP - General 11/06/13 06/26/16 [place] [address] documented as of this encounter
--- OUTSIDE RECORDS SUMMARY | 2022-09-23 07:49 | XMS_ITS | Encounter Summary ---
:1980 Author Organization [employer] Address [address], [place] [address] Care Team Providers Name Role Phone Pcp, Pt Declines MD Primary Care Provider Reason for Visit Reason Comments Prior Authorization Request Encounter Details Date Type Department Care Team Description 08/03/2015 Telephone [facility] 3800 Radha Jarrell, Prior Authorization Endocrinology MD Request 3800 [facility] [address] [place] [address]. [address] [place] [address] [phone] Social History Tobacco Use Types Packs/Day Years Used Date Smoking Tobacco: Never Assessed Sex Assigned at Date Recorded Not on file documented as of this encounter Nursing Notes Meagan Field RN - 08/10/2015 10:49 AM CDT Prior authorization for test strips approved. Patient notified. Meagan Field RN - 08/03/2015 2:53 PM CDT Prior authorization for quantity override sent through [employer]. Will await response. Radha Jarrell - 08/03/2015 2:18 PM CDT Please start Meagan GARCIA, thanks! Meagan Dennis RN - 08/03/2015 1:23 PM CDT pt is calling and reported if the PA gets denied she would like an rx for a lesser amount. please advise. Autumn Colón, [facility] - 08/03/2015 12:22 PM CDT Patient calling clinic to up date that she needs a PA for her test strips. She is on an insulin pumpand the strips communicate with her pump. She also is testing 8-10 times daily and insurance needs quanity override. Insurance is [facility] of [place], ID number is [id number]. documented in this encounter Plan of Treatment Upcoming Encounters Date Type Specialty Care Team Description 11/01/2022 Appointment Endocrinology Althea Kelley, WOMEN DESIGNER, REGISTERED SAFETY ENGINEER [address] [facility] [address] [address] (Wo rk) 12/27/2022 Appointment Endocrinology Ayde Warren, MBBS [address] [facility] N [id number] documented as of this encounter Visit Diagnoses Not on filedocumented in this encounter Care Teams Chiller Operator Relationship Specialty Start Date End Date Pcp, Miguel Sutherland MD PCP - General 11/06/13 06/26/16 [place], [place] [id number] documented as of this encounter
--- OUTSIDE RECORDS SUMMARY | 2022-09-23 07:49 | XMS_ITS | Encounter Summary ---
:1980 Author Organization [employer] Address [address] [place] [address] Care Team Providers Name Role Phone Pcp, Pt Ena MEZA Primary Care Provider Reason for Visit Reason Comments Diabetes Encounter Details Date Type Department Care Team Description 11/05/2014 Telephone [facility] 3800 Tyron Acosta MD Diabetes [facility] [facility] [address] [place] [address] [place], [place] [id number] [phone] Social History Tobacco Use Types Packs/Day Years Used Date Smoking Tobacco: Never Assessed Sex Assigned at Date Recorded Not on file documented as of this encounter Nursing Notes Autumn Colón CMA - 11/10/2014 1:49 PM CST patient notified of the provider's recommendations below. E FORMER Ike Acosta MD - 11/10/2014 1:38 PM CST Best treatment is topical 2x/ day, with very consistent use. It's nature is to be recurring. In addition to topical cream, can try antifungal powder (OTC) in the shoe. Make sure feet can air some each day so not always damp in shoe. Since recurring, we can try fluconazole 150 mg once weekly x 3 weeks (Tx course is 2-6 weeks). If not resolved or ongoing problems, we can have her see Dermatology (or her PCP). Rx sent. Prashanth Neil, RN - 11/05/2014 9:53 AM CST pt states over last 6 months has had athletes foot, has treated multiple times with OTC products butkeeps coming back, asks you call in rx for this. Encouraged her to see PMD but she requests I send this request. Patient at [phone] E FORMER documented in this encounter Plan of Treatment Upcoming Encounters Date Type Specialty Care Team Description 11/01/2022 Appointment Endocrinology Althea Kelley, HIGH SCHOOL PHYSICAL EDUCATION TEACHER, DATA ANALYTICS ANALYST [address] [facility] N [id number] (Wo rk) 12/27/2022 Appointment Endocrinology Ayde Warren MBBS [address] [facility] N [id number] documented as of this encounter Visit Diagnoses Not on filedocumented in this encounter Care Teams Rn Recovery Relationship Specialty Start Date End Date Pcp, Miguel Sutherland MD PCP - General 11/06/13 06/26/16 [place], [place] [phone] documented as of this encounter
--- OUTSIDE RECORDS SUMMARY | 2022-09-23 07:49 | XMS_ITS | Encounter Summary ---
:1980 Author Organization [facility] Address [address] [place] [address] Care Team Providers Name Role Phone Pcp, Pt Declines MD Primary Care Provider Encounter Details Date Type Department Care Team Description 10/23/2014 Lab Visit Sen escobar Type I (juvenile type) [address] [facility] diabetes [place] [address] mention of complication, not [phone] stated as uncon trolled Social History Tobacco Use Types Packs/Day Years Used Date Smoking Tobacco: Never Assessed Sex Assigned at Date Recorded Not on file documented as of this encounter Plan of Treatment Upcoming Encounters Date Type Specialty Care Team Description 11/01/2022 Appointment Endocrinology Althea Kelley, RECYCLING COORDINATOR, PAPER CLEANER [address] [address] (Wo rk) 12/27/2022 Appointment Endocrinology Ayde Warren, MBBS [address] [address] documented as of this encounter Procedures Procedure Name Priority Date/Time Associated Diagnosis Comme nts LDL CHOLESTEROL, Routine 10/23/2014 12:17 Type I (juvenile Res ults for this DIRECT MEASURED PM STEAM CONDITIONER FILLING type) diabetes procedure are in mellitus without the results mention of section. complication, not stated as uncontrolled (HRC) CREATININE / GFR Routine 10/23/2014 12:17 Type I (juvenile Res ults for this PM STEAM CONDITIONER FILLING type) diabetes procedure are in mellitus without the results mention of section. complication, not stated as uncontrolled (HRC) ALBUMIN/CREAT RATIO Routine 10/23/2014 12:00 Type I (juvenile Results for this PM STEAM CONDITIONER FILLING type) diabetes procedure are in mellitus without the results mention of section. complication, not stated as uncontrolled (HRC) documented in this encounter Results LDL Cholesterol, Direct Measured (10/23/2014 12:17 PM STEAM CONDITIONER FILLING) athologist Signature LDL Direct 83 0 - 130 HP CONVERSION mg/dL Specimen Anatomical Collection Method Collection Time Receive d Time (Source) Location / / Volume Laterality 10/23/2014 12:17 10/23/2014 PM STEAM CONDITIONER FILLING 12:17 PM STEAM CONDITIONER FILLING Narrative HP CONVERSION - 10/23/2014 4:05 PM STEAM CONDITIONER FILLING Performed at [place] [facility] [address] [place] [address] Ike Acosta MD LAB_1 Performing Organization Address [facility] Phon e Number HP CONVERSION Creatinine / GFR (10/23/2014 12:17 PM STEAM CONDITIONER FILLING) athologist Signature Creatinine 0.7 0.4 - 1.3 HP CONVERSION Serum mg/dL Est GFR >60 >60 HP CONVERSION Am mL/min/1.7 3m2 Est GFR Non-Afr >60 >60 HP CONVERSION Am mL/min/1.7 3m2 Comment: Normal>60, moderate decrease 30 - 59, se ángela decrease 15 - 29, renal failure <15 mL/min/1.73 m2 NOTE: ??Choose the eGFR result above adis ropriate for the race of the patient. Specimen Anatomical Collection Method Collection Time Receive d Time (Source) Location / / Volume Laterality 10/23/2014 12:17 10/23/2014 PM STEAM CONDITIONER FILLING 12:17 PM STEAM CONDITIONER FILLING Narrative HP CONVERSION - 10/23/2014 4:05 PM STEAM CONDITIONER FILLING Performed at [place] [facility] [address] [place] [address] Ike Acosta MD LAB_1 Performing Organization Address [facility] Phon e Number HP CONVERSION Microalb/Creat Ratio (10/23/2014 12:00 PM STEAM CONDITIONER FILLING) Analysis Performed At Patho logist Time Signature Microalbumin <6.0 mg/L HP CONVERSION Urine U Creat Random 21 mg/dL HP CONVERSION Microalbumin/Crea <10.0 0.0 - 30.0 HP CONVERSI ON tinine Ratio Specimen Anatomical Collection Method Collection Time Receive d Time (Source) Location / / Volume Laterality 10/23/2014 12:00 10/23/2014 3:42 PM STEAM CONDITIONER FILLING PM STEAM CONDITIONER FILLING Ike Acosta MD LAB_1 Performing Organization Address City/State/ZIP Code Phon e Number HP CONVERSION documented in this encounter Visit Diagnoses Diagnosis Type I (juvenile type) diabetes mellitus without mention of complication, not stated as uncontrolled (HRC) Type I (juvenile type) diabetes mellitus without mention of complication, not stated as uncontrolled documented in this encounter Care Teams Emissions Repair Technician Relationship Specialty Start Date End Date Pcp, Miguel Sutherland MD PCP - General 11/06/13 06/26/16 [place], [place] [phone] documented as of this encounter
--- OUTSIDE RECORDS SUMMARY | 2022-09-23 07:49 | XMS_ITS | Encounter Summary ---
:1980 Author Organization [employer] Address [address], [place] [address] Care Team Providers Name Role Phone Pcp, Pt Declines MD Primary Care Provider Reason for Visit Reason Comments Refill Encounter Details Date Type Department Care Team Description 01/02/2015 Notes/Orders [place] [address] Marco Grahma, Endocrinology MILY, FURRIER APPRENTICE [address] [place] [address] [place], [place] [phone] (Wo rk) Social History Tobacco Use Types Packs/Day Years Used Date Smoking Tobacco: Never Assessed Sex Assigned at Date Recorded Not on file documented as of this encounter Progress Notes Marco Graham - 01/02/2015 1:45 PM CST Rx request refilled and e-sent to pharmacy per protocol. Requested Prescriptions Signed Prescriptions Disp Refills ??? insulin aspart (NOVOLOG) 100 unit/mL injection 30 mL 11 Sig: Inject 28-40 Units subcutaneously daily (every 24 hours). via pump C S S REPRESENTATIVE documented in this encounter Plan of Treatment Upcoming Encounters Date Type Specialty Care Team Description 11/01/2022 Appointment Endocrinology Althea Kelley, COMPRESSED AIR PILE DRIVER OPERATOR, FURRIER APPRENTICE [address] [facility] N [phone] (Wo rk) 12/27/2022 Appointment Endocrinology Ayde Warren, MBBS [address] [place] [address] [address] documented as of this encounter Visit Diagnoses Not on filedocumented in this encounter Care Teams Publishing Systems Analyst Relationship Specialty Start Date End Date Pcp, Miguel Sutherland MD PCP - General 11/06/13 06/26/16 [facility] [place] [address] documented as of this encounter
--- OUTSIDE RECORDS SUMMARY | 2022-09-23 07:49 | XMS_ITS | Encounter Summary ---
:1980 Author Organization [employer] [facility] [facility] Address [address], [place] [address] Care Team Providers Name Role Phone Miguel Jimenez MD Primary Care Provider Reason for Visit Reason Comments Forms Encounter Details Date Type Department Care Team Description 08/10/[address] [facility] 3800 Radha Jarrell MD Forms Endocrinology [address] [place] [address] [place], [place] [id number] [phone] Social History Tobacco Use Types Packs/Day Years Used Date Smoking Tobacco: Never Assessed Sex Assigned at Date Recorded Not on file documented as of this encounter Plan of Treatment Upcoming Encounters Date Type Specialty Care Team Description 11/01/2022 Appointment Endocrinology Althea Kelley, ENTRY LEVEL PROJECT ENGINEER, SEAFOOD CLERK [address] [facility] N [address] (Wo rk) 12/27/2022 Appointment Endocrinology Ayde Warren MBBS [address] [facility] N [address] documented as of this encounter Visit Diagnoses Not on filedocumented in this encounter Care Teams Drying Room Operator Relationship Specialty Start Date End Date Miguel Jimenez MD PCP - General 11/06/13 06/26/16 [address] [place] [phone] documented as of this encounter
--- OUTSIDE RECORDS SUMMARY | 2022-09-23 07:49 | XMS_ITS | Encounter Summary ---
:1980 Author Organization [employer] Address [address] [place] [address] Care Team Providers Name Role Phone Pcp, Pt Declines MD Primary Care Provider Reason for Visit Reason Comments Diabetes Encounter Details Date Type Department Care Team Description 06/15/[address] [facility] 3800 Radha Jarrell, Type I (juvenile type) Endocrinology diabetes mellitus [address] [facility] complication, not [place], [place] stat ed as uncontrolled [id number] (Primary Dx) [phone] Social History Tobacco Use Types Packs/Day Years Used Date Smoking Tobacco: Never Assessed Sex Assigned at Date Recorded Not on file documented as of this encounter Last Filed Vital Signs Vital Sign Reading Time Taken Comments Blood Pressure 100/70 06/15/2015 10:26 AM CDT Pulse 80 06/15/2015 10:26 AM CDT Temperature - - Respiratory Rate - - Oxygen Saturation - - Inhaled Oxygen Concentration - - Weight 64.2 kg (141 lb 8 oz) 06/15/2015 10:26 AM CDT Height 165.1 cm (5' 5) 06/15/2015 10:26 AM CDT Body Mass Index 23.55 06/15/2015 10:26 AM CDT documented in this encounter Progress Notes Radha Jarrell - 06/15/2015 3:00 PM CDT Progress Notes signed by Radha Jarrell MD at 07/05/15 [id number] Author: Radha Jarrell MD Service: (none) Author Type: Physician Filed: 07/05/15 1732 Note Time: 06/16/15509 Status: Signed Classification Clerk: Radha Jarrell MD (Physician) NAME: KARIN MCMILLAN MR#: [id number] CSN: [id number] AUTHENTICATING CLINICIAN: Radha Jarrell MD CONFIRM #: [id number] LOC: 432 CLINIC PROGRESS NOTE DATE OF VISIT: 06/15/2015 : 1980 SUBJECTIVE: Karin is a 35-year-old woman here for follow up of type 1 diabetes, diagnosis age 22. No known chronic complications. I last saw her February 2015. She is frustrated and tearful, because her A1c is 7.0 today. She has had problems with her blood sugars being unexpectedly high, and she thinks it is related to not changing her infusion sets often enough. She feels reservoir all the way, which lasts typically longer than 3 days. I suggested that she should fill it only to last 2 days and then change the sites sooner, and she is agreeable to that. She also has a continuous glucose sensor that she does not wear, because it frustrates her. I suggested switching to a DexCom, but she said she had not looked into that. She would like to become possibly in the future. She denies depression, but says that she just cries when she comes to visit, because she feels so frustrated, and she hates having diabetes. She is using a MiniMed Paradigm 522 pump with NovoLog. Her basal is 18.45 units; midnight 0.65; 6 a.m. 0.7; 9 a.m. 0.9; 1:30 p.m. 0.8. Bolus wizard is midnight 15; 12 p.m. 1/12; 6 p.m. 15. Sensitivity 1/70 over target; 6 a.m. 100-120; 9 p.m. 120-150. Active insulin time is 4 hours. She is testing her blood sugar 3-4 times daily. Average insulin use is 31 units, 58% basal, 42% bolus. PAST MEDICAL HISTORY: Type 1 diabetes. CURRENT MEDICATIONS: NovoLog in her pump, Diflucan p.r.n. ALLERGIES: None known. 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 PHYSICAL EXAMINATION: Blood pressure is 100/70, pulse is 80. Weight is 141 pounds. BMI is 23.6 kg/sq m. GENERAL: Pleasant woman here. She is tearful. LABORATORIES: A1c is 7.0% today. LDL cholesterol last year 83. Jlpknxr-dv-vuhcvgtdvd ratio less than 10. Creatinine 0.7. ASSESSMENT: 1. Type 1 diabetes, reasonable control on insulin pump. 2. Frustration with her diagnosis. PLAN: 1. I have recommended increasing the bolus at supper to 12/01, from 12/04, because of elevated blood sugars at bedtime. 2. Listened to her concerns and suggested that she should try her continuous glucose sensor again. If it is not working out well, she could switch to the [employer] Vibe, which has a Dexcom glucose sensor,as her current warranty is out. This might works better for her. 3. Return to clinic in 3-4 months. 4. We talked about possible depression. She denies any problems with it. She said she just cries at visits because of her frustration with her diabetes. Return to clinic in 4 months. 25 minutes with the patient, more than half in counseling. CC: JOSE HUNTLEY MD [facility] [address] [place] [address] LTL:MEDQ C: CONFIRM #: [id number] documented in this encounter Plan of Treatment Upcoming Encounters Date Type Specialty Care Team Description 11/01/2022 Appointment Endocrinology Althea Kelley, DRUM PULLER, HOD CARRIER [address] [place] [address] (Wo rk) 12/27/2022 Appointment Endocrinology Ayde Warren, KERWIN [address] [place] [address] [address] documented as of this encounter Procedures Procedure Name Priority Date/Time Associated Diagnosis Comme nts POCT GLYCOSYLATED Routine 06/15/2015 10:39 Type I (juvenile Re sults for this HEMOGLOBIN (HGB A1C) AM CDT type) diabetes proce fran are in mellitus without the results mention of section. complication, not stated as uncontrolled (HRC) documented in this encounter Results (ABNORMAL) POCT GLYCOSYLATED HEMOGLOBIN (HGB A1C) (06/15/2015 10:39 AM CDT) Analysis Performed At Patho logist Time Signature Hemoglobin A1C, 7.0 (A) 4 - 5.6 % HP CONVERSION POC Cartridge Lot# [id number] HP CONVERSION Specimen (Source) Anatomical Collection Method Collection Time Re ceived Time Location / / Volume Laterality 06/15/2015 10:39 AM CDT Radha Jarrell MD PN POINT OF CARE TESTS Performing Organization Address City/State/ZIP Code Phon e Number HP CONVERSION documented in this encounter Visit Diagnoses Diagnosis Type I (juvenile type) diabetes mellitus without mention of complication, not stated as uncontrolled (HRC) - Primary Type I (juvenile type) diabetes mellitus without mention of complication, not stated as uncontrolled documented in this encounter Care Teams Bran Mixer Relationship Specialty Start Date End Date Pcp, Miguel Sutherland MD PCP - General 11/06/13 06/26/16 [place] [address] documented as of this encounter
--- OUTSIDE RECORDS SUMMARY | 2022-09-23 07:49 | XMS_ITS | Encounter Summary ---
:1980 Author Organization [facility] Address [address] [place] [address] Care Team Providers Name Role Phone Pcp, Pt Ena MEZA Primary Care Provider Reason for Visit Reason Comments Follow-up Encounter Details Date Type Department Care Team Description 12/01/2014 Office Visit [facility] [address] Ike Acosta Type I (juvenile type) diabetes mellitus without mention of complication, not stated as uncontrolled (Primary Dx); Endocrinology SMD Insulin pump status [address] [place] [address] [phone] Social History Tobacco Use Types Packs/Day Years Used Date Smoking Tobacco: Never Assessed Sex Assigned at Date Recorded Not on file documented as of this encounter Last Filed Vital Signs Vital Sign Reading Time Taken Comments Blood Pressure 108/72 12/01/2014 11:23 AM SUPERVISOR SCENIC ARTS Pulse 68 12/01/2014 11:23 AM SUPERVISOR SCENIC ARTS Temperature - - Respiratory Rate - - Oxygen Saturation - - Inhaled Oxygen Concentration - - Weight 64 kg (141 lb) 12/01/2014 11:23 AM SUPERVISOR SCENIC ARTS Height - - Body Mass Index 24.59 09/24/2012 8:29 AM SUPERVISOR SCENIC ARTS documented in this encounter Patient Instructions Patient InstructionsIke Acosta MD - 12/01/2014 12:05 PM CST NOLVIA Ruff in 2-4 weeks. Thank you for enrolling in [employer]. Please follow the instructions below to securely access your online medical record. [employer] allows you to send messages to your doctor, view your test results, renewyour prescriptions, schedule appointments, and more. How Do I Sign Up? 1. In your Internet browser, go to: [email or web address] 2. Click on the Enter Activation Code link under the New User? section. You will see the New Member Sign Up page. 3. Enter your [employer] Activation Code exactly as it appears below. You will not need to use this code after you???ve completed the sign-up process. If you do not sign up before the expiration date, youmust request a new code. [employer] Activation Code: [email or web address] Expires: 12/31/2014 12:02 PM 4. Enter your Date of (mm/dd/yyyy), Home Phone Number and Zip Code as indicated, then click Next. You will be taken to the next sign-up page 5. Create a [employer] ID. This will be your [employer] login ID and cannot be changed, so think of one that is secure and easy to remember. 6. Create a [employer] password. You can change your password at any time. 7. Enter your Security Question and Answer. This can be used at a later time if you forget your password. Click Next. 8. Enter your e-mail address. You will receive e-mail notification when new information is availablein [employer]. 9. Click Sign In. You can now view your medical record. Additional Information If you have questions, you can call [phone] to talk to our [employer] staff. Remember, [employer] is NOT to be used for urgent needs. For medical emergencies, dial 911. 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 She returns for followup today. Her primary physician is Dr. Maria Fernanda Salas at the [facility]. Karin is using a Medtronic Paradigm 522 model insulin pump. She has struggled over time with record keeping, carb counting, tendency to using manual bolus as opposed to the bolus wizard and that tends to lead towards inconsistent insulin management. She agrees that areas of focus are portion control, counting carbs accurately, trying to manage her food and insulin dosing when she is in a hurry. Also struggles with glucose running high for a couple days before menses. Menses unpredictable, thoughin terms of timing, not regular or predictable enough to be able to adjust her insulin dose in advance. Once it is occurring it is hard to determine whether her glucose is running high because of pending menses or not feeling well or simply mis count her carbs. Also travels frequently for vacations or for work. Recently returned from [place]. In January will be going to [place]. Last visit she expressed concerns regarding possible planning. We had an extensive discussion regarding planning in the setting of diabetes, as outlined in my note from July 31. Today she expresses frustration that she is not using a specific contact or diabetes team. She appeared quite frustrated and frequently emotional through the visit, which turned out to be more extendedthan her standard visits. She has, however, been sent for diabetes support with our diabetes counselor, health psychologist, Rosio Franco. She has been referred and seen on several occasions by our diabetes education staff. She has been instructed to call with any concerns with me or our diabetes support nurse. She has been offered My Chart, but so far had declined. She indicates concern regarding how complicated it would be to fax glucose records in but as I explained to her today we have not had additional options because she had not been willing to use the bolus wizard on the Medtronic pump nor to up load the data in Care Link and glucose data had not been uploaded so that we could interpret it on the electronic format. She feels like she is doing better withthat at this time and does have some glucose data from the first half of the day, but that falls offin the evening and almost absent at bedtime. She is using her manual bolus regularly but less so than previous. She is using the bolus wizard nowtypically 3-4 times, up to 6 times per day, covers food 2-3 times per day with it, the rest manual. She does a fair amount of correcting still, 2-3 per day, and both the frequency of manual bolus and correction will lead to more variability and less consistency in her insulin administration. She does feel like she uses the manual bolus if she is going to be running low or anxious about the potential for low if she is more active or if she has additional servings at meals. Total insulin use per day average is thirty-two, 60% is basal. Reviewing her pattern her lunchtime glucose levels are routinely higher, 200s are typical, higher than they are at breakfast. Hypoglycemia is uncommon. She states that she is typically stressed in the morning, sometimes has a 45 minute commute. She is working 2 jobs. She finds it hard to manage that, but states she can manage it and it is workable, but all the while quite tearful. I asked her if she thought she needed a higher carb ratio for breakfast, but she thought it was because she was probably undercounting carbs relative to what she was actually eating for the meal. Pump settings: Basal 18.48 units per day, rates: Midnight 0.65, 6 a.m. 0.7, 9 a.m. 0.9, 11 a.m. 0.85, 1:30 p.m. 0.85, 4:30 p.m. 0.8. Carb ratio midnight 15 all day, sensitivity 70, active insulin time 4 hours, glucose target midnight 120-150, 6 a.m. 100-120, 9 p.m. 120-150. Physically, she is feeling well, with no symptoms at this time. OBJECTIVE: Blood pressure 108/72, pulse 68, weight 141 pounds. Alert. Appears frustrated today, emotional throughout most of the visit. Further exam deferred. Her A1c is 7.3. Additional labs from October 23 sent to her: Creatinine 0.7, urine microalbumin less than 10 and a direct LDL was 83. ASSESSMENT: 1. Diabetes type 1, moderately well controlled. No chronic complications. 2. Medtronic Paradigm 522 model insulin pump. Improvements on using bolus wizard but continues to use regular correction and manual bolus. 3. Upcoming travel. PLAN: 1. I did advise use of the travel clinic for advice regarding travel to [place]. 2. It was a lengthy discussion today. Each of the visits last at least 2 appointment times and I going forward I will need to make sure that every appointment for Karin is a double clinic slot. I do not think she can reasonably be seen in a standard slot. 3. This was, as with previous visits, a difficult encounter. It is very difficult to know how to proceed with her, to give her what she feels she needs and yet not ask too much as she appears to becomeoverwhelmed. It has been a great challenge to get her to change and yet she is generally dissatisfied with the results. There are some substantial central issues which still have not been cleared. Certainly I am understanding that she has challenges in terms of schedule, stressors and lifestyle. Central areas to focus on, though, are up loading data so they are available in the Medtronic system usingthe bolus wizard almost all the times, counting carbs accurately and dosing her insulin based on theamount of carbs she counts. If she eats extra, it needs to be accounted for. 4. It is harder to know how to manage the menses and will have to work on that in the future becauseit is too unpredictable to make an upfront change in advance. We did also discuss insulin adjustments for physical activity, both vigorous and less strenuous activity. We talked about extra carb, adjustments in mealtime bolus and temporary basal. 5. We address the team issues. She feels like she is not working with a team, but she has been rightalong. I have had her seen by various numbers of the team, including our diabetes education staff, our health support psychologist counseling. She had been offered an additional mode of communication with us through My Chart, but it has been declined. She appears to want to have a say to send her datain for insulin adjustment but then immediately states that may not work ideally because each time I have many questions to ask so that I can understand the data and the circumstances leading to the glucose results (i.e., activity, stress, diet, carb counting). As I explained to her today we certainly can do some adjustments by phone and mail in that fashion, but it is more effective and more useful when we are targeting a followup on certain recent instructions and adjustments. Full glucose records sent out of the blue are harder to manage since there is no context. 6. I did offer her My Chart again. 7. I will set her up with our diabetes education staff. Best to have her seen by one of our Medtronic pump specialists. It will be useful to review pump functions. I will have her in the meantime keep careful blood sugar records, upload data. Focus on carb counting, insulin dosing, use of her bolus romulo culator. Also managing physical activity and stressful days. Once we have better understanding of her baseline insulin needs we can address more variations such is premenstrual. 8. Will have her follow up again in a few months. I am going to save 40 minute appointments for eachof her times. Today's appointment was 60 minutes plus of which most of it is counseling. CC: MARIA FERNANDA SALAS MD [facility] GSD:MEDQ C: CONFIRM #: [id number] RVISOR SCENIC ARTS documented in this encounter Plan of Treatment Upcoming Encounters Date Type Specialty Care Team Description 11/01/2022 Appointment Endocrinology Althea Kelley, TELECOM SPECIALIST, SMALL BOAT ENGINEER [address] [address] (Wo rk) 12/27/2022 Appointment Endocrinology Ayde Warren MBBS [address] [address] documented as of this encounter Procedures Procedure Name Priority Date/Time Associated Diagnosis Comme nts POCT GLYCOSYLATED Routine 12/01/2014 11:22 Type I (juvenile Re sults for this HEMOGLOBIN (HGB A1C) AM SUPERVISOR SCENIC ARTS type) diabetes proce dure are in mellitus without the results mention of section. complication, not stated as uncontrolled (HRC) documented in this encounter Results (ABNORMAL) POCT GLYCOSYLATED HEMOGLOBIN (HGB A1C) (12/01/2014 11:22 AM SUPERVISOR SCENIC ARTS) [facility] Time Signature Hemoglobin A1C, 7.3 (A) 4 - 5.6 % HP CONVERSION POC Cartridge Lot# [id number] HP CONVERSION Specimen (Source) Anatomical Collection Method Collection Time Re ceived Time Location / / Volume Laterality 12/01/2014 11:22 AM SUPERVISOR SCENIC ARTS Ike Acosta MD PN POINT OF CARE TESTS Performing [...] status documented in this encounter Care Teams Radiator Specialist Relationship Specialty Start Date End Date Pcp, Miguel Sutherland MD PCP - General 11/06/13 06/26/16 [place] [address] documented as of this encounter
--- OUTSIDE RECORDS SUMMARY | 2022-09-23 07:49 | XMS_ITS | Encounter Summary ---
:1980 Author Organization [employer] Address [address] [place] [address] Care Team Providers Name Role Phone Pcp, Pt Declines Primary Care Provider Reason for Visit Reason Comments Follow-up Encounter Details Date Type Department Care Team Description 10/13/2015 Office Visit Radha Kearns, Type 1 diab etes mellitus without complication (Primary Dx); Endocrinology Insulin pump status [address] [place] [address] [place] [address] Social History Tobacco Use Types Packs/Day Years Used Date Smoking Tobacco: Never Assessed Sex Assigned at Date Recorded Not on file documented as of this encounter Last Filed Vital Signs Vital Sign Reading Time Taken Comments Blood Pressure 102/70 10/13/2015 2:32 PM TRANSIT SURVEY WORKER Pulse 74 10/13/2015 2:32 PM TRANSIT SURVEY WORKER Temperature - - Respiratory Rate - - Oxygen Saturation - - Inhaled Oxygen Concentration - - Weight 65.1 kg (143 lb 8 oz) 10/13/2015 2:32 PM TRANSIT SURVEY WORKER Height 160 cm (5' 3) 10/13/2015 2:32 PM TRANSIT SURVEY WORKER Body Mass Index 25.42 10/13/2015 2:32 PM TRANSIT SURVEY WORKER documented in this encounter Progress Notes Radha Jarrell - 10/13/2015 5:47 PM CST Progress Notes signed by Radha Jarrell MD at 11/08/151115 Author: Radha Jarrell MD Service: (none) Author Type: Physician Filed: 11/08/151115 Note Time: 10/14/15226 Status: Signed Traffic Control Officer: Radha Jarrell MD (Physician) NAME: KARIN MCMILLAN MR#: [id number] CSN: [id number] AUTHENTICATING CLINICIAN: Radha Jarrell MD CONFIRM #: [id number] LOC: 306 CLINIC PROGRESS NOTE DATE OF VISIT: 10/13/2015 : 1980 SUBJECTIVE: Karin is a 35-year-old woman here for followup of type 1 diabetes, diagnosis age 22. No chronic complications. I last saw her May 2015. Her A1c is 6.8%. She is frustrated and tearful today. In thefuture, she would like to become , and she does not feel like that is going to be doable forher as she does not think that she can keep her blood sugars in the desirable range for conception. She is concerned about low blood sugars and the effect that they may be having on her brain over time. She does not have adrenergic symptoms. When she is low under 60, she feels off and funny. Her face may get slack. She has not required assistance for hypoglycemia, but she feels like she cannot concent rate well. 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 She has been on a Medtronic glucose sensor in the past but did not find it very helpful. I suggestedto her that she upgrade to the Enlite glucose sensor as it would likely work better for her, but shesaid she has not wanted to follow up on that yet because she is concerned about all the time it takes to get a new pump and sensor. She admits that she feels like a lot of it is just too big of a hassle. She said she does not feel like this is my fault, but she does feel like it has not worked out well for her. Currently, she is on a Medtronic paradigm 522 pump with NovoLog. Her basal is 17.95 units daily, midnight 0.65, 2 a.m. 0.6, 6 a.m. 0.6, 9 a.m. 0.9, 11 a.m. 0.9, 1:30 p.m. 0.8, and 4:30 p.m. 0.8. Her insulin to carb ratio is midnight 1/15, 12 p.m. 1/12. Sensitivity 1/70 over target, 6 a.m. 100-120, 9 p.m. 120- 150. Her active insulin time is 4 hours. She is testing her blood sugar 4-6 times per day. She is having low blood sugars under 70 once every couple of days. There is no real pattern to them. Infact, there is really no visible pattern on her blood sugars on which to make adjustments today. Heroverriding concern is whether she is doing any long-term damage to her brain. PAST MEDICAL HISTORY: Type 1 diabetes. CURRENT MEDICATIONS: NovoLog in her pump. ALLERGIES: None known. SOCIAL HISTORY: She is . 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 PHYSICAL EXAM: Blood pressure is 102/70. Pulse is 74. Weight is 143 pounds. BMI is 25.47 kg/sq m. GENERAL: She appears anxious. She is tearful and frustrated. LABS: A1c is 6.8% today. Annual diabetes labs pending. ASSESSMENT: 1. Type 1 diabetes. No chronic complications but suboptimal control despite reasonable A1c number. 2. Conception counseling. 3. Hypoglycemia unawareness. PLAN: I listened to her concerns today. She does have some degree of hypoglycemia unawareness, and this isvery concerning. I have suggested to her in the past that we get her back on a continuous glucose sensor, but she has been reluctant to do that because of the logistical time and effort. She is willingto do it, though, if I think it would benefit her. I also suggested that she should lower her basal rates by 15% and let her blood sugars run higher than 120 for about 2 weeks to try to re-acclimate her brain to recognizing low blood sugars. She is willing to try this. I also suggested that she may want to get another opinion about this issue from Dr. Morales at the [facility], and she may consider setting that up. She has a lot of anxiety, particularly about the risks of hypoglycemia long-term on her brain and the risks of not having her blood sugars adequately controlled for . I also talked to Karin about the available methods of staying in close touch with Care Link software while and that I would be glad to review her blood sugars frequently during , and I hope that would give her some reassurance. She will plan tentative followup in 4 months. Forty minutes with the patient, more than half in counseling. CC: JOSE HUNTLEY MD [facility] [address] [place] [address] LTL:MEDQ C: CONFIRM #: [id number] SIT SURVEY WORKER documented in this encounter Plan of Treatment Upcoming Encounters Date Type Specialty Care Team Description 11/01/2022 Appointment Endocrinology Althea Kelley, PUNCH OUT CREW MEMBER, ORGANIZATIONAL RESEARCH CONSULTANT [address] [facility] [address] (Wo rk) 12/27/2022 Appointment Endocrinology Ayde Warren, MBBS [address] [facility] [address] documented as of this encounter Visit Diagnoses Diagnosis Type 1 diabetes mellitus without complic ation (HRC) - Primary Type I (juvenile type) diabetes mellitus without mention of complication, not stated as uncontrolled Insulin pump status (HRC) Insulin pump status documented in this encounter Care Teams Cable Puller Relationship Specialty Start Date End Date PcpMiguel MD PCP - General 11/06/13 06/26/16 [place], [place] [id number] documented as of this encounter
--- OUTSIDE RECORDS SUMMARY | 2022-09-23 07:49 | XMS_ITS | Encounter Summary ---
:1980 Author Organization [facility] Address [address] [place] [address] Care Team Providers Name Role Phone Pcp, Pt Declines MD Primary Care Provider Reason for Visit Reason Comments Refill Encounter Details Date Type Department Care Team Description 01/05/2015 Refill [facility] 38[address] Tyron Acosta MD Refill Endocrinology [address] [place] [address] [place], [place] [id number] [phone] Social History Tobacco Use Types Packs/Day Years Used Date Smoking Tobacco: Never Assessed Sex Assigned at Date Recorded Not on file documented as of this encounter Nursing Notes Renate Goldsmith, RN - 01/05/2015 10:54 AM CST Medtronic form for pump and testing supplies faxed to [phone] TIC OUTFITTER documented in this encounter Plan of Treatment Upcoming Encounters Date Type Specialty Care Team Description 11/01/2022 Appointment Endocrinology Althea Kelley, AUTO LEASING MANAGER, AVIATION SURVIVAL TECHNICIAN [address] [facility] [place] N [phone] (Wo rk) 12/27/2022 Appointment Endocrinology Ayde Warren, MBBS [address] [facility] N [phone] as of this encounter Visit Diagnoses Not on filedocumented in this encounter Care Teams Offset Printing Operator Relationship Specialty Start Date End Date Pcp, Miguel Sutherland MD PCP - General 11/06/13 06/26/16 [place] [address] documented as of this encounter
--- OUTSIDE RECORDS SUMMARY | 2022-09-23 07:49 | XMS_ITS | Encounter Summary ---
:1980 Author Organization [facility] Address [address], [place] [address] Care Team Providers Name Role Phone Pcp, Pt Declines MD Primary Care Provider Reason for Visit Reason Comments Forms Encounter Details Date Type Department Care Team Description 10/14/2015 Notes/Orders [facility] 38[address] Radha Jarrell MD Endocrinology [address] [facility] [address] [place], [place] [address] [place] [id number] [phone] Social History Tobacco Use Types Packs/Day Years Used Date Smoking Tobacco: Never Assessed Sex Assigned at Date Recorded Not on file documented as of this encounter Progress Notes Meagan Field RN - 11/02/2015 11:53 AM CST Form of medical necessity for CGMS. Given to [facility] for completion. MOTIVE PARTS COUNTER ASSOCIATE documented in this encounter Plan of Treatment Upcoming Encounters Date Type Specialty Care Team Description 11/01/2022 Appointment Endocrinology Althea Kelley, BUSINESS MANAGEMENT INTERN, TRACTOR DISTRIBUTOR [address] [facility] [place] [address] [address] (Wo rk) 12/27/2022 Appointment Endocrinology Ayde Warren, MBBS [address] [facility] N [address] documented as of this encounter Visit Diagnoses Not on filedocumented in this encounter Care Teams Chyron Operator Relationship Specialty Start Date End Date Pcp, Miguel Sutherland MD PCP - General 11/06/13 06/26/16 [place] [address] documented as of this encounter
--- OUTSIDE RECORDS SUMMARY | 2022-09-23 07:49 | XMS_ITS | Encounter Summary ---
:1980 Author Organization [facility] Address [address] [place] [address] Care Team Providers Name Role Phone Pcp, Pt Declines MD Primary Care Provider Encounter Details Date Type Department Care Team Description 10/13/2015 Lab Visit [place] [facility] Type 1 diabetes mellitus [address] without complication [place], [place] [address] Social History Tobacco Use Types Packs/Day Years Used Date Smoking Tobacco: Never Assessed Sex Assigned at Date Recorded Not on file documented as of this encounter Plan of Treatment Upcoming Encounters Date Type Specialty Care Team Description 11/01/2022 Appointment Endocrinology Althea Kelley, TURRET LATHE MACHINIST, DEBURRING MACHINE OPERATOR [address] [address] (Wo rk) 12/27/2022 Appointment Endocrinology Ayde Warren, MBBS [address] [address] documented as of this encounter Procedures Procedure Name Priority Date/Time Associated Diagnosis Comme nts TSH AND FREE T4 Routine 10/13/2015 2:22 PM Type 1 diabetes Res ults for this (FRT4 IF TSH LIQUIFIED NATURAL GAS SPECIALIST mellitus without procedure a re in ABNORM) complication (HRC) [facility] ts section. HEMOGLOBIN A1C, STAT 10/13/2015 2:22 PM Type 1 diabetes Res ults for this RAPID LIQUIFIED NATURAL GAS SPECIALIST mellitus without procedure a re in complication (HRC) [facility] ts section. LDL CHOLESTEROL, Routine 10/13/2015 2:22 PM Type 1 diabetes Re sults for this DIRECT MEASURED LIQUIFIED NATURAL GAS SPECIALIST mellitus without procedur e are in complication (HRC) [facility] ts section. CREATININE / GFR Routine 10/13/2015 2:22 PM Type 1 diabetes Re sults for this LIQUIFIED NATURAL GAS SPECIALIST mellitus without procedure a re in complication (HRC) the resul ts section. ALBUMIN/CREAT RATIO Routine 10/13/2015 2:22 PM Type 1 diabetes Results for this LIQUIFIED NATURAL GAS SPECIALIST mellitus without procedure a re in complication (HRC) the resul ts section. ALT (SGPT) Routine 10/13/2015 2:22 PM Type 1 diabetes Result s for this LIQUIFIED NATURAL GAS SPECIALIST mellitus without procedure a re in complication (HRC) the resul ts section. EXTRA SERUM STAT 10/13/2015 2:16 PM Results f or this SEPARATOR TUBE LIQUIFIED NATURAL GAS SPECIALIST procedure are in (YELLOW) the results section. documented in this encounter Results TSH AND FREE T4 (FRT4 IF TSH ABNORM) (10/13/2015 2:22 PM LIQUIFIED NATURAL GAS SPECIALIST) athologist Signature Thyroid 1.76 0.20 - HP CONVERSION Stimulating 4.50 mIU/L Hormone Specimen Anatomical Collection Method Collection Time Receive d Time (Source) Location / / Volume Laterality 10/13/2015 2:22 PM 5 7:47 LIQUIFIED NATURAL GAS SPECIALIST PM LIQUIFIED NATURAL GAS SPECIALIST Narrative HP CONVERSION - 10/13/2015 8:50 PM LIQUIFIED NATURAL GAS SPECIALIST [place] [address] CLIA number [id number] Radha Jarrell MD LAB_1 Performing Organization Address [facility] Phon e Number HP CONVERSION ALT (SGPT) (10/13/2015 2:22 PM LIQUIFIED NATURAL GAS SPECIALIST) [facility] Method Time Signature Alanine 16 4 - 55 HP CONVERSION Aminotransferase U/L Specimen Anatomical Collection Method Collection Time Receive d Time (Source) Location / / Volume Laterality 10/13/2015 2:22 PM 5 7:47 LIQUIFIED NATURAL GAS SPECIALIST PM LIQUIFIED NATURAL GAS SPECIALIST Narrative HP CONVERSION - 10/13/2015 8:50 PM LIQUIFIED NATURAL GAS SPECIALIST [place] [address] CLIA number [id number] Radha Jarrell MD LAB_1 Performing Organization Address [facility] Phon e Number HP CONVERSION Creatinine / GFR (10/13/2015 2:22 PM LIQUIFIED NATURAL GAS SPECIALIST) athologist Signature Creatinine 0.6 0.4 - 1.3 HP CONVERSION Serum mg/dL [...] Time (Source) Location / / Volume Laterality 10/13/2015 2:22 PM 5 7:47 LIQUIFIED NATURAL GAS SPECIALIST PM LIQUIFIED NATURAL GAS SPECIALIST Narrative HP CONVERSION - 10/13/2015 8:50 PM LIQUIFIED NATURAL GAS SPECIALIST [place] [address] CLIA number [id number] Radha Jarrell MD LAB_1 Performing Organization Address [facility] Phon e Number HP CONVERSION Microalb/Creat Ratio (10/13/2015 2:22 PM LIQUIFIED NATURAL GAS SPECIALIST) Analysis Performed At Patho logist Time Signature Microalbumin <6.0 mg/L HP CONVERSION Urine U Creat Random 41 mg/dL HP CONVERSION Microalbumin/Crea <10.0 0.0 - 30.0 HP CONVERSI ON tinine Ratio Specimen Anatomical Collection Method Collection Time Receive d Time (Source) Location / / Volume Laterality 10/13/2015 2:22 PM 5 7:49 LIQUIFIED NATURAL GAS SPECIALIST PM LIQUIFIED NATURAL GAS SPECIALIST Narrative HP CONVERSION - 10/13/2015 8:34 PM LIQUIFIED NATURAL GAS SPECIALIST [place] [address] CLIA number [id number] Radha Jarrell MD LAB_1 Performing Organization Address [facility] Phon e Number HP CONVERSION LDL Cholesterol, Direct Measured (10/13/2015 2:22 PM LIQUIFIED NATURAL GAS SPECIALIST) athologist Signature LDL Direct 73 0 - 130 HP CONVERSION mg/dL Specimen Anatomical Collection Method Collection Time Receive d Time (Source) Location / / Volume Laterality 10/13/2015 2:22 PM 5 7:47 LIQUIFIED NATURAL GAS SPECIALIST PM LIQUIFIED NATURAL GAS SPECIALIST Narrative HP CONVERSION - 10/13/2015 8:50 PM LIQUIFIED NATURAL GAS SPECIALIST Performed at [place] [id number] [place] [address] CLIA number [id number] Radha Jarrell MD LAB_1 Performing Organization Address [facility] Phon e Number HP CONVERSION (ABNORMAL) HEMOGLOBIN A1C, RAPID (10/13/2015 2:22 PM LIQUIFIED NATURAL GAS SPECIALIST) Analysis Performed At Patho logist Time Signature Hemoglobin A1C 6.8 (H) 4.0 - 5.6 HP CONVERSION Rapid % Comment: The Rapid A1c test is designed for monit oring patients with an established diagnosis of diabetes michelle litus. ??The rapid method is not suitable to establish the intial diagnosis of diabetes melitus. Specimen Anatomical Collection Method Collection Time Receive d Time (Source) Location / / Volume Laterality 10/13/2015 2:22 PM 5 2:22 LIQUIFIED NATURAL GAS SPECIALIST PM LIQUIFIED NATURAL GAS SPECIALIST Narrative HP CONVERSION - 10/13/2015 2:32 PM LIQUIFIED NATURAL GAS SPECIALIST Performed at [facility], [address] [place] [address] CLIA number [id number] Radha Jarrell MD LAB_1 Performing Organization Address [facility] Phon e Number HP CONVERSION EXTRA SERUM SEPARATOR TUBE (YELLOW) (10/13/2015 2:16 PM LIQUIFIED NATURAL GAS SPECIALIST) athologist Signature Extra SST Top Drawn HP CONVERSION Drawn Specimen (Source) Anatomical Collection Method Collection Time Re ceived Time Location / / Volume Laterality 10/13/2015 2:16 PM LIQUIFIED NATURAL GAS SPECIALIST Narrative HP CONVERSION - 10/13/2015 2:16 PM LIQUIFIED NATURAL GAS SPECIALIST Performed at [address] [address] CLIA number [id number] Radha Jarrell MD LAB_1 Performing Organization Address [facility] Phon e Number HP CONVERSION documented in this encounter Visit Diagnoses Diagnosis Type 1 diabetes mellitus without complic ation (HRC) Type I (juvenile type) diabetes mellitus without mention of complication, not stated as uncontrolled documented in this encounter Care Teams Rate Clerk Passenger Relationship Specialty Start Date End Date PcpMiguel MD PCP - General 11/06/13 06/26/16 [place] [address] documented as of this encounter
--- OUTSIDE RECORDS SUMMARY | 2022-09-23 07:49 | XMS_ITS | Encounter Summary ---
:1980 [address] [facility] Address [address] [address] Care Team Providers Name Role Phone Pcp, Pt Declines Primary Care Provider Reason for Visit Reason Comments Forms Encounter Details Date Type Department Care Team Description 01/20/2016 Notes/Orders [facility] 3800 Radha Jarrell MD Endocrinology [address] [place] [address] [place], [place] [address] [phone] Social History Tobacco Use Types Packs/Day Years Used Date Smoking Tobacco: Never Assessed Sex Assigned at Date Recorded Not on file documented as of this encounter Progress Notes Meagan Field RN - 01/20/2016 3:30 PM CST RX for pump and testing supplies faxed over to [employer]. ROLLER documented in this encounter Plan of Treatment Upcoming Encounters Date Type Specialty Care Team Description 11/01/2022 Appointment Endocrinology Althea Kelley, ROOFER APPLICATOR, VETERINARIAN HELPER [address] [facility] [address] [address] (Wo rk) 12/27/2022 Appointment Endocrinology Ayde Warren, MBBS [address] [facility] [address] [address] documented as of this encounter Visit Diagnoses Not on filedocumented in this encounter Care Teams Nipple Machine Operator Relationship Specialty Start Date End Date Pcp, Miguel Sutherland MD PCP - General 11/06/13 06/26/16 [place] [address] documented as of this encounter
--- OUTSIDE RECORDS SUMMARY | 2022-09-23 07:49 | XMS_ITS | Encounter Summary ---
:1980 Author Organization [facility] Address [address], [place] [address] Care Team Providers Name Role Phone PcpMiguel MD Primary Care Provider Encounter Details Date Type Department Care Team Description 10/12/2015 Notes/Orders [facility] 3800 Radha Jarrell, Type 1 diabetes Endocrinology mellitus without 38[address] [facility] [address] complicat ion ([address] Dx) [place] [address] [phone] Social History Tobacco Use Types Packs/Day Years Used Date Smoking Tobacco: Never Assessed Sex Assigned at Date Recorded Not on file documented as of this encounter Plan of Treatment Upcoming Encounters Date Type Specialty Care Team Description 11/01/2022 Appointment Endocrinology Althea Kelley, RAW CHEESE WORKER, CORPORATE SALES REPRESENTATIVE [address] [facility] [address] [facility] N [id number] (Wo rk) 12/27/2022 Appointment Endocrinology Ayde Warren, MBBS [address] [facility] [address] [facility] [address] [address] documented as of this encounter Visit Diagnoses Diagnosis Type 1 diabetes mellitus without complic ation (HRC) - Primary Type I (juvenile type) diabetes mellitus without mention of complication, not stated as uncontrolled documented in this encounter Care Teams Order Management Specialist Relationship Specialty Start Date End Date Miguel Jimenez MD PCP - General 11/06/13 06/26/16 [place] [address] documented as of this encounter
--- OUTSIDE RECORDS SUMMARY | 2022-09-23 07:49 | XMS_ITS | Encounter Summary ---
:1980 Author Organization [employer] Address [address] [place] [address] Care Team Providers Name Role Phone Pcp, Pt Declines Primary Care Provider Reason for Visit Reason Comments Follow-up Encounter Details Date Type Department Care Team Description 03/06/2015 Office Visit [facility] 380 Radha Jarrell, Type I (juvenile type) Endocrinology diabetes mellitus [address] [facility] complication, not [place], [place] stat ed as uncontrolled [phone] (Primary Dx) [phone] Social History Tobacco Use Types Packs/Day Years Used Date Smoking Tobacco: Never Assessed Sex Assigned at Date Recorded Not on file documented as of this encounter Last Filed Vital Signs Vital Sign Reading Time Taken Comments Blood Pressure 122/72 03/06/2015 9:25 AM CDT Pulse 68 03/06/2015 9:25 AM CDT Temperature - - Respiratory Rate - - Oxygen Saturation - - Inhaled Oxygen Concentration - - Weight 64.3 kg (141 lb 12.8 oz) 03/06/2015 9:25 AM CDT Height 163.2 cm (5' 4.25) 03/06/2015 9:25 AM CDT Body Mass Index 24.15 03/06/2015 9:25 AM CDT documented in this encounter Progress Notes Radha Jarrell - 03/06/2015 3:14 PM CDT Progress Notes signed by Radha Jarrell MD at 03/12/15 0599 Author: Radha Jarrell MD Service: (none) Author Type: Physician Filed: 03/12/15 6121 Note Time: 03/07/15 1020 Status: Signed Help Desk Support: Radha Jarrell MD (Physician) NAME: KARIN MCMILLAN MR#: [id number] CSN: [id number] AUTHENTICATING CLINICIAN: Radha aJrrell MD CONFIRM #: [id number] LOC: 432 CLINIC PROGRESS NOTE DATE OF VISIT: 03/06/2015 : 1980 SUBJECTIVE: Karin is a 35-year-old woman here for type 1 diabetes, previously followed by Dr. Acosta, but she wanted a fresh start. She has type 1 diabetes diagnosed at age 22. She has no known chronic complications. Her last eye exam was in July 2013. 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 Karin reports that she has had trouble getting her A1c where she would like it to be. She is possibly interested in . Her A1c has been in the low to mid 7s. Today, though, it is 6.7. She said she has been testing her blood sugar more frequently pre meal and 2-hour post meals. She said shehas been working hard on her carbohydrate counting. She said she has a history of undercounting her carbohydrates. She is also very sensitive to exercise, and she said if she exercises in the morning, that tends to keep her blood sugars reasonably controlled, but if she sits in the car for an hour, itwill typically be higher. Her worst time of day is the morning. She has been eating the same breakfast every day which is 1/2 cup of oatmeal with 10 raisins and milk with some sugar, and she said that is 36 grams. She is on a [employer] paradigm 522 insulin pump with NovoLog. She admits that she takes her bolus right when she starts eating. Her basal rate is 18.73 units daily. Midnight 0.65, 6:00 a.m. 0 .7, 9:00 a.m. 0.9, 11:00 a.m. 0.95, 1:30 p.m. 0.85, and 4:30 p.m. 0.8. Her bolus ratio is midnight 1per 15, 12:00 p.m. 1 per 12, 6:00 p.m. 1 per 15. Sensitivity 1 per 70 over target, 6:00 a.m. 100 to 120, 9:00 p.m. 120 to 150. Her active insulin time is 4 hours. She is using on average 30.3 units insulin daily. 61% is basal, 39% is bolus. Despite her good A1c, her average blood sugar is 206. She is testing typically 4 to 5 times per day. Her mornings are 83 to 181. Her post-breakfasts are all elevated in the high 100s to low 200s. Pre-lunch 87 to 269. Pre-dinner 140 to 223 and bedtime 260 to 326. She does not have any significant hypoglycemia. She does have the glucose sensor, but she said it drives her crazy with the need to calibrate. She is interested in possibly going on a different sensor. She thinks her pump may be out of warranty. Sheis going to contact [employer]. Another option would be for her to go on the [employer] DexCom combination, which is the Vibe. She had a lot of questions about planning today, as far as her risks for problems or complications, so we discussed that a lot. She also had questions about followup on her blood sugar and insulin changes that we make, and I explained to her what CareLink software is. I also talked to her about more frequent followup with our nurse practitioner and/or PA. PAST MEDICAL HISTORY: Type 1 diabetes. History of cellulitis requiring hospitalization in 2002. CURRENT MEDICATIONS: NovoLog in her pump. She has Diflucan p.r.n. and Lantus insulin backup. ALLERGIES: None known. SOCIAL HISTORY: She is . She works at [employer] as noted. No children. 5 drinks per week. No tobacco. FAMILY HISTORY: No diabetes or thyroid disease. REVIEW OF SYSTEMS: A complete 10-point was complete. See pertinent positives and negatives in the HPI. PHYSICAL EXAMINATION: Blood pressure is 122/72. Pulse is 68. Weight is 141 pounds. BMI is 24.2 kg/m2. GENERAL: Pleasant woman here extended visit. She is somewhat tearful at points. LABS: A1c is 6.7%. Creatinine is 0.7. LDL is 83. Vnphbqv-fg-poxcvmvfzh ratio is less than 10. ASSESSMENT: 1. A 35-year-old woman with type 1 diabetes. No chronic complications. Improved A1c but still with elevated postprandial blood sugars. 2. planning. PLAN: 1. I made the following suggestions to her insulin pump settings. She clearly needs more bolus insulin. Increase the 6:00 a.m. bolus to 1 per 12 grams. Discussed a 2-hour postprandial goal of under 150to 160 to start with. If she is achieving that, she will evaluate whether her basal going in towardslunchtime is too high, at which point she should lower her 9:00 a.m. basal to 0.8, and her 11:00 a.m. basal to 0.85. If on the other hand, postprandials are over 150 to 160, she will go up to 1 per 10 grams in the morning. 2. She also needs an increase in her evening bolus, so at 6:00 p.m. go up to 1 per 12 grams, as well. 3. Trial of Humalog. NovoLog seems to have some delayed insulin action, but I did recommend that shetry to take her bolus 10 to 15 units before she eats. 4. We discussed planning at length. She is not certain that she is going to pursue it but wanted to discuss more what would be required and the risks and having a with her diabetes as it is now. 5. Encouraged her to contact [employer] to find out when her next pump upgrade is, so she could at least get the upgraded sensor. Another [facility], which might [facility] a better sensor for her. 6. Return to clinic closely in 3 months with interval communication about blood sugars, and we reviewed that, as well. 7. Total Time: 60 minutes. Counseling Time: More than half. CC: DORA ACOSTA MD [address] [place] [address] JOSE HUNTLEY MD [facility] [address] [place] [address] LTL:[employer] C: CONFIRM #: [id number] documented in this encounter Plan of Treatment Upcoming Encounters Date Type Specialty Care Team Description 11/01/2022 Appointment Endocrinology Althae Kelley, PHYSICIAN ASST, BOILER CLEANER [address] [place] [address] [address] (Wo rk) 12/27/2022 Appointment Endocrinology Ayde Warren, KERWIN [address] [place] [address] [address] documented as of this encounter Procedures Procedure Name Priority Date/Time Associated Diagnosis Comme nts POCT GLYCOSYLATED Routine 03/06/2015 9:27 AM Type I (juvenile Results for this HEMOGLOBIN (HGB A1C) CDT type) diabetes proce dure are in mellitus without the results mention of section. complication, not stated as uncontrolled (HRC) documented in this encounter Results (ABNORMAL) POCT GLYCOSYLATED HEMOGLOBIN (HGB A1C) (03/06/2015 9:27 AM CDT) Analysis Performed At Patho logist Time Signature Hemoglobin A1C, 6.7 (A) 4 - 5.6 % HP CONVERSION POC Cartridge Lot# [id number] HP CONVERSION Specimen (Source) Anatomical Collection Method Collection Time Re ceived Time Location / / Volume Laterality 03/06/2015 9:27 AM CDT Radha Jarrell MD PN POINT [...] uncontrolled documented in this encounter Care Teams Propeller Layout Worker Relationship Specialty Start Date End Date PcpMiguel MD PCP - General 11/06/13 06/26/16 [place] [address] documented as of this encounter
--- OUTSIDE RECORDS SUMMARY | 2022-09-23 07:49 | XMS_ITS | Encounter Summary ---
:1980 Author Organization [facility] Address [address] [address] Care Team Providers Name Role Phone Pcp, Pt Declines Primary Care Provider Reason for Visit Reason Comments Forms Encounter Details Date Type Department Care Team Description 01/20/2016 Notes/Orders [facility] 3800 Radha Jarrell MD Endocrinology [address] [place] [address] [place], [place] [address] [phone] Social History Tobacco Use Types Packs/Day Years Used Date Smoking Tobacco: Never Assessed Sex Assigned at Date Recorded Not on file documented as of this encounter Progress Notes Meagan Field RN - 01/20/2016 3:36 PM CST RX for pump and testing supplies faxed over to [employer]. AD SUPERVISOR documented in this encounter Plan of Treatment Upcoming Encounters Date Type Specialty Care Team Description 11/01/2022 Appointment Endocrinology Althea Kelley, PSYCHIATRY INSTRUCTOR, GENERAL STUDIES PROGRAM CHAIR [address] [facility] N [address] (Wo rk) 12/27/2022 Appointment Endocrinology Ayde Warren, MBBS [address] [facility] N [address] documented as of this encounter Visit Diagnoses Not on filedocumented in this encounter Care Teams Vocational Rehabilitation Teacher Relationship Specialty Start Date End Date Pcp, Miguel Sutherland MD PCP - General 11/06/13 06/26/16 [place] [address] documented as of this encounter
--- OUTSIDE RECORDS SUMMARY | 2022-09-23 07:50 | XMS_ITS | Encounter Summary ---
:1980 Author Organization [facility] Address [address] [place] [address] Care Team Providers Name Role Phone Unavailable Primary Care Provider Unavailable Reason for Visit Reason Comments Refill Encounter Details Date Type Department Care Team Description 07/12/2013 Refill [facility] 3800 Tyron Acosta MD Refill Endocrinology [address] [place] [address] [place], [place] [address] [phone] Social History Tobacco Use Types Packs/Day Years Used Date Smoking Tobacco: Never Assessed Sex Assigned at Date Recorded Not on file documented as of this encounter Nursing Notes Liyah Michel RN, CDE - 07/15/2013 9:58 AM CDT rx filled to hold pt to appt with Dr. Acosta 07/23/13 Electronically signed by Liyah Michel, RN, [facility] at 07/15/2013 9:58 AM CDT documented in this encounter Plan of Treatment Upcoming Encounters Date Type Specialty Care Team Description 11/01/2022 Appointment Endocrinology Althea Kelley, QUALITY ASSURANCE SUPERVISOR, MARKET RESEARCH ANALYST [address] [facility] N [address] (Wo rk) 12/27/2022 Appointment Endocrinology Ayde Warren, MBBS [address] [facility] N [address] documented as of this encounter Visit Diagnoses Not on filedocumented in this encounter
--- OUTSIDE RECORDS SUMMARY | 2022-09-23 07:50 | XMS_ITS | Encounter Summary ---
:1980 Author Organization [facility] Address [address] [place] [address] Care Team Providers Name Role Phone Unavailable Primary Care Provider Unavailable Reason for Visit Reason Comments Forms Encounter Details Date Type Department Care Team Description 07/24/2013 Notes/Orders [facility] 3800 Tyron Acosta MD Endocrinology [address] [place] [address] [place] [address] [phone] Social History Tobacco Use Types Packs/Day Years Used Date Smoking Tobacco: Never Assessed Sex Assigned at Date Recorded Not on file documented as of this encounter Progress Notes Renate Goldsmith RN - 07/24/2013 9:39 AM CDT DMV form faxed and mailed to DMV. A copy was also mailed to the pt. See Sdoc for copy. documented in this encounter Plan of Treatment Upcoming Encounters Date Type Specialty Care Team Description 11/01/2022 Appointment Endocrinology Althea Kelley, MINE SHIFTER, JUNIOR ORACLE DBA [address] [facility] N [address] (Wo rk) 12/27/2022 Appointment Endocrinology Ayde Warren MBBS [address] [facility] N [address] documented as of this encounter Visit Diagnoses Not on filedocumented in this encounter
--- OUTSIDE RECORDS SUMMARY | 2022-09-23 07:50 | XMS_ITS | Encounter Summary ---
:1980 Author Organization [facility] Address [address] [place] [address] Care Team Providers Name Role Phone Unavailable Primary Care Provider Unavailable Reason for Visit Reason Comments Refill Encounter Details Date Type Department Care Team Description 09/28/2012 Refill [facility] 3800 Tyron Acosta MD Refill Endocrinology [address] [place] [address] [place] [address] [phone] Social History Tobacco Use Types Packs/Day Years Used Date Smoking Tobacco: Never Assessed Sex Assigned at Date Recorded Not on file documented as of this encounter Nursing Notes Hiwot Ontiveros, BRENDA - 10/01/2012 11:12 AM CST Refill done. documented in this encounter Plan of Treatment Upcoming Encounters Date Type Specialty Care Team Description 11/01/2022 Appointment Endocrinology Althea Kelley, HOTEL DIRECTOR, PASTA PRESS OPERATOR [address] [facility], [place] [address] (Wo rk) 12/27/2022 Appointment Endocrinology Ayde Warren, MBBS [address] [facility], N [id number] documented as of this encounter Visit Diagnoses Not on filedocumented in this encounter
--- OUTSIDE RECORDS SUMMARY | 2022-09-23 07:50 | XMS_ITS | Encounter Summary ---
:1980 Author Organization [employer] Address [address] [place] [address] Care Team Providers Name Role Phone Unavailable Primary Care Provider Unavailable Reason for Visit Reason Comments Annual Exam Encounter Details Date Type Department Care Team Description 08/06/2013 Office Visit [facility] 3900 Jt Murillo Exa mination of eyes and vision (Primary Dx); Ophthalmology OD Type I (juvenile type) diabetes mellitus without mention of complication, not stated as uncontrolled; [facility] [facility] [address] Myopia with astigmatism; Blvd[address] [place], [place] [address] [phone] Social History Tobacco Use Types Packs/Day Years Used Date Smoking Tobacco: Never Assessed Sex Assigned at Date Recorded Not on file documented as of this encounter Patient Instructions Patient InstructionsJt Murillo, CONNIE - 08/06/2013 12:05 PM CDT Change in prescription glasses recommended. In general, watch for and report any onset of eye redness, discomfort, or change in vision. Routine contact lens evaluation and comprehensive eye exam recommended. documented in this encounter Progress Notes Jt Murillo, CONNIE - 08/06/2013 12:08 PM CDT ~ Complete eye exam due to concern regarding potential ocular complications from diabetes. Findings indicate no evidence of diabetic retinopathy or any ocular condition relative to diabetes mellitus. Discussed findings with patient. Annual comprehensive eye exam to monitor for potential changes associated with diabetes ~ Minor congenital optic disc drusen bilateral. Watch Jt Murillo, OD - 08/06/2013 12:06 PM CDT GENERAL MEDICAL OBSERVATION: ~ Pt alert, pleasant, appears basically healthy, feels well IMPRESSION / PLAN: ~ No significant adverse findings regarding ocular surface relative to contact lens wear. The right eye does show a minor epithelial abnormality; an orange peel appearance without superificial staining. Pt will be offered a refit of contact lenses due to increased intolerance to current RGP lenses ~ Normal eye health for age overall, both eyes (see complete eye exam notes). Discussed findings with patient. 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 Spectacle Rx with manifest refraction written to patient: change recommended. Watch for future changes documented in this encounter Plan of Treatment Upcoming Encounters Date Type Specialty Care Team Description 11/01/2022 Appointment Endocrinology Althea Kelley, MEDICATION ADMINISTRATION PROFESSIONAL, CLINICAL SUPPORT NURSE [address] [facility] N [id number] (Wo rk) 12/27/2022 Appointment Endocrinology Ayde Warren, MBBS [address] [facility] N [id number] documented as of this encounter Visit Diagnoses Diagnosis Examination of eyes and vision - Primary Type I (juvenile type) diabetes mellitus without mention of complication, not stated as uncontrolled (HRC) Type I (juvenile type) diabetes mellitus without mention of complication, not stated as uncontrolled Myopia with astigmatism Myopia Dr[place] of optic disc documented in this encounter
--- OUTSIDE RECORDS SUMMARY | 2022-09-23 07:50 | XMS_ITS | Encounter Summary ---
:1980 Author Organization [email or web address] Address [address] [place] [address] Care Team Providers Name Role Phone Pcp, Pt Declines Primary Care Provider Reason for Visit Reason Comments Medication Questions Encounter Details Date Type Department Care Team Description 10/09/2014 Refill [facility] 3800 Tyron Acosta MD Medication Questions Endocrinology [address] [place] [id number] (Wo rk) Social History Tobacco Use Types Packs/Day Years Used Date Smoking Tobacco: Never Assessed Sex Assigned at Date Recorded Not on file documented as of this encounter Nursing Notes Prashanth Neil, RN - 10/09/2014 11:51 AM CST rx faxed ELLER Maribeth De La Cruz - 10/09/2014 11:39 AM CST Pharmacy states kristal is requesting a new rx for 6 times daily testing with a 90 day supply. Pleaseadvise the pharmacy. lv:07/31/14 fv:12/01/14 documented in this encounter Plan of Treatment Upcoming Encounters Date Type Specialty Care Team Description 11/01/2022 Appointment Endocrinology Althea Kelley, BAND SAWMILL OPERATOR, DEPUTY EDITOR IN CHIEF [address] [facility] [address] (Wo rk) 12/27/2022 Appointment Endocrinology Ayde Warren MBBS [address] [place] N [phone] documented as of this encounter Visit Diagnoses Not on filedocumented in this encounter Care Teams Cancer Program Coordinator Relationship Specialty Start Date End Date Pcp, Miguel Sutherland MD PCP - General 11/06/13 06/26/16 [place], [place] [address] documented as of this encounter
--- OUTSIDE RECORDS SUMMARY | 2022-09-23 07:50 | XMS_ITS | Encounter Summary ---
:1980 Author Organization [employer] Address [address] [place] [address] Care Team Providers Name Role Phone Pcp, Pt Ena MEZA Primary Care Provider Reason for Visit Reason Comments Diabetes Encounter Details Date Type Department Care Team Description 07/31/2014 Office Visit [facility] 380 Ike Acosta Type I (juvenile type) diabetes mellitus without mention of complication, not stated as uncontrolled (Primary Dx); Endocrinology MD Destini Insulin pump status [address] 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 She is here for followup of diabetes, type 1. Primary physician is Dr. Maria Fernanda Salsa at the [facility]. Last visit here in early April. Initial portion of the visit is upbeat. She had felt like her diabetes control had been reasonable. Current A1c is 7.1%. She uses a Medtronic Paradigm 522 model insulin pump. Current basal rates: Midnight 0.65 unit per hour, 2 a.m. 0.7 unit per hour, 9 a.m. 0.75 unit per hour, 11 a.m. 0.85 unit per hour up until midnight. Total 18.75 units per day basal. Carb ratio: Midnight 15; 6 a.m. 18; 6 p.m. 15;but those ratios are irrelevant since she steadfastly continues to manually bolus most of her insulin for meals. Sensitivity is 70. Active time is 4 hours using NovoLog insulin. As stated, continues to manually bolus her insulins. I have worked on trying to convince her to use the bolus wizard for the majority of the time, but at best uses it half the time. She does quite a bit of correcting as well. Glucose on her printout looks high, most in the high 100s to 200s, but she is only entering those that are high when she uses the wizard, the rest of the time not, and as I look at her handwritten log,numbers are considerably better. Most of those are 70s to 150s, testing about 5 times per day, only occasional hypoglycemia. Total insulin usage per day about 28 units on average. Difficult to interpret her glucose data also because she has been traveling quite a bit. She had been back now the last couple weeks, and that is where her data comes from. Quite a few more higher glucose levels now since she has been back. She feels like not eating quite as healthy. We wonder whetherit makes sense to change her insulin doses. She does have a few intermittent episodes of mild hypoglycemia to the 60s. At the close of her visit, she raises additional concern which actually turns into the majority of her total visit time. We had talked about this also last time. She has concerns regarding possible . She is interested in but is not entirely sure she will be able to manage it or takecare of an or young child, especially with her busy career, and especially in the context of her diabetes. She describes multiple of her friends are having babies, and she is interested but not confident that she can do it. She does feel like the diabetes consumes too much effort to be able to manage in those settings. She is quite tearful throughout the discussion. She indicates that she is dissatisfied with our review of planning done at our last visit. We do spend a considerable amount of time today again reviewing diabetes management during . Discuss frequent testing. Discuss typical glucose patterns and adjustments needed during a . Review close followup and answer multiple questions. If she were to try, I would think a helpful device would be continuous glucose monitor with the upgraded insulin pump. She states that with 2 jobs at this time and such a busy schedule that would not be possible in the near future, but she will continue to consider down the line. No additional changes in family or social history. She is nonsmoker. OBJECTIVE: Her blood pressure 118/80, pulse 76, weight 142.4 pounds. Alert, in no distress. Further exam deferred today for extensive counseling. ASSESSMENT: 1. Diabetes, type 1, controlled based on A1c, but more variable on her daily record. 2. Medtronic Paradigm 522 insulin pump. Continues manual bolus, though now adding an some use of thebolus wizard. 3. planning considerations. PLAN: 1. Extensive discussion regarding as discussed above. 2. Continue her current insulin regimen. We will adjust her basal rates slightly, decreasing in a couple of areas. New basal rates: Midnight 0.65; 2 a.m. 0.7; 9 a.m. 0.8; 11 a.m. 0.85; 4:30 p.m. 0.8. If her glucose is dropping overnight, to reduce the 2 a.m. rate to 0.65. 3. Follow up in about 4 months. Labs have been ordered for this appointment but not done yet. Reminded her to have those done. Questions are answered. About 45 minutes total time. Counseling is at least 25. GSD:MEDQ C: CONFIRM #: [id number] documented in this encounter Plan of Treatment Upcoming Encounters Date Type Specialty Care Team Description 11/01/2022 Appointment Endocrinology Althea Kelley, NATURAL GAS INSPECTOR, REACTOR TECHNICIAN [address] [id number] (Wo rk) 12/27/2022 Appointment Endocrinology Ayde Warren, MBBS [address] N [id number] documented as of this encounter Procedures Procedure Name Priority Date/Time Associated Diagnosis Comme nts POCT GLYCOSYLATED Routine 07/31/2014 3:33 PM Type I (juvenile Results for this HEMOGLOBIN (HGB A1C) CDT type) diabetes proce dure are in mellitus without the results mention of section. complication, not stated as uncontrolled (HRC) documented in this encounter Results (ABNORMAL) POCT GLYCOSYLATED HEMOGLOBIN (HGB A1C) (07/31/2014 3:33 PM CDT) Analysis Performed At Patho logist Time Signature Hemoglobin A1C, 7.1 (A) 4 - 5.6 % HP CONVERSION POC Cartridge Lot# [id number] HP CONVERSION Specimen (Source) Anatomical Collection Method Collection Time Re ceived Time Location / / Volume Laterality 07/31/2014 3:33 PM CDT Ike Acosta MD PN POINT OF CARE [...] status documented in this encounter Care Teams Civil Engineering Teacher Relationship Specialty Start Date End Date PcpMiguel MD PCP - General 11/06/13 06/26/16 [place] [address] documented as of this encounter
--- OUTSIDE RECORDS SUMMARY | 2022-09-23 07:50 | XMS_ITS | Encounter Summary ---
:1980 Author Organization [employer] Address [address] [place] [address] Care Team Providers Name Role Phone Pcp, Pt Ena MEZA Primary Care Provider Reason for Visit Reason Comments Symptoms Encounter Details Date Type Department Care Team Description 04/07/2014 Telephone [facility] 3800 Tyron Acsota MD Symptoms Endocrinology [address] [facility] [address] [facility] [address] [place] [address] [place], [place] [id number] [phone] Social History Tobacco Use Types Packs/Day Years Used Date Smoking Tobacco: Never Assessed Sex Assigned at Date Recorded Not on file documented as of this encounter Nursing Notes Hiwot Ontiveros RN - 04/08/2014 9:41 AM CDT Called pt and left a VMM letting her know to have edema, etc checked by primary. Ike Acosta MD - 04/07/2014 5:05 PM CDT I would not expect ankle edema, itching/ redness as a result of the diabetes. Best to have checked (PCP is fine) to determine cause. Hiwot Ontiveros RN - 04/07/2014 2:13 PM CDT Pt calling-for the past 3 nights she has been having problems with bilateral ankle swelling with redness and itching. Is wondering if this is a diabetes related issue or if she should be seeing primaryfor evaluation. Please advise. #[phone] documented in this encounter Plan of Treatment Upcoming Encounters Date Type Specialty Care Team Description 11/01/2022 Appointment Endocrinology Althea Kelley, DIVISION CHAIR, TELEPHONE ANSWERING SERVICE OPERATOR [address] [facility] [address] (Wo rk) 12/27/2022 Appointment Endocrinology Ayde Warren MBBS [address] [facility] N [address] documented as of this encounter Visit Diagnoses Not on filedocumented in this encounter Care Teams Audio Visual Coordinator Relationship Specialty Start Date End Date Pcp, Miguel Sutherland MD PCP - General 11/06/13 06/26/16 [place] [address] documented as of this encounter
--- OUTSIDE RECORDS SUMMARY | 2022-09-23 07:50 | XMS_ITS | Encounter Summary ---
:1980 Author Organization [facility] Address [address] [place] [address] Care Team Providers Name Role Phone Unavailable Primary Care Provider Unavailable Reason for Visit Reason Comments Refill Encounter Details Date Type Department Care Team Description 04/03/2013 Refill [facility] 3800 Tyron Acosta MD Refill Endocrinology [address] [place] [address] [place], [place] [address] [phone] Social History Tobacco Use Types Packs/Day Years Used Date Smoking Tobacco: Never Assessed Sex Assigned at Date Recorded Not on file documented as of this encounter Nursing Notes Cornelia Mack, RN - 04/03/2013 8:43 AM CDT Rx faxed to pharmacy documented in this encounter Plan of Treatment Upcoming Encounters Date Type Specialty Care Team Description 11/01/2022 Appointment Endocrinology Althea Kelley, POWDER CORE TESTER, SAP PORTAL DEVELOPER [address] [facility], [place] [address] (Wo rk) 12/27/2022 Appointment Endocrinology Ayde Warren, TRINITYBS [address] [facility], [place] [address] documented as of this encounter Visit Diagnoses Not on filedocumented in this encounter
--- OUTSIDE RECORDS SUMMARY | 2022-09-23 07:50 | XMS_ITS | Encounter Summary ---
:1980 Author Organization [employer] Address [address] [place] [address] Care Team Providers Name Role Phone Pcp, Pt Declines Primary Care Provider Reason for Visit Reason Comments Diabetes Encounter Details Date Type Department Care Team Description 04/24/2014 Office Visit [facility] 380 Ike Acosta Type I (juvenile type) diabetes mellitus without mention of complication, not stated as uncontrolled (Primary Dx); Endocrinology SMD Insulin pump status [address] [place] [address] 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 Ike Acosta MD - 04/24/2014 5:56 PM CDT Progress Notes signed by Ike Acosta MD at 05/22/14 2301 Author: Ike Acosta MD Service: (none) Author Type: Physician Filed: 05/22/14 9508 Note Time: 04/25/14 1250 Status: Signed Reagent Tender: Ike Acosta MD (Physician) NAME: KARIN MONTEZ MR#: [id number] CSN: [id number] AUTHENTICATING CLINICIAN: Ike Acosta MD CONFIRM #: [id number] LOC: 432 CLINIC PROGRESS NOTE DATE OF VISIT: 04/24/2014 : 1980 SUBJECTIVE: Karin is a 34-year-old woman who is here for routine follow up of her diabetes type 1, last visit in October. 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 She has had diabetes since age 22 without chronic complications. A1c's had been up to 8 in the spring of 2011. Have been 6.9 to 7.2 since the fall of 2011. Current is 6.8. As I review her glucose data, though she is largely managing the insulin manually and only sometimesusing her bolus wizard. She is overriding quite a bit, using a fair number of corrections, and a manual bolus is predominant. The current meter, One-Touch Ultra Link is not connecting and so she is hand entering them, so we only have some of her readings. Only a fraction of them are available, though and she only records them when they are high. As I review her written glucose log, fasting's are 75-160. Lunchtime, actually she can have a few lows even, most of them range from 68-144. Suppertime 97-186. Nighttime 85- 160. Mealtimes vary. Carb amounts vary. She does better when she moderates her carb intake. Carb ratio 1 for every 15 g, but again not using a Bolus wizard. Sensitivity 70. Active time 4 hours. Target range 100-120. Basal rates: Midnight 0.7; 9 a.m. 0.85; 1:30 p.m. 0.8; 4:30 p.m. 0.85. She is doing quite a bit of travel. Spent some time in [place] this winter. She will spend 2 monthsthis summer at [employer] festivals. She will also be traveling [place] to [place] [employer] [place] severalplaces in [place] [facility]. Glucose ran high on this past occasion, the day before menses started. She is not sure if that is a pattern. Current insulin pump paradigm 522. No changes in family or social history. Last eye exam last fall. OBJECTIVE: Blood pressure 104/60, pulse 76, weight 138 pounds. Alert, pleasant. She is in no distress. She is oriented x3. Further exam deferred today for extended counseling. LABS: Her A1c is 6.8%. Additional labs from last June reviewed and she will be due for those later this summer. ASSESSMENT: 1. Diabetes type 1, moderately well controlled. A1c looks good, but more variation than I would likein her overall glucose. No chronic complications. 2. Medtronic insulin pump 522 Paradigm. PLAN: 1. Overall, she is doing pretty well. I think the best thing she could do would be to start use the Bolus wizard to add consistency to her dosing and allow us to make insulin adjustments and actually have them happen because she is using the program. She is using the basal rate. We talked at length about the rationale for that, though I am not so sure she is convinced. She feels like she has to back it off at nighttime because a sliding scale to be too aggressive. We changed her evening target rangefrom 9 p.m. to 5 a.m. 120-160 to give her extra buffer space. I did not change the sensitivity. I did not change her overall rates at this point. Main topic today of discussion was to consider using the Bolus Wizard. 2. We also talked about the about travel and consistency, and her schedule, varying meals. It is okay for her to vary her schedule and her meals as long as she is carb counting and keep doing her testing. 3. Will set her up with a Contour Link and hopefully we can get a better connection. 4. Also can use the Medtronic Reps to help with issues with the connection as well. 5. She is agreeable with plan. Questions are answered. She might also start trying to use the Bolus wizard for a specific meal to gain some more familiarity with it and comfort, perhaps breakfast were meals are fairly consistent. All of her questions are answered. About 40 minutes total time, about 30 are in counseling today. GSD:MEDQ C: CONFIRM #: [id number] documented in this encounter Plan of Treatment Upcoming Encounters Date Type Specialty Care Team Description 11/01/2022 Appointment Endocrinology Althea Kelley, SHEET IRONWORKER, CERAMICS TECHNICIAN [address] N [id number] (Wo rk) 12/27/2022 Appointment Endocrinology Ayde Warren, MBBS [address] N [id number] documented as of this encounter Procedures Procedure Name Priority Date/Time Associated Diagnosis Comme nts POCT GLYCOSYLATED Routine 04/24/2014 11:46 Type I (juvenile Re sults for this HEMOGLOBIN (HGB A1C) AM CDT type) diabetes proce dure are in mellitus without the results mention of section. complication, not stated as uncontrolled (HRC) documented in this encounter Results (ABNORMAL) POCT GLYCOSYLATED HEMOGLOBIN (HGB A1C) (04/24/2014 11:46 AM CDT) [facility] Time Signature Hemoglobin A1C, 6.8 (A) 4 - 5.6 % HP CONVERSION POC Cartridge Lot# [id number] HP CONVERSION Specimen (Source) Anatomical Collection Method Collection Time Re ceived Time Location / / Volume Laterality 04/24/2014 11:46 AM CDT Ike Acosta MD PN POINT OF [...] status documented in this encounter Care Teams Supervisor Home Restoration Service Relationship Specialty Start Date End Date PcpMiguel MD PCP - General 11/06/13 06/26/16 [place] [address] documented as of this encounter
--- OUTSIDE RECORDS SUMMARY | 2022-09-23 07:50 | XMS_ITS | Encounter Summary ---
:1980 Author Organization [employer] Address [address] [place] [address] Care Team Providers Name Role Phone Unavailable Primary Care Provider Unavailable Reason for Visit Reason Comments Diabetes Encounter Details Date Type Department Care Team Description 08/02/[address] [facility] 3800 Tyron Acosta MD Diabetes Endocrinology [address] [address] [place] [address] [phone] Social History Tobacco Use Types Packs/Day Years Used Date Smoking Tobacco: Never Assessed Sex Assigned at Date Recorded Not on file documented as of this encounter Nursing Notes Renate Goldsmith RN - 08/02/2013 3:43 PM CDT called pt lm on regarding info below and repeated it twice. Instructed her to call back if further questions Ike Acosta MD - 08/02/2013 3:35 PM CDT Thanks- yes, agree. Please have her increase her basal to 150% of normal. OK to increase bolus to 1 unit/ 10 gms or even higher ratio if high post meals.. Can adjust sensitivity to 40. OK to bolus up to every 2-3 hours when sick, based on frequent testing. Push fluids and cover those carbs. Sometimes diluted clear juice (ie half water, half juice) is tolerated better. Be prepared to back off insulin doses as she improves. Go to ER if cannot drink or BG spirals up and cannot reverse it. Renate Goldsmith RN - 08/02/2013 11:25 AM CDT Pt called and states she has been sick (fever/sore throat) since 07/31/13. Her BGs have been elevated. Pt said she woke up yesterday with BG of 450, she got it down to 200 by increasing her basal rate by 25% all day. Today she woke up with BG of 300 and now it has increased to 350. Can she increaseher basal rate more or should she increase her bolus during meals also. Current bolus is 1 unit per 15 grams and basal total of 24-hour basal 20.55 units/hour, midnight 0.75, 6 a.m. 0.7, 9 a.m. 0.9, 1:30 p.m. 0.85, 4:30 p.m. 0.95. Last visit 07/23/13 documented in this encounter Plan of Treatment Upcoming Encounters Date Type Specialty Care Team Description 11/01/2022 Appointment Endocrinology Althea Kelley, AWNING MAKER AND INSTALLER, SNOWBLOWER MECHANIC [address] [facility] N [id number] (Wo rk) 12/27/2022 Appointment Endocrinology Ayde Warren, MBBS [address] [facility] N [id number] documented as of this encounter Visit Diagnoses Not on filedocumented in this encounter
--- OUTSIDE RECORDS SUMMARY | 2022-09-23 07:50 | XMS_ITS | Encounter Summary ---
:1980 Author Organization [facility] Address [address] [place] [address] Care Team Providers Name Role Phone Unavailable Primary Care Provider Unavailable Reason for Visit Reason Comments Forms Encounter Details Date Type Department Care Team Description 10/31/2013 Telephone [facility] 3800 Tyron Acosta MD Forms Endocrinology [address] [place] [place] [address] [place] [address] [phone] Social History Tobacco Use Types Packs/Day Years Used Date Smoking Tobacco: Never Assessed Sex Assigned at Date Recorded Not on file documented as of this encounter Nursing Notes Liyah Michel RN, CDE - 10/31/2013 3:12 PM CST pt requesting medtronic rx be sent to them, she had lost a box of supplies and needed them sent kevyn. Form completed and faxed. 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
--- OUTSIDE RECORDS SUMMARY | 2022-09-23 07:50 | XMS_ITS | Encounter Summary ---
:1980 Author Organization [facility] Address [address] [place] [address] Care Team Providers Name Role Phone Unavailable Primary Care Provider Unavailable Reason for Visit Reason Comments Diabetes Encounter Details Date Type Department Care Team Description 10/03/2012 Telephone [facility] 3800 Tyron Acosta MD Diabetes Endocrinology [address] [place] [address] [place] [address] [phone] Social History Tobacco Use Types Packs/Day Years Used Date Smoking Tobacco: Never Assessed Sex Assigned at Date Recorded Not on file documented as of this encounter Nursing Notes Renate Goldsmith RN - 10/10/2012 11:02 AM CST pt called back and relayed info below. She is agreeable with plan. Renate Farley RN - 10/05/2012 12:58 PM CST called pt lm on to call back Renate Farley RN - 10/03/2012 1:32 PM CST called pt lm on vm to call back regarding Dr. Acosta's message: Thanks, It has probably not reacheda steady state yet but I wonder id the 275 could be due to a low overnight. Please check the glucosea couple times in the middle of the night (sorry) to see if it is dropping over night. Fax again records at week's end or beginning of next week. If Dr. Acosta is out of the office perhaps Althea or CDE would check her results. Written order sent to [employer] documented in this encounter Plan of Treatment Upcoming Encounters Date Type Specialty Care Team Description 11/01/2022 Appointment Endocrinology Althea Kelley, REO ASSET MANAGER, BLIND AIDE [address] [id number] (Wo rk) 12/27/2022 Appointment Endocrinology Ayde Warren, MBBS [address] [id number] documented as of this encounter Visit Diagnoses Not on filedocumented in this encounter
--- OUTSIDE RECORDS SUMMARY | 2022-09-23 07:50 | XMS_ITS | Encounter Summary ---
:1980 Author Organization [facility] Address [address] [place] [address] Care Team Providers Name Role Phone Unavailable Primary Care Provider Unavailable Reason for Visit Reason Comments Refill Encounter Details Date Type Department Care Team Description 08/31/2013 Refill [facility] 3800 Tyron Acosta MD Refill Endocrinology [address] [place] [address] [place], [place] [address] [phone] Social History Tobacco Use Types Packs/Day Years Used Date Smoking Tobacco: Never Assessed Sex Assigned at Date Recorded Not on file documented as of this encounter Nursing Notes Renate Goldsmith RN - 09/02/2013 10:21 AM CDT RX faxed per protocol. documented in this encounter Plan of Treatment Upcoming Encounters Date Type Specialty Care Team Description 11/01/2022 Appointment Endocrinology Althea Kelley, MEDICAL REFERRAL COORDINATOR, ENGINEERING PATTERNMAKER [address] [facility], N [address] (Wo rk) 12/27/2022 Appointment Endocrinology Ayde Warren, MBBS [address] [facility], N [address] documented as of this encounter Visit Diagnoses Not on filedocumented in this encounter
--- OUTSIDE RECORDS SUMMARY | 2022-09-23 07:50 | XMS_ITS | Encounter Summary ---
:1980 Author Organization [facility] Address [address], [place] [address] Care Team Providers Name Role Phone Unavailable Primary Care Provider Unavailable Reason for Visit Reason Comments Medication Problems Encounter Details Date Type Department Care Team Description 05/26/2013 Telephone [facility] No Pcp, No Pcp, MD Medication Problems [address] [facility] [place] [address] [place] [address] [phone] Social History Tobacco Use Types Packs/Day Years Used Date Smoking Tobacco: Never Assessed Sex Assigned at Date Recorded Not on file documented as of this encounter Nursing Notes Elly Cruz RN - 05/26/2013 8:58 PM CDT Patient calling. Her BS meter is not working and questioning what she can do for this tonight? PNNL advised will have her speak to the international marketing coordinator for Endo. Patient agrees with plan and caller transferred to the gettering filament machine operator to page the international marketing coordinator. Call completed. documented in this encounter Plan of Treatment Upcoming Encounters Date Type Specialty Care Team Description 11/01/2022 Appointment Endocrinology Althea Kelley, GREENS LABORER, INK PRINTER [address] [place] [address] [id number] (Wo rk) 12/27/2022 Appointment Endocrinology Ayde Warren, MBBS [address] [facility] N [id number] documented as of this encounter Visit Diagnoses Not on filedocumented in this encounter
--- OUTSIDE RECORDS SUMMARY | 2022-09-23 07:50 | XMS_ITS | Encounter Summary ---
:1980 Author Organization [facility] Address [address], [place] [address] Care Team Providers Name Role Phone Unavailable Primary Care Provider Unavailable Encounter Details Date Type Department Care Team Description 09/28/2012 Notes/Orders [facility] 3800 Radha Jarrell MD Endocrinology [address] [facility] [address] [place] [address] [place] [address] [phone] Social History Tobacco Use Types Packs/Day Years Used Date Smoking Tobacco: Never Assessed Sex Assigned at Date Recorded Not on file documented as of this encounter Plan of Treatment Upcoming Encounters Date Type Specialty Care Team Description 11/01/2022 Appointment Endocrinology Althea Kelley, COIL CONNECTOR, ANODIZER [address] [facility] N [phone] (Wo rk) 12/27/2022 Appointment Endocrinology Ayde Warren, TRINITYBS [address] [facility] N [id number] documented as of this encounter Visit Diagnoses Not on filedocumented in this encounter
--- OUTSIDE RECORDS SUMMARY | 2022-09-23 07:50 | XMS_ITS | Encounter Summary ---
:1980 Author Organization [employer] Address [address] [place] [address] Care Team Providers Name Role Phone Needs Pcp, Assignment Primary Care Provider Reason for Visit Reason Comments Diabetes Encounter Details Date Type Department Care Team Description 11/05/2013 Office Visit [facility] 380 Ike Acosta Type I (juvenile type) diabetes mellitus without mention of complication, not stated as uncontrolled (Primary Dx); Endocrinology SMD Insulin pump status [address] [id number] [facility] [place] [address] [phone] Social History Tobacco Use Types Packs/Day Years Used Date Smoking Tobacco: Never Assessed Sex Assigned at Date Recorded Not on file documented as of this encounter Last Filed Vital Signs Vital Sign Reading Time Taken Comments Blood Pressure 114/80 11/05/2013 11:16 AM SMASHER HAND Pulse 72 11/05/2013 11:16 AM SMASHER HAND Temperature - - Respiratory Rate - - Oxygen Saturation - - Inhaled Oxygen Concentration - - Weight 63.5 kg (140 lb) 11/05/2013 11:16 AM SMASHER HAND Height - - Body Mass Index 24.41 09/24/2012 8:29 AM SMASHER HAND documented in this encounter Patient Instructions Patient InstructionsIke Acosta MD - 11/05/2013 6:27 PM CST Basals: [place] 0.7, 2AM 0.7, , 9AM 0.9, 11AM 0.85, 4:30 PM 0.85 units/hr Bolus /15 gms HER HAND documented in this encounter Progress Notes Ike Acosta MD - 11/05/2013 6:45 PM CST Progress Notes signed by Ike Acosta MD at 11/19/131834 Author: Ike Acosta MD Service: (none) Author Type: Physician Filed: 11/19/131834 Note Time: 11/06/13831 Status: Signed Outside Installation Machinist: Ike Acosta MD (Physician) NAME: KARIN MCMILLAN MR#: [id number] CSN: [id number] AUTHENTICATING CLINICIAN: Ike Acosta MD CONFIRM #: [id number] LOC: 432 CLINIC PROGRESS NOTE DATE OF VISIT: 11/05/2013 : 1980 SUBJECTIVE: 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. She has had diabetes, type 1, since age 22, and no chronic complications. She continues to improve in terms of her overall control and seems to be more comfortable. A1c is down from 8 to 7 as of July, and now 6.9%. She realizes that there are times when she misses in terms of her management. She might forget to cover a snack. She might miscount a food. 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 She often will forget the test her glucoseat bedtime. She uses a Medtronic insulin pump. Basal total 19.65 units per day. Basal rates: Midnight 0.75; 2 a.m. 0.7; 9 a.m. 0.9; 11 a.m. 0.85; 4:30 p.m. 0.9. Bolus 1 for every 15 g of carb. As I review her glucose log which she wrote out just before the appointment, she is testing about 4 times per day for the most part. Uses NovoLog insulin. There are no specific patterns. There are isolated excursions to highs. Hypoglycemia is occasional, but no defined pattern. She does note that she might take a snack, especially afternoon, and forget the bolus, and that can result in some highs. She eats the same breakfast every day and takes 2.5 units for it, seems to work. Otherwise, no additional patterns or concerns. More than half are in target range. Additionally, she will be going to [facility] for a week on November 13. She wanted advice on handling her supplies. I meant to give her an instruction sheet on what to take with her for documentation.She was already aware of having the prescription label. I forgot to give it to her at the time of the appointment, and so I will send it to her in the mail. Last eye exam in July. No smoking. . No children yet, though she has expressed interest for the future. OBJECTIVE: Blood pressure 114/80, pulse 72, weight 140 pounds. Alert, pleasant. She is in no distress. She is oriented x3. Further exam is deferred today for counseling purposes. ASSESSMENT: Medtronic insulin pump. PLAN: 1. Overall doing well. Adjust her basal rate slightly. New rates: Midnight 0.7; 2 a.m. continue 0.7;9 a.m. 0.9; 11 a.m. 0.85; 4:30 p.m. 0.85. Bolus 1 for every 15 g of carb. 2. Gave her a sample for Lantus pen and NovoLog pen to help give her backup while she is traveling. I gave her a printed prescription for the Lantus also for backup. 3. Discussed management of her diabetes supplies during international travel and answered her questions, and I will send her a printout of those instructions in the mail today as well. About 30 minutes total time, 20 are in counseling. GSD:MEDQ C: CONFIRM #: [id number] HER HAND documented in this encounter Plan of Treatment Upcoming Encounters Date Type Specialty Care Team Description 11/01/2022 Appointment Endocrinology Althea Kelley, SUPERVISOR COFFEE, BLOOD DONOR RECRUITER [address] [id number] (Wo rk) 12/27/2022 Appointment Endocrinology Ayde Warren MBBS [address] [id number] documented as of this encounter Procedures Procedure Name Priority Date/Time Associated Diagnosis Comme nts POCT GLYCOSYLATED Routine 11/05/2013 11:28 Type I (juvenile Re sults for this HEMOGLOBIN (HGB A1C) AM SMASHER HAND type) diabetes proce mortezae are in mellitus without the results mention of section. complication, not stated as uncontrolled (HRC) documented in this encounter Results (ABNORMAL) POCT GLYCOSYLATED HEMOGLOBIN (HGB A1C) (11/05/2013 11:28 AM SMASHER HAND) Analysis Performed At [facility] Time Signature Hemoglobin A1C, 6.9 (A) 4 - 5.6 % HP CONVERSION POC Cartridge Lot# [id number] HP CONVERSION Specimen (Source) Anatomical Collection Method Collection Time Re ceived Time Location / / Volume Laterality 11/05/2013 11:28 AM SMASHER HAND Ike Acosta MD PN POINT OF CARE [...] status documented in this encounter Care Teams Eyewear Manufacturing Supervisor Relationship Specialty Start Date End Date Needs Pcp, Assignment PCP - General 11/05/13 11/05/13 [place] [address] documented as of this encounter
--- OUTSIDE RECORDS SUMMARY | 2022-09-23 07:50 | XMS_ITS | Encounter Summary ---
:1980 Author Organization [facility] Address [address] [place] [address] Care Team Providers Name Role Phone Unavailable Primary Care Provider Unavailable Reason for Visit Reason Comments Diabetes Encounter Details Date Type Department Care Team Description 07/23/2013 Office Visit [facility] 3800 Ike Acosta Type I (juvenile type) diabetes mellitus without mention of complication, not stated as uncontrolled (Primary Dx); Endocrinology MD Destini Insulin pump status [address] [place] [address] [phone] Social History Tobacco Use Types Packs/Day Years Used Date Smoking Tobacco: Never Assessed Sex Assigned at Date Recorded Not on file documented as of this encounter Last Filed Vital Signs Vital Sign Reading Time Taken Comments Blood Pressure 110/74 07/23/2013 3:03 PM CDT Pulse 80 07/23/2013 3:03 PM CDT Temperature - - Respiratory Rate - - Oxygen Saturation - - Inhaled Oxygen Concentration - - Weight 64.6 kg (142 lb 6.4 oz) 07/23/2013 3:03 PM CDT Height - - Body Mass Index 24.83 09/24/2012 8:29 AM OUTLET MANAGER documented in this encounter Patient Instructions Patient InstructionsIke Acosta MD - 07/23/2013 4:12 PM CDT Dilated retinal exam for diabetes -yearly documented in this encounter Progress Notes Ike Acosta MD - 07/23/2013 5:30 PM CDT Progress Notes signed by Ike Acosta MD at 08/12/132152 Author: Ike Acosta MD Service: (none) Author Type: Physician Filed: 08/12/132152 Note Time: 07/23/131818 Status: Signed Auto Inspection Specialist: Ike Acosta MD (Physician) NAME: KARIN MCMILLAN MR#: [id number] CSN: [id number] AUTHENTICATING CLINICIAN: Ike Acosta MD CONFIRM #: [id number] LOC: 432 CLINIC PROGRESS NOTE DATE OF VISIT: 07/23/2013 : 1980 SUBJECTIVE: 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 She has had diabetes type 1 since age 22 without chronic complications. Control has been improving. She feels like she is under pretty good control at this point for her. A1c down from 8 to 7. She feels like she is fairly stable. We did download her insulin pump data. She is using an Ultra Link meter. Settings, total of 24-hour basal 20.55 units/hour, midnight 0.75, 6 a.m. 0.7, 9 a.m. 0.95, 1:30 p.m. 0.85, 4:30 p.m. 0.95. Active time 4 hours. Insulin to carb ratio 15 g/unit, adjust to 13 g/unit at 6 a.m. to noon. Sensitivity 70. Reviewing her glucose data, she brings some of it on her phone and some of it was downloaded. She does use a correction bolus quite frequently. She does do some postprandial bolusing for a high. She overrides her meter, but it turns out what that means is that if her bolus calculation is quite simple,simply a carb count, she will simply hand enter it. She finds that more convenient. But if it is more complex or there is a sliding scale coverage or an odd number of carbs, she will enter using the wizard. She is carefully counting her carbs. She is using a food scale. She has cut back on her carb intake overall. She is trying to keep her carbs relatively simple. For instance, on a given meal just using 1 source of carbs so there is less calculation. She is avoiding eating out as much as she can. Her glucose logs reveal that her numbers are somewhat variable, but overall at least half are in the80s to 150s range. She does have excursions to the 200s somewhat randomly. She could occasionally forget to cover a carb, but most often if there is an error it is in under counting. She has occasionalrare hypoglycemia which is mild to the 60s, it could occur first thing in the morning, she thinks that might be on nights when she might have had a glass of wine or done a correction at bedtime. She also thinks that she is doing some postprandial bolusing and that could lead to a low as well. She had multiple questions regarding overall management, pattern assessment and control and future . She was interested in a primary care provider and wanted a suggestion. She lives in [place] so they would consider the [facility], but they are also considering moving to [place] and then commuting to [place]. She gets an eye exam yearly. I believe, last was done spring. Physically, she is feeling well. No complaints. General complete system review unremarkable. No other changes in family, social, past medical history. MEDS: List reviewed and updated in [facility]. OBJECTIVE: Blood pressure 110/74, pulse 80, weight 142.4 pounds. Alert, in no distress. She is oriented x3. Further exam is deferred today for extended counseling. Her A1c is 7%. The rest of her labs from earlier June are reviewed. LDL 64, creatinine 0.7, urine microalbumin less than 10. ASSESSMENT: 1. Diabetes type 1, longstanding since age 22. No chronic complications. 2. MiniMed insulin pump Medtronic. PLAN: 1. We will make small adjustments in steps. First of all, she will eliminate the postprandial bolus,decrease any postprandial bolusing to half to start with, but rather use the postprandial glucose number to evaluate her pre meal insulin dose and carb count. 2. We talked about adjustments she could make if she has had a glass a wine for instance, having a small snack at bedtime or potentially reducing her overnight basal. 3. Consider reducing her daytime basal rate starting at 9 a.m. to 0.9. That will give her a lower rate through the late morning and then she could also consider reducing overall her rates by about 5 hundredths just to take the edge off. 4. Update an eye exam. 5. I have given her a recommendation for family physicians at the [facility] for her and her . 6. Lengthy discussion regarding , management of diabetes. 7. I have given her my business card again so that she has contact. I have completed her school bus driver/custodian's form and renewed her prescription for insulin. She is agreeable with the plan and her questions are answered. 45 minutes total time, 30 are in counseling. GSD:MEDQ C: CONFIRM #: [id number] documented in this encounter Plan of Treatment Upcoming Encounters Date Type Specialty Care Team Description 11/01/2022 Appointment Endocrinology Althea Kelley, DIRECTOR OF ACADEMIC, ADMINISTRATIVE ASSISTANT OFFICE MANAGER [address] [address] (Wo rk) 12/27/2022 Appointment Endocrinology Ayde Warren, MBBS [address] [place] [address] [address] documented as of this encounter Procedures Procedure Name Priority Date/Time Associated Diagnosis Comme nts POCT GLYCOSYLATED Routine 07/23/2013 3:08 PM Type I (juvenile Results for this HEMOGLOBIN (HGB A1C) CDT type) diabetes proce dure are in mellitus without the results mention of section. complication, not stated as uncontrolled (HRC) documented in this encounter Results (ABNORMAL) POCT GLYCOSYLATED HEMOGLOBIN (HGB A1C) (07/23/2013 3:08 PM CDT) Analysis Performed At [facility] Time Signature Hemoglobin A1C, 7.0 (A) 6.0 % HP CONVERSION POC Cartridge Lot# [id number] HP CONVERSION Specimen (Source) Anatomical Collection Method Collection Time Re ceived Time Location / / Volume Laterality 07/23/2013 3:08 PM CDT Ike Acosta MD PN POINT [...]
--- OUTSIDE RECORDS SUMMARY | 2022-09-23 07:50 | XMS_ITS | Encounter Summary ---
:1980 Author Organization [employer] Address [address] [place] [address] Care Team Providers Name Role Phone Unavailable Primary Care Provider Unavailable Reason for Visit Reason Comments Diabetes Encounter Details Date Type Department Care Team Description 09/24/2012 Office Visit [facility] [address] Ike Acosta, Ty pe I (juvenile type) diabetes mellitus without mention of complication, not stated as uncontrolled; Endocrinology Insulin pump status [address] [facility] [place] [address] [phone] (Wo rk) Social History Tobacco Use Types Packs/Day Years Used Date Smoking Tobacco: Never Assessed Sex Assigned at Date Recorded Not on file documented as of this encounter Last Filed Vital Signs Vital Sign Reading Time Taken Comments Blood Pressure 108/64 09/24/2012 8:29 AM SENIOR NET DEVELOPER ARCHITECT Pulse 76 09/24/2012 8:29 AM SENIOR NET DEVELOPER ARCHITECT Temperature - - Respiratory Rate - - Oxygen Saturation - - Inhaled Oxygen Concentration - - Weight 63.3 kg (139 lb 9.6 oz) 09/24/2012 8:29 AM SENIOR NET DEVELOPER ARCHITECT Height 161.3 cm (5' 3.5) 09/24/2012 8:29 AM SENIOR NET DEVELOPER ARCHITECT Body Mass Index 24.34 09/24/2012 8:29 AM SENIOR NET DEVELOPER ARCHITECT documented in this encounter Patient Instructions Patient InstructionsIke Acosta MD - 09/24/2012 9:24 AM CST CDE same day as appt with . OR NET DEVELOPER ARCHITECT documented in this encounter Progress Notes Ike Acosta MD - 09/25/2012 8:20 AM CST Progress Notes signed by Ike Acosta MD at 10/14/121841 Author: Ike Acosta MD Service: (none) Author Type: Physician Filed: 10/14/121841 Note Time: 09/25/12819 Status: Signed Log Buncher: Ike Acosta MD (Physician) NAME: KARIN MCMILLAN MR#: [id number] CSN: [id number] AUTHENTICATING CLINICIAN: Ike Acosta MD CONFIRM #: [id number] LOC: 432 CLINIC PROGRESS NOTE DATE OF VISIT: 09/24/2012 : 1980 SUBJECTIVE: Karin is a 32-year-old woman who is here of her own accord to establish care for diabetes type 1. She is here with her today. 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 She has had diabetes type 1 since age 22. She has not experienced chronic complications. She had negative screening for celiac. She is up-to-date with eye exams, last done in the spring. She has felt well and generally feels like everything is going pretty well, but glucose levels swing more than she would like. She has not experienced chest pain, shortness of breath or claudication. No recent illness. No nausea, vomiting, or diarrhea. No tingling, numbness, pain, sores or ulcerations in herfeet. No polyuria or polydipsia. The remainder of her complete 10-point review of systems is unremarkable. PAST MEDICAL HISTORY: Otherwise unremarkable except for cellulitis, hospitalized in 2002. MEDICATIONS: NovoLog insulin only. 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 No smoking. No children. FAMILY HISTORY: Unremarkable. No diabetes or vascular disease. OBJECTIVE: Blood pressure 108/64, pulse 76, weight 139.6 pounds, height is 63.5 inches. Alert, very pleasant, healthy-appearing, attentive. Her ocular movements are intact. Pupils are equal, round, and responsive to light. Oropharynx is clear. Dentition is in good shape. NECK: Supple without lymphadenopathy. Thyroid is unremarkable. LUNGS: Clear with good effort. No rales or wheezes. CARDIOVASCULAR: Regular rate and rhythm. Normal S1 and S2. No murmur, rub, or gallop. ABDOMEN: Soft, nontender, positive bowel sounds. No mass or visceromegaly. EXTREMITIES: No edema or hand tremor. DTRs are normal. Feet are in excellent repair. Pedal pulses full and intact. Achilles reflexes are normal. Sensitivity to monofilament vibration are normal. LABORATORY: A1c is 7.1%. In February it was 8%. Last December it was 7.3%. Records were sent ahead. It looks like the A1cs have most often, dating back to December 2010, been around 8. Additionally, from December 02, 2011, total cholesterol 150, HDL 73, LDL 72, triglyceride 24. Urine microalbumin 5, creatinine 0.7, potassium 4.8, ALT 12. She is using the MiniMed insulin pump, bolus ratio 1 for every carb, sensitivity 70, action time is 4 hours. Basal rates midnight 0.75 units/hour, 2 a.m. 0.8 units/hour, 6 a.m. 0.7 units/hour, 9 a.m. 1.0 units/hour, 11 a.m. 0.95 units/hour, 2 p.m. 0.9 units per hour, 7 p.m. 0.9 units/hour, totaling 18.4 units per day. Her glucose record is kept in column form, so harder to interpret data. Her data looks fairly scheduled. She tests 5 times per day, breakfast around 8, lunch around 12:30 to 1, supper between 6 and 8 p.m. She does do some exercise, and wants to increase that. She does use a temporary basal successfully. She carb counts, but she feels like she needs some boosting of her skills and attention, especially with her meals. Total average insulin per day is about 27 units. Glucose record shows that her glucose can be low in the morning and consistently declines overnight.If she has a low at any point in the day, her next glucose would typically be in the high 200s to 300s. She seemed to be aware of the lows and then need to back off on the overnight basal, but seemed to be more focused on the highs. ASSESSMENT: 1. Diabetes type 1 since age 22. No chronic complications. Moderately well- controlled with some a.m.hypoglycemia. 2. MiniMed insulin pump. PLAN: 1. I think the first order of business is to adjust her overnight basals in steps until hypoglycemiain the morning is completely alleviated. My recommendation is for basals as follows: Midnight 0.7 units/hour, 2 a.m. 0.6 units/hour, 6 a.m. 0.7 units/hour, 9 a.m. 0.9 units/hour, 2 p.m. 0.8 units/hour. We are backing off also a little bit later in the day. 2. Reviewed glucose pattern assessment, glucose targets. Reviewed how we assess her glucose patternsand adjust the insulins. Focused on pre and 2-hour post-meal testing to assess her carb ratio. 3. We will get her enrolled with our diabetes education staff, first with our dietitian. Though she lives in [place], she does come up to the [facility] with some regularity, and so could fit in appointments. We will plan to meet with her again in 3 to 4 months. We will check a [id number] A1c. At that point, she will also be due for standard labs, which are put on order. I had her meet Elzbieta, one of our educators today, and reviewed the case with her. Total time was about 55 minutes. GSD:MEDQ C: CONFIRM #: [id number] OR NET DEVELOPER ARCHITECT documented in this encounter Plan of Treatment Upcoming Encounters Date Type Specialty Care Team Description 11/01/2022 Appointment Endocrinology Althea Kelley, MECHANICAL SPECIALIST, MATH TEACHER [address] [address] (Wo rk) 12/27/2022 Appointment Endocrinology Ayde Warren MBBS [address] [address] documented as of this encounter Procedures Procedure Name Priority Date/Time Associated Diagnosis Comme nts POCT GLYCOSYLATED Routine 09/24/2012 9:39 AM Type I (juvenile Results for this HEMOGLOBIN (HGB A1C) SENIOR NET DEVELOPER ARCHITECT type) diabetes proce fran are in mellitus without the results mention of section. complication, not stated as uncontrolled (HRC) documented in this encounter Results (ABNORMAL) POCT GLYCOSYLATED HEMOGLOBIN (HGB A1C) (09/24/2012 9:39 AM SENIOR NET DEVELOPER ARCHITECT) Analysis Performed At [facility] Time Signature Hemoglobin A1C, 7.1 (A) 6.0 % HP CONVERSION POC Cartridge Lot# [id number] HP CONVERSION Specimen (Source) Anatomical Collection Method Collection Time Re ceived Time Location / / Volume Laterality 09/24/2012 9:39 AM SENIOR NET DEVELOPER ARCHITECT Ike Acosta MD PN POINT OF CARE [...]
--- OUTSIDE RECORDS SUMMARY | 2022-09-23 07:50 | XMS_ITS | Encounter Summary ---
:1980 Author Organization [facility] Address [address] [place] [address] Care Team Providers Name Role Phone Unavailable Primary Care Provider Unavailable Reason for Visit Reason Comments Diabetes Encounter Details Date Type Department Care Team Description 01/31/2013 Office Visit [facility] [address] I[address]osta, Ty pe I (juvenile type) diabetes mellitus without mention of complication, not stated as uncontrolled; Endocrinology Insulin pump status [address] 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 documented in this encounter Patient Instructions Patient InstructionsIke Acosta MD - 01/31/2013 12:12 PM CDT IDC Psychologist CDE same day as IDC Psychologist documented in this encounter Progress Notes Ike Acosta MD - 01/31/2013 7:58 PM CDT Progress Notes signed by Ike Acosta MD at 02/19/132136 Author: Ike Acosta MD Service: (none) Author Type: Physician Filed: 02/19/132136 Note Time: 01/31/131957 Status: Signed Dietary Services Manager: Ike Acosta MD (Physician) NAME: KARIN MCMILLAN MR#: [id number] CSN: [id number] AUTHENTICATING CLINICIAN: Ike Acosta MD CONFIRM #: [id number] LOC: 432 CLINIC PROGRESS NOTE DATE OF VISIT: 01/31/2013 : 1980 SUBJECTIVE: 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 She had recently moved to [place] in the Fall, 2011. Has had diabetes type 1 since age 22 without chronic complications, had negative screening for celiac. Eye exam done in the Spring. A1cs have generally been okay. In September, 7.1. Higher in the spring around 8. Before that,7.3 last winter. She is struggling with her management now. She expresses several frustrations. She is frustrated overall with the diabetes and how it impacts her professional career. She feels like she just cannot devote enough time to it and keep up with her other priorities. She does not feel like she has confidence in her ability to manage it. At times feels overwhelmed, especially because of heroverall busyness. She feels afraid of complications. She has some concerns about the potential for asafe in the future. She also finds it hard to right down her numbers as a variability and imperfection is upsetting. She at times is tearful when describing this, but certainly her concerns are very important as they do significantly effect her ability to manage as well. She is interested in meeting with one of our psychologists to review her concerns and strategiesand I think this is a very smart idea and I will make a referral, copy to Rogelio Fam at the [facility]. She feels like she is working harder on counting her carbs. She has become more diet conscious, cutting back on carbohydrate intake, increasing vegetables, decreasing desert and concentrated sweets. Her glucose levels do remain quite variable using her MiniMed. Current bolus ratio 1 per carb. Basal's:Midnight 0.75 units/hour; 6:00 a.m. 0.7 units/hour; 9:00 a.m. 0.95 units/hour; 2:00 p.m. 0.9 units/hour. In reviewing her glucose log, there are no consistent patterns. The do vary from high 60s to the 200s though her real high numbers, 300s to 400s, are considerably diminished compared with previous and hypoglycemia is uncommon. There is no consistent pattern overnight, but no middle of the night testing. No additional physical complaints or concerns. No recent illness. No additional changes. FAMILY AND SOCIAL HISTORY: , lives with . No smoking. Alcohol 2 to 3 in a week. OBJECTIVE: Blood pressure 110/74, pulse 72, weight 143.8 pounds. Alert, pleasant. She is in no distress. She is oriented x3. Further exam was deferred today. Her A1c 7.2%. She had labs on order, but states she forgot to get them done. ASSESSMENT: 1. Diabetes type 1 diagnosed at age 22. No chronic complications, moderately well-controlled. 2. MiniMed insulin pump. PLAN: 1. I agree with her, it is hard to adjust her insulins today. The numbers are quite variable and it does sound like there are other impact. We both agreed that the more important issue may be due to get her in with the [facility] psychologist, Dr. Fam for further evaluation. We will have her seen first there and then immediately following to see our diabetes support nurse on that same day. She does travel from [place] and that may be more convenient, especially given her busy schedule. I think serial followup with both will be quite useful. 2. We talked about overall adjustments in mind sets which may be helpful over time. She will likely need some strategy for coping and building confidence. I also suggested to her that as we get the diabetes under better control, it will take her less time because it will become more predictable. She may spend less time worrying about it, the results, less time dealing with unfavorable numbers, and may find it less disruptive in terms of distracting her attention each time she needs to do a test. 3. Continue to work on the carb counting, insulin adjustments. She does have CGM, and I encouraged her to resume its use. I think that data will be quite helpful, especially in evaluating postprandial and overnight data. 4. She was also struggling with how to use the CGM, so we will get he the information for contactingour MiniMed pump representatives. She could also followup with the [facility]. 5. She will get her followup labs done as ordered last time, lipids and renal function. She will return in a few months with me to follow up on how she is doing. We will check a point of care A1c at that time. We will get back with her lab reports as they are available. 6. Thirty minutes total time, 20 are in counseling. CC: ROGELIO FAM PSYD, LP [address] [place] [address] GSD:MEDQ C: CONFIRM #: [id number] documented in this encounter Plan of Treatment Upcoming Encounters Date Type Specialty Care Team Description 11/01/2022 Appointment Endocrinology Althea Kelley, NUTRITION COUNSELOR, GLOVE OPERATOR [address] [facility], [address] [address] (Wo rk) 12/27/2022 Appointment Endocrinology Ayde Warren, MBBS [address] [facility], [place] [address] documented as of this encounter Procedures Procedure Name Priority Date/Time Associated Diagnosis Comme nts POCT GLYCOSYLATED Routine 01/31/2013 11:37 Type I (juvenile Re sults for this HEMOGLOBIN (HGB A1C) AM CDT type) diabetes proce dure are in mellitus without the results mention of section. complication, not stated as uncontrolled (HRC) documented in this encounter Results (ABNORMAL) POCT GLYCOSYLATED HEMOGLOBIN (HGB A1C) (01/31/2013 11:37 AM CDT) Analysis Performed At Patho logist Time Signature Hemoglobin A1C, 7.2 (A) 6.0 % HP CONVERSION POC Cartridge Lot# [id number] HP CONVERSION Specimen (Source) Anatomical Collection Method Collection Time Re ceived Time Location / / Volume Laterality 01/31/2013 11:37 AM CDT Ike Acosta MD PN POINT [...]
--- OUTSIDE RECORDS SUMMARY | 2022-09-23 07:50 | XMS_ITS | Encounter Summary ---
:1980 Author Organization [facility] Address [address] [place] [address] Care Team Providers Name Role Phone Unavailable Primary Care Provider Unavailable Encounter Details Date Type Department Care Team Description 07/02/2013 Lab Visit Sen Laborator y Type I (juvenile type) [address] [facility] [place] [address] mention of complication, not [phone] stated as uncon trolled Social History Tobacco Use Types Packs/Day Years Used Date Smoking Tobacco: Never Assessed Sex Assigned at Date Recorded Not on file documented as of this encounter Plan of Treatment Upcoming Encounters Date Type Specialty Care Team Description 11/01/2022 Appointment Endocrinology Althea Kelley, [employer] LEVERMAN, CLAMP JIG ASSEMBLER [address] [address] (Wo rk) 12/27/2022 Appointment Endocrinology Ayde Warren, MBBS [address] [phone] documented as of this encounter Procedures Procedure Name Priority Date/Time Associated Diagnosis Comme nts ALBUMIN/CREAT RATIO Routine 07/02/2013 2:55 PM Type I (juvenil e Results for this CDT type) diabetes procedure are in mellitus without the results mention of section. complication, not stated as uncontrolled (HRC) LIPID PANEL AND Routine 07/02/2013 2:51 PM Type I (juvenile Re sults for this DIRECT LDL(IF CDT type) diabetes procedure ar e in NEEDED) mellitus without the results mention of section. complication, not stated as uncontrolled (HRC) CREATININE / GFR Routine 07/02/2013 2:51 PM Type I (juvenile R esults for this CDT type) diabetes procedure are in mellitus without the results mention of section. complication, not stated as uncontrolled (HRC) documented in this encounter Results Microalb/Creat Ratio (07/02/2013 2:55 PM CDT) Analysis Performed At Patho logist Time Signature Microalbumin <6.0 mg/L HP CONVERSION Urine U Creat Random 24 mg/dL HP CONVERSION Microalbumin/Crea <10.0 0.0 - 30.0 HP CONVERSI ON tinine Ratio Specimen Anatomical Collection Method Collection Time Receive d Time (Source) Location / / Volume Laterality 07/02/2013 2:55 PM 3 6:16 CDT PM CDT Ike Acosta MD LAB_1 Performing Organization Address City/[facility] Code Phon e Number HP CONVERSION Creatinine / GFR (07/02/2013 2:51 PM CDT) athologist Signature Creatinine 0.7 0.4 - 1.3 [...] Time (Source) Location / / Volume Laterality 07/02/2013 2:51 PM 3 2:51 CDT PM CDT Narrative HP CONVERSION - 07/02/2013 3:37 PM CDT Performed at [facility] [address] [place] [address] Ike Acosta MD LAB_1 Performing Organization Address City/[facility] Phon e Number HP CONVERSION Lipid Panel and Direct LDL(If Needed) (07/02/2013 2:51 PM CDT) Patholo gist Method Time Signature Cholesterol 140 0 - 200 HP CONVERSION mg/dL Triglycerides 48 0 - 149 HP CONVERSION mg/dL HDL Cholesterol 66 >39 mg/dL HP CONVERSION Cholesterol/HDL 2.1 HP CONVERSION Ratio Screen LDL Calculated 64 19 - 130 HP CONVERSION mg/dL Length Of Fast 3.0 HP CONVERSION Specimen Anatomical Collection Method Collection Time Receive d Time (Source) Location / / Volume Laterality 07/02/2013 2:51 PM 3 2:51 CDT PM CDT Narrative HP CONVERSION - 07/02/2013 3:37 PM CDT Performed at [facility] [address] [place] [address] Ike Acosta MD LAB_1 Performing Organization Address City/State/ZIP Code Phon e Number HP CONVERSION documented in this encounter Visit Diagnoses Diagnosis Type I (juvenile type) diabetes mellitus without mention of complication, not stated as uncontrolled (HRC) Type I (juvenile type) diabetes mellitus without mention of complication, not stated as uncontrolled documented in this encounter
--- OUTSIDE RECORDS SUMMARY | 2022-09-23 07:50 | XMS_ITS | Encounter Summary ---
:1980 Author Organization [employer] Address [address] [place] [address] Care Team Providers Name Role Phone Unavailable Primary Care Provider Unavailable Reason for Visit Reason Comments Diabetic Concern Encounter Details Date Type Department Care Team Description 05/10/2013 Telephone [facility] [address] Tyron Acosta MD Diabetic Concern Endocrinology [address] [place] [address] [phone] (Wo rk) Social History Tobacco Use Types Packs/Day Years Used Date Smoking Tobacco: Never Assessed Sex Assigned at Date Recorded Not on file documented as of this encounter Nursing Notes Ike Acosta MD - 05/10/2013 5:08 PM CDT Let's have her fax her log or come in to see CDE in a week, if ongoing issues with her glucose. Renate Goldsmith RN - 05/10/2013 4:25 PM CDT talked to pt via phone and relayed info below. Pt is agreeable with plan Marley Carter MD - 05/10/2013 4:12 PM CDT Has she been more active than usual to explain? Since she's often dropping in the mid-afternoon hours, she can try decreasing her 2 pm basal rate to 0.85. Or she could start the 0.85 basal at 1 pm. Looks like she had several days where she either wasn't getting enough insulin with dinner or she overcorrected pre- dinner lows. She can increase to 1 unit/12 grams for the dinner meal if this is a frequent problem. Cornelia Mack RN - 05/10/2013 10:57 AM CDT May 05 Pre breakfast 119 Pre lunch 111 Pre dinner 81 Post dinner 109 Bedtime 128 May 06 Pre breakfast 125 Pre lunch 106 Pre dinner 59 Post dinner 264 May 07 Pre breakfast 143 Pre lunch 112 Post 130 Pre dinner 57 Post 253 May 08 Pre breakfast 152 Pre lunch 56 Pre dinner 142 Post 293 May 09 Pre breakfast 80 Pre lunch 82 Mid afternoon 55 Pre dinner 95 Bedtime 48 Cornelia Mack RN - 05/10/2013 10:36 AM CDT * copied from Efrain's visit in February, these are current pump rates.Pt using 1u/15grams for bolus. Ptadjusted basal rates: midnight: 0.75, 6am: 0.7, 9am: 0.95 and 2pm: 0.9 however added an 11am rate: 1.0. She is calling today because she noticed that she has had at least 5 lows this week. 2 after lunch, 2 fastings , 1 bedtime, 1 . Please advise [phone]. documented in this encounter Plan of Treatment Upcoming Encounters Date Type Specialty Care Team Description 11/01/2022 Appointment Endocrinology Althea Kelley, FRUIT OR NUT PICKER, DIRECTOR MARKETING ANALYTICS [address] [place] [facility] [place] [address] (Wo rk) 12/27/2022 Appointment Endocrinology Ayde Warren, KERWIN [address] [facility] [place] [address] documented as of this encounter Visit Diagnoses Not on filedocumented in this encounter
--- OUTSIDE RECORDS SUMMARY | 2022-09-23 07:50 | XMS_ITS | Encounter Summary ---
:1980 Author Organization [facility] Address [address] [place] [address] Care Team Providers Name Role Phone Unavailable Primary Care Provider Unavailable Reason for Visit Reason Comments Medication Questions Encounter Details Date Type Department Care Team Description 09/27/2012 Telephone [facility] [address] Ike Acosta, Vt dication Questions Endocrinology [address] [facility] [place] [phone] (Wo rk) Social History Tobacco Use Types Packs/Day Years Used Date Smoking Tobacco: Never Assessed Sex Assigned at Date Recorded Not on file documented as of this encounter Nursing Notes Ike Acosta MD - 09/27/2012 10:19 PM CST I called her and reviewed this situation tonight. BG's in this range not explainable based on small changes in basal rates. She is pre-menopausal, a time when she states she tends to take more carbs, may have under-covered. No sxs c/w infection. SHe's trying not to over-tx with sliding scale. Not aware of any pump problems but not yet changed set. Insulin is fresh. BG's this afternoon back to high 100's. Plan: change infusion set, bolus with sliding scale, be alert for infection, make sure insulin fresh, hold on increasing the insulin doses for now. Call if not correcting, including weekend. FAX BG's after weekend. Mid am BG's higher so we may need to increase breakfast bolus. Consider bolus from i nsulin pump if any concern re pump delivery. INUM WELDER Radha Fuller - 09/27/2012 11:33 AM CST Pt seen by you on 09-24-12. At that time, you had changed pt basal rates. Pt verbalizes understandingthat it would take time for her sugars to stabilize. Sugars have been elevated past two days and pt is not feeling well. Please advise. Pt sugars: 09/25: 9A 264, 11A 362, 2P 310, 5P 52, 846p 246, 1A 422; 09/26 8A 103, 1P 318, 340P 356, 7P 188, 948P 232, 09/27: 8A 298, 11A 408. documented in this encounter Plan of Treatment Upcoming Encounters Date Type Specialty Care Team Description 11/01/2022 Appointment Endocrinology Althea Kelley, PRODUCTION CONTROL MANAGER, PROPULSION GENERATOR REPAIRER [address] [address] (Wo rk) 12/27/2022 Appointment Endocrinology Ayde Warren, MBBS [address] [id number] documented as of this encounter Visit Diagnoses Not on filedocumented in this encounter
== END 2022-09-23 07:43 | disposition home or self-care (01) ==
PROVIDERS: PCP Family Medicine; Visit Provider Internal Medicine
DX: K21.9 Gastro-esophageal reflux disease without esophagitis (principal); R13.10 Dysphagia, unspecified
CPT/HCPCS: 43239; 88305; A9270; J2250; J3010

== ENCOUNTER 2023-08-21 12:49 | Outpatient (CLI) | payer BC, SELFPAY ==
--- NOTE | 2023-08-21 13:00 | CRLHL7_ITS ---
For Patients: As a result of the Century Cures Act, medical imaging exams and procedure reports are released immediately into your electronic medical record. You may view this report before your referring provider. If you have questions, please contact your health care provider. BILATERAL SCREENING MAMMOGRAM WITH COMPUTER-AIDED DETECTION AND TOMOSYNTHESIS TECHNIQUE: CC and MLO views were obtained. These mammographic images have been obtained using full-field digital technique. These mammographic images were interpreted with the benefit of computer-aided detection. Breast Tomosynthesis was used in this interpretation. COMPARISON FILM: 03/03/22. FINDINGS: The breasts are extremely dense, which lowers the sensitivity of mammography IMPRESSION: There is no radiographic evidence for malignancy. ASSESSMENT: BI-RADS Category 2: Benign RECOMMENDATION: Routine screening mammogram in 1 year. A lay language report of this examination will be provided to the patient. Jass Ching M.D. Diagnostic Radiologist [email or web address] JANELLE/Dictated by: Jass Ching MD @ 08/22/2023 12:25:00 PM (Electronically Signed)
== END 2023-08-21 12:50 | disposition home or self-care (01) ==
LOC: MAMMO 12:49
PROVIDERS: PCP Family Medicine; Visit Provider Family Medicine
DX: Z12.31 Encounter for screening mammogram for malignant neoplasm of breast (principal); R92.2 Inconclusive mammogram
CPT/HCPCS: 77063; 77067

== ENCOUNTER 2024-03-07 10:23 | Outpatient (CLI) | payer BC, SELFPAY ==
--- OUTSIDE RECORDS SUMMARY | 2024-03-07 10:29 | XMS_ITS | Encounter Summary ---
Author Name Unknown Organization [facility] Address [address] [place] [address] Care Team Providers Care Filteration Operator Name Role Phone Mariela Salas LPN Primary Care Provider Justino Hi MD Unavailable + [phone] Reason for Referral * Diagnostic Imaging Ultrasound - Closed Specialty Diagnoses / Procedures Referred By Contac t Referred To Contact Diagnoses related condition, antepartum Procedures [facility] US Comprehensive Single F/U Luis Alfredo Kim [address] [address] Referral ID Status Reason Start Date Expiration Date Visits Re quested Visits Authorized [id number] Closed 09/17/2018 09/17/2019 1 1 * - Closed Specialty Diagnoses / Procedures [facility] Referred To Contact Diagnoses related condition, antepartum Luis Alfredo Kim [address] [address] Referral ID Status Reason Start Date Expiration Date Visits Re quested Visits Authorized [id number] Closed 09/17/2018 09/17/2019 1 1 Question Answer MFM Location [place] RIGO 12/06/2018 Ultrasound Comprehensive US (>than 18 weeks GA) US PROC NONE MFM Issue Abnormal Ultrasound Findings (enter details in Comments) - Small size- EFW MFM Consultation (unrelated to Ultrasound findings) No Genetic Counseling Consultation: No fax 09/17/18 Luis Alfredo Bonilla fax [phone] Comments There is no height or weight on file to calculate BMI. >> Patient may proceed with recommendations for further testing as directed by the Maternal Medicine Specialist >> >> If requesting Echo: MFM will determine appropriate location for exam due to indication. >> If requesting Lung Maturity Amnio: If results indicate lung maturity, induction or C/S is recommended within 36 hours. Please schedule accordingly. Dear Patient: Please be aware that coverage of these services is subject to the terms and limitations of your health insurance plan. Call member services at your health plan with any benefit or coverage questions. Please bring the following to your appointment: >> Any x-rays, CTs or MRIs which have been performed. Contact the facility where they were done to arrange for pick up worker prior to your scheduled appointment. Any new CT, MRI or other procedures ordered by your specialist must be performed at a [facility] facility or coordinated by your clinic's referral office. >> List of current medications >> This referral request >> Any documents/labs given to you for this referral Encounter Details Date Type Department Care Team (Late st Contact Info) Description 09/17/2018 Orders Only [facility] M[facility] [place] [address] [facility] [address] [place] [address] Luis Alfredo Kim [facility] [address] [place] [address] related condition, antepartum (Primary Dx) Social History Tobacco Use Types Packs/Day Years Used Date Smoking Tobacco: Never Assessed Comments Yes Sex and Gender Information Value Date Recorded Sex Assigned at Not on file Gender Identity Not on file Sexual Orientation Not on file documented as of this encounter Plan of Treatment Scheduled Referrals Name Type Priority Associated Diagnoses Orde r Schedule MAT MED CTR REFERRAL- Referral Routine related condition, antepartum Ordered: 09/17/2018 documented as of this encounter Results * MFM US Comprehensive Single F/U (09/19/2018 3:45 PM CDT) Anatomical Region Laterality Modality Ultrasound 09/19/2018 3:11 PM CDT Impressions 09/19/2018 3:52 PM CDT IMPRESSION ----- 1) Intrauterine at 28+6 weeks gestational age. 2) None of the anomalies commonly detected by ultrasound were evident in the detailed anatomic survey described above. 3) Growth parameters and estimated weight were consistent with an appropriate for gestation age pattern of growth. 4) The amniotic fluid volume appeared normal. Narrative 09/19/2018 3:52 PM CDT Comp Follow Up ----- Pat. Name: KARIN MCMILLAN Study Date: 09/19/2018 3:11pm Pat. NO: [id number] Referring ??: LUIS ALFREDO ARZATE Site: [facility] Supervisor Wet Room: Ana Paula Conte RDMS : 1980 Age: 38 ----- INDICATION ----- Pre-gestational Diabetes Type 1. SGA on outside US. METHOD ----- Transabdominal ultrasound examination. View: Sufficient ----- Mayer . Number of fetuses: 1 DATING ----- ? Date ?Details ?Gest. age ?RIGO LMP ?03/01/2018 ?Cycle: regular cycle ?28 w + 6 d ? 12/06/2018 Prior assessment ? 05/09/2018 ? CRL, GA: 9 w + 2 d ?28 w + 2 d ? 12/10/2018 U/S ? 09/19/2018 ? based upon AC, BPD, Femur, HC ?29 w + 1 d ? 12/04/2018 Assigned dating ?Dating performed on 07/09/2018, based on the LMP ?28 w + 6 d ? 12/06/2018 GENERAL EVALUATION ----- Cardiac activity present. FHR 134 bpm. movements visualized, present. Presentation cephalic. Placenta posterior, no previa. Umbilical cord 3 vessel cord3 vessel cord Amniotic fluid Amount of AF: normal. MVP 5.5 cm. DANIEL 18.9 cm. Q1 5.3 cm, Q2 4.5 cm, Q3 3.6 cm, Q4 5.5 cm. BIOMETRY ----- Main Biometry: BPD ?72.7 ?mm ? 29w [...] 2 lb 14 ? oz EFW by ?Hadlock ([id number]) Head / Face / Neck Biometry: Chemical Equipment Repairer ? 6.5 ? mm CM ?10.9 ? mm ANATOMY ----- The following structures appear normal: Head / [...] spine. Sacral spine. Gender: male. MATERNAL STRUCTURES ----- Cervix ?Visualized ? Cervical length 50.9 mm Right Ovary ?Not examined Left Ovary ?Not examined RECOMMENDATION ----- We discussed the findings on today's ultrasound with the patient. A repeat ultrasound has been scheduled in 4 weeks to reevaluate growth with twice weekly BPPs starting at 32 weeks for Type I DM. We presume this will be done in your office. If you would prefer future ultrasounds be done in the Maternal- Medicine clinic, please let us know., Return to primary provider for continued care., Thank-you for the opportunity to participate in the care of this patient. If you have questions regarding today's evaluation or if we can be of further service, please contact the Maternal- Medicine Center. anomalies may be present but not detected Procedure Note Francesca Atkins, DO - 09/19/2018 Comp Follow Up ----- Pat. Name:Jo MCMILLAN Date:09/19/2018 3:11pm Pat. NO: [id number] MD:LUIS ALFREDO WILEY KIRKWOOD [facility]Ana Paula Conte RDMS :1980Age:38 ----- INDICATION ----- Pre-gestational Diabetes Type 1. SGA on outside US. METHOD ----- Transabdominal ultrasound examination. View: Sufficient ----- Mayer . Number of fetuses: 1 DATING ----- DateDetailsGest. age RIGO LMP 03/01/2018Cycle: regular cycle28 w + 6 d 12/06/2018 Prior assessment 05/09/2018 CRL, GA:9 w + 2 d28 w + 2 d 12/10/2018 U/S 09/19/2018based upon AC, BPD, Femur, HC29 w + 1 d 12/04/2018 Assigned dating Dating performed on 07/09/2018, based onthe LMP 28 w +6 d 12/06/2018 GENERAL EVALUATION ----- Cardiac activity present. FHR 134 bpm. movements visualized, present. Presentation cephalic. Placenta posterior, no previa. Umbilical cord 3 vessel cord3 vessel cord Amniotic fluid Amount of AF: normal. MVP 5.5 cm. DANIEL 18.9 cm. Q1 5.3 cm,Q2 4.5 cm, Q3 3.6 cm, Q4 5.5 cm. BIOMETRY ----- Main Biometry: BPD 72.7 mm29w 1d Hadlock OFD 97.2 mm28w 5d Nicolaides HC 275.8 mm30w 1d Hadlock Cerebellum tr 31.9 mm27w 6d Nicolaides AC 250.6 mm29w 2d Hadlock Femur 52.3 mm27w 6d Hadlock Humerus 48.6 mm28w 4d Lindsay Weight Calculation: EFW 1,300 g52% Ag EFW (lb,oz) 2 lb 14 oz EFW by Hadlock ([id number]) Head / Face / Neck Biometry: Chemical Equipment Repairer 6.5 mm CM 10.9 mm ANATOMY ----- The following structures appear normal: Head / Neck Cranium. Head size. Head shape.Lateral ventricles. Midline falx. Cavum septi pellucidi. Cisterna magna.Thalami. Face Profile. Heart / Thorax 4-chamber view. RVOT view. LVOT view.Aortic arch view. Ductal arch view. Abdomen Abdominal wall. Stomach: Stomach sizeand situs appear normal. Kidneys. Bladder: Bladder appears normal in sizeand shape. Genitals. Spine Cervical spine. Thoracic spine.Lumbar spine. Sacral spine. Gender: male. MATERNAL STRUCTURES ----- Cervix Visualized Cervical length 50.9 mm Right Ovary Not examined Left Ovary Not examined RECOMMENDATION ----- We discussed the findings on today's ultrasound with the patient. A repeat ultrasound has been scheduled in 4 weeks to reevaluate fetalgrowth with twice weekly BPPs starting at 32 weeks for Type I DM. Wepresume this will be done in your office. If you would prefer future ultrasounds be done in theMaternal- Medicine clinic, please let us know., Return to primary provider for continued care., Thank-you for the opportunity to participate in the care of this patient.If you have questions regarding today's evaluation or if we can be offurther service, please contact the Maternal- Medicine Center. anomalies may be present but not detected IMPRESSION ----- 1) Intrauterine at 28+6 weeks gestational age. 2) None of the anomalies commonly detected by ultrasound were evident inthe detailed anatomic survey described above. 3) Growth parameters and estimated weight were consistent with anappropriate for gestation age pattern of growth. 4) The amniotic fluid volume appeared normal. Luis Alfredo CHAND [facility] US ORDERABL ES documented in this encounter Visit Diagnoses Diagnosis related condition, antepartum- Primary related condition, antepartum documented in this encounter Care Teams Filteration Operator Relationship Specialty Start Date End Date Mariela Salas LPN PCP - General 06/25/18 Justino Reilly MD [address] [place] [address] Assigned Surgical Provider 09/11/2001/22/22 documented as of this encounter
--- OUTSIDE RECORDS SUMMARY | 2024-03-07 10:29 | XMS_ITS | Referral Summary ---
Author Name Unknown Organization [facility] Address [address] [place] [address] Care Team Providers Care Auxiliary Operator Name Role Phone Mariela Salas LPN Primary Care Provider Unavailabl e Allergies Active Allergy Reactions Criticality Noted Date Comments Ketorolac 07/23/2020 Diazepam 07/23/2020 Medications Medication Sig Dispensed Refills Start Date End Date Status insulin aspart (NOVOLOG VIAL) 100 UNITS/ML vial Infuse via insulin pump. Average daily dose rising with . 55-80 Units/day. 10/15/2019 Active insulin aspart (NOVOLOG VIAL) 100 UNITS/ML vial 06/17/2020 Active insulin glargine (LANTUS VIAL) 100 UNIT/ML vial Inject 20 Units Subcutaneous 10/15/2019 Active insulin syringe-needle U-100 31G X 15/64 0.5 ML Inject 1 each Subcutaneous 07/16/2019 Active Lancets MISC Use 1 to test 8-10 times daily. Use as directed. Pharmacy dispense brand based on insurance. 10/23/2018 Active Vit-Fe Fumarate-FA ( PLUS) 27-1 MG TABS Take 1 tablet by mouth Active Social History Tobacco Use Types Packs/Day Years Used Date Smoking Tobacco: Never Smokeless Tobacco: Never Sex and Gender Information Value Date Recorded Sex Assigned at Not on file Gender Identity Not on file Sexual Orientation Not on file Last Filed Vital Signs Vital Sign Reading Time Taken Comments Blood Pressure 106/68 07/23/2020 2:18 PM CDT Pulse 92 07/23/2020 2:18 PM CDT Temperature - - Respiratory Rate - - Oxygen Saturation 99% 07/23/2020 2:18 PM CDT Inhaled Oxygen Concentration - - Weight - - Height - - Body Mass Index - - Plan of Treatment Not on file Care Teams Auxiliary Operator Relationship Specialty Start Date End Date Mariela Salas LPN PCP - General 06/25/18
--- OUTSIDE RECORDS SUMMARY | 2024-03-07 10:29 | XMS_ITS | Clinical Summary ---
Author Name Unknown Organization [facility] Address [place], [place] [address] Care Team Providers Care Forestry Consultant Name Role Phone Clinic, No Pcp Or Primary Care Provider Unavaila ble Allergies No known active allergies Medications Medication Sig Dispensed Refills Start Date End Date Status insulin aspart (NOVOLOG) 100 unit/mL injection Inject 28-42 Units subcutaneous. 08/03/2017 Active Social History Tobacco Use Types Packs/Day Years Used Date Smoking Tobacco: Never Assessed Sex and Gender Information Value Date Recorded [...] Health Maintenance Due Date Last Done Comments Tdap 1993 Depression screening for age 12+ 1994 HIV for age 15-65 1997 BMI (ht and wt on same day) for age 18+ 01/27/2000 Hepatitis C screening for ag e 18-79 01/27/2000 Tetanus booster 2002 Pap test for age 21-65 04/19/2021 8, 04/19/2018, 04/25/2014 COVID-19 vaccine series (2022- season) 2023 Influenza for age 9-49 07/21/2024 Pneumococcal series for age 6-64 Aged Out No longer eligible b ased on patient's age to complete this topic Procedures Procedure Name Priority Date/Time Associated Diagnosis Comments DRAWING IN MACHINE TENDER THIN PREP PAP SCREEN IMAGED Routine 04/19/2018 3:18 PM CDT from Last 3 Months or Most Recently Relevant to Health Maintenance Results * DRAWING IN MACHINE TENDER THIN PREP PAP SCREEN IMAGED (04/19/2018 3:18 PM CDT) Case Report Gynecologic Cytology Report ? Case: [id number] ? Authorizing Provider: ??Quita Bonilla ?Collected: ? 04/19/2018 1518 ? MD Anne ? First Screen: ?Ruth Mccormick ?Received: ?04/20/2018 1158 ? Specimen: ?DRAWING IN MACHINE TENDER ThinPrep Vial Screening, Cervical/Vaginal ? 04/26/2018 1:05 PM CDT [facility] INTERPRETATION/ RESULT NEGATIVE FOR INTRAEPITHELIAL LESION OR MALIGNANCY (NIL) (none) 04/26/2018 1:05 PM CDT [facility] IMEN ADEQUACY Satisfactory for evaluation No endocervical component seen 04/26/2018 1:05 PM CDT [facility] HPV REQUEST HPV and PAP 04/26/2018 1:05 PM CDT [facility] Date of LMP 03/01/2018 04/26/2018 1:05 PM CDT [facility] Last Pap Date 04/25/2014 04/26/2018 1:05 PM CDT [facility] Last Pap Result NIL 8 1:05 PM CDT [facility] Automated Review Successful 04/26/2018 1:05 PM CDT [facility] Comment:Specimen processed s uccessfully by automated splitting machine operator helper device, [employer] Imaging System, [employer] ANCILLARY TESTING DRAWING IN MACHINE TENDER HPV Ordered, Please see separate report 04/26/2018 1:05 PM CDT [facility] Note The pap test is a screening technique, not a diagnostic procedure. ??It is used primarily to screen for squamous cancers and precursor lesions. ??Published studies have shown that it is subject to both false negative and false positive results. ??The pap test should not be used as the sole means to diagnose or exclude pre-malignant and malignant lesions. Cytology is screened and interpreted at [facility] - [address], [place] [address] and [facility] - [address]; [place] [address] and [facility] - [address]; [place] [address] and [facility] [address]; [place] [address] 04/26/2018 1:05 PM CDT [facility] Other (Cervical/Vagina l) 04/19/2018 3:18 PM CDT 04/20/2018 11:58 AM CDT Quita Bonilla MD PATHOLOGY/ CYTOLOGY [facility] [address] [place] [address], [place] from Last 3 Months or Most Recently Relevant to Health Maintenance Care Teams Forestry Consultant Relationship Specialty Start Date End Date Clinic, No Pcp Or . PCP - General 08/14/17
--- OUTSIDE RECORDS SUMMARY | 2024-03-07 10:29 | XMS_ITS | Clinical Summary ---
Author Name Unknown Organization [facility] Address [address] [place] [address] Care Team Providers Care Per Diem Rn Name Role Phone Mariela Salas LPN Primary [...] of Treatment Not on file Care Teams Per Diem Rn Relationship Specialty Start Date End Date Mariela Salas LPN PCP - General 06/25/18
--- OUTSIDE RECORDS SUMMARY | 2024-03-07 10:30 | XMS_ITS | Encounter Summary ---
Author Name Unknown Organization [facility] Address [address], [place] [address] Care Team Providers Care Predatory Animal Exterminator Name Role Phone Clinician, Not Found Primary Care Provider Un available Encounter Details Date Type Department Care Team (Latest Contact Info) Description 12/27/2023 Orders Only HIM DEPARTMENT Provider, [place] [address] Social History Tobacco Use Types Packs/Day Years Used Date Smoking Tobacco: Never Smokeless Tobacco: Never Alcohol Use Standard Drinks/Week Comments Yes 0 (1 standard drink = 0.6 oz pur e alcohol) 4/week Sex and Gender Information Value Date Recorded Sex Assigned at Not on file Gender Identity Not on file Sexual Orientation Not on file documented as of this encounter Plan of Treatment Not on file documented as of this encounter Procedures Procedure Name Priority Date/Time Associated Diagnosis Comments REBECA (DIABETIC EYE EXAM) 12/27/2023 documented in this encounter Results * REBECA (DIABETIC EYE EXAM) (12/27/2023) Interface Provider DUMMY/OTHER/AR documented in this encounter Visit Diagnoses Not on filedocumented in this encounter Care Teams Predatory Animal Exterminator Relationship Specialty Start Date End Date Clinician, Not Found, [place] [address] PCP - General 06/27/16 documented as of this encounter
--- OUTSIDE RECORDS SUMMARY | 2024-03-07 10:30 | XMS_ITS | Encounter Summary ---
Author Name Unknown Organization [facility] Address [address] [place] [address] Care Team Providers Care Launch Operator Name Role Phone Unavailable Primary Care Provider Unavailabl e Reason for Visit * Reason Onset Date Comments Pre-visit Intake 12/18/2023 Encounter Details Date Type Department Care Team (Latest Contact Info) Description 12/18/2023 2:30 PM TEST CASE DEVELOPER Clinical Communication Virtual Review in [place], [place] [address] [place] [address] Pre-visit Intake Social History Tobacco Use Types Packs/Day Years Used Date Smoking Tobacco: Never Assessed Nutrition Answer Date Recorded Nutrition: EVOO Fat Source Unknown 01/19 Nutrition: Servings of Fruits/Vegetables per Day Not on file 01/19/2021 Dental Answer Date Recorded Dental: Regular Dentist Unknown 01/20/20 21 Sex and Gender Information Value Date Recorded Sex Assigned at Not on file Gender Identity Not on file Sexual Orientation Not on file documented as of this encounter Plan of Treatment Not on file documented as of this encounter Visit Diagnoses Not on filedocumented in this encounter
--- OUTSIDE RECORDS SUMMARY | 2024-03-07 10:30 | XMS_ITS | Clinical Summary ---
Author Name Unknown Organization [facility] Address [address] [place] [address] Care Team Providers Care Enzyme Chemist Name Role Phone Unavailable Primary Care Provider Unavailabl e Source Comments Patient records contain information from all sites at [facility]. For routine questions regarding patient records, call [phone] during business hours, M-F 8:00 AM - 5:00 PM Central Time. Record requests for emergency care only can be directed to [phone] at any time.[facility] Allergies Active Allergy Reactions Criticality Noted Date Comments Adhesive Tape-Silicones Rash Low 09/22/2022 Diazepam Other (see comments) High 07/23/2020 Ketorolac Other (see comments) 07/23/2020 Ketorolac Tromethamine Hives (Reselect Reaction),Other (see comments) High 06/08/2021 Morphine Itching 06/08/2021 Tramadol Other (see comments) High 06/08/2021 Vomiting Medications Medication Sig Dispensed Refills Start Date End Date Status insulin aspart (NovoLOG) 100 UNIT/ML patient supplied pump 1 Device by implant route daily. 07/21/2017 Active insulin glargine (LANTUS) 100 unit/mL injection Inject 20 Units under the skin. 10/15/2019 Active glucagon 3 mg/actuation spray,non-aerosol 3 mg. 10/15/2019 Active triamcinolone (KENALOG) 0.1 % cream Apply 1 Application topically 2 (two) times a day. Apply to rash on arm and flank -- do not use on face or skin folds. 240 g 3 12/20/2023 Active tretinoin (RETIN-A) 0.025 % cream Apply 1 Application topically at bedtime. Apply to face. 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 Dermatoheliosis (Primary Dx); Nevi Multiple; Keratosis Seborrheic; Screening Examination Skin Cancer; Dermatitis; Photo Aging 12/18/2023 2:30 PM AIR PUMPER Clinical Communication Virtual Review in [place], [place] [address] [place] [address] Pre-visit Intake from Last 3 Months Social History Tobacco Use Types Packs/Day Years [...] Comments Blood Pressure 116/62 07/21/2017 2:22 PM CDT Vital sign result from Clinical Notes. Pulse - - Temperature - - Respiratory Rate - - Oxygen Saturation - - Inhaled Oxygen Concentration - - Weight 66.6 kg (146 lb 13.2 oz) 07/21/2017 2:22 PM CDT Vital sign result from Clinical Notes. Height 163.5 cm (5' 4.37) 07/21/2017 2 :22 PM CDT Vital sign result from Clinical Notes. Body Mass Index 24.91 07/21/2017 2:22 PM CDT Plan of Treatment Health Maintenance Due Date Last Done Comments Cervical Cancer Screening 1982 Creatinine Level (Kidney Function Test) 1982 Diabetic Office Visit with Foot Exam 1982 Dilated Eye Exam 1982 HIV Screening 1982 Hemoglobin A1C 1982 Hepatitis C Screening 1982 Lipid (Cholesterol) Screening 1982 Mammogram 1982 Office Visit for Blood Pressure Check / Re-check 1982 Urine Albumin 1982 Hepatitis B Vaccines (2 of 3 - 19+ 3-dose series) 02/17/2015 01/20/2015 Pneumococcal vaccine (0-64 years) (2 of 2 - PCV) 01/21/2016 01/20/2015 Depression Screening (Annual PHQ-2) 11/20/2023 DTaP,Tdap,and Td Vaccines (5 - Td or Tdap) 05/08/2030 05/08/2020, 10/01/2018, 09/12/2014, Additional history exists Influenza Vaccine Completed 08/15/2023, , 09/21/2021, Additional history exists COVID-19 Vaccine Completed 08/23/2023, 09/2022, 10/09/2021, Additional history exists HPV Vaccines Aged Out No longer eligi ble based on patient's age to complete this topic
--- OUTSIDE RECORDS SUMMARY | 2024-03-07 10:30 | XMS_ITS | Encounter Summary ---
Author Name Unknown Organization [facility] Address [address] [place] [address] Care Team Providers Care Lacing String Cutter Name Role Phone Unavailable Primary Care Provider Unavailabl e Reason for Visit * Appointment Request (Routine) - Closed Specialty Diagnoses / Procedures Referred By Teodoro t Referred To Contact Dermatology Diagnoses Screening Examination Skin Cancer Referral ID Status Reason Start Date Expiration Date Visits Re quested Visits Authorized [id number] Closed 12/12/2023 12/11/2024 1 1 Encounter Details Date Type Department Care Team (Latest Contact Info) Description 12/20/2023 2:00 PM PBX INSTALLER Comprehensive Visit Department of Dermatology in [place], [place] [address] [place] [id number] Justo Browne M.D., M.B.A. [address] [place] [address] Dermatoheliosis (Primary Dx); Nevi Multiple; Keratosis Seborrheic; Screening Examination Skin Cancer; Dermatitis; Photo Aging Social History Tobacco Use Types Packs/Day Years [...] documented as of this encounter Consult Notes * Justo Browne M.D., M.B.A. - 12/20/2023 2:00 PM CST Correspondence to Justo Browne M.D., M.B.A. CHIEF COMPLAINT / REASON FOR VISIT Skin cancer screening examination HISTORY OF PRESENT ILLNESS Ms. Karin Mcmillan is a 43 y.o. female who presents today for the above. Ms. Karin Mcmillan has no previous history of skin cancer or atypical nevi. She is new to our Department. The patient reports no new or changing skin lesions. Ms. Karin Mcmillan tries to be diligent with photoprotective measures. She would also like to discuss photoaging. She also reports areas of dermatitis involving the left arm and right flank. PAST MEDICAL HISTORY No history of skin cancer FAMILY HISTORY No history of skin cancer PHYSICAL EXAM General: Awake, alert, in no acute distress, and with appropriate affect. Skin: I have examined the scalp, face, neck, chest, abdomen, back, bilateral upper extremities, andbilateral lower extremities. The exam was notable for dermatoheliosis, banal-appearing nevi, solar lentigines, seborrheic keratoses, and cantu angiomas. Involving the left forearm and right flank, there is mild dermatitis. Involving the nasal tip there is a spider angioma. ASSESSMENT / PLAN # Skin cancer screening examination # Dermatoheliosis Sun protection and sun avoidance were reviewed with the patient. We reccomend skin self-examinations, knowing the warning signs and symptoms of skin cancer, and ensuring proper use of sunscreens (at least SPF 30). Patient can return to their primary care provider. # Banal-appearing nevi # Solar lentigines I recommend continued sun protection, self-skin examinations, and observation. Should any of the patient's nevi or lentigines change in size, color, texture, or shape or develop symptoms such as itching or bleeding, I recommend an immediate return visit for reassessment. # Seborrheic keratoses # Cantu angiomas # Spider angioma, right nasal tip The benign nature of the skin lesion(s) was discussed with the patient. No treatment is required. Irecommend continued observation. Should symptoms or changes develop related to this condition, I would recommend a return visit for reassessment. We discussed utilizing pulsed dye laser to treat the spider angioma on the right nasal tip, but at this time she would prefer to hold off. # Photoaging We discussed the etiology and management options, and we agreed upon the following plan: Start topical tretinoin 0.025% cream nightly to the face -- she understands the need to start slow such as 1-2 nights per week, and if she tolerates that for a month she will go up to 3-4 nights per week, and so on until she reaches nightly application. If she is able to tolerate this medication nightly for 2 months, she will message me and we can go up to tretinoin 0.05% cream. # Dermatitis Patient has a history of dermatitis in her examination today is consistent with mild dermatitis involving the left forearm and right flank. We discussed the etiology and management options, and we agreed upon the following plan: Start topical triamcinolone 0.1% cream twice daily to the affected areas for up to 2 weeks at a time -- should not apply this to the face or skin folds. All questions answered. It was our pleasure seeing Karin Mcmillan today. The supervising law firm consultant, Jamel Boykin M.D., M.B.A., was available but not needed for this visit. INSTALLER documented in this encounter Plan of Treatment Not on file documented as of this encounter Visit Diagnoses Diagnosis Dermatoheliosis- Primary Nevi Multiple Keratosis Seborrheic Screening Examination Skin Cancer Dermatitis Photo Aging documented in this encounter
--- OUTSIDE RECORDS SUMMARY | 2024-03-07 10:30 | XMS_ITS | Encounter Summary ---
Author Name Unknown [facility] Address [address], [place] [address] Care Team Providers Care Game Warden Name Role Phone Clinician, Not Found Primary Care Provider Un available Reason for Visit * Reason Comments Eye Exam Type 1 DM without co mplications Encounter Details Date Type Department Care Team (Late st Contact Info) Description 01/02/2024 Telephone [facility] [address] [facility] [place] [address] Althea Kelley, EMERGENCY RESPONSE TECHNICIAN, MANNEQUIN MOLD MAKER [address] [place] [address] Eye Exam (Type 1 DM without complications) Social History Tobacco Use Types Packs/Day Years Used Date Smoking Tobacco: Never Smokeless Tobacco: Never Alcohol Use Standard Drinks/Week Comments Yes 0 (1 standard drink = 0.6 oz pur e alcohol) 4/week Sex and Gender Information Value Date Recorded Sex Assigned at Not on file Gender Identity Not on file Sexual Orientation Not on file documented as of this encounter Nursing Notes * Ana Kennedy - 01/02/2024 11:06 AM CST Rec'd eye exam report from [facility], Type 1 DM without complications. Report sent to [facility] MOSS GATHERER documented in this encounter Plan of Treatment Not on file documented as of this encounter Visit Diagnoses Not on filedocumented in this encounter Care Teams Game Warden Relationship Specialty Start Date End Date Clinician, Not Found, [place] [address] PCP - General 06/27/16 documented as of this encounter
--- OUTSIDE RECORDS SUMMARY | 2024-03-07 10:30 | XMS_ITS | Encounter Summary ---
Author Name Unknown Organization [facility] Address [address], [place] [address] Care Team Providers Care Executive Recruiter Name Role Phone Clinician, Not Found MD Primary Care Provider Un available Reason for Visit * Reason Comments FOLLOW-UP,DIABETES Entered automaticall y based on patient selection in [facility]. Encounter Details Date Type Department Care Team (Late st Contact Info) Description 12/27/2023 11:30 AM LIFT TRUCK MECHANIC E-Visit [facility] [address] [facility] [place], [place] [id number] Althea Kelley, DIRECTOR CORPORATE COMPLIANCE, PHYSICAL THERAPY COORDINATOR [address] [place], [place] [id number] Chief Comp: FOLLOW-UP,DIABETES Social History Tobacco Use Types Packs/Day Years Used Date Smoking Tobacco: Never Smokeless Tobacco: Never Alcohol Use Standard Drinks/Week Comments Yes 0 (1 standard drink = 0.6 oz pur e alcohol) 4/week Sex and Gender Information Value Date Recorded Sex Assigned at Not on file Gender Identity Not on file Sexual Orientation Not on file documented as of this encounter Nursing Notes * Eric Markham RN - 12/27/2023 12:08 PM CST Eye Exam report from [facility] dated 12/27/23 sent to scan doc. TRUCK MECHANIC documented in this encounter Plan of Treatment Not on file documented as of this encounter Visit Diagnoses Not on filedocumented in this encounter Care Teams Executive Recruiter Relationship Specialty Start Date End Date Clinician, Not Found, [place] [address] PCP - General 06/27/16 documented as of this encounter
--- OUTSIDE RECORDS SUMMARY | 2024-03-07 10:30 | XMS_ITS | Encounter Summary ---
Author Name Unknown Organization [facility] Address [address] [place] [address] Care Team Providers Care Insole Cementer Name Role Phone Clinician, Not Found Primary Care Provider Un available Encounter Details Date Type Department Care Team (Late st Contact Info) Description 02/01/2024 E-Visit [facility] [address] [facility] [place], [place] [address] Mychart, [place] [address] Social History Tobacco Use Types Packs/Day Years [...] on filedocumented in this encounter Care Teams Insole Cementer Relationship Specialty Start Date End Date Clinician, Not Found, [place] [address] PCP - General 06/27/16 documented as of this encounter
--- OUTSIDE RECORDS SUMMARY | 2024-03-07 10:30 | XMS_ITS | Encounter Summary ---
Author Name Unknown Organization [facility] Address [address] [place] [address] Care Team Providers Care Shoe Planner Name Role Phone Mariela Salas LPN Primary Care Provider Justino Hi MD Unavailable + [phone] Reason for Referral * - Closed Specialty Diagnoses / Procedures Referred By Teodoro mondragon Referred To Contact Diagnoses related condition, antepartum Katy Mcqueen MD [facility] [address] [place] [address] Fax: Referral ID Status Reason Start Date Expiration Date Visits Re quested Visits Authorized [id number] Closed 05/28/2018 05/28/2019 1 1 Question Answer MFM Location [facility] 12/06/2018 Ultrasound Comprehensive US (>than 18 weeks GA) US PROC Echocardiogram (enter Indication in Comments) MFM Issue Advanced Maternal Age *MUST request Genetic Counseling - MFM Consultation (unrelated to Ultrasound findings) Yes (enter details in Comments) - Type 1 diabetes Genetic Counseling Consultation: Yes fax [facility] Dr. Katy Mcqueen Comments There is no height or weight [...] where they were done to arrange for black pickler prior to your scheduled appointment. Any new CT, MRI or other procedures ordered by your specialist must be performed at a [facility] facility or coordinated by your clinic's referral office. >> List of current medications >> This referral request >> Any documents/labs given to you for this referral Encounter Details Date Type Department Care Team (Late st Contact Info) Description 05/28/2018 Orders Only [facility] [place] [address] [facility] [address] [place] [address] Katy Mcqueen MD [facility] [address] [place] [address] related condition, antepartum (Primary Dx) Social History [...] CTR REFERRAL- Referral Routine related condition, antepartum 1 Occurrences starting 05/28/2018 until 11/24/2018 documented as of this encounter Visit Diagnoses Diagnosis related condition, antepartum- Primary documented in this encounter Care Teams Shoe Planner Relationship Specialty Start Date End Date Mariela Salas LPN PCP - General 06/25/18 Justino Reilly MD [address] [place] [address] Assigned Surgical Provider 09/11/2001/22/22 documented as of this encounter
--- OUTSIDE RECORDS SUMMARY | 2024-03-07 10:30 | XMS_ITS | Clinical Summary ---
Author Name Unknown Organization [facility] Address [address] [place] [address] Care Team Providers Care Rn International Name Role Phone Clinician, Not Found MD Primary Care Provider Un available Source Comments You are receiving this document as you are listed as the primary care provider,follow-up provider, or the patient has been referred to you for consultation.This is in compliance with the Medicare andMedicaid EHR Incentive Program,which states Providers who transition their patient to another setting of careor provider of care or refers their patient to another provider of care shouldprovide summary care record for each transition of care or referral. [email or web address] Allergies Active Allergy Reactions Criticality Noted Date Comments Morphine Itching 06/08/2021 Ketorolac Tromethamine Hives High 06/08/2021 Tramadol Other, see comments 06/08/2021 Vomiting Diazepam Dizziness 06/08/2021 Medications Medication Sig Dispensed Refills Start Date End Date Status Generic Medication (DIABETIC SUPPL[place] [facility]; Combo Route) route. Bownty form for pump and testing supplies faxed to [phone] 01/05/2015 Active acetone urine (KETOSTIX) test strip Use to test daily. 100 Each 3 10/30/2017 Active lancets (MILTON MICROLET)Indicatio ns:Pre-existing type 1 diabetes mellitus in in third trimester Use 1 to test 8-10 times daily. Use as directed. Pharmacy dispense brand based on insurance. 300 Each 11 10/23/2018 Active insulin syringe-needle U-100 0.5ml 31g x 15/64 Inject 1 Each subcutaneously as needed. 100 Each 07/16/2019 Active blood glucose (MILTON CONTOUR NEXT) test stripIndications:T ype 1 diabetes mellitus without complication (HRC) Use 8-10 times daily 750 Strip 3 10/15/2019 Active Blood Glucose Monitoring Suppl (CONTOUR MONITOR) w/Device KITIndications:Typ e 1 diabetes mellitus without complication (HRC) Use 1 Device to test as needed. Use as directed. Pharmacy dispense brand based on insurance. 1 Kit 07/24/2020 Active glucagon (BAQSIMI ONE PACK) 3 MG/DOSE nasal powder Place 1 Dose (3 mg) into one nostril as needed for Hypoglycemia. May repeat in 15 minutes prn. Do not open tube until ready to use. 1 Each 11/01/2022 Active insulin aspart (NOVOLOG) 100 UNIT/ML injection (vial)Indications: Type 1 diabetes mellitus without complication (HRC) USE 45 UNITS PER DAY VIA INSULIN PUMP 40 mL 3 08/11/2023 Active insulin glargine (LANTUS) 100 UNIT/ML injection Inject 16-20 Units subcutaneously daily. HOLD FOR PT CALL 10 mL 3 08/11/2023 Active melatonin 5 MG tablet Take 1 Tablet (5 mg) by mouth daily at bedtime. Active drug not in computer [facility] Active Active Problems Problem Noted Date Diagnosed Date Placenta previa without hemorrhage in second tri mester 02/28/2020 Type 1 diabetes mellitus 09/24/2012 Overview: Type I (juvenile type) diabetes mellitus without mention of complication, not stated as uncontrolled (HRC) Insulin pump status 09/24/2012 Encounters Date Type Department Care Team Description 02/04/2024 8:50 PM CDT E-Visit [place] [address] [place] [address]. [place] [address] Althea Kelley, STRATEGIC PLANNING CONSULTANT, DIRECTOR OF LOGISTICS Chief Comp: FOLLOW-UP,DIABETES 02/02/2024 9:00 AM CDT Telemedicine [place] [address] [place] [address]. [place] [address] Althea Kelley, STRATEGIC PLANNING CONSULTANT, DIRECTOR OF LOGISTICS Type 1 diabetes mellitus without complication (HRC) (Primary Dx); Insulin pump status (HRC) 02/01/2024 E-Visit [place] [address] [place] [address]. [place] [address] Mychart, Generic Provider 01/02/2024 Telephone [facility] [address] [place] [address] Althea Kelley, MILY, DIRECTOR OF LOGISTICS Eye Exam (Type 1 DM without complications) 12/27/2023 11:30 AM RESEARCH MANAGEMENT ASSOCIATE E-Visit [facility] [address] [place] [address] Althea Kelley, MILY, DIRECTOR OF LOGISTICS Chief Comp: FOLLOW-UP,DIABETES 12/27/2023 Orders Only HIM DEPARTMENT ProviderDaphne MD 12/27/2023 Orders Only HIM DEPARTMENT Provider, MD Daphne from Last 3 Months Immunizations Name Administration Dates Next Due HepA Adult (19+ yrs) 01/20/2015 HepB Adult (Engerix-B, 20+ yrs, 3 dose series) 0 01/20/2015 Influenza IIV4 (Quadrivalent) 0.5mL (08114) 08/21,08/28/2014 PPSV23 (Pneumovax) 01/20/2015 TDAP (ADACEL) 05/01/2014 TDAP (BOOSTRIX) 09/12/2014 YF (Yellow Fever) 01/20/2015 Social History Tobacco Use Types Packs/Day Years Used Date Smoking Tobacco: Never Smokeless Tobacco: Never Tobacco Cessation:Counseling Given: Not Answered Alcohol Use Standard Drinks/Week Comments Yes 0 (1 standard drink = 0.6 oz pur e alcohol) 4/week Sex and Gender Information Value Date Recorded Sex Assigned at Not on file Gender Identity Not on file Sexual Orientation Not on file Last Filed Vital Signs Vital Sign Reading Time Taken Comments Blood Pressure 114/72 02/21/2023 8:22 AM CDT Pulse 76 02/21/2023 8:22 AM CDT Temperature - - Respiratory Rate - - Oxygen Saturation - - Inhaled Oxygen Concentration - - Weight 66.2 kg (146 lb) 02/21/2023 8:22 AM CDT Height 162.6 cm (5' 4) 02/21/2023 8:22 AM CDT Body Mass Index 25.06 02/21/2023 8:22 AM CDT Plan of Treatment Health Maintenance Due Date Last Done Comments Cervical Cancer Screening Due 1982 Hep C Screening (Preventive Services) 1982 HIV Screening (Preventive Services) 1998 Adult Preventive Visit 01/27/2000 HepB (2) 02/17/2015 01/20/2015 HepA (2 of 2 - Risk 2-dose series) 07/23/2015 01/20/2015 Pneumococcal (2 - PCV) 01/21/2016 01/20/2015 Diabetes: Creatinine 06/08/2022 06/08/2021, 12/17/2019, 04/16/2019, Additional history exists Diabetes: HGBA1C 05/23/2023 02/21/2023, , 06/21/2022, Additional history exists Diabetes: Foot Exam 02/21/2024 02/20/2023 (Completed ) Diabetes: Urine Microalbumin 02/22/2024 02/21/2023, 06/08/2021, 12/17/2019, Additional history exists Diabetes: Eye Exam 12/27/2024 12/27/2023, 0 12/27/2023, 11/10/2022, Additional history exists Diabetes: Lipid Panel 06/08/2026 06/08/2021 , 04/16/2019, 11/21/2017, Additional history exists DTaP/Tdap/Td (5 - Tdap) 05/08/2030 05/08/20, 10/01/2018, 09/12/2014, Additional history exists Zoster/Shingles (1 of 2) 01/27/2032 Influenza Completed 08/15/2023, 08/20, 09/21/2021, Additional history exists COVID-19 Vaccine Completed 08/23/2023, 09/2022, 10/09/2021, Additional history exists HPV Vaccine Aged Out No longer eligi ble based on patient's age to complete this topic Hib Aged Out No longer eligi ble based on patient's age to complete this topic IPV (Polio) Aged Out No longer eligi ble based on patient's age to complete this topic MCV4 Aged Out No longer eligi ble based on patient's age to complete this topic Procedures Procedure Name Priority Date/Time Associated Diagnosis Comments REBECA (DIABETIC EYE EXAM) 12/27/2023 REBECA (DIABETIC EYE EXAM) 12/27/2023 ALBUMIN/CREAT RATIO Routine 02/21/2023 9 :26 AM CDT Type 1 diabetes mellitus without complication (HRC) HGB A1C Routine 02/21/2023 8:15 AM CDT Type 1 diabetes mellitus without complication (HRC) CREATININE / GFR Routine 06/08/2021 3:29 PM CDT Type 1 diabetes mellitus without complication (HRC) LDL CHOLESTEROL, DIRECT MEASURED Routine 06/08/2021 3:29 PM CDT Type 1 diabetes mellitus without complication (HRC) from Last 3 Months or Most Recently Relevant to Health Maintenance Results * REBECA (DIABETIC EYE EXAM) (12/27/2023) Interface Provider MD DUMMY/OTHER/AR * REBECA (DIABETIC EYE EXAM) (12/27/2023) Interface Provider MD DUMMY/OTHER/AR * Albumin/Creatinine Ratio,Random Urine (02/21/2023 9:26 AM CDT) Albumin/Creati nine Ratio, Urine, Random 1 <30 mg/g 02/21/2023 9:50 AM CDT [facility] Albumin, Urine, Random 0.6 mg/L 02/21/2023 9:50 AM CDT [facility] Creatinine, Urine, Random 41 >20 mg/dL mg/dL 02/21/2023 9:50 AM CDT [facility] Urine Non-blood Collection / Unknown 02/21/2023 9:26 AM CDT 02/21/2023 9:26 AM CDT Althea Kelley APRN, DIRECTOR OF LOGISTICS LAB_1 [facility] [address] [place] [address] [phone] * (ABNORMAL) HgbA1c - Collect in Clinic (02/21/2023 8:15 AM CDT) Hemoglobin A1C (Rapid) 6.2(H) <=5.6 % 02/21/2023 8:27 AM CDT [facility] Performing Location Endo A BU 02/21/2023 8:27 AM CDT [facility] Estimated Average Glucose (Calc) 131 < 117 mg/dL 02/21/2023 8:27 AM CDT [facility] Comment:Estimated average gl ucose (eAG) converts A1c into glucose units (mg/dL) and estimates average glucose over the past approximately 3 months. The eAG reference interval (<117 mg/dL) corresponds to an A1c of <5.7%. Blood Capillary / Unknown 02/21/2023 8:15 AM CDT 02/21/2023 8:16 AM CDT Narrative [facility] - 02/21/2023 8:27 AM CDT For patients not previously diagnosed with diabetes: 5.7-6.4%: Increased risk for diabetes 6.5% and greater: Diagnostic for diabetes For patients diagnosed with diabetes: <8.0%: Goal of therapy for ages 18-75 Clinicians may recommend a higher or lower goal for specific individuals. The test method used for this Hemoglobin A1c result can experience interference from elevated hemoglobin and other hemoglobin variants. In patients with results that do not correlate clinically, contact the lab for further direction. Althea Kelley APRN, PHANI LAB_1 [facility] [address] [place] [address] [phone] * Direct LDL (06/08/2021 3:29 PM CDT) LDL, Direct 105 <=130 mg/dL 06/08/2021 4:26 PM CDT [facility] Blood Venipuncture / Unknown 06/08/2021 3:29 PM CDT 06/08/2021 3:29 PM CDT Althea Kelley APRN, DIRECTOR OF LOGISTICS LAB_1 Performing Organization Address [facility]/ZIP Co de Phone Number [facility] [address] [place] [address], [facility] [phone] * Creatinine (06/08/2021 3:29 PM CDT) Creatinine 0.60 0.55 - 1.02 mg/dL 06/08/2021 4:26 PM CDT [facility] GFR, Estimated >60 >60 mL/min/1.7 3m2 06/08/2021 4:26 PM CDT [facility] Blood Venipuncture / Unknown 06/08/2021 3:29 PM CDT 06/08/2021 3:29 PM CDT Althea Kelley APRN, PHANI LAB_1 Performing Organization Address [facility] Co de Phone Number [facility] [address] [place] [address], [facility] [phone] from Last 3 Months or Most Recently Relevant to Health Maintenance Care Teams Rn International Relationship Specialty Start Date End Date Clinician, Not Found, [place] [address] PCP - General 06/27/16
--- OUTSIDE RECORDS SUMMARY | 2024-03-07 10:30 | XMS_ITS | Encounter Summary ---
Author Name Unknown Organization [facility] Address [address] [address] Care Team Providers Care Golf Stud Riveter Name Role Phone Clinician, Not Found MD Primary Care Provider Un available Reason for Visit * Reason Comments Follow-up Encounter Details Date Type Department Care Team (Late st Contact Info) Description 02/02/2024 9:00 AM CDT Telemedicine [facility] [address] Endocr[address]ology [address] [facility] [place] [address] Althea Kelley, RECONCILING CLERK, PAPER HANGER [address] [place] [address] Type 1 diabetes mellitus without complication (HRC) (Primary Dx); Insulin pump status (HRC) Social History Tobacco Use Types Packs/Day Years Used Date Smoking Tobacco: Never Smokeless Tobacco: Never Alcohol Use Standard Drinks/Week Comments Yes 0 (1 standard drink = 0.6 oz pur e alcohol) 4/week Sex and Gender Information Value Date Recorded Sex Assigned at Not on file Gender Identity Not on file Sexual Orientation Not on file documented as of this encounter Progress Notes * Piper Plummer RN - 02/02/2024 9:00 AM CDT Called pt and LVM to return call for prep. Tandem shows last upload was 10/01/23. * Reta Justice RN - 02/02/2024 9:00 AM CDT Pre-Visit Planning for Phone/Video Visit: Diabetes Pre-visit planning completed. Reviewed the following: Medications Pharmacy Allergies Pt stated that she only had 2 minutes and only had 2 minutes, so we only reviewed the above. Current Diabetes Medications Novolog in pump Insulin Pump Settings Pt will upload pump, will need to check back. * Patricia Gandhi RN - 02/02/2024 9:00 AM CDT 01/31- pt has not yet uploaded pump- mc message sent to remind pt * Althea Kelley APRN, PAPER HANGER - 02/02/2024 9:00 AM CDT February 02, 2024 Chief Complaint: Karin Mcmillan a 44 y.o. female is seen for follow up of Type 1 diabetes. Video visit. I am in clinic. Patient is at home.Total time: 30 min Patient was not able to upload her data until as we were starting her meeting. Our time was slightly limited. We were unable to upload the data into her encounter, but I was able to review it while we discussed her care. History of Present Illness: Subjective: Type 1 DM dx age 22 No known chronic microvascular complications of diabetes. Eye exam 12/2023. No retinopathy Foot exam 02/2023 normal. 02/2023 AlbCr ratio normal. Using tandem pump in control IQ mode 99% of the time. Not using the sleep pattern anymore. Does notuse the exercise pattern.. 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 She has 2 young childrenat home. She is 99% sure they will not have another baby. Currently using control. They are planning a move to [place]. . Current Diabetes Treatment Regimen: Tandem Tslim with Dexcom. Current settings: Basal rates Midnight 0.65 2:30 a.m. 0.6 6:00 a.m. 0.65 11:00 a.m. 0.7 2:30 p.m. 0.65 5:00 p.m. 0.75 9:00 p.m. 0.6 Total basal 15.85 Sensitivity Midnight 70 2:30 a.m. 80 6:00 a.m. 85 11:00 a.m. 80 2:30 p.m. 85 5:00 p.m. 80 Insulin to carb ratios Midnight 14 2:30 a.m. 13 6:00 a.m. 19 11:00 a.m. 11 2:30 p.m. 14 5:00 p.m. 13 9:00 p.m. 14 Total daily dose average 31.06 units a day. 51% is basal which is 15.96 units. 39% is bolus. 1% correction and 10% IQ. Full med list reviewed in [facility]. Patient has nasal glucagon at home. She also has a plan for insulinpump failure with basal insulin. Objective: Pleasant woman. Alert and oriented by video.. Glucose Monitoring: Home glucose monitoring: Using CGMS daily Average Continuous Glucose Monitor 166 over the last 2 weeks. Data is reviewed and discussed together. I was unable to enter it into her encounter. Range 55-354 Blood sugars over 140 64% 80-140 35% Less than 80 1% No severe hypoglycemia Assessment: Karin is a 44 y.o. female who was seen by video today for Type 1 diabetes Diagnoses and Orders Placed: 1. Type 1 diabetes mellitus without complication (HRC) 2. Insulin pump status (HRC) Plan: 1. Try exercise mode for running/exercise in the morning. 2. Labs requests will be mailed to pt for her CPE in [place] A1c, A/C, TSH, creatinine, lipid panel 3. Follow-up PRN. * Jack Ho RN - 02/02/2024 9:00 AM CDT Gave to [facility] for mailing 02/05/24 documented in this encounter Plan of Treatment Not on file documented as of this encounter Visit Diagnoses Diagnosis Type 1 diabetes mellitus without complication (HRC)- Primary Type I (juvenile type) diabetes mellitus without mention of complication, not stated as uncontrolled Insulin pump status (HRC) Insulin pump status documented in this encounter Care Teams Golf Stud Riveter Relationship Specialty Start Date End Date Clinician, Not Found, [place] [address] PCP - General 06/27/16 documented as of this encounter
--- OUTSIDE RECORDS SUMMARY | 2024-03-07 10:30 | XMS_ITS | Encounter Summary ---
Author Name Unknown Organization [place] Address [facility] [place] [address] Care Team Providers Care Bone Char Kiln Tender Name Role Phone Mariela Salas LPN Primary Care Provider Justino Hi MD Unavailable + [phone] Encounter Details Date Type Department Care Team (Late st Contact Info) Description 05/31/2018 Orders Only [facility] Maternal Medicine [facility] [address] [place] [address] Katy Mcqueen MD [facility] [address] [place] [address] related condition, antepartum (Primary Dx) Social History [...] Primary documented in this encounter Care Teams Bone Char Kiln Tender Relationship Specialty Start Date End Date Mariela Salas LPN PCP - General 06/25/18 Justino Reilly MD [address] [place] [address] Assigned Surgical Provider 09/11/2001/22/22 documented as of this encounter
--- OUTSIDE RECORDS SUMMARY | 2024-03-07 10:30 | XMS_ITS ---
Author Name Unknown Organization [facility] Address [address] [place] [address] Care Team Providers Care Supervisor Stage Carpentry Name Role Phone Unavailable Unavailable Unavailable Surgery Details Not on file Complications Check Surgery Details section. Procedure Estimated Blood Loss Check Surgery Details section. Procedure Findings Check Surgery Details section. Procedure Specimens Taken Check Surgery Details section.
--- OUTSIDE RECORDS SUMMARY | 2024-03-07 10:30 | XMS_ITS | Encounter Summary ---
Author Name Unknown Organization [place] Address [address] [place] [address] Care Team Providers Care Airfreight Loading Supervisor Name Role Phone Mariela Salas LPN Primary Care Provider Justino Hi MD Unavailable + [phone] Reason for Referral * - Closed Specialty Diagnoses / Procedures Referred By Teodoro mondragon Referred To Contact Diagnoses related condition, antepartum Katy Peres MD [facility] [address] [place] [address] Fax: Referral ID Status Reason Start Date Expiration Date Visits Re quested Visits Authorized [id number] Closed 06/22/2018 06/22/2019 1 1 Comments Positive AFP: (1:169) * - Closed Specialty Diagnoses / Procedures Referred By Teodoro mondragon Referred To Contact Cardiology Diagnoses related condition, antepartum Procedures Echo Complete-Peds Cardiology Katy Peres MD [facility] [address] [place] [address] Fax: [facility] [address] [place] [phone] Referral ID Status Reason Start Date Expiration Date Visits Re quested Visits Authorized [id number] Closed 06/07/2018 06/07/2019 1 1 * Diagnostic Imaging Ultrasound - Closed Specialty Diagnoses / Procedures Referred By Teodoro mondragon Referred To Contact Diagnoses related condition, antepartum Procedures [facility] US Comprehensive Single Katy Peres MD [facility] [address] [place] [address] Fax: Referral ID Status Reason Start Date Expiration Date Visits Re quested Visits Authorized [id number] Closed 05/31/2018 05/31/2019 1 1 * - Closed Specialty Diagnoses / Procedures Referred By Teodoro mondragon Referred To Contact Diagnoses related condition, antepartum Katy Peres MD [facility] [address] [place] [address] Fax: Referral ID Status Reason Start Date Expiration Date Visits Re quested Visits Authorized [id number] Closed 05/31/2018 05/31/2019 1 1 Question Answer MFM Consult Yes - Type 1 diabetes Comments Can be at [place] Encounter Details Date Type Department Care Team (Late st Contact Info) Description 05/31/2018 Orders Only [facility] [address] [address] Katy Peres MD [facility] [address] [place] [address] related condition, antepartum (Primary Dx) Social History Tobacco Use Types Packs/Day Years Used Date Smoking Tobacco: Never Assessed Sex and Gender Information Value Date Recorded Sex Assigned at Not on file Gender Identity Not on file Sexual Orientation Not on file documented as of this encounter Plan of Treatment Scheduled Referrals Name Type Priority Associated Diagnoses Orde r Schedule MFM Office Visit Referral Routine related condition, antepartum 1 Occurrences starting 05/31/2018 until 05/31/2019 MFM Genetic Counseling Referral Routine related condition, antepartum 1 Occurrences starting 06/22/2018 until 06/22/2019 documented as of this encounter Results * Echo Complete-Peds Cardiology (07/25/2018 11:20 AM CDT) Anatomical Region Laterality Modality Ultrasound 07/25/2018 10:5 6 AM CDT Narrative 07/25/2018 12:18 PM CDT [id number]^PERES^KATY^T ?Study ID: [id number] ?[facility] ?[facility] ?[address] ?[place] [address] ? Echocardiogram __ Name: KARIN MONTEZ Study Date: 07/25/2018 10:56 AM ? Patient Location: [facility] Gender: Female ?Patient Class: Outpatient : 1980 ? Age: 38 yrs Ordering Provider: KATY PERES Referring Provider: KATY PERES Performed By: Genny Ramon RDCS Reading Physician: Radha Cotton MD Reason For Study: , related condition, antepartum Data: Number of fetuses: This is a iglesias gestation. Due date: 12/06/2018. Gestational age: 20w6d. Delivery at: [place]. Specific Indication: echocardiogram performed for maternal type 1 diabetes. Mother on insulin therapy. __ CONCLUSIONS Normal cardiac anatomy. Normal right and left ventricular size and function. heart rate is regular at 143 bpm. No hydrops. The results of the echocardiogram were explained to the patient. She is aware that the study was within normal limits with no major cardiac abnormalities. She is aware of the general limitations of echocardiography. __ Technical Information: The study quality is good. A complete two dimensional, spectral and color Doppler echocardiogram is performed. position and segmental anatomy: The fetus in vertex position. The heart is in left chest. The cardiac apex points towards the left. There is normal atrial arrangement, with concordant atrioventricular and ventriculoarterial connections. The abdominal aorta is to the left of the spine. There is a left sided stomach. CT ratio (circumference): 0.52. Cardiac axis: 35 degrees. Systemic and pulmonary veins: The systemic venous return is normal. At least one right and one left pulmonary veins are seen returning to the left atrium. Atria and atrial septum: Normal right atrial size. The left atrium is normal in size. The flap of the foramen ovale opens in to the left atrium. There is laminar hhcyq-rx-dyeh shunting across the foramen ovale. Atrioventricular valves: The tricuspid valve is normal in appearance and motion. There is no tricuspid insufficiency. The mitral valve is normal in appearance and motion. There is no mitral valve insufficiency. Ventricles and ventricular septum: Normal right ventricular size. Normal right ventricular systolic function. Normal left ventricular size. Normal left ventricular systolic function. The end-diastolic ventricular septum thickness by MMODE is 2 mm. No obvious ventricular level shunting. Outflows tracts: Normal great artery relationship. The right ventricular outflow tract is normal in caliber. The pulmonary valve has normal appearance and motion. There is normal flow across the pulmonary valve. There is unobstructed flow through the left ventricular outflow tract. The aortic valve has normal appearance and motion. There is normal flow across the aortic valve. Great arteries: The main pulmonary artery has normal appearance. There is unobstructed flow in the main pulmonary artery. The pulmonary artery bifurcation is normal. There is unobstructed flow in both branch pulmonary arteries. The ductus arteriosus has normal appearance with normal antegrade flow. There is unobstructed antegrade flow in the ascending aorta. The aortic arch appears normal. There is unobstructed antegrade flow in the aortic arch. Effusions and extracardiac findings: No pericardial effusion. No hydrops. cardiac rhythm: heart rate is regular at 143 bpm. Doppler: There is normal flow in the ductus venosus, umbilical artery and umbilical vein. biometry: Biparietal diameter: 4.87 cm. Head circumference: 18.36 cm. Abdominal circumference: 15.11 cm. Femur length: 3.18 cm. Estimated weight: 339 grams. echocardiography cannot rule out small atrial or ventricular septal defects, persistent ductus arteriosus, mild coarctation of the aorta, partial anomalous pulmonary venous return, minor anatomic valve anomalies or coronary artery anomalies. Doppler Measurements & Calculations MV E max jayme: 32.1 cm/sec ? Ao V2 max: 52.9 cm/sec MV A max jayme: 47.9 cm/sec ? Ao max P.1 mmHg MV E/A: 0.67 PDA max sys jayme: 59.1 cm/sec __ Reading Physician: ?Radha Cotton MD 07/25/2018 12:18 PM Procedure Note Radha Johnson MD - 07/25/2018 [id number]^LARISA^KATY^Werner Study ID:[id number] [facility] [address] [address] Echocardiogram __ Name: KARIN MONTEZ Study Date: 07/25/2018 10:56 AM Patient Location:[facility] Gender: Female Patient Class:Outpatient : 1980 Age: 38 yrs Ordering Provider: KATY PERES Referring Provider: KATY PERES Performed By: Genny Ramon RDCS Reading Physician: Radha Cotton MD Reason For Study: , related condition, antepartum Data: Number of fetuses: This is a iglesias gestation. Duedate: 12/06/2018. Gestational age: 20w6d. Delivery at: [place]. Specific Indication: echocardiogram performed for maternaltype 1 diabetes. Mother on insulin therapy. __ CONCLUSIONS Normal cardiac anatomy. Normal right and left ventricular size and function. heart rate is regular at 143 bpm. No hydrops. The results of the echocardiogram were explained to the patient. Sheis aware that the study was within normal limits with no major cardiac abnormalities. She is aware of the general limitations of echocardiography. __ Technical Information: The study quality is good. A complete two dimensional, spectral andcolor Doppler echocardiogram is performed. position and segmental anatomy: The fetus in vertex position. The heart is in left chest. The cardiacapex points towards the left. There is normal atrial arrangement, withconcordant atrioventricular and ventriculoarterial connections. The abdominal aortais to the left of the spine. There is a left sided stomach. CT ratio (circumference): 0.52. Cardiac axis: 35 degrees. Systemic and pulmonary veins: The systemic venous return is normal. At least one right and one left pulmonary veins are seen returning to the left atrium. Atria and atrial septum: Normal right atrial size. The left atrium is normal in size. The flap ofthe foramen ovale opens in to the left atrium. There is noswdmvlfntj-iw-uniy shunting across the foramen ovale. Atrioventricular valves: The tricuspid valve is normal in appearance and motion. There is notricuspid insufficiency. The mitral valve is normal in appearance and motion. Thereis no mitral valve insufficiency. Ventricles and ventricular septum: Normal right ventricular size. Normal right ventricular systolicfunction. Normal left ventricular size. Normal left ventricular systolic function.The end-diastolic ventricular septum thickness by MMODE is 2 mm. No obvious ventricular level shunting. Outflows tracts: Normal great artery relationship. The right ventricular outflow tract is normal in caliber. The pulmonary valve has normal appearance and motion.There is normal flow across the pulmonary valve. There is unobstructed flowthrough the left ventricular outflow tract. The aortic valve has normal appearanceand motion. There is normal flow across the aortic valve. Great arteries: The main pulmonary artery has normal appearance. There is unobstructedflow in the main pulmonary artery. The pulmonary artery bifurcation is normal.There is unobstructed flow in both branch pulmonary arteries. The ductusarteriosus has normal appearance with normal antegrade flow. There is unobstructed antegrade flow in the ascending aorta. The aortic arch appears normal.There is unobstructed antegrade flow in the aortic arch. Effusions and extracardiac findings: No pericardial effusion. No hydrops. cardiac rhythm: heart rate is regular at 143 bpm. Doppler: There is normal flow in the ductus venosus, umbilical artery andumbilical vein. biometry: Biparietal diameter: 4.87 cm. Head circumference: 18.36 cm. Abdominal circumference: 15.11 cm. Femur length: 3.18 cm. Estimated weight: 339 grams. echocardiography cannot rule out small atrial or ventricularseptal defects, persistent ductus arteriosus, mild coarctation of the aorta,partial anomalous pulmonary venous return, minor anatomic valve anomalies orcoronary artery anomalies. Doppler Measurements & Calculations MV E max jayme: 32.1 cm/sec Ao V2 max: 52.9 cm/sec MV A max jayme: 47.9 cm/sec Ao max P.1 mmHg MV E/A: 0.67 PDA max sys jayme: 59.1 cm/sec __ Reading Physician: Radha Cotton MD 07/25/2018 12:18 PM Katy Peres MD PEDS ECHO ORDERAB LES * [facility] US Comprehensive Single (07/09/2018 9:58 AM CDT) Anatomical Region Laterality Modality Ultrasound 07/09/2018 8:54 AM CDT Impressions 07/09/2018 10:11 AM CDT IMPRESSION ----- Sonographic biometry agrees with gestational age predicted by LMP. The anatomy was adequately visualized and appeared normal. None of the anomalies commonly detected by ultrasound were evident. No markers for aneuploidy seen. Narrative 07/09/2018 10:11 AM CDT Comprehensive ----- Pat. Name: KARIN MONTEZ Study Date: 07/09/2018 8:54am Pat. NO: [id number] Referring ??: KATY PERES Site: [facility] Brine Maker: Tammy Echavarria RDMS : 1980 Age: 38 ----- INDICATION ----- Pre-gestational Diabetes Type 1-insulin pump, Abnormal multiple marker: elevated MSAFP. METHOD ----- Transabdominal ultrasound examination. ----- Iglesias . Number of fetuses: 1. DATING ----- ? Date ?Details ?Gest. age ?RIGO LMP ?03/01/2018 ?Cycle: regular cycle ?18 w + 4 d ? 12/06/2018 External assessment ?05/09/2018 ?CRL, GA: 9 w + 2 d ? 18 w + 0 d ? 12/10/2018 U/S ? 07/09/2018 ? based upon AC, BPD, Femur, HC ?18 w + 2 d ? 12/08/2018 Assigned dating ?Dating performed on 07/09/2018, based on the LMP ?18 w + 4 d ? 12/06/2018 GENERAL EVALUATION ----- Cardiac activity: present. FHR 159 bpm. movements: visualized. Presentation: cephalic. Placenta: Placental site: posterior, no previa. Umbilical cord: 3 vessel cord. Amniotic fluid: Amount of AF: normal amount. MVP 4.3 cm. DANIEL 12.4 cm. Q1 2.0 cm, Q2 4.3 cm, Q3 3.3 cm, Q4 2.8 cm. BIOMETRY ----- Main Biometry: BPD ? 41.1 ?mm ? [...] 0 lb 8 ?oz Calculated by ?Hadlock ([id number]) Head / Face / Neck Biometry: Risk Consulting Treasury Director ?5.5 ?mm ? Nasal bone ?5.7 ?mm ? Amniotic Fluid / FHR: AF MVP ?4.3 ? cm ? DANIEL ? 12.4 ?cm ? FHR ?159 ? bpm ? ANATOMY ----- The following structures appear normal: Head / Neck ? Cranium. Head size. Head shape. Lateral ventricles. Choroid plexus. Midline falx. Cavum septi pellucidi. Cerebellum. Cisterna magna. ? Thalami. ? Neck. Nuchal fold. Face ? Lips. Profile. Nose. Orbits. Heart / Thorax ?4-chamber view. RVOT. LVOT. Aortic arch. Bicaval view. Ductal arch. 3-vessel view. 7-nucrec-vitfszn view. Cardiac position. Cardiac size. ? Cardiac rhythm. ? Diaphragm. Abdomen ? Abdominal wall. Cord insertion. Stomach. Kidneys. Bladder. Liver. Bowel. Spine / Skelet. ? Cervical spine. Thoracic spine. Lumbar spine. Sacral spine. Extremities ?Arms. Legs. Gender: male. MATERNAL STRUCTURES ----- Uterus ? Fibroid(s): anterior. Size 11.0 mm x 8.7 mm x 10.8 mm. Mean 10.2 mm. Vol 0.541 cm?. Cervix ?Visualized, Appears Closed. ? Approach - Transabdominal: Cervical length 45.0 mm. Right Ovary ?Not visualized. Left Ovary ?Visualized. RECOMMENDATION ----- We discussed the findings on today's ultrasound with the patient. See consultation letter for further counseling. Return to primary provider for continued care. Thank-you for the opportunity to participate in the care of this patient. If you have questions regarding today's evaluation or if we can be of further service, please contact the M[facility] Center. anomalies may be present but not detected. Procedure Note Toby Morgan MD - 09/19/2018 Comprehensive ----- Pat. Name:AMY MONTEZAStudluz Date:07/09/2018 8:54am Pat. NO: [id number] MD:KATY PERES [facility]Tammy Echavarria RDMS :1980Age:38 ----- INDICATION ----- Pre-gestational Diabetes Type 1-insulin pump, Abnormal multiple marker:elevated MSAFP. METHOD ----- Transabdominal ultrasound examination. ----- Iglesias . Number of fetuses: 1. DATING ----- DateDetailsGest. age RIGO LMP 03/01/2018Cycle: regular cycle18 w + 4 d 12/06/2018 External assessment 05/09/2018 CRL, GA: 9 w+ 2 d18 w + 0 d 12/10/2018 U/S 07/09/2018based upon AC, BPD, Femur, HC18 w + 2 d 12/08/2018 Assigned dating Dating performed on 07/09/2018, based onthe LMP 18 w +4 d 12/06/2018 GENERAL EVALUATION ----- Cardiac activity: present. FHR 159 bpm. movements: visualized. Presentation: cephalic. Placenta: Placental site: posterior, no previa. Umbilical cord: 3 vessel cord. Amniotic fluid: Amount of AF: normal amount. MVP 4.3 cm. DANIEL 12.4 cm. Q12.0 cm, Q2 4.3 cm, Q3 3.3 cm, Q4 2.8 cm. BIOMETRY ----- Main Biometry: BPD 41.1 mm18w 3d Hadlock OFD 53.4 mm17w 6d Nicolaides HC 151.7 mm18w 1d Hadlock AC 131.1 mm18w 4d Hadlock Femur 25.6 mm17w 5d Hadlock Cerebellum tr 18.2 mm18w 1d Nicolaides CM 4.0 mm Nuchal fold 3.38 mm Humerus 25.7 mm18w 0d Lindsay Weight Calculation: EFW 230 g EFW (lb,oz) 0 lb 8 oz Calculated by Hadlock ([id number]) Head / Face / Neck Biometry: Risk Consulting Treasury Director 5.5 mm Nasal bone 5.7 mm Amniotic Fluid / FHR: AF MVP 4.3 cm DANIEL 12.4 cm FHR 159 bpm ANATOMY ----- The following structures appear normal: Head / Neck Cranium. Head size. Head shape.Lateral ventricles. Choroid plexus. Midline falx. Cavum septi pellucidi.Cerebellum. Cisterna magna. Thalami. Neck. Nuchal fold. Face Lips. Profile. Nose. Orbits. Heart / Thorax 4-chamber view. RVOT. LVOT. Aorticarch. Bicaval view. Ductal arch. 3-vessel view. 0-dpnjjn-nezxdvi view.Cardiac position. Cardiac size. Cardiac rhythm. Diaphragm. Abdomen Abdominal wall. Cord insertion.Stomach. Kidneys. Bladder. Liver. Bowel. Spine / Skelet. Cervical spine. Thoracic spine. Lumbarspine. Sacral spine. Extremities Arms. Legs. Gender: male. MATERNAL STRUCTURES ----- Uterus Fibroid(s): anterior. Size 11.0 mmx 8.7 mm x 10.8 mm. Mean 10.2 mm. Vol 0.541 cm?. Cervix Visualized, Appears Closed. Approach - Transabdominal:Cervical length 45.0 mm. Right Ovary Not visualized. Left Ovary Visualized. RECOMMENDATION ----- We discussed the findings on today's ultrasound with the patient. See consultation letter for further counseling. Return to primary providerfor continued care. Thank-you for the opportunity to participate in the care of this patient.If you have questions regarding today's evaluation or if we can be offurther service, please contact the M[facility] Medicine Center. anomalies may be present but not detected. IMPRESSION ----- Sonographic biometry agrees with gestational age predicted by LMP. Thefetal anatomy was adequately visualized and appeared normal. None of theanomalies commonly detected by ultrasound were evident. No markers for aneuploidy seen. Katy Peres MD [facility] US ORDERABLE S documented in this encounter Visit Diagnoses Diagnosis related condition, antepartum- Primary related condition, antepartum related condition, antepartum documented in this encounter Care Teams Airfreight Loading Supervisor Relationship Specialty Start Date End Date Mariela Salas LPN PCP - General 06/25/18 Justino Reilly MD [address] [place] [address] Assigned Surgical Provider 09/11/2001/22/22 documented as of this encounter
--- OUTSIDE RECORDS SUMMARY | 2024-03-07 10:30 | XMS_ITS | Encounter Summary ---
Author Name Unknown Organization [facility] Address [address], [place] [address] Care Team Providers Care Dispatcher Automobile Rental Name Role Phone Clinician, Not Found Primary Care Provider Un available Encounter Details Date Type Department Care Team (Latest Contact Info) Description 12/27/2023 Orders Only HIM DEPARTMENT Provider, [place] [address] Social History Tobacco Use Types Packs/Day Years [...] on filedocumented in this encounter Care Teams Dispatcher Automobile Rental Relationship Specialty Start Date End Date Clinician, Not Found, [place] [address] PCP - General 06/27/16 documented as of this encounter
--- OUTSIDE RECORDS SUMMARY | 2024-03-07 10:30 | XMS_ITS | Encounter Summary ---
Author Name Unknown Organization [facility] Address [address] [address] Care Team Providers Care Home And School Visitor Name Role Phone Clinician, Not Found MD Primary Care Provider Un available Reason for Visit * Reason Comments Forms SMN/RX and c/n - [place] dem Encounter Details Date Type Department Care Team (Late st Contact Info) Description 12/05/2023 Telephone [place] [phone] [facility]ocrinology [address] [place] [facility] [place] [address] Althea Kelley, COMPUTER REPAIR INSTRUCTOR, GROCERY MANAGER [address] [place] [address] Forms (SMN/RX and c/n - Tandem) Social History Tobacco Use Types Packs/Day Years [...] encounter Nursing Notes * Ana Kennedy - 12/06/2023 7:14 PM CST Completed tandem FORM faxed #[phone] , electronic copy filed in elmenus [facility], [facility] * Althea Kelley, MILY, GROCERY MANAGER - 12/06/2023 3:33 PM CST Form completed and faxed through mLED back to [phone]. ACT PERSON * Ana Kennedy - 12/05/2023 8:59 AM CST Received Statement of Medical Necessity and Prescription Order from [facility]. Sent to Althea to complete Faxed chart notes to [facility] [phone] from 08/12/23 ppt ACT PERSON documented in this encounter Plan of Treatment Not on file documented as of this encounter Visit Diagnoses Not on filedocumented in this encounter Care Teams Home And School Visitor Relationship Specialty Start Date End Date Clinician, Not Found, [place] [address] PCP - General 06/27/16 documented as of this encounter
--- OUTSIDE RECORDS SUMMARY | 2024-03-07 10:30 | XMS_ITS | Encounter Summary ---
Author Name Unknown Organization [facility] Address [address], [place] [address] Care Team Providers Care Aircraft Painter Name Role Phone Clinician, Not Found Primary Care Provider Un available Reason for Visit * Reason Comments FOLLOW-UP,DIABETES Entered automaticall y based on patient selection in Ask The Doctor. Encounter Details Date Type Department Care Team (Late st Contact Info) Description 02/04/2024 8:50 PM CDT E-Visit [facility] [address] Endocrinology [address] [facility]. [place], [place] [id number] Althea Kelley, ANIMAL TECH, CIGARETTE MAKING MACHINE HOPPER FEEDER [address] [place], [place] [id number] Chief Comp: FOLLOW-UP,DIABETES Social History Tobacco Use [...] on filedocumented in this encounter Care Teams Aircraft Painter Relationship Specialty Start Date End Date Clinician, Not Found, [place] [address] PCP - General 06/27/16 documented as of this encounter
== END 2024-03-07 10:24 | disposition home or self-care (01) ==
PROVIDERS: PCP Family Medicine; Visit Provider Family Medicine
DX: D64.9 Anemia, unspecified (principal); E11.9 Type 2 diabetes mellitus without complications; Z13.220 Encounter for screening for lipoid disorders; Z13.29 Encounter for screening for other suspected endocrine disorder; Z79.4 Long term (current) use of insulin
CPT/HCPCS: 80053; 80061; 82043; 82570; 82728; 84443